=== PATIENT | female | born 1995 | race Caucasian/White ===

== ENCOUNTER 2023-04-29 11:11 | Outpatient (OUT) | payer BC, MEDICAID, SELFPAY ==
--- NOTE | 2023-04-29 11:16 | US_ITS ---
The [address] [address] Patient Name: BELLE BEAVERS MRN: [id number] date: 1995 Sex: F Assigned Patient Location: US Current Patient Location: US Accession/Order Number: [id number] Exam Date: 04/29/2023 11:15 Report Date: 04/29/2023 12:17 At the request of: FLOR COLLINS Procedure: US OB transvaginal EXAMINATION: US OB transvaginal HISTORY: MISSED MENSES COMPARISON: No relevant comparison available. FINDINGS: Perry intrauterine gestation Gestational sac: 4.92 cm, 10 weeks 4 days CRL: 4.09 cm, 9 weeks 0 days Yolk sac: 4.3 mm Heart rate: 153 bpm The cervix measures 5.1 cm in length. Tiny amount of fluid identified within the endocervical canal The uterus is normal, anteverted, anteflexed The right ovary is not visualized. The left ovary is normal Clinical age: 11 weeks 2 days Clinical YENI: 11/16/2023 Ultrasound age: 11 weeks 0 days Ultrasound YENI: 11/18/2023 US/US OB transvaginal IMPRESSION: Viable perry intrauterine gestation measuring 11 weeks 0 days Electronically authenticated by: JUDE SNELL Date: 04/29/2023 12:17
== END 2023-04-29 11:12 | disposition home or self-care (01) ==
LOC: US 11:12
PROVIDERS: PCP Obstetrics & Gynecology; Visit Provider Obstetrics & Gynecology
DX: Z34.91 Encounter for supervision of normal pregnancy, unspecified, first trimester (principal); Z3A.11 11 weeks gestation of pregnancy; N92.6 Irregular menstruation, unspecified
CPT/HCPCS: 76817

== ENCOUNTER 2023-05-04 14:24 | Outpatient (OUT) | payer BC, MEDICAID, SELFPAY ==
[2023-05-04 14:55] LABS: Estimated Average Glucose 91 mg/dL; Glycohemoglobin A1C 4.8 % (4.5-6.2)
[2023-05-04 16:07] LABS: Thyroid Stimulating Hormone 0.261 uIU/mL (0.358-3.740)
== END 2023-05-04 14:25 | disposition home or self-care (01) ==
LOC: LAB 14:26
PROVIDERS: Visit Provider Obstetrics & Gynecology
DX: N92.6 Irregular menstruation, unspecified (principal)
CPT/HCPCS: 36415; 83036; 84443

== ENCOUNTER 2023-06-15 12:40 | Outpatient (OUT) | payer BC, MEDICAID, SELFPAY ==
--- OUTSIDE RECORDS SUMMARY | 2023-06-15 12:47 | XMS_ITS | CCD ---
Author Name Unknown Address [address] [place] [address] Organization [facility] Care Team Providers Care Salesperson Books Name Role Phone NO, FAMILY PHYSICIAN Primary Care Physician Unav Hetal Beasley Rounding Physician Unavailable NO FAMILY, PHYSICIAN Primary Care Provider Unava ilELSY Garnett Emergency Provider [phone] NO FAMILY, PHYSICIAN Primary Care Provider Unava heladio Bowen ([facility])ELSY Attending Provider MinatareELSY Primary Care Provider [phone] ELSY Rome S Attending Provider ELSY Romefer S Referring Provider [phone] [place], ELSY Russonifer S Primary Care Provider Wild, ELSY Kamarafer S Attending Provider Wild, ELSY Russonifer S Referring Provider [phone] ELSY Daniels Emergency Provider Flor Giles DO Primary Care Provider Wild, ELSY Jacquelyn S Primary Care Provider [phone] Wild, ELSY Jacquelyn S Attending Provider [phone] West, Jacquelyn S Admitting Unavailable Wild, Jacquelyn S Attending Unavailable West, Jacquelyn S Primary Care Unavailable West, Jacquelyn S Referring Unavailable West, Jacquelyn S Attending Unavailable Wild, Jacquelyn S Primary Care Unavailable Wild, Jacquelyn S Admitting Unavailable Andrés ([facility])Rosa Attending Unavailjarvis Bowen ([facility])Rosa Admitting Unavailabl e NO FAMILY, PHYSICIAN Primary Care Unavailable Wild Jacquelyn Williams Primary Care Unavailable Luci Daniels Attending Unavailable Luci Daniels Admitting Unavailable FLOR GILES Attending Unavailable VAISHNAVI DURÁN Attending Unavailable ROSA BOWEN Primary Care Unavailable VAISHNAVI DURÁN Attending Unavailable VAISHNAVI DURÁN Referring Unavailable FLOR GILES Primary Care Unavailable VAISHNAVI DURÁN Referring Unavailable FLOR GILES Primary Care Unavailable Unavailable Unavailable Unavailable Allergies Allergy Classification Reported Allergen(s) Allergy Type Date of Onset Reaction(s) Facility (5 sources) ferrous sulfate; Translations: [FERROUS SULFATE] Drug Allergy 3 Unknown [facility] (5 sources) Sulfonamides (Antibiotic); Translations: [SULFA (SULFONAMIDE ANTIBIOTICS)] Propensity to adverse reactions 3 Unknown [facility] (1 source) Sulfonamides (Antibiotic) Drug allergy (disorder) 3 [facility] Repository Medications Current Medications Medication Drug Class(es) Dates Sig (Normalized) Sig (Original) [id number] 200 actuat albuterol 0.09 mg/actuat metered dose inhaler (3 sources) beta2-Adrenergic Agonist take 2 puff(s) by inhalation every four hours albuterol 90 mcg/actuation inhaler Inhale 2 puffs every 4 hours if needed. 0 Active cephalexin 500 mg oral capsule (2 sources) Cephalosporin Antibacterial Start: 03-27-2023 take 500 mg by mouth twice daily Cephalexin Active 500 MG PO Twice daily March 26, 2023 11:00pm magnesium oxide 400 mg oral tablet (4 sources) Start: 04-21-2023 End: 06-01-2024 take 1 tablet by mouth twice daily magnesium oxide (Mag-Ox) 400 mg (241.3 mg magnesium) tablet Indications: Long Q-T syndrome Take 1 tablet (400 mg) by mouth 2 times a day. 60 tablet 1 06/02/2023 06/01/2024 Active [place] (No Known Home Meds) (3 sources) Start: 03-15-2022 [place] (No Known Home Meds) Active March 15, 2022 12:00am vit37/iron/folic acid (PRENATA ORAL) (3 sources) vit37/iron/folic acid (PRENATA ORAL) Take by mouth. 0 Active Completed/Discontinued Medications Medication Drug Class(es) Dates Sig (Normalized) Sig (Original) cyclobenzaprine hydrochloride 5 mg oral tablet (8 sources) Muscle Relaxant Start: 11-01-2018 End: 03-15-2022 take 5 mg by mouth three times daily Cyclobenzaprine Discontinued 5 MG PO Three times daily 10 October 31, 2018 11:00pm March 15, 2022 1:57pm naproxen 500 mg oral tablet (8 sources) Nonsteroidal Anti-inflammatory Drug Start: 11-01-2018 End: 03-15-2022 take 1 tablet by mouth twice daily at mealtime Naproxen (Naprosyn) 500 mg tablet Discontinued 500 MG PO Twice daily October 31, 2018 11:00pm March 15, 2022 1:57pm administer with food or milk ondansetron 8 mg disintegrating oral tablet (3 sources) Serotonin-3 Receptor Antagonist Start: 03-15-2023 End: 06-02-2023 take 1 tablet by mouth every eight hours as needed ondansetron ODT (Zofran-ODT) 8 mg disintegrating tablet Take 1 tablet (8 mg) by mouth every 8 hours if needed for nausea. 0 03/15/2023 06/02/2023 Discontinued (Med List Cleanup) vit,gfay03-qqil-zbzxs (Prenatabs Rx) 29 mg iron- 1 mg tablet (3 sources) End: 06-02-2023 vit,evuv43-xpcc-quol c (Prenatabs Rx) 29 mg iron- 1 mg tablet 1 tablet once daily. 0 06/02/2023 Discontinued (Duplicate order) vit,leo y81-vtio-xngkx (Prenatabs Rx) 29 mg iron- 1 mg tablet 1 tablet once daily. 0 Active promethazine hydrochloride 25 mg rectal suppository (3 sources) Phenothiazine End: 06-02-2023 take 25 mg rectal route every six hours as needed promethazine (Phenergan) 25 mg suppository Insert 1 suppository (25 mg) into the rectum every 6 hours if needed. 0 06/02/2023 Discontinued (Therapy completed) Problems Problem Classification Problem Date Documented Date Episodic/Chronic Abdominal pain (2 sources) Unspecified abdominal pain; Translations: [Pelvic and perineal pain] Onset: 09-15-2022 Episodic Asthma (5 sources) Asthma; Translations: [Unspecified asthma, uncomplicated] Onset: 04-21-2023 04-21-2023 Chronic Cardiac and circulatory congenital anomalies (1 source) Persistent ostium secundum; Translations: [ASD (atrial septal defect), ostium secundum] Onset: 06-02-2023 06-02-2023 Chronic Conduction disorders (10 sources) Long QT syndrome; Translations: [Long QT syndrome] Onset: 04-21-2023 05-18-2023 Chronic Other aftercare (2 sources) Other correction (current) drug therapy; Translations: [Other termite control servicer (current) drug therapy] Onset: 06-02-2023 Episodic Other aftercare (2 sources) Treatment changed; Translations: [Other termite control servicer (current) drug therapy] Onset: 06-02-2023 06-02-2023 Episodic Other and delivery including normal (2 sources) Intrauterine ; Translations: [Encounter for supervision of normal , unspecified, unspecified trimester] 03-27-2023 Episodic Residual codes; unclassified (1 source) Uses contraception; Translations: [Other specified health status] 03-15-2022 Episodic Residual codes; unclassified (4 sources) Contraception ; Translations: [Other specified health status] 03-15-2022 Episodic Residual codes; unclassified (3 sources) Gestation period, 10 weeks; Translations: [10 weeks gestation of ] Onset: 04-21-2023 04-21-2023 Episodic Sprains and strains (7 sources) Low back strain; Translations: [Strain of muscle, fascia and tendon of lower back, initial encounter] 11-01-2018 Episodic Unclassified (1 source) Pain in right knee; Translations: [Pain in right knee] Onset: 02-01-2023 Urinary tract infections (2 sources) Acute cystitis; Translations: [Acute cystitis without hematuria] 03-27-2023 Episodic Results Test Name Value Interpretation Reference Range Facility TRANSTHORACIC ECHO (TTE) [facility] 05-18-2023 TRANSTHORACIC ECHO (TTE) [address], [address] [facility], [place] [address] TRANSTHORACIC ECHOCARDIOGRAM REPORT Patient Name: BELLE NAJERA Reading Physician: [id number] Makenna Jhaveri MD, [facility] Study Date: 05/18/2023 Ordering Provider: [id number] VAISHNAVI DURÁN MRN/PID: [id number] Fellow: Nurse: Date of /Age: 8 1995 / 28 years [employer] Consultant: Maya Moraes RDCS, RVT Gender: F Additional Staff: Height: 167.64 cm Admit Date: Weight: 81.65 kg Admission Status: BSA: 1.91 m2 Department Location: [facility] Blood Pressure: 128 /82 mmHg Study Type: TRANSTHORACIC ECHO (TTE) COMPLETE Diagnosis/ICD: Long QT syndrome-I45.81 Indication: Pt is 14 weeks , Former Smoker, Marijuana Use CPT Codes: Echo Complete w Full Doppler-[id number] Study Detail: The following Echo studies were performed: 2D, M-Mode, Doppler and color flow. PHYSICIAN INTERPRETATION: Left Ventricle: Left ventricular systolic function is normal, with an estimated ejection fraction of 60-65%. There are no regional wall motion abnormalities. The left ventricular cavity size is normal. Spectral Doppler shows a normal pattern of left ventricular diastolic filling. Left Atrium: The left atrium is normal in size. There is small atrial septal defect with dpyy-tm-pzksw shunt. Right Ventricle: The right ventricle is normal in size. There is normal right ventricular global systolic function. Right Atrium: The right atrium is normal in size. Aortic Valve: The aortic valve is trileaflet. There is no evidence of aortic valve regurgitation. The peak instantaneous gradient of the aortic valve is 6.0 mmHg. The mean gradient of the aortic valve is 3.0 mmHg. Mitral Valve: The mitral valve is normal in structure. There is mild mitral valve regurgitation. Tricuspid Valve: The tricuspid valve is structurally normal. There is trace tricuspid regurgitation. Pulmonic Valve: The pulmonic valve is structurally normal. There is no indication of pulmonic valve regurgitation. Pericardium: There is no pericardial effusion noted. Aorta: The aortic root is normal. Systemic Veins: The inferior vena cava appears to be of normal size. CONCLUSIONS: 1. Left ventricular systolic function is normal with a 60-65% estimated ejection fraction. 2. There is small atrial septal defect with dusc-yn-trzdd shunt. 3. Mild mitral valve regurgitation. QUANTITATIVE DATA SUMMARY: 2D MEASUREMENTS: Normal Ranges: Ao Root d: 3.10 cm (2.0-3.7cm) LAs: 2.70 cm (2.7-4.0cm) RVIDd: 2.70 cm (0.9-3.6cm) IVSd: 1.00 cm (0.6-1.1cm) LVPWd: 0.80 cm (0.6-1.1cm) LVIDd: 4.90 cm (3.9-5.9cm) LVIDs: 3.50 cm LV Mass Index: 80.0 g/m2 LV % FS 28.6 % LV SYSTOLIC FUNCTION BY 2D PLANIMETRY (MOD): Normal Ranges: EF-A4C View: 57.8 % (>=55%) LV DIASTOLIC FUNCTION: Normal Ranges: MV Peak E: 0.94 m/s (0.7-1.2 m/s) MV Peak A: 0.59 m/s (0.42-0.7 m/s) E/A Ratio: 1.58 (1.0-2.2) MV lateral e' 0.17 m/s MV medial e' 0.13 m/s E/e' Ratio: 5.40 (<8.0) MITRAL VALVE: Normal Ranges: MV Vmax: 0.90 m/s (<=1.3m/s) MV peak P.2 mmHg (<5mmHg) MV mean P.0 mmHg (<48mmHg) MITRAL INSUFFICIENCY: Normal Ranges: MR Vmax: 465.00 cm/s dP/dt: 1515 mmHg/s (>1200mmHg/sec) AORTIC VALVE: Normal Ranges: AoV Vmax: 1.22 m/s (<=1.7m/s) AoV Peak P.0 mmHg (<20mmHg) AoV Mean P.0 mmHg (1.7-11.5mmHg) LVOT Max Suleiman: 0.70 m/s (<=1.1m/s) AoV VTI: 24.60 cm (18-25cm) LVOT VTI: 14.10 cm LVOT Diameter: 2.30 cm (1.8-2.4cm) AoV Area, VTI: 2.38 cm2 (2.5-5.5cm2) AoV Area,Vmax: 2.38 cm2 (2.5-4.5cm2) AoV Dimensionless Index: 0.57 TRICUSPID VALVE/RVSP: Normal Ranges: Peak TR Velocity: 1.86 m/s RV Syst Pressure: 16.8 mmHg (< 30mmHg) PULMONIC VALVE: Normal Ranges: PV Max Suleiman: 0.7 m/s (0.6-0.9m/s) PV Max P.0 mmHg [id number] Makenna Jhaveri MD, FACC Electronically signed on 05/18/2023 at 1:24:06 PM Final Normal [facility] Heart TransthoracicOrdere d By: Makenna Jhaveri on 05-18-2023 Aortic Valve Area by Continuity of Peak Velocity 2.38 [facility] Work Phone: Aortic Valve Area by Continuity of VTI 2.38 [facility] Work Phone: AV mn grad 3.0 [facility] Work Phone: [phone] AV pk grad 6.0 [facility] Work Phone: [phone] AV pk suleiman 1.22 [facility] Work Phone: [phone] LV A4C EF 57.8 [facility] Work Phone: [phone] LVIDd 4.90 [facility] Work Phone: [phone] LVOT diam 2.30 [facility] Work Phone: [phone] MV avg E/e' ratio 5.40 [facility] Work Phone: [phone] MV E/A ratio 1.58 [facility] Work Phone: [phone] RVSP 16.8 [facility] Work Phone: [phone] [facility] Work Phone: [phone] [place] Heart Transthoracicon [address], [address] [facility], [place] [address] TRANSTHORACIC ECHOCARDIOGRAM REPORT Patient Name: BELLE NAJERA Reading Physician: [id number] Makenna Jhaveri MD, [facility] Study Date: 05/18/2023 Ordering Provider: [id number] VAISHNAVI DURÁN MRN/PID: [id number] Fellow: Nurse: Date of /Age: 8 1995 / years [employer] Consultant: Maya Moraes RDCS, RVT Gender: F Additional Staff: Height: 167.64 cm Admit Date: Weight: 81.65 kg Admission Status: BSA: 1.91 m2 Department Location: [facility] Blood Pressure: 128 /82 mmHg Study Type: TRANSTHORACIC ECHO (TTE) COMPLETE Diagnosis/ICD: Long QT syndrome-I45.81 Indication: Pt is 14 weeks , Former Smoker, Marijuana Use CPT Codes: Echo Complete w Full Doppler-[id number] Study Detail: The following Echo studies were performed: 2D, M-Mode, Doppler and color flow. PHYSICIAN INTERPRETATION: Left Ventricle: Left ventricular systolic function is normal, with an estimated ejection fraction of 60-65%. There are no regional wall motion abnormalities. The left ventricular cavity size is normal. Spectral Doppler shows a normal pattern of left ventricular diastolic filling. Left Atrium: The left atrium is normal in size. There is small atrial septal defect with fjel-td-lfdpr shunt. Right Ventricle: The right ventricle is normal in size. There is normal right ventricular global systolic function. Right Atrium: The right atrium is normal in size. Aortic Valve: The aortic valve is trileaflet. There is no evidence of aortic valve regurgitation. The peak instantaneous gradient of the aortic valve is 6.0 mmHg. The mean gradient of the aortic valve is 3.0 mmHg. Mitral Valve: The mitral valve is normal in structure. There is mild mitral valve regurgitation. Tricuspid Valve: The tricuspid valve is structurally normal. There is trace tricuspid regurgitation. Pulmonic Valve: The pulmonic valve is structurally normal. There is no indication of pulmonic valve regurgitation. Pericardium: There is no pericardial effusion noted. Aorta: The aortic root is normal. Systemic Veins: The inferior vena cava appears to be of normal size. CONCLUSIONS: 1. Left ventricular systolic function is normal with a 60-65% estimated ejection fraction. 2. There is small atrial septal defect with tcyh-lk-xgklh shunt. 3. Mild mitral valve regurgitation. QUANTITATIVE DATA SUMMARY: 2D MEASUREMENTS: Normal Ranges: Ao Root d: 3.10 cm (2.0-3.7cm) LAs: 2.70 cm (2.7-4.0cm) RVIDd: 2.70 cm (0.9-3.6cm) IVSd: 1.00 cm (0.6-1.1cm) LVPWd: 0.80 cm (0.6-1.1cm) LVIDd: 4.90 cm (3.9-5.9cm) LVIDs: 3.50 cm LV Mass Index: 80.0 g/m2 LV % FS 28.6 % LV SYSTOLIC FUNCTION BY 2D PLANIMETRY (MOD): Normal Ranges: EF-A4C View: 57.8 % (>=55%) LV DIASTOLIC FUNCTION: Normal Ranges: MV Peak E: 0.94 m/s (0.7-1.2 m/s) MV Peak A: 0.59 m/s (0.42-0.7 m/s) E/A Ratio: 1.58 (1.0-2.2) MV lateral e' 0.17 m/s MV medial e' 0.13 m/s E/e' Ratio: 5.40 (<8.0) MITRAL VALVE: Normal Ranges: MV Vmax: 0.90 m/s (<=1.3m/s) MV peak P.2 mmHg (<5mmHg) MV mean P.0 mmHg (<48mmHg) MITRAL INSUFFICIENCY: Normal Ranges: MR Vmax: 465.00 cm/s dP/dt: 1515 mmHg/s (>1200mmHg/sec) AORTIC VALVE: Normal Ranges: AoV Vmax: 1.22 m/s (<=1.7m/s) AoV Peak P.0 mmHg (<20mmHg) AoV Mean P.0 mmHg (1.7-11.5mmHg) LVOT Max Suleiman: 0.70 m/s (<=1.1m/s) AoV VTI: 24.60 cm (18-25cm) LVOT VTI: 14.10 cm LVOT Diameter: 2.30 cm (1.8-2.4cm) AoV Area, VTI: 2.38 cm2 (2.5-5.5cm2) AoV Area,Vmax: 2.38 cm2 (2.5-4.5cm2) AoV Dimensionless Index: 0.57 TRICUSPID VALVE/RVSP: Normal Ranges: Peak TR Velocity: 1.86 m/s RV Syst Pressure: 16.8 mmHg (< 30mmHg) PULMONIC VALVE: Normal Ranges: PV Max Suleiman: 0.7 m/s (0.6-0.9m/s) PV Max P.0 mmHg [id number] Makenna Jhaveri MD, [facility] Electronically signed on 05/18/2023 at 1:24:06 PM Final Makenna Hickey MD - 05/18/[address], [place] [address] TRANSTHORACIC ECHOCARDIOGRAM REPORT Patient Name: BELLE RIVEROONS Reading Physician: [id number] Makenna Jhaveri MD, [facility] Study Date: 05/18/2023 Ordering Provider: [id number] VAISHNAVI DURÁN MRN/PID: [id number] Fellow: Nurse: Date of /Age: 8 1995 / years [employer] Consultant: Maya Moraes RDCS, T Gender: F Additional Staff: Height: 167.64 cm Admit Date: Weight: 81.65 kg Admission Status: BSA: 1.91 m2 Department Location: [facility] Blood Pressure: 128 /82 mmHg Study Type: TRANSTHORACIC ECHO (TTE) COMPLETE Diagnosis/ICD: Long QT syndrome-I45.81 Indication: Pt is 14 weeks , Former Smoker, Marijuana Use CPT Codes: Echo Complete w Full Doppler-[id number] Study Detail: The following Echo studies were performed: 2D, M-Mode, Doppler and color flow. PHYSICIAN INTERPRETATION: Left Ventricle: Left ventricular systolic function is normal, with an estimated ejection fraction of 60-65%. There are no regional wall motion abnormalities. The left ventricular cavity size is normal. Spectral Doppler shows a normal pattern of left ventricular diastolic filling. Left Atrium: The left atrium is normal in size. There is small atrial septal defect with utko-sg-nhmqg shunt. Right Ventricle: The right ventricle is normal in size. There is normal right ventricular global systolic function. Right Atrium: The right atrium is normal in size. Aortic Valve: The aortic valve is trileaflet. There is no evidence of aortic valve regurgitation. The peak instantaneous gradient of the aortic valve is 6.0 mmHg. The mean gradient of the aortic valve is 3.0 mmHg. Mitral Valve: The mitral valve is normal in structure. There is mild mitral valve regurgitation. Tricuspid Valve: The tricuspid valve is structurally normal. There is trace tricuspid regurgitation. Pulmonic Valve: The pulmonic valve is structurally normal. There is no indication of pulmonic valve regurgitation. Pericardium: There is no pericardial effusion noted. Aorta: The aortic root is normal. Systemic Veins: The inferior vena cava appears to be of normal size. CONCLUSIONS: 1. Left ventricular systolic function is normal with a 60-65% estimated ejection fraction. 2. There is small atrial septal defect with hpxh-nl-puesv shunt. 3. Mild mitral valve regurgitation. QUANTITATIVE DATA SUMMARY: 2D MEASUREMENTS: Normal Ranges: Ao Root d: 3.10 cm (2.0-3.7cm) LAs: 2.70 cm (2.7-4.0cm) RVIDd: 2.70 cm (0.9-3.6cm) IVSd: 1.00 cm (0.6-1.1cm) LVPWd: 0.80 cm (0.6-1.1cm) LVIDd: 4.90 cm (3.9-5.9cm) LVIDs: 3.50 cm LV Mass Index: 80.0 g/m2 LV % FS 28.6 % LV SYSTOLIC FUNCTION BY 2D PLANIMETRY (MOD): Normal Ranges: EF-A4C View: 57.8 % (>=55%) LV DIASTOLIC FUNCTION: Normal Ranges: MV Peak E: 0.94 m/s (0.7-1.2 m/s) MV Peak A: 0.59 m/s (0.42-0.7 m/s) E/A Ratio: 1.58 (1.0-2.2) MV lateral e' 0.17 m/s MV medial e' 0.13 m/s E/e' Ratio: 5.40 (<8.0) MITRAL VALVE: Normal Ranges: MV Vmax: 0.90 m/s (<=1.3m/s) MV peak P.2 mmHg (<5mmHg) MV mean P.0 mmHg (<48mmHg) MITRAL INSUFFICIENCY: Normal Ranges: MR Vmax: 465.00 cm/s dP/dt: 1515 mmHg/s (>1200mmHg/sec) AORTIC VALVE: Normal Ranges: AoV Vmax: 1.22 m/s (<=1.7m/s) AoV Peak P.0 mmHg (<20mmHg) AoV Mean P.0 mmHg (1.7-11.5mmHg) LVOT Max Suleiman: 0.70 m/s (<=1.1m/s) AoV VTI: 24.60 cm (18-25cm) LVOT VTI: 14.10 cm LVOT Diameter: 2.30 cm (1.8-2.4cm) AoV Area, VTI: 2.38 cm2 (2.5-5.5cm2) AoV Area,Vmax: 2.38 cm2 (2.5-4.5cm2) AoV Dimensionless Index: 0.57 TRICUSPID VALVE/RVSP: Normal Ranges: Peak TR Velocity: 1.86 m/s RV Syst Pressure: 16.8 mmHg (< 30mmHg) PULMONIC VALVE: Normal Ranges: PV Max Suleiman: 0.7 m/s (0.6-0.9m/s) PV Max P.0 mmHg [id number] Makenna Jhaveri MD, [facility] Electronically signed on 05/18/2023 at 1:24:06 PM Final [facility] Work Phone: Automated erythrocytes count in urine sediment (number/area)Ordered By: Luci Daniels on 03-27-2023 RBC Auto (Urine sed) [#/Area] 1-2 [HPF] 0-4 [facility] Automated leukocytes count i n urine sediment (number/area)Ordered By: Luci Daniels on 03-27-2023 WBC Auto (Urine sed) [#/Area] 20-49 [HPF] 0-4 [facility] Bilirubin Test strip Ql (U)O rdered By: Luci Daniels on 03-27-2023 Bilirubin Ql (U) Negative Negative [facility] Color Auto (U)Ordered By: Tiffanie Saxenaepert on 03-27-2023 Color (U) Yellow Yellow [facility] Dipstick and Microscopicon 1 05-27-2022 Appearance (U) Cloudy Critically abnormal Clear [facility] Comment on above: Order Comment: Name Collection Type:: Clean-Voided Midstream Performed By: #### A DDONUAPLUS, CUU #### [facility] [address] [place] [address] [place] Bacteria,Urine 2+ High None Seen [facility] Comment on above: Order Comment: Name Collection Type:: Clean-Voided Midstream Performed By: #### A DDONUAPLUS, CUU #### [place] [address] [place] Bilirubin,Urine Negative Normal Negative [facility] Comment on above: Order Comment: Name Collection Type:: Clean-Voided Midstream Performed By: #### A DDONUAPLUS, CUU #### [place] [address] [place] Color (U) Yellow Normal Yellow [facility] Comment on above: Order Comment: Name Collection Type:: Clean-Voided Midstream Performed By: #### A DDONUAPLUS, CUU #### [facility] [address] [place] [address] [place] Glucose Ql (U) Normal Normal Normal [facility] Comment on above: Order Comment: Name Collection Type:: Clean-Voided Midstream Performed By: #### A DDONUAPLUS, CUU #### [facility] [address] [place] [address] [place] Hyaline Casts,Urine 0-8 Normal 0-8 [facility] Comment on above: Order Comment: Name Collection Type:: Clean-Voided Midstream Result Comment: PERF ORMED BY: [place] [address] PATHOLOGIST SHELL MACHINE OPERATOR ANGELIA NIETO M.D. Performed By: #### A DDONUAPLUS, CUU #### [facility] [address] [place] [address] [place] Ketones Ql (U) Negative Normal Negative [facility] Comment on above: Order Comment: Name Collection Type:: Clean-Voided Midstream Performed By: #### A DDONUAPLUS, CUU #### [address] Leukocyte esterase Test strip Ql (U) 2+ High Negative [facility] Comment on above: Order Comment: Name Collection Type:: Clean-Voided Midstream Performed By: #### A DDONUAPLUS, CUU #### [address] Nitrite,Urine Negative Normal Negative [facility] Comment on above: Order Comment: Name Collection Type:: Clean-Voided Midstream Performed By: #### A DDONUAPLUS, CUU #### [address] Occult Blood,Urine Negative Normal Negative [facility] Comment on above: Order Comment: Name Collection Type:: Clean-Voided Midstream Result Comment: PERF ORMED BY: [place] [address] PATHOLOGIST SHELL MACHINE OPERATOR ANGELIA NIETO M.D. Performed By: #### A DDONUAPLUS, CUU #### [address] pH (U) 7.0 [pH] Normal 5.0-9.0 [facility] Comment on above: Order Comment: Name Collection Type:: Clean-Voided Midstream Performed By: #### A DDONUAPLUS, CUU #### [address] Protein,Urine Negative Normal Negative [facility] Comment on above: Order Comment: Name Collection Type:: Clean-Voided Midstream Performed By: #### A DDONUAPLUS, CUU #### [address] RBC,Urine 1-2 Normal 0-4 [facility] Comment on above: Order Comment: Name Collection Type:: Clean-Voided Midstream Performed By: #### A DDONUAPLUS, CUU #### [facility] [address] [place] [address] Specificy Mcgregor,Urine 1.022 Normal 1.001-1.030 [facility] Comment on above: Order Comment: Name Collection Type:: Clean-Voided Midstream Performed By: #### A DDONUAPLUS, CUU #### [facility] [address] [place] [address] Squamous Epithelial Cell,Urine 5-9 High 0-2 [facility] Comment on above: Order Comment: Name Collection Type:: Clean-Voided Midstream Performed By: #### A DDONUAPLUS, CUU #### [address] Urobilinogen,Urine Normal Normal Normal [facility] Comment on above: Order Comment: Name Collection Type:: Clean-Voided Midstream Performed By: #### A DDONUAPLUS, CUU #### [address] WBC,Urine 20-49 High 0-4 [facility] Comment on above: Order Comment: Name Collection Type:: Clean-Voided Midstream Performed By: #### A DDONUAPLUS, CUU #### [address] HCG ( test) IA.rapi d Ql (U)Ordered By: Luci Daniels on 03-27-2023 HCG ( test) Ql (U) Positive [facility] HCG,Urineon 03-27-2023 Beta HCG ( test) Ql (U) Positive [facility] Comment on above: Result Comment: PERF ORMED BY: [place] [address] PATHOLOGIST SHELL MACHINE OPERATOR ANGELIA NIETO M.D. Performed By: #### U HCG #### [address] Ketones Auto test strip (U) [Mass/Vol]Ordered By: Luci Daniesl on 03-27-2023 Ketones (U) [Mass/Vol] Negative Negative [facility] - UrinalysisOrder ed By: Luci Daniels on 03-27-2023 Hyaline casts LM Ql (Urine sed) 0-8 [LPF] 0-8 [facility] Nitrite Test strip Ql (U)Ord ered By: Luci Daniels on 03-27-2023 Nitrite Ql (U) Negative Negative [facility] Protein Auto test strip (U) [Mass/Vol]Ordered By: Luci Daniels on 03-27-2023 Protein (U) [Mass/Vol] Negative [facility] Specific gravity Auto test s trip (U) [Rel density]Ordered By: Luci Daniels on 03-27-2023 Specific gravity (U) [Rel density] 1.022 1.001-1.030 [facility] Squamous epithelial cells de tection in urine sediment by light microscopyOrdered By: Luci Daniels on 03-27-2023 Epithelial cells.squamous LM Ql (Urine sed) 5-9 [HPF] 0-2 [facility] US OB transvaginalon 023 US OB transvaginal [facility] [address] Ultrasound Report Signed Patient: Belle Najera MR#: [id number] 73 : 1995 Acct:[id number] Age/Sex: 28 / F ADM Date: 03/27/23 Loc: ER Room: Type: [facility] ER Attending Dr: Ordering Provider: Luci Daniels APRN Date of Service: 03/27/23 US/US OB <= 14 weeks fetus: 6 weeks ; abdominal pain ([id number]) US/US OB transvaginal: abd. pain w/ Copies to: Luci Daniels APRN US OB <= 14 weeks fetus, US OB transvaginal 03/27/2023 11:08 AM SIGNS AND SYMPTOMS: 6 weeks ; abdominal pain COMPARISON: 09/15/2022 TECHNIQUE: Realtime Transvaginal and Transabdominal imaging was performed. Transvaginal imaging was utilized to better evaluate the ovaries and the endometrial stripe. Grayscale and color scale Doppler of the bilateral ovaries was performed to assess blood flow. FINDINGS: An early intrauterine is identified. The visualized yolk sac measures 0.27 cm. The visualized pole has an estimated gestational age of 6 weeks 1 day by crown-rump length which measures 3.67 mm . A heart rate is identified at 102. A subjective normal amount of amniotic fluid is present. The maurer of the gestational sac are slightly irregular/lobulated . This is of uncertain etiology. There is no evidence for placenta previa or subchorionic hemorrhage. There is a trace amount of free fluid in the cul-de-sac. There is a presumed corpus luteum cyst in the left ovary measuring 2.1 x 1.4 x 2.6 cm. The right ovary measures 2.1 x 1.0 x 1.8 cm. Left ovary measures 3.6 x 1.8 x 2.8 cm. US/US OB <= 14 weeks fetus IMPRESSION: Single live IUP with an estimated gestational age of 6w2d weeks/days (accession [id number]), 6w1d weeks/days (accession [id number]) with an estimated date of delivery of 11/18/2023 (accession [id number]), 11/19/2023 (accession [id number]) and normal heart rate. The maurer of the gestational sac are slightly irregular/lobulated . This is of uncertain etiology. There is a trace amount of free fluid in the cul-de-sac. Impression dictated by: Fuentes Tomlinson M.D.03/27/2023 11:45 AM Dictation Location: [place] [address] Tech: Radha Adarsh Transcribed By: EMEKA 03/27/23 1145 Dictated By: Fuentes Tomlinson II, MD 03/27/23 1141 Signed By: 03/27/23 1145 [facility] Urine Cultureon 03-27-2023 Bacteria identified Cx Nom (U) >100,000 colonies/ml mixed bacterial skin contaminants 2 Days PERFORMED BY: [place] [address] PATHOLOGIST SHELL MACHINE OPERATOR ANGELIA NIETO M.D. [facility] Comment on above: Performed By: #### A LILIBETH GAGNON #### [address] Urine bacteria detection by automated methodOrdered By: Luci Daniels on 03-27-2023 Bacteria Auto Ql (U) 2+ None Seen [facility] Urine clarity by refractomet ry automatedOrdered By: Luci Daniels on 03-27-2023 Clarity Refractometry automated (U) Cloudy Clear [facility] Urine culture routineOrdered By: Luci Daniels on 03-27-2023 Bacteria identified Cx Nom (U) 2 Days [facility] Urine glucose measurement by automated test strip (mass/volume)Ordered By: Luci Daniels on 03-27-2023 Glucose Auto test strip (U) [Mass/Vol] Normal mg/dL Normal [facility] Urine hemoglobin detection b y automated test stripOrdered By: Luci Daniels on 03-27-2023 Hemoglobin Auto test strip Ql (U) Negative Negative [facility] Urine leukocyte esterase det ection by automated test stripOrdered By: Luci Daniels on 03-27-2023 Leukocyte esterase Auto test strip Ql (U) 2+ Negative [facility] Urobilinogen Auto test strip (U) [Mass/Vol]Ordered By: Luci Daniels on 03-27-2023 Urobilinogen (U) [Mass/Vol] Normal mg/dL Normal [facility] pH Auto test strip (U)Ordere d By: Luci Daniels on 03-27-2023 pH (U) 7.0 [pH] 5.0-9.0 [facility] XR knee RT 4V*on 02-01-2023 XR knee RT 4V* [facility] Main [place] [address] [id number] XRay Report Signed Patient: Belle Najera MR#: [id number] 73 : 1995 Acct:[id number] Age/Sex: 28 / F ADM Date: 02/01/23 Loc: XD Room: Type: [facility] Attending Dr: Jacquelyn Rome APRN Copies to: Jacquelyn Rome APRN Ordering Provider: Jacquelyn Rome APRN Date of Service: 02/01/23 XR/XR knee RT 4V*: M25.561 RIGHT KNEE - 4 views COMPARISON: None CLINICAL DATA: Chronic right knee pain. No injury. AP, lateral and both oblique views were obtained. No fracture or dislocation is identified. There is no disproportionate joint space narrowing or hypertrophy. There is no sizable knee effusion or focal soft tissue swelling. XR/XR knee RT 4V* IMPRESSION: NO ACUTE BONY FINDINGS. Impression dictated by: Fartun Villa M.D.02/01/2023 4:33 PM Dictation Location: [facility] Transcribed By: [facility] 02/01/23 163 Dictated By: Fartun Villa MD 02/01/23 163 Signed By: 02/01/23 1633 Normal [facility] US transvaginalon 09-15-2022 US transvaginal [facility] [address] [place] [address] [place] [address] Ultrasound Report Signed Patient: Belle Najera MR#: [id number] 73 : 1995 Acct:[id number] Age/Sex: 27 / F ADM Date: 09/15/22 Loc: Room: Type: [facility] Attending Dr: Rosa Bowen ([facility]) ELSY Ordering Provider: Rosa Bowen APRN, WHCNP Date of Service: 09/15/22 US/US pelvic complete: R10.2 ([id number]) US/US transvaginal: R10.2 Copies to: Rosa Bowen APRN, WHCNP COMPLETE PELVIC ULTRASOUND (transabdominal and transvaginal) CLINICAL DATA: Pelvic pain on the left and irregular menses. COMPARISON: None Real-time ultrasound evaluation of the pelvis was performed utilizing both a transabdominal and transvaginal approach. TRANSABDOMINAL: The urinary bladder is empty and the uterus is anteverted. There are no obvious focal myometrial abnormalities or thickening of the endometrial lining. Both ovaries are identified. Cursory evaluation of the kidneys shows no hydronephrosis or perinephric fluid. TRANSVAGINAL: Transvaginal imaging was performed to better evaluate the uterus and adnexa. By this approach, estimated uterine size is approximately 8.7 x 3.2 x 3.9 cm. No focal myometrial abnormalities are identified. The endometrial lining is estimated at 2 mm. Both ovaries are again seen. The right ovary measures 2.0 x 0.9 x 1.6 cm. The left ovary measures 3.5 x 2.1 x 2.8 cm. It contains a cyst that measures 3.0 x 1.6 x 2.5 cm. There is documentation of bilateral duplex and color Doppler ovarian blood flow. No free fluid is seen. US/US pelvic complete IMPRESSION: 3 CM LEFT OVARIAN CYST. Impression dictated by: Fartun Villa M.D.09/15/2022 6:21 PM Dictation Location: [place] [address] Tech: Alexia Johnson Transcribed By: EMEKA 09/15/221820 Dictated By: Fartun Villa MD 09/15/221816 Signed By: 09/15/221820 [facility] Coding Summary.on 02-22-2019 Coding Summary. CODING DATE: 02/22/2019 [facility] STATUS: Home (Routine DC) PAYOR: Self Pay ADMIT DX: REASON FOR VISIT DX: Z01.419 Encounter for gynecological examination (general) (routine) without abnormal findings FINAL DX: PRINCIPAL: Z01.419 Encounter for gynecological examination (general) (routine) without abnormal findings SECONDARY: Z11.3 Encounter for screening for infections with a predominantly sexual mode of transmission Z11.51 Encounter for screening for human papillomavirus (HPV) PROCEDURES DOCTOR NAME DATE NOTE: The code number assigned matches the documented diagnosis and / or procedure in the patient's chart. However, the narrative phrase printed from the coding software may appear abbreviated, or result in slightly different terminology. Coded By: Cari Soliman Date Saved: 02/22/2019 05:33 pm [facility] Vital Signs Date Time Vital Sign Value Performing Clinician Facility 06-02-2023 09:39-0500 Body height 167.6 cm Vaishnavi Durán MD Work Phone: [facility] 06-02-2023 09:39-0500 Body mass index (BMI) [Ratio] 30.34 kg/m2 Vaishnavi Durán MD Work Phone: [facility] 06-02-2023 09:39-0500 Body weight 85.28 kg Vaishnavi Durán MD Work Phone: [facility] 06-02-2023 09:39-0500 Diastolic blood pressure 60 mm[Hg] Vaishnavi Durán MD Work Phone: [facility] 06-02-2023 09:39-0500 Heart rate 60 /min Vaishnavi Durán MD Work Phone: [facility] 06-02-2023 09:39-0500 Systolic blood pressure 100 mm[Hg] Vaishnavi Durán MD Work Phone: [facility] 05-18-2023 09:33-0500 Body height 167.[address] 05-18-2023 09:33-0500 Body mass index (BMI) [Ratio] 29.05 kg/m2 [address] 05-18-2023 09:33-0500 Body weight 81.[address] 05-18-2023 09:33-0500 Diastolic blood pressure 82 mm[Hg] [address] 05-18-2023 09:33-0500 Systolic blood pressure 128 mm[Hg] [address] 03-27-2023 08:51-0500 Body temperature 98.5 [degF] ELSY Rome Work Phone: [facility] 03-27-2023 08:51-0500 Diastolic blood pressure 69 mm[Hg] ELSY Rome Work Phone: [facility] 03-27-2023 08:51-0500 Heart rate 82 /min ELSY Rome Work Phone: [facility] 03-27-2023 08:51-0500 Respiratory rate 18 /min ELSY Rome Work Phone: [facility] 03-27-2023 08:51-0500 SaO2% (BldA) [Mass fraction] 100 % ELSY Rome Work Phone: [facility] 03-27-2023 08:51-0500 Systolic blood pressure 111 mm[Hg] ELSY Rome Work Phone: [facility] 03-27-2023 08:50-0500 Body height 171.45 cm ELSY Rome Work Phone: [facility] 03-27-2023 08:50-0500 Body weight 80 kg ELSY Rome Work Phone: [facility] 03-15-2022 14:55-0400 Body height 170.18 cm PHYSICIAN [facility] 03-15-2022 14:55-0400 Body temperature 98.6 [degF] PHYSICIAN [facility] 03-15-2022 14:55-0400 Body weight 72.95 kg PHYSICIAN [facility] 03-15-2022 14:55-0400 Diastolic blood pressure 77 mm[Hg] PHYSICIAN NO [facility] 03-15-2022 14:55-0400 Heart rate 80 /min PHYSICIAN [facility] 03-15-2022 14:55-0400 Respiratory rate 14 /min PHYSICIAN [facility] 03-15-2022 14:55-0400 SaO2% (BldA) [Mass fraction] 99 % PHYSICIAN [facility] 03-15-2022 14:55-0400 Systolic blood pressure 133 mm[Hg] PHYSICIAN [facility] 11-01-2018 23:15-0400 Body Temperature 97.5 [degF] [facility] 11-01-2018 23:15-0400 BP Diastolic 80 mm[Hg] [facility] 11-01-2018 23:15-0400 BP Systolic 123 mm[Hg] [facility] 11-01-2018 23:15-0400 Pulse (Heart Rate) 84 /min [facility] 11-01-2018 23:15-0400 Pulse Oximetry 96 % [facility] 11-01-2018 23:15-0400 Respiratory Rate 18 /min FAMILY [facility] Weight FAMILY [facility] NEGATED: Highlighted row BMI (Body Mass Index) [facility] NEGATED: Highlighted row Height [facility] Encounters Encounter Date Encounter Type Care Provider Facility Start: 06-02-2023 End: 06-02-2023 ambulatory FLOR GILES Not Available Start: 06-02-2023 End: 06-02-2023 ambulatory [facility] Ambulatory Start: 06-02-2023 End: 06-02-2023 Office outpatient visit 15 minutes Vaishnavi Durán MD Work Phone: [facility] Comment on above: Long Q-T syndrome; Medication course changed Start: 05-18-2023 End: 05-19-2023 ambulatory [facility] Start: 05-18-2023 End: 05-18-2023 Subsequent hospital visit by physician Stephanie Jean Echo/Vasc Room 2 [facility] Comment on above: Long Q-T syndrome Start: 04-29-2023 End: 04-29-2023 ambulatory FLOR GILES Not Available Start: 04-21-2023 End: 04-21-2023 ambulatory [facility] Ambulatory Start: 03-27-2023 End: 03-27-2023 Emergency department patient visit Jacquelyn Williams Rome Facility:[facility] Start: 03-27-2023 End: 03-27-2023 Emergency department patient visit ELSY Jacquelyn Wild Work Phone: [facility] Work Phone: Start: 03-15-2023 End: 03-15-2023 ambulatory Jacquelyn Rome Facility:[facility] Start: 03-15-2023 End: 03-15-2023 ambulatory ELSY Rome Work Phone: [facility] Work Phone: Start: 03-15-2023 End: 03-15-2023 Discharged Recurring ELSY Rome Work Phone: [facility] [place] Start: 03-15-2023 Registered Recurring INVESTIGATOR VICECatina Rome Work Phone: [facility] [place] Start: 02-01-2023 Registered Recurring INVESTIGATOR VICECatina Rome Work Phone: [facility] [place] Start: 02-01-2023 End: 02-01-2023 ambulatory Jacquelyn Rome Facility:[facility] Start: 02-01-2023 End: 02-01-2023 ambulatory ELSY Rome Work Phone: [facility] Work Phone: Start: 02-01-2023 End: 02-01-2023 Patient encounter procedure ELSY Rome Work Phone: [facility] [address] [place] Work Phone: Start: 09-15-2022 End: 09-15-2022 ambulatory Rosa Bowen ([facility]) Facility:[facility] Start: 09-15-2022 End: 09-15-2022 ambulatory PHYSICIAN NO [facility] Work Phone: Start: 09-15-2022 End: 09-15-2022 Patient encounter procedure PHYSICIAN NO [facility] [place] Work Phone: Start: 03-15-2022 End: 03-15-2022 Emergency department patient visit PHYSICIAN NO [facility] Start: 11-01-2018 End: 11-02-2018 Emergency department patient visit FAMILY [facility] Procedures Date Procedure Procedure Detail Performing Clinician Start: 06-02-2023 FOLLOW UP IN CARDIOLOGY VAISHNAVI DURÁN Start: 06-02-2023 ECG 12-LEAD VAISHNAVI SANCHEZ Start: 05-18-2023 TRANSTHORACIC ECHO ( TTE) COMPLETE VAISHNAVI DURÁN Start: 05-18-2023 Echo tthrc r-t 2d w/ wom-mode compl spec&colr d Vaishnavi Durán MD Work Phone: Start: 04-21-2023 ECG 12-LEAD VAISHNAVI VILLALTA LAURA Start: 03-27-2023 Urine culture INVESTIGATOR VICE Dana cooley [place] Work Phone: Start: 03-27-2023 Diagnostic ultrasoun d of gravid uterus INVESTIGATOR VICECatina Valladares [place] Work Phone: Start: 03-27-2023 Transvaginal obstetr ic ultrasonography ELSY Jacquelyn [place] Work Phone: Start: 02-01-2023 X-ray of right knee APR Catina Jacquelyn [place] Work Phone: Start: 09-15-2022 Pelvic echography PHYSI AYAD NO FAMILY Start: 09-15-2022 Transvaginal echography PHYSICIAN NO FAMILY Plan of Treatment Date Care Activity Detail Author Start: 2047 Zoster Vaccines (1 of 2) Zoste r Vaccines (1 of 2) [facility] Start: 08-08-2023 End: 08-08-2023 Patient encounter procedure 08/08/2023 10:15 AM EDT Office Visit [facility] [address] [facility] [address] [place] [address] Vaishnavi Durán MD [address] [facility] [address] [place] [address] [facility] Start: 06-02-2023 End: 06-02-2024 Basic metabolic 2000 panel - Serum or Plasma Basic Metabolic Panel Lab Routine Long Q-T syndrome Expected: 06/02/2023 (Approximate), Expires: 06/02/2024 [facility] Service Area Work Phone: Comment on above: Expected: 06/02/2023 (Approximate), Expires: 06/02/2024 Start: 06-02-2023 End: 06-02-2023 Patient encounter procedure 06/02/2023 9:30 AM EST Office Visit [facility] [address] [place] [address] Vaishnavi Durán MD [address] [facility] [address] [place] [address] [facility] Start: 03-27-2023 Bacteria identified in Urine by Culture [facility] Start: 03-12-2023 HPV Vaccines (3 - 3- dose series) HPV Vaccines (3 - 3-dose series) [facility] Start: 01-21-2023 Influenza vaccination Influenz a Vaccine (#1) [facility] Start: 03-28-2021 COVID-19 Vaccine (3 - Pfizer series) COVID-19 Vaccine (3 - Pfizer series) [facility] Start: 01-08-2020 DTaP/Tdap/Td Vaccine s (7 - Td or Tdap) DTaP/Tdap/Td Vaccines (7 - Td or Tdap) [facility] Start: 2018 Screening for malign ant neoplasm of cervix [facility] Start: 2015 Hepatitis C screening Hepatitis C Sc [facility] Start: 09-11-2002 Varicella vaccination Varicell a Vaccines (2 of 2 - 2-dose childhood series) [facility] Start: 1997 HIV screening HIV Screening [facility] Start: 1997 Lipid panel Lipid Panel [facility] Start: 1997 Yearly Adult Physical Yearly Adult P hysical [facility] Patient Education [facility] Patient referral [facility] Work Phone: Immunizations Immunization Date Immunization Notes Care Provider Fa cility 11-10-2022 Human Papillomavirus 9-valent vaccine [address] Work Phone: 11-10-2022 HPV, unspecified formulation [address] Work Phone: 09-07-2022 Human Papillomavirus 9-valent vaccine [address] Work Phone: 06-04-2011 influenza virus vacc ine, whole virus [address] Work Phone: 06-04-2011 influenza virus vacc ine, unspecified formulation [address] Work Phone: 01-07-2010 tetanus toxoid, redu yolanda diphtheria toxoid, and acellular pertussis vaccine, adsorbed [address] Work Phone: 08-14-2002 diphtheria, tetanus toxoids and acellular pertussis vaccine, unspecified formulation [address] Work Phone: 08-14-2002 measles, mumps and r ubella virus vaccine [address] Work Phone: 08-14-2002 poliovirus vaccine, inactivated [address] Work Phone: 04-30-1998 diphtheria, tetanus toxoids and acellular pertussis vaccine, unspecified formulation [address] Work Phone: 04-30-1998 haemophilus influenz ae type b vaccine, PRP-OMP conjugate [address] Work Phone: 04-30-1998 measles, mumps and r ubella virus vaccine [address] Work Phone: 04-30-1998 trivalent poliovirus vaccine, live, oral [address] Work Phone: 04-30-1998 varicella virus vaccine [address] Work Phone: 1995 diphtheria, tetanus toxoids and acellular pertussis vaccine, unspecified formulation [address] Work Phone: 1995 haemophilus influenz ae type b conjugate and Hepatitis B vaccine [address] Work Phone: 1995 diphtheria, tetanus toxoids and acellular pertussis vaccine, unspecified formulation [address] Work Phone: 1995 haemophilus influenz ae type b vaccine, HbOC conjugate [address] Work Phone: 1995 poliovirus vaccine, inactivated [address] Work Phone: 1995 diphtheria, tetanus toxoids and acellular pertussis vaccine, unspecified formulation [address] Work Phone: 1995 haemophilus influenz ae type b conjugate and Hepatitis B vaccine [address] Work Phone: 1995 poliovirus vaccine, inactivated [address] Work Phone: 1997 hepatitis B vaccine, pediatric or pediatric/adolescent dosage [address] Work Phone: Payers Date Payer Category Payer Medicaid [id number] 2023 Medicaid [id number] 2022 Self-pay 2021 Unknown [id number] 2021 Unknown TAMIA CANTRELL P [id number] 2021-Present [address] [place] [address] [id number] 1995 Unknown [id number] 1997 Unknown [id number] 1997 Unknown [id number] 1997 Unknown [id number] 1997 Unknown [id number] Private Health Insurance [id number] Unknown [id number] 31 Unknown [id number] 31 Unknown [id number] 31 Unknown [id number] 31 Social History Date Type Detail Facility Tobacco smoking stat [facility] Unknown if ever smoked [facility] Start: 1995 Sex Assigned At Female F [facility] Start: 03-15-2022 End: 03-27-2023 Tobacco smoking status NHIS Smoker (finding) [facility] Start: 04-21-2023 [facility] Work Phone: End: 02-20-2023 History of tobacco use Cigarette Smoker [facility] Work Phone: Start: 04-21-2023 End: 06-02-2023 Cigarettes smoked current (pack per day) - Reported 1 [facility] Work Phone: Start: 04-21-2023 Tobacco use and exposure Former smokeless tobacco user [facility] Work Phone: End: 02-20-2023 History of tobacco use User of smokeless tobacco [facility] Work Phone: Start: 04-21-2023 End: 06-02-2023 Alcohol intake Ex-drinker (finding) [facility] Work Phone: Start: 04-21-2023 End: 06-02-2023 Tobacco use panel [facility] Work Phone: Start: 04-21-2023 Tobacco Comment Vaping [facility] Work Phone: Start: 1995 Sex Assigned At Not on file [facility] Work Phone: Start: 05-08-2023 End: 06-02-2023 Exposure to SARS-CoV-2 (event) Not sure [facility] Goals Date Patient Goal Desired Activity /State History of Present illness Narrative 06-02-2023 Vaishnavi Durán MD - 06/02/2023 9:30 AM EST Note Date & Type Note Facility 06-02-2023 History of Present illness Narrative Patient was seen on 04/21/2023 and presents for follow-up after testing. Subjective : Patient presents for follow-up after echocardiogram. She stopped taking magnesium oxide, she thought the magnesium oxide was to help her with nausea, and as there was no improvement she stopped. She is also off Zofran. Her is proceeding well. Her blood pressure today is 100/60. She denies palpitations. History so Far : Belle Najera is a 28 y.o. 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 Nausea is a predominant symptom, occasional hollow feeling in chest, no palpitations lightheadedness presyncope or syncope. Most women on father side of the family have long QT. Medications were reviewed, on ondansetron 8 mg as needed, using infrequently, finding it difficult to keep the medication down because of nausea and vomiting. Occasionally lightheaded with sudden changes in posture. Her long QT was diagnosed apparently at or had a very young age, and she was following up with cardiology every 6 months. She used to wear an Apple Watch however her heart rate would sometimes go above 100 when she was not active. Sometimes when she was asleep her heart rate would be 30. Objective Wt Readings from Last 3 Encounters: 06/02/23 85.3 kg (188 lb) 05/18/23 81.6 kg (180 lb) 04/21/23 81.6 kg (180 lb) Visit Vitals BP 100/60 (BP Location: Left arm, Patient Position: Sitting) Pulse 60 Ht 1.676 m (5' 6 ) Wt 85.3 kg (188 lb) BMI 30.34 kg/m OB Status Smoking Status Former BSA 1.99 m Physical Exam: Awake alert oriented x 3, lungs are clear heart sounds are regular, no peripheral edema. She is in the second trimester of her . Meds: Current Outpatient Medications Medication Instructions albuterol 90 mcg/actuation inhaler 2 puffs, inhalation, Every 4 hours PRN vit37/iron/folic acid (PRENATA ORAL) oral Allergies Allergen Reactions Sulfa (Sulfonamide Antibiotics) Unknown Ferrous Sulfate Unknown ECHO 05/18/23 : CONCLUSIONS: 1. Left ventricular systolic function is normal with a 60-65% estimated ejection fraction. 2. There is small atrial septal defect with [id number] shunt. 3. Mild mitral valve regurgitation. QUANTITATIVE DATA SUMMARY: 2D MEASUREMENTS: Normal Ranges: Ao Root d: 3.10 cm (2.0-3.7cm) LAs: 2.70 cm (2.7-4.0cm) RVIDd: 2.70 cm (0.9-3.6cm) IVSd: 1.00 cm (0.6-1.1cm) LVPWd: 0.80 cm (0.6-1.1cm) LVIDd: 4.90 cm (3.9-5.9cm) LVIDs: 3.50 cm LV Mass Index: 80.0 g/m2 LV % FS 28.6 % LABS: No results found for: WBC , HGB , HCT , PLT , CHOL , TRIG , HDL , LDLDIRECT , ALT , AST , NA , K , CL , CREATININE , BUN , CO2 , TSH , PSA , INR , GLUF , HGBA1C , ALBUR Problem List: Patient Active Problem List Diagnosis Date Noted Medication course changed 06/02/2023 Long Q-T syndrome 04/21/2023 Asthma 04/21/2023 10 weeks gestation of 04/21/2023 Reviewed echo results with her. Told her that magnesium oxide is not for nausea, and she should take it if she is able to. I will see her back in 6 weeks At next visit we will do another EKG. Basic metabolic profile near future, aim to keep potassium greater than 4. Follow up : 6 weeks. Provider Attestation - Scribe documentation All medical record entries made by the Scribe were at my direction and personally dictated by me. I have reviewed the chart and agree that the record accurately reflects my personal performance of the history, physical exam, discussion and plan. Vaishnavi Durán MD documented in this encounter [facility] Work Phone: Instructions 06-02-2023 Patient Instructions Note Date & Type Note Facility 06-02-2023 Instructions Mounika Dean CMA - 06/02/2023 9:30 AM EST Please bring all medicines, vitamins, and herbal supplements with you when you come to the office. Prescriptions will not be filled unless you are compliant with your follow up appointments or have a follow up appointment scheduled as per instruction of your physician. Refills should be requested at the time of your visit. documented in this encounter [facility] Work Phone: Evaluation note Note Date & Type Note Facility Evaluation note No assessment information availa [facility] Work Phone: Evaluation note Note Date & Type Note Facility Evaluation note Diagnosis Long Q-T syndrome Long QT syndrome documented in this encounter [facility] Work Phone: Evaluation note Note Date & Type Note Facility Evaluation note Diagnosis Long Q-T syndrome Long QT syndrome Medication course changed documented in this encounter [facility] Work Phone: Hospital Discharge instructions Note Date & Type Note Facility Hospital Discharge instructions Additional Instructions 1. Push fluids today and tomorrow 2. No lifting, pushing or pulling today 3. Call OB office tomorrow to schedule follow up appointment [facility] Work Phone: Reason for referral (narrative) Consultation (Routine) - Authorized Note Date & Type Note Facility Reason for referral (narrati ve) Specialty Diagnoses / Procedures Referred By Ruslan kaye Referred To Contact Cardiology Diagnoses Long Q-T syndrome Procedures Follow Up In Cardiology Vaishnavi Durán MD [address] [address] Vaishnavi Durán MD 254 [facility] [address] [place] [address] Referral ID Status Reason Start Date Expiration Date V isits Requested Visits Authorized [id number] Authorized 06/02/2023 06/01/2024 1 1 [facility] Work Phone: Chief Complaint and Reason for Visit Encounter Admit Date Chief Complaint Reason for V isit Departed Emergency November 01, 2018 8:54pm Lower Back/Rt Leg Pain- NKI Chief Complaint lt arm pain,nki Chief Complaint pelvic pain Chief Complaint M25.561 R Knee Pain Chief Complaint M25.561 R Knee Pain abd pain 6 weeks iup Chief Complaint R Knee Pain abd pain 6 weeks iup Discharge Instructions Additional Discharge Instructions GENTLE STRETCHING WILL HELP PREVENT PAIN, DO NOT STAY IN ANY ONE POSITION TOO LONG APPLY ICE PACKS 20 MINUTES ON/20 MINUTES OFF SEVERAL TIMES A DAY NO HEAVY LIFTING Instruction/Education Provided Low Back Strain (ED) Summary Purpose Family History No Family History Records FoundNo Family History Records FoundNo Family History Records FoundNo Family History Records FoundNo Family History Records Found Advance Directives No Advanced Directives Records Found Advance Directive Response Recorded Date/ Time Advance Directives No November 01 9:31pm Advance Directive Response Recorded Date/ Time Advance Directives No November 01 8:31pm Assessments No Assessments Information AvailableNo Assessments Information Available Reason for Referral Specialty Diagnoses / Procedures Referred By Ruslan kaye Referred To Contact Cardiology Diagnoses Long Q-T syndrome Procedures Transthoracic Echo (TTE) Complete SD ECHO TRANSTHORC R-T 2D W/WO M-MODE REC F-UP/LMTD SD DOP ECHOCARD COLOR FLOW VELOCITY MAPPING SD DOP ECHOCARD PULSE WAVE W/SPECTRAL F-UP/LMTD STD Vaishnavi Durán MD [address] [facility] [address] [place] [address] Referral ID Status Reason Start Date Expiration Date Visits Requested Visits Authorized [id number] Authorized Perform Procedure 3 04/20/2024 1 1 Additional Source Comments INFORMATION SOURCE (unrecogn ized section and content) DATE CREATED AUTHOR 02/23/2019 Herrera Andrea [facility] DATE CREATED AUTHOR AUTHOR'S ORGANIZ ATION 05/26/2023 [facility] DATE CREATED AUTHOR AUTHOR'S ORGANIZ ATION 06/03/[address] [facility] EPIC DATE CREATED AUTHOR AUTHOR'S ORGANIZ ATION 06/05/2023 [facility] DATE CREATED AUTHOR AUTHOR'S ORGANIZ ATION 06/09/2023 [facility] Care Teams (unrecognized sec tion and content) Team Status: Inactive Member Role Status Dates PHYSICIAN NO FAMILY Primary Care Provider Active Abdi Arzola APRN Emergency Provider Active Team Status: Active Member Role Status Dates PHYSICIAN NO FAMILY Primary Care Provider Active Team Status: Inactive Member Role Status Dates PHYSICIAN NO FAMILY Primary Care Provider Active Rosa Bowen ([facility]) , INVESTIGATOR VICE Attending Provider Active Team Status: Active Member Role Status Dates Jacquelyn Rome APRN Primary Care Provider Active Team Status: Inactive Member Role Status Dates Jacquelyn Rome APRN Primary Care Provider, Attendin g Provider Active Team Status: Active Member Role Status Dates Jacquelyn Rome APRN Primary Care Prov ider, Attending Provider, Referring Provider Active Team Status: Inactive Member Role Status Dates Jacquelyn Rome APRN Primary Care Provider Active Luci Daniels APRN Emergency Provider 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 Start Date End Date Flor Giles DO [address] [facility] [address], [place] [id number] PCP - General Obstetrics and Gynecology 05/18/23 Team Status: Inactive Member Role Status Dates Jacquelyn Rome APRN Primary Care Prov ider, Attending Provider, Referring Provider 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 Start Date End Date Flor Giles DO [address] [facility] [address], [place] [address] PCP - General Obstetrics and Gynecology 05/18/23 Goals (unrecognized section and content) Goals may be documented in a n alternate sectionGoals may be documented in an alternate sectionGoals may be documented in an alternate sectionGoals may be documented in an alternate sectionGoals may be documented in an alternate section Reason for Visit (unrecogniz ed section and content) Specialty Diagnoses / Procedures Referred By Contac t Referred To Contact Cardiology Diagnoses Long Q-T syndrome Procedures Transthoracic Echo (TTE) Complete SD ECHO TRANSTHORC R-T 2D W/WO M-MODE REC F-UP/LMTD SD DOP ECHOCARD COLOR FLOW VELOCITY MAPPING SD DOP ECHOCARD PULSE WAVE W/SPECTRAL F-UP/LMTD STD Vaishnavi Durán MD [address] [place] [id number] Referral ID Status Reason Start Date Expiration Date Visits Requested Visits Authorized [id number] Authorized Perform Procedure 04/20/2024 1 1 Reason Comments Follow-up Echo results Specialty Diagnoses / Procedures Referred By Ruslan akye Referred To Contact Cardiology Diagnoses Long Q-T syndrome Procedures Follow Up In Cardiology Vaishnavi Durán MD [address] [place] [id number] Vaishnavi Durán MD [address] [place] [id number] Referral ID Status Reason Start Date Expiration Date V isits Requested Visits Authorized [id number] Authorized 04/21/2023 04/20/2024 1 1 FOR RECORDS PERTAINING TO PATIENTS WHO ARE OR HAVE BEEN ENROLLED IN A CHEMICAL DEPENDENCY/SUBSTANCEABUSE PROGRAM, SOME INFORMATION MAY BE OMITTED. This clinical summary was aggregated from multiple sources. Caution should be exercised in using it in the provision of clinical care. This summary normalizes information from multiple sources, and as a consequence, information in this document may materially change the coding, format and clinical context of patient data. In addition, data may be omitted in some cases. CLINICAL DECISIONS SHOULD BE BASED ON THE PRIMARY CLINICAL RECORDS. [employer] provides no warranty or guarantee of the accuracy or completeness of information in this document.
[2023-06-21 16:09] LABS: AFP Value 40.6 ng/mL (.); Gest. Age on Collection Date 17.9 weeks (.); Gestat. Age Based On Ultrasound (.); Insulin Dep Diabetes No (.); Maternal Age At EDD 26.8 yr (.); OSBR Risk 1 IN See interpretation. (.); Results Report (.)
== END 2023-06-15 12:41 | disposition home or self-care (01) ==
LOC: LAB 12:43
PROVIDERS: Visit Provider Obstetrics & Gynecology
DX: Z34.92 Encounter for supervision of normal pregnancy, unspecified, second trimester (principal)
CPT/HCPCS: 36415; 82105

== ENCOUNTER 2023-06-15 12:46 | Outpatient (OUT) | payer BC, MEDICAID, SELFPAY ==
--- OUTSIDE RECORDS SUMMARY | 2023-06-15 12:55 | XMS_ITS | CCD ---
Author Name Unknown Address [address] [place] [address] Organization [facility] Care Team Providers Care Take Out Waiter/Waitress Name Role Phone NO, FAMILY PHYSICIAN Primary Care Physician Unav Hetal Beasley Rounding Physician Unavailable NO FAMILY, PHYSICIAN Primary Care Provider Unava ilELSY Garnett Emergency Provider [phone] NO FAMILY, PHYSICIAN Primary Care Provider Unava heladio Bowen ([facility])ELSY Attending Provider [phone] WinfieldELSY Primary Care Provider ELSY Rome S Attending Provider [phone] ELSY Romefer S Referring Provider [phone] Winfield, ELSY Russonifer S Primary Care Provider Wild, ELSY Kamarafer S Attending Provider Wild, ELSY Russonifer S Referring Provider [phone] ELSY Daniels Emergency Provider Flor Giles DO Primary Care Provider Wild, ELSY Jacquelyn S Primary Care Provider [phone] Wild, ELSY Jacquelyn S Attending Provider [phone] West, Jacquelyn S Admitting Unavailable Wild, Jacquelyn S Attending Unavailable West, Jacquelyn S Primary Care Unavailable West, Jacquelyn S Referring Unavailable West, Jacquelyn S Attending Unavailable Wild, Jacquelyn S Primary Care Unavailable Wild, Jacquelyn S Admitting Unavailable Andrés ([facility])Rosa Attending Unavailjarvis Bowen ([facility])Rosa Admitting Unavailabl e NO FAMILY, PHYSICIAN [...] Translations: [FERROUS SULFATE] Drug Allergy 3 Unknown [facility] (5 sources) Sulfonamides (Antibiotic); Translations: [SULFA (SULFONAMIDE ANTIBIOTICS)] Propensity to adverse reactions 3 Unknown [facility] (1 source) Sulfonamides (Antibiotic) Drug allergy (disorder) 3 [facility] Repository Medications Current Medications Medication Drug Class(es) Dates Sig (Normalized) Sig (Original) [id number] 200 actuat albuterol 0.09 mg/actuat metered dose [...] day. 60 tablet 1 06/02/2023 06/01/2024 Active [facility] (No Known Home Meds) (3 sources) Start: 03-15-2022 [facility] (No Known Home Meds) Active March 15, [...] 0 03/15/2023 06/02/2023 Discontinued (Med List Cleanup) vit,qpkd62-mkbn-bblpg (Prenatabs Rx) 29 mg iron- 1 mg tablet (3 sources) End: 06-02-2023 vit,efls99-ggyq-pnfv c (Prenatabs Rx) 29 mg iron- 1 mg tablet 1 tablet once daily. 0 06/02/2023 Discontinued (Duplicate order) vit,leo a19-kpjd-aygza (Prenatabs Rx) 29 mg iron- 1 mg [...] 05-18-2023 Chronic Other aftercare (2 sources) Other chcf (current) drug therapy; Translations: [Other parts counterman (current) drug therapy] Onset: 06-02-2023 Episodic Other aftercare (2 sources) Treatment changed; Translations: [Other parts counterman (current) drug therapy] Onset: 06-02-2023 06-02-2023 Episodic [...] Interpretation Reference Range Facility TRANSTHORACIC ECHO (TTE) [facility] 05-18-2023 TRANSTHORACIC ECHO (TTE) [address], Suite [facility], [place] [address] TRANSTHORACIC ECHOCARDIOGRAM REPORT Patient Name: BELLE NAJERA Reading Physician: [id number] Makenna Jhaveri MD, [facility] Study Date: 05/18/2023 Ordering Provider: [id number] VAISHNAVI DURÁN MRN/PID: [id number] Fellow: Nurse: Date of /Age: 8 1995 / 28 years [employer] Other Ranks: Maya Moraes RDCS, RVT Gender: F Additional Staff: Height: 167.64 cm Admit Date: Weight: 81.65 kg Admission Status: BSA: 1.91 m2 Department Location: [facility] Blood Pressure: 128 /82 mmHg Study Type: TRANSTHORACIC ECHO (TTE) COMPLETE Diagnosis/ICD: Long QT syndrome-I45.81 Indication: Pt is 14 weeks , Former Smoker, Marijuana Use CPT Codes: Echo Complete w Full Doppler-89000 Study Detail: The following Echo studies were [...] There is small atrial septal defect with vkeu-cp-fjanv shunt. Right Ventricle: The right ventricle is [...] There is small atrial septal defect with lzyo-ca-ykeug shunt. 3. Mild mitral valve regurgitation. QUANTITATIVE [...] 0.7 m/s (0.6-0.9m/s) PV Max P.0 mmHg [id number] Makenna Jhaveri MD, FACC Electronically signed on 05/18/2023 at 1:24:06 PM Final Normal [facility] Heart TransthoracicOrdere d By: Makenna Jhaveri on 05-18-2023 Aortic Valve Area by Continuity of Peak Velocity 2.38 [facility] Work Phone: Aortic Valve Area by Continuity of VTI 2.38 [facility] Work Phone: AV mn grad 3.0 [facility] Work Phone: [phone] AV pk grad 6.0 [facility] Work Phone: [phone] AV pk suleiman 1.22 [facility] Work Phone: [phone] LV A4C EF 57.8 [facility] Work Phone: [phone] LVIDd 4.90 [facility] Work Phone: [phone] LVOT diam 2.30 [facility] Work Phone: [phone] MV avg E/e' ratio 5.40 [facility] Work Phone: [phone] MV E/A ratio 1.58 [facility] Work Phone: [phone] RVSP 16.8 [facility] Work Phone: [phone] [facility] Work Phone: [phone] [place] Heart Transthoracicon [address], [address] [facility], [place] [address] TRANSTHORACIC ECHOCARDIOGRAM REPORT Patient Name: BELLE NAJERA Reading Physician: [id number] Makenna Jhaveri MD, [facility] Study Date: 05/18/2023 Ordering Provider: [id number] VAISHNAVI DURÁN MRN/PID: [id number] Fellow: Nurse: Date of /Age: 8 1995 / years [employer] Member Other Ranks: Maya Moraes RDCS, RVT Gender: F Additional Staff: Height: 167.64 cm Admit Date: Weight: 81.65 kg Admission Status: BSA: 1.91 m2 Department Location: [facility] Blood Pressure: 128 /82 mmHg Study Type: TRANSTHORACIC ECHO (TTE) COMPLETE Diagnosis/ICD: Long QT syndrome-I45.81 Indication: Pt is 14 weeks , Former Smoker, Marijuana Use CPT Codes: Echo Complete w Full Doppler-35844 Study Detail: The following Echo studies were [...] There is small atrial septal defect with mjho-zy-luznz shunt. Right Ventricle: The right ventricle is [...] There is small atrial septal defect with hknr-bo-lljds shunt. 3. Mild mitral valve regurgitation. QUANTITATIVE [...] 0.7 m/s (0.6-0.9m/s) PV Max P.0 mmHg [id number] Makenna Jhaveri MD, [facility] Electronically signed on 05/18/2023 at 1:24:06 PM Final Makenna Hickey MD - 05/18/[address], [place] [address] TRANSTHORACIC ECHOCARDIOGRAM REPORT Patient Name: BELLE RIVEROONS Reading Physician: [id number] Makenna Jhaveri MD, [facility] Study Date: 05/18/2023 Ordering Provider: [id number] VAISHNAVI DURÁN MRN/PID: [id number] Fellow: Nurse: Date of /Age: 8 1995 / years [employer] Member Other Ranks: Maya Moraes RDCS, T Gender: F Additional Staff: Height: 167.64 cm Admit Date: Weight: 81.65 kg Admission Status: BSA: 1.91 m2 Department Location: [facility] Blood Pressure: 128 /82 mmHg Study Type: TRANSTHORACIC ECHO (TTE) COMPLETE Diagnosis/ICD: Long QT syndrome-I45.81 Indication: Pt is 14 weeks , Former Smoker, Marijuana Use CPT Codes: Echo Complete w Full Doppler-32825 Study Detail: The following Echo studies were [...] There is small atrial septal defect with dmyp-nh-quedx shunt. Right Ventricle: The right ventricle is [...] There is small atrial septal defect with nvpx-bb-qwclr shunt. 3. Mild mitral valve regurgitation. QUANTITATIVE [...] 0.7 m/s (0.6-0.9m/s) PV Max P.0 mmHg [id number] Makenna Jhaveri MD, [facility] Electronically signed on 05/18/2023 at 1:24:06 PM Final [facility] Work Phone: Automated erythrocytes count in urine sediment (number/area)Ordered By: Luci Daniels on 03-27-2023 RBC Auto (Urine sed) [#/Area] 1-2 [HPF] 0-4 [facility] Automated leukocytes count i n urine sediment (number/area)Ordered By: Luci Daniels on 03-27-2023 WBC Auto (Urine sed) [#/Area] 20-49 [HPF] 0-4 [facility] Bilirubin Test strip Ql (U)O rdered By: Luci Daniels on 03-27-2023 Bilirubin Ql (U) Negative Negative [facility] Color Auto (U)Ordered By: Tiffanie Saxenaepert on 03-27-2023 Color (U) Yellow Yellow [facility] Dipstick and Microscopicon 1 05-27-2022 Appearance (U) Cloudy Critically abnormal Clear [facility] Comment on above: Order Comment: Name Collection Type:: Clean-Voided Midstream Performed By: #### A DDONUAPLUS, CUU #### [facility] [address] [place] [address] [place] Bacteria,Urine 2+ High None Seen [facility] Comment on above: Order Comment: Name Collection Type:: Clean-Voided Midstream Performed By: #### A DDONUAPLUS, CUU #### [place] [address] [place] Bilirubin,Urine Negative Normal Negative [facility] Comment on above: Order Comment: Name Collection Type:: Clean-Voided Midstream Performed By: #### A DDONUAPLUS, CUU #### [place] [address] [place] Color (U) Yellow Normal Yellow [facility] Comment on above: Order Comment: Name Collection Type:: Clean-Voided Midstream Performed By: #### A DDONUAPLUS, CUU #### [facility] [address] [place] [address] [place] Glucose Ql (U) Normal Normal Normal [facility] Comment on above: Order Comment: Name Collection Type:: Clean-Voided Midstream Performed By: #### A DDONUAPLUS, CUU #### [facility] [address] [place] [address] [place] Hyaline Casts,Urine 0-8 Normal 0-8 [facility] Comment on above: Order Comment: Name Collection Type:: Clean-Voided Midstream Result Comment: PERF ORMED BY: [place] [address] PATHOLOGIST FLIGHT DYNAMICIST ANGELIA NIETO M.D. Performed By: #### A DDONUAPLUS, CUU #### [facility] [address] [place] [address] [place] Ketones Ql (U) Negative Normal Negative [facility] Comment on above: Order Comment: Name Collection Type:: Clean-Voided Midstream Performed By: #### A DDONUAPLUS, CUU #### [address] Leukocyte esterase Test strip Ql (U) 2+ High Negative [facility] Comment on above: Order Comment: Name Collection Type:: Clean-Voided Midstream Performed By: #### A DDONUAPLUS, CUU #### [address] Nitrite,Urine Negative Normal Negative [facility] Comment on above: Order Comment: Name Collection Type:: Clean-Voided Midstream Performed By: #### A DDONUAPLUS, CUU #### [address] Occult Blood,Urine Negative Normal Negative [facility] Comment on above: Order Comment: Name Collection Type:: Clean-Voided Midstream Result Comment: PERF ORMED BY: [place] [address] PATHOLOGIST FLIGHT DYNAMICIST ANGELIA NIETO M.D. Performed By: #### A DDONUAPLUS, CUU #### [address] pH (U) 7.0 [pH] Normal 5.0-9.0 [facility] Comment on above: Order Comment: Name Collection Type:: Clean-Voided Midstream Performed By: #### A DDONUAPLUS, CUU #### [address] Protein,Urine Negative Normal Negative [facility] Comment on above: Order Comment: Name Collection Type:: Clean-Voided Midstream Performed By: #### A DDONUAPLUS, CUU #### [address] RBC,Urine 1-2 Normal 0-4 [facility] Comment on above: Order Comment: Name Collection Type:: Clean-Voided Midstream Performed By: #### A DDONUAPLUS, CUU #### [facility] [address] [place] [address] Specificy Steens,Urine 1.022 Normal 1.001-1.030 [facility] Comment on above: Order Comment: Name Collection Type:: Clean-Voided Midstream Performed By: #### A DDONUAPLUS, CUU #### [facility] [address] [place] [address] Squamous Epithelial Cell,Urine 5-9 High 0-2 [facility] Comment on above: Order Comment: Name Collection Type:: Clean-Voided Midstream Performed By: #### A DDONUAPLUS, CUU #### [address] Urobilinogen,Urine Normal Normal Normal [facility] Comment on above: Order Comment: Name Collection Type:: Clean-Voided Midstream Performed By: #### A DDONUAPLUS, CUU #### [address] WBC,Urine 20-49 High 0-4 [facility] Comment on above: Order Comment: Name Collection Type:: Clean-Voided Midstream Performed By: #### A DDONUAPLUS, CUU #### [address] HCG ( test) IA.rapi d Ql (U)Ordered By: Luci Daniels on 03-27-2023 HCG ( test) Ql (U) Positive [facility] HCG,Urineon 03-27-2023 Beta HCG ( test) Ql (U) Positive [facility] Comment on above: Result Comment: PERF ORMED BY: [place] [address] PATHOLOGIST FLIGHT DYNAMICIST AGNELIA NIETO M.D. Performed By: #### U HCG #### [address] Ketones Auto test strip (U) [Mass/Vol]Ordered By: Luci Daniels on 03-27-2023 Ketones (U) [Mass/Vol] Negative Negative [facility] Laboratory - UrinalysisOrder ed By: Luci Daniels on 03-27-2023 Hyaline casts LM Ql (Urine sed) 0-8 [LPF] 0-8 [facility] Nitrite Test strip Ql (U)Ord ered By: Luci Daniels on 03-27-2023 Nitrite Ql (U) Negative Negative [facility] Protein Auto test strip (U) [Mass/Vol]Ordered By: Luci Daniels on 03-27-2023 Protein (U) [Mass/Vol] Negative Negative [facility] Specific gravity Auto test s trip (U) [Rel density]Ordered By: Luci Daniels on 03-27-2023 Specific gravity (U) [Rel density] 1.022 1.001-1.030 [facility] Squamous epithelial cells de tection in urine sediment by light microscopyOrdered By: Luci Daniels on 03-27-2023 Epithelial cells.squamous LM Ql (Urine sed) 5-9 [HPF] 0-2 [facility] US OB transvaginalon 023 US OB transvaginal [facility] [place] [address] Ultrasound Report Signed Patient: Belle Najera MR#: [id number] 71 : 1995 Acct:[id number] Age/Sex: 28 / F ADM Date: 03/27/23 Loc: ER Room: Type: [facility] ER Attending Dr: Ordering Provider: Luci Daniels APRN Date of Service: 03/27/23 US/US OB <= 14 weeks fetus: 6 weeks ; abdominal pain ([id number]) US/US OB transvaginal: abd. pain w/ Copies [...] estimated gestational age of 6w2d weeks/days (accession [id number]), 6w1d weeks/days (accession [id number]) with an estimated date of delivery of 11/18/2023 (accession [id number]), 11/19/2023 (accession [id number]) and normal heart rate. The maurer of the gestational sac are slightly irregular/lobulated . This is of uncertain etiology. There is a trace amount of free fluid in the cul-de-sac. Impression dictated by: Fuentes Tomlinson M.D.03/27/2023 11:45 AM Dictation Location: [place] [address] Tech: Radha Adarsh Transcribed By: EMEKA 03/27/23 1145 Dictated By: Fuentes Tomlinson II, MD 03/27/23 1141 Signed By: 03/27/23 1145 [facility] Urine Cultureon 03-27-2023 Bacteria identified Cx Nom (U) >100,000 colonies/ml mixed bacterial skin contaminants 2 Days PERFORMED BY: [place] [address] PATHOLOGIST FLIGHT DYNAMICIST ANGELIA NIETO M.D. [facility] Comment on above: Performed By: #### A LILIBETH GAGNON #### [address] Urine bacteria detection by automated methodOrdered By: Luci Daniels on 03-27-2023 Bacteria Auto Ql (U) 2+ None Seen [facility] Urine clarity by refractomet ry automatedOrdered By: Luci Daniels on 03-27-2023 Clarity Refractometry automated (U) Cloudy Clear [facility] Urine culture routineOrdered By: Luci Daniels on 03-27-2023 Bacteria identified Cx Nom (U) 2 Days [facility] Urine glucose measurement by automated test strip (mass/volume)Ordered By: Luci Daniels on 03-27-2023 Glucose Auto test strip (U) [Mass/Vol] Normal mg/dL Normal [facility] Urine hemoglobin detection b y automated test stripOrdered By: Luci Daniels on 03-27-2023 Hemoglobin Auto test strip Ql (U) Negative Negative [facility] Urine leukocyte esterase det ection by automated test stripOrdered By: Luci Daniels on 03-27-2023 Leukocyte esterase Auto test strip Ql (U) 2+ Negative [facility] Urobilinogen Auto test strip (U) [Mass/Vol]Ordered By: Luci Daniels on 03-27-2023 Urobilinogen (U) [Mass/Vol] Normal mg/dL Normal [facility] pH Auto test strip (U)Ordere d By: Luci Daniels on 03-27-2023 pH (U) 7.0 [pH] 5.0-9.0 [facility] XR knee RT 4V*on 02-01-2023 XR knee RT 4V* [facility] [address] [place] [address] [place] [id number] XRay Report Signed Patient: Belle Najera MR#: [id number] 73 : 1995 Acct:[id number] Age/Sex: 28 / F ADM Date: 02/01/23 Loc: XD Room: Type: [facility] Attending Dr: Jacquelyn Rome APRN Copies [...] Fartun Villa M.D.02/01/2023 4:33 PM Dictation Location: [facility] Transcribed By: [facility] 02/01/23 163 Dictated By: Fartun Villa MD 02/01/23 163 Signed By: 02/01/23 1633 Normal [facility] US transvaginalon 09-15-2022 US transvaginal [facility] [address] [place] [address] [place] [address] Ultrasound Report Signed Patient: Belle Najera MR#: [id number] 73 : 1995 Acct:[id number] Age/Sex: 27 / F ADM Date: 09/15/22 Loc: Room: Type: [facility] Attending Dr: Rosa Bowen ([facility]) ELSY Ordering Provider: Rosa Bowen APRN, WHCNP Date of Service: 09/15/22 US/US pelvic complete: R10.2 ([id number]) US/US transvaginal: R10.2 Copies to: Rosa Bowen [...] Fartun Villa M.D.09/15/2022 6:21 PM Dictation Location: [place] [address] Tech: Alexia Johnson Transcribed By: EMEKA 09/15/221820 Dictated By: Fartun Villa MD 09/15/221816 Signed By: 09/15/221820 [facility] Coding Summary.on 02-22-2019 Coding Summary. CODING DATE: 02/22/2019 [facility] STATUS: Home (Routine DC) PAYOR: Self Pay [...] Cari Soliman Date Saved: 02/22/2019 05:33 pm [facility] Vital Signs Date Time Vital Sign Value Performing Clinician Facility 06-02-2023 09:39-0500 Body height 167.6 cm Vaishnavi Durán MD Work Phone: [facility] 06-02-2023 09:39-0500 Body mass index (BMI) [Ratio] 30.34 kg/m2 Vaishnavi Durán MD Work Phone: [facility] 06-02-2023 09:39-0500 Body weight 85.28 kg Vaishnavi Durán MD Work Phone: [facility] 06-02-2023 09:39-0500 Diastolic blood pressure 60 mm[Hg] Vaishnavi Durán MD Work Phone: [facility] 06-02-2023 09:39-0500 Heart rate 60 /min Vaishnavi Durán MD Work Phone: [facility] 06-02-2023 09:39-0500 Systolic blood pressure 100 mm[Hg] Vaishnavi Durán MD Work Phone: [facility] 05-18-2023 09:33-0500 Body height 167.[address] 05-18-2023 09:33-0500 Body mass index (BMI) [Ratio] 29.05 kg/m2 [address] 05-18-2023 09:33-0500 Body weight 81.[address] 05-18-2023 09:33-0500 Diastolic blood pressure 82 mm[Hg] [address] 05-18-2023 09:33-0500 Systolic blood pressure 128 mm[Hg] [address] 03-27-2023 08:51-0500 Body temperature 98.5 [degF] ELSY Rome Work Phone: [facility] 03-27-2023 08:51-0500 Diastolic blood pressure 69 mm[Hg] ELSY Rome Work Phone: [facility] 03-27-2023 08:51-0500 Heart rate 82 /min ELSY Rome Work Phone: [facility] 03-27-2023 08:51-0500 Respiratory rate 18 /min ELSY Rome Work Phone: [facility] 03-27-2023 08:51-0500 SaO2% (BldA) [Mass fraction] 100 % ELSY Rome Work Phone: [facility] 03-27-2023 08:51-0500 Systolic blood pressure 111 mm[Hg] ELSY Rome Work Phone: [facility] 03-27-2023 08:50-0500 Body height 171.45 cm ELSY Rome Work Phone: [facility] 03-27-2023 08:50-0500 Body weight 80 kg ELSY Rome Work Phone: [facility] 03-15-2022 14:55-0400 Body height 170.18 cm PHYSICIAN [facility] 03-15-2022 14:55-0400 Body temperature 98.6 [degF] PHYSICIAN [facility] 03-15-2022 14:55-0400 Body weight 72.95 kg PHYSICIAN [facility] 03-15-2022 14:55-0400 Diastolic blood pressure 77 mm[Hg] PHYSICIAN NO [facility] 03-15-2022 14:55-0400 Heart rate 80 /min PHYSICIAN [facility] 03-15-2022 14:55-0400 Respiratory rate 14 /min PHYSICIAN [facility] 03-15-2022 14:55-0400 SaO2% (BldA) [Mass fraction] 99 % PHYSICIAN [facility] 03-15-2022 14:55-0400 Systolic blood pressure 133 mm[Hg] PHYSICIAN [facility] 11-01-2018 23:15-0400 Body Temperature 97.5 [degF] [facility] 11-01-2018 23:15-0400 BP Diastolic 80 mm[Hg] [facility] 11-01-2018 23:15-0400 BP Systolic 123 mm[Hg] [facility] 11-01-2018 23:15-0400 Pulse (Heart Rate) 84 /min [facility] 11-01-2018 23:15-0400 Pulse Oximetry 96 % [facility] 11-01-2018 23:15-0400 Respiratory Rate 18 /min [facility] Weight FAMILY [facility] NEGATED: Highlighted row BMI (Body Mass Index) [facility] NEGATED: Highlighted row Height [facility] Encounters Encounter Date Encounter Type Care Provider Facility Start: 06-02-2023 End: 06-02-2023 ambulatory FLOR GILES Not Available Start: 06-02-2023 End: 06-02-2023 ambulatory [facility] Start: 06-02-2023 End: 06-02-2023 Office outpatient visit 15 minutes Vaishnavi Durán MD Work Phone: [facility] Comment on above: Long Q-T syndrome; Medication course changed Start: 05-18-2023 End: 05-19-2023 ambulatory [facility] Start: 05-18-2023 End: 05-18-2023 Subsequent hospital visit by physician Stephanie Jean Echo/Vasc Room 2 [facility] Comment on above: Long Q-T syndrome Start: 04-29-2023 End: 04-29-2023 ambulatory FLOR GILES Not Available Start: 04-21-2023 End: 04-21-2023 ambulatory [facility] Start: 03-27-2023 End: 03-27-2023 Emergency department patient visit Jacquelyn Williams Rome Facility:[facility] Start: 03-27-2023 End: 03-27-2023 Emergency department patient visit ELSY Jacquelyn Wild Work Phone: [facility] Work Phone: Start: 03-15-2023 End: 03-15-2023 ambulatory Jacquelyn Rome Facility:[facility] Start: 03-15-2023 End: 03-15-2023 ambulatory ELSY Rome Work Phone: [facility] Work Phone: Start: 03-15-2023 End: 03-15-2023 Discharged Recurring ELSY Rome Work Phone: [facility]-Physical Therapy [place] Start: 03-15-2023 Registered Recurring SPECIAL NEEDS TEACHERCatina Rome Work Phone: [facility] [place] Start: 02-01-2023 Registered Recurring SPECIAL NEEDS TEACHERCatina Rome Work Phone: [facility]Physical [facility] [place] Start: 02-01-2023 End: 02-01-2023 ambulatory Jacquelyn Rome Facility:[facility] Start: 02-01-2023 End: 02-01-2023 ambulatory ELSY Rome Work Phone: [facility] Work Phone: Start: 02-01-2023 End: 02-01-2023 Patient encounter procedure ELSY Rome Work Phone: [facility]XRay [place] Work Phone: Start: 09-15-2022 End: 09-15-2022 ambulatory Rosa Bowen ([facility]) Facility:[facility] Start: 09-15-2022 End: 09-15-2022 ambulatory PHYSICIAN NO [facility] Work Phone: Start: 09-15-2022 End: 09-15-2022 Patient encounter procedure PHYSICIAN NO [facility]-Ultrasound [place] Work Phone: Start: 03-15-2022 End: 03-15-2022 Emergency department patient visit PHYSICIAN NO [facility]-Emergency Room Start: 11-01-2018 End: 11-02-2018 Emergency department patient visit [facility] Procedures Date Procedure Procedure Detail Performing Clinician Start: 06-02-2023 FOLLOW UP IN CARDIOLOGY VAISHNAVI DURÁN Start: 06-02-2023 ECG 12-LEAD VAISHNAVI SANCHEZ Start: 05-18-2023 TRANSTHORACIC ECHO ( TTE) COMPLETE VAISHNAVI DURÁN Start: 05-18-2023 Echo tthrc r-t 2d w/ wom-mode compl spec&colr d Vaishnavi Durán MD Work Phone: Start: 04-21-2023 ECG 12-LEAD VAISHNAVI VILLALTA LAURA Start: 03-27-2023 Urine culture SPECIAL NEEDS TEACHER Dana cooley [place] Work Phone: Start: 03-27-2023 Diagnostic ultrasoun d of gravid uterus SPECIAL NEEDS TEACHERCatina Valladares [place] Work Phone: Start: 03-27-2023 Transvaginal obstetr ic ultrasonography ELSY Jacquelyn [place] Work Phone: Start: 02-01-2023 X-ray of right knee APR Catina Jacquelyn [place] Work Phone: Start: 09-15-2022 Pelvic echography PHYSI AYAD NO FAMILY Start: 09-15-2022 Transvaginal echography PHYSICIAN NO FAMILY Plan of Treatment Date Care Activity Detail Author Start: 2047 Zoster Vaccines (1 of 2) Zoste r Vaccines (1 of 2) [facility] Start: 08-08-2023 End: 08-08-2023 Patient encounter procedure 08/08/2023 10:15 AM EDT Office Visit [facility] [address] [facility] [address] [place] [address] Vaishnavi Durán MD 254 [facility] [address] [place] [address] [facility] Start: 06-02-2023 End: 06-02-2024 Basic metabolic 2000 panel - Serum or Plasma Basic Metabolic Panel Lab Routine Long Q-T syndrome Expected: 06/02/2023 (Approximate), Expires: 06/02/2024 [facility] Service Area Work Phone: Comment on above: Expected: 06/02/2023 (Approximate), Expires: 06/02/2024 Start: 06-02-2023 End: 06-02-2023 Patient encounter procedure 06/02/2023 9:30 AM EST Office Visit [facility] [address] [place] [address] Vaishnavi Durán MD [address] [facility] [address] [place] [address] [facility] Start: 03-27-2023 Bacteria identified in Urine by Culture [facility] Start: 03-12-2023 HPV Vaccines (3 - 3- dose series) HPV Vaccines (3 - 3-dose series) [facility] Start: 01-21-2023 Influenza vaccination Influenz a Vaccine (#1) [facility] Start: 03-28-2021 COVID-19 Vaccine (3 - Pfizer series) COVID-19 Vaccine (3 - Pfizer series) [facility] Start: 01-08-2020 DTaP/Tdap/Td Vaccine s (7 - Td or Tdap) DTaP/Tdap/Td Vaccines (7 - Td or Tdap) [facility] Start: 2018 Screening for malign ant neoplasm of cervix [facility] Start: 2015 Hepatitis C screening Hepatitis C Sc [facility] Start: 09-11-2002 Varicella vaccination Varicell a Vaccines (2 of 2 - 2-dose childhood series) [facility] Start: 1997 HIV screening HIV Screening [facility] Start: 1997 Lipid panel Lipid Panel [facility] Start: 1997 Yearly Adult Physical Yearly Adult P hysical [facility] Patient Education [facility] Patient referral [facility] Work Phone: Immunizations Immunization Date Immunization Notes Care Provider Fa cility 11-10-2022 Human Papillomavirus 9-valent vaccine [address] Work Phone: 11-10-2022 HPV, unspecified formulation [address] Work Phone: 09-07-2022 Human Papillomavirus 9-valent vaccine [address] Work Phone: 06-04-2011 influenza virus vacc ine, whole virus [address] Work Phone: 06-04-2011 influenza virus vacc ine, unspecified formulation [address] Work Phone: 01-07-2010 tetanus toxoid, redu yolanda diphtheria toxoid, and acellular pertussis vaccine, adsorbed [address] Work Phone: 08-14-2002 diphtheria, tetanus toxoids and acellular pertussis vaccine, unspecified formulation [address] Work Phone: 08-14-2002 measles, mumps and r ubella virus vaccine [address] Work Phone: 08-14-2002 poliovirus vaccine, inactivated [address] Work Phone: 04-30-1998 diphtheria, tetanus toxoids and acellular pertussis vaccine, unspecified formulation [address] Work Phone: 04-30-1998 haemophilus influenz ae type b vaccine, PRP-OMP conjugate [address] Work Phone: 04-30-1998 measles, mumps and r ubella virus vaccine [address] Work Phone: 04-30-1998 trivalent poliovirus vaccine, live, oral [address] Work Phone: 04-30-1998 varicella virus vaccine [address] Work Phone: 1997 diphtheria, tetanus toxoids and acellular pertussis vaccine, unspecified formulation [address] Work Phone: 1997 haemophilus influenz ae type b conjugate and Hepatitis B vaccine [address] Work Phone: 1997 diphtheria, tetanus toxoids and acellular pertussis vaccine, unspecified formulation [address] Work Phone: 1997 haemophilus influenz ae type b vaccine, HbOC conjugate [address] Work Phone: 1997 poliovirus vaccine, inactivated [address] Work Phone: 1997 diphtheria, tetanus toxoids and acellular pertussis vaccine, unspecified formulation [address] Work Phone: 1997 haemophilus influenz ae type b conjugate and Hepatitis B vaccine [address] Work Phone: 1997 poliovirus vaccine, inactivated [address] Work Phone: 1997 hepatitis B vaccine, pediatric or pediatric/adolescent dosage [address] Work Phone: Payers Date Payer Category Payer Medicaid [id number] 2023 Medicaid [id number] 2022 Self-pay 2021 Unknown [id number] 2021 Unknown TAMIA CANTRELL P [id number] 2021-Present [address] [place] [address] [id number] 1997 Unknown [id number] 1997 Unknown [id number] 1997 Unknown [id number] 1997 Unknown [id number] 1997 Unknown [id number] 246 Private Health Insurance [id number] Unknown [id number] 31 Unknown [id number] 31 Unknown [id number] 31 Unknown [id number] 31 Social History Date Type Detail Facility Tobacco smoking stat [facility] Unknown if ever smoked [facility] Start: 1995 Sex Assigned At Female F [facility] Start: 03-15-2022 End: 03-27-2023 Tobacco smoking status NHIS Smoker (finding) [facility] Start: 04-[facility]23 [facility] Work Phone: End: 02-20-2023 History of tobacco use Cigarette Smoker [facility] Work Phone: Start: 04-21-2023 End: 06-02-2023 Cigarettes smoked current (pack per day) - Reported 1 [facility] Work Phone: Start: 04-21-2023 Tobacco use and exposure Former smokeless tobacco user [facility] Work Phone: End: 02-20-2023 History of tobacco use User of smokeless tobacco [facility] Work Phone: Start: 04-21-2023 End: 06-02-2023 Alcohol intake Ex-drinker (finding) [facility] Work Phone: Start: 04-21-2023 End: 06-02-2023 Tobacco use panel [facility] Work Phone: Start: 04-21-2023 Tobacco Comment Vaping [facility] Work Phone: Start: 1995 Sex Assigned At Not on file U [facility] Work Phone: Start: 05-08-2023 End: 06-02-2023 Exposure to SARS-CoV-2 (event) Not sure [facility] Goals Date Patient Goal Desired Activity [...] There is small atrial septal defect with [id number] shunt. 3. Mild mitral valve regurgitation. QUANTITATIVE [...] Vaishnavi Durán MD documented in this encounter [facility] Work Phone: Instructions 06-02-2023 Patient Instructions [...] of your visit. documented in this encounter [facility] Work Phone: Evaluation note Note Date & Type Note Facility Evaluation note No assessment information availa [facility] Work Phone: Evaluation note Note Date & Type Note Facility Evaluation note Diagnosis Long Q-T syndrome Long QT syndrome documented in this encounter [facility] Work Phone: Evaluation note Note Date & Type Note Facility Evaluation note Diagnosis Long Q-T syndrome Long QT syndrome Medication course changed documented in this encounter [facility] Work Phone: Hospital Discharge instructions Note Date & Type Note Facility Hospital Discharge instructions Additional Instructions 1. Push fluids today and tomorrow 2. No lifting, pushing or pulling today 3. Call OB office tomorrow to schedule follow up appointment [facility] Work Phone: Reason for referral (narrative) Consultation (Routine) - Authorized Note Date & Type Note Facility Reason for referral (narrati ve) Specialty Diagnoses / Procedures Referred By Ruslan kaye Referred To Contact Cardiology Diagnoses Long Q-T syndrome Procedures Follow Up In Cardiology Vaishnavi Durán MD [address] [address] Vaishnavi Durán MD 254 [facility] [address] [place] [address] Referral ID Status Reason Start Date Expiration Date V isits Requested Visits Authorized [id number] Authorized 06/02/2023 06/01/2024 1 1 [facility] Work Phone: Chief Complaint and Reason [...] Q-T syndrome Procedures Transthoracic Echo (TTE) Complete NH ECHO TRANSTHORC R-T 2D W/WO M-MODE REC F-UP/LMTD NH DOP ECHOCARD COLOR FLOW VELOCITY MAPPING NH DOP ECHOCARD PULSE WAVE W/SPECTRAL F-UP/LMTD STD Vaishnavi Durán MD 254 [facility] [address] [place] [address] Referral ID Status Reason Start Date Expiration Date Visits Requested Visits Authorized [id number] Authorized Perform Procedure 3 04/20/2024 1 1 Additional Source Comments INFORMATION SOURCE (unrecogn ized section and content) DATE CREATED AUTHOR 02/23/2019 Herrera Andrea [facility] DATE CREATED AUTHOR AUTHOR'S ORGANIZ ATION 05/26/2023 [facility] DATE CREATED AUTHOR AUTHOR'S ORGANIZ ATION 06/03/2023 [facility] EPIC DATE CREATED AUTHOR AUTHOR'S ORGANIZ ATION 06/05/2023 [facility] DATE CREATED AUTHOR AUTHOR'S ORGANIZ ATION 06/09/2023 [facility] Care Teams (unrecognized sec tion and content) Team Status: Inactive Member Role Status Dates PHYSICIAN NO FAMILY Primary Care Provider Active Abdi Arzola APRN Emergency Provider Active Team Status: Active Member Role Status Dates PHYSICIAN NO FAMILY Primary Care Provider Active Team Status: Inactive Member Role Status Dates PHYSICIAN NO FAMILY Primary Care Provider Active Rosa Bowen ([facility]) , SPECIAL NEEDS TEACHER Attending Provider Active Team Status: Active Member [...] Active Luci Daniels APRN Emergency Provider Active Take Out Waiter/Waitress Relationship Specialty Start Date End Date Flor Giles DO [address] [facility] [address], [place] [address] PCP - General Obstetrics and Gynecology 05/18/23 Team Status: Inactive Member Role Status Dates Jacquelyn Rome APRN Primary Care Prov ider, Attending Provider, Referring Provider Active Take Out Waiter/Waitress Relationship Specialty Start Date End Date Flor Giles DO [address] [facility] [address], [place] [address] PCP - General Obstetrics and Gynecology 05/18/23 [...] Q-T syndrome Procedures Transthoracic Echo (TTE) Complete NH ECHO TRANSTHORC R-T 2D W/WO M-MODE REC F-UP/LMTD NH DOP ECHOCARD COLOR FLOW VELOCITY MAPPING NH DOP ECHOCARD PULSE WAVE W/SPECTRAL F-UP/LMTD STD Vaishnavi Durán MD [address] [place] [address] Referral ID Status Reason Start Date Expiration Date Visits Requested Visits Authorized [id number] Authorized Perform Procedure 04/20/2024 1 1 Reason Comments Follow-up Echo results Specialty Diagnoses / Procedures Referred By Ruslan kaye Referred To Contact Cardiology Diagnoses Long Q-T syndrome Procedures Follow Up In Cardiology Vaishnavi Durán MD [address] [place] [address] Vaishnavi Durán MD [address] [place] [address] Referral ID Status Reason Start Date Expiration Date V isits Requested Visits Authorized [id number] Authorized 04/21/2023 04/20/2024 1 1 FOR RECORDS [...] BE BASED ON THE PRIMARY CLINICAL RECORDS. [employer] provides no warranty or guarantee of the accuracy or completeness of information in this document.
[2023-06-15 14:02] LABS: Anion Gap 8.7; BUN Creatinine Ratio 10.5; Calcium 8.2 mg/dL (8.5-10.1); Carbon Dioxide 27.2 mmol/L (21.0-32.0); Chloride 99 mmol/L (98-107); Estimated GFR (African America >60 (>=60); Estimated GFR (Non-African Ame >60 (>=60); Glucose 68 mg/dL (74-106); Potassium 3.9 mmol/L (3.5-5.1); Sodium 131 mmol/L (136-145)
== END 2023-06-15 12:47 | disposition home or self-care (01) ==
LOC: LAB 12:47
DX: Z34.93 Encounter for supervision of normal pregnancy, unspecified, third trimester (principal); I45.81 Long QT syndrome
CPT/HCPCS: 36415; 80048; 82105

== ENCOUNTER 2023-06-29 12:51 | Outpatient (OUT) | payer BC, MEDICAID, SELFPAY ==
--- NOTE | 2023-06-29 12:54 | US_ITS ---
[address] [address] Patient Name: BELLE BEAVERS MRN: [id number] date: 1995 Sex: F Assigned Patient Location: [facility] Current Patient Location: [facility] Accession/Order Number: [id number] Exam Date: 06/29/2023 12:55 Report Date: 06/29/2023 14:15 At the request of: FLOR COLLINS Procedure: US OB cervical length EXAMINATION: US OB anatomy, US OB cervical length HISTORY: ANATOMY COMPARISON: No relevant comparison available. TECHNIQUE: Transabdominal sonographic examination was performed for obstetrical and evaluation. FINDINGS: Number: 1 Heart Rate: 139.0 bpm H.B. /min Amniotic Fluid Volume: Subjectively normal position: Breech presentation, longitudinal lie Placental Location: ANTERIOR, grade 0. Placental edge is 3.1 cm from the internal os Cervix Length: 3.7 cm , fluid in the endocervical canal which is dilated up to 3.2 mm Normal anatomy: Lateral ventricles, cerebellum, posterior fossa, nose, lips, orbits, four-chamber heart, RVOT, LVOT, diaphragm, stomach, kidneys, abdominal cord insertion, bladder, umbilical arteries, three-vessel cord, spine, extremities BIOMETRY: BPD: 4.4 cm 19 weeks 1 days , 22% HC: 16.3 cm 19 weeks 0 days, 11% AC: 15.1 cm 20 weeks 2 days, 61% FL: 3.4 cm 20 weeks 4 days , 69% EFW:343.0 grams; 12 ounces, 70% FL/AC: 22.4 FL/BPD: 77.7 HC/AC: 1.1 GESTATIONAL AGE: Age by EDC: 19 weeks 6 days Age by current US: 19 weeks 5 days YENI by current US: 11/18/2023 YENI by EDC: 11/17/2023 US/US OB cervical length IMPRESSION: 3.2 mm fluid dilatation of the endocervical canal, the cervix measures 3.7 cm in length Low lying placenta, the placental edge is 3.1 cm from the internal os Otherwise normal anatomy scan *Reference: [employer] Practice Guideline for the performance of Obstetric Ultrasound Examinations, February 20, 2007. Electronically authenticated by: JUDE SNELL Date: 06/29/2023 14:15
--- NOTE | 2023-06-29 12:54 | US_ITS ---
[address] [address] Patient Name: BELLE BEAVERS MRN: [id number] date: 1995 Sex: F Assigned Patient Location: [facility] Current Patient Location: [facility] Accession/Order Number: [id number] Exam Date: 06/29/2023 12:55 Report Date: 06/29/2023 14:15 At the request of: FLOR COLLINS Procedure: US OB anatomy EXAMINATION: US OB anatomy, US OB cervical length HISTORY: ANATOMY COMPARISON: No relevant comparison available. TECHNIQUE: Transabdominal sonographic examination was performed for obstetrical and evaluation. FINDINGS: Number: 1 Heart Rate: 139.0 bpm H.B. /min Amniotic Fluid Volume: Subjectively normal position: Breech presentation, longitudinal lie Placental Location: ANTERIOR, grade 0. Placental edge is 3.1 cm from the internal os Cervix Length: 3.7 cm , fluid in the endocervical canal which is dilated up to 3.2 mm Normal anatomy: Lateral ventricles, cerebellum, posterior fossa, nose, lips, orbits, four-chamber heart, RVOT, LVOT, diaphragm, stomach, kidneys, abdominal cord insertion, bladder, umbilical arteries, three-vessel cord, spine, extremities BIOMETRY: BPD: 4.4 cm 19 weeks 1 days , 22% HC: 16.3 cm 19 weeks 0 days, 11% AC: 15.1 cm 20 weeks 2 days, 61% FL: 3.4 cm 20 weeks 4 days , 69% EFW:343.0 grams; 12 ounces, 70% FL/AC: 22.4 FL/BPD: 77.7 HC/AC: 1.1 GESTATIONAL AGE: Age by EDC: 19 weeks 6 days Age by current US: 19 weeks 5 days YENI by current US: 11/18/2023 YENI by EDC: 11/17/2023 US/US OB anatomy IMPRESSION: 3.2 mm fluid dilatation of the endocervical canal, the cervix measures 3.7 cm in length Low lying placenta, the placental edge is 3.1 cm from the internal os Otherwise normal anatomy scan *Reference: [employer] Practice Guideline for the performance of Obstetric Ultrasound Examinations, February 20, 2007. Electronically authenticated by: JUDE SNELL Date: 06/29/2023 14:15
--- OUTSIDE RECORDS SUMMARY | 2023-06-29 12:58 | XMS_ITS | CCD ---
Author Name Unknown Address [address] [place] [address] Organization [facility] Care Team Providers Care Web Content Specialist Name Role Phone NO, FAMILY PHYSICIAN Primary Care Physician Unav Hetal Beasley Physician Unavailable NO FAMILY, PHYSICIAN Primary Care Provider Unava ilELSY Garnett Emergency Provider [phone] NO FAMILY, PHYSICIAN Primary Care Provider Unava ilneto Bowen ([facility]), ELSY Parekh Attending Provider [place], ELSY Kamarafer S Primary Care Provider [place], ELSY Jacquelyn S Attending Provider [phone] [place], RN PATIENT CARE Jacquelyn S Referring Provider [place], RN PATIENT CARE Jacquelyn S Primary Care Provider [phone] [place], ELSY Jacquelyn S Attending Provider [phone] [place], RN PATIENT CARE Jacquelyn S Referring Provider ELSY Daniels Emergency Provider Flor Giles DO Primary Care Provider [place], ELSY Jacquelyn S Primary Care Provider [phone] [place], RN PATIENT CARE Jacquelyn S Attending Provider [phone] [place], Jacquelyn S Admitting Unavailable [place], Jacquelyn S Attending Unavailable West, Jacquelyn S Primary Care Unavailable [place], Jacquelyn S Referring Unavailable West, Jacquelyn S Attending Unavailable West, Jacquelyn S Primary Care Unavailable Wild, Jacquelyn S Admitting Unavailable Andrés ([facility])Rosa Attending Unavailabl e Andrés ([facility])Rosa Admitting Unavailabl e NO FAMILY, PHYSICIAN Primary Care Unavailable WildJacquelyn Primary Care Unavailable Luci Daniels Attending Unavailable [...] Translations: [FERROUS SULFATE] Drug Allergy 3 Unknown [facility] (5 sources) Sulfonamides (Antibiotic); Translations: [SULFA (SULFONAMIDE ANTIBIOTICS)] Propensity to adverse reactions 3 Unknown [facility] (1 source) Sulfonamides (Antibiotic) Drug allergy (disorder) 3 [facility] Repository Medications Current Medications Medication Drug Class(es) Dates Sig (Normalized) Sig (Original) [id number] 200 actuat albuterol 0.09 mg/actuat metered dose [...] day. 60 tablet 1 06/02/2023 06/01/2024 Active [place] (No Known Home Meds) (3 sources) Start: 03-15-2022 [place] (No Known Home Meds) Active March 15, [...] 0 03/15/2023 06/02/2023 Discontinued (Med List Cleanup) vit,jmec43-fktj-vqiuh ([facility] Rx) 29 mg iron- 1 mg tablet (3 sources) End: 06-02-2023 vit,cebz82-czbo-lvsi c ([facility] Rx) 29 mg iron- 1 mg tablet 1 tablet once daily. 0 06/02/2023 Discontinued (Duplicate order) vit,leo a04-wjqh-enhma ([facility] Rx) 29 mg iron- 1 mg [...] 05-18-2023 Chronic Other aftercare (2 sources) Other custodial (current) drug therapy; Translations: [Other terminal operations manager (current) drug therapy] Onset: 06-02-2023 Episodic Other aftercare (2 sources) Treatment changed; Translations: [Other terminal operations manager (current) drug therapy] Onset: 06-02-2023 06-02-2023 Episodic [...] Interpretation Reference Range Facility [facility] TRANSTHORACIC ECHO (TTE) COMPLETE [address], Suite [facility], [place] [address] TRANSTHORACIC ECHOCARDIOGRAM REPORT Patient Name: BELLE NAJERA Reading Physician: [id number] Makenna Jhaveri MD, [facility] Study Date: 05/18/2023 Ordering Provider: [id number] VAISHNAVI DURÁN MRN/PID: [id number] Fellow: Nurse: Date of /Age: 8 1995 / 28 years [employer] Worker: Maya Moraes RDCS, RVT Gender: F Additional Staff: Height: 167.64 cm Admit Date: Weight: 81.65 kg Admission Status: BSA: 1.91 m2 Department Location: [facility] Blood Pressure: 128 /82 mmHg Study Type: TRANSTHORACIC ECHO (TTE) COMPLETE Diagnosis/ICD: Long QT syndrome-I45.81 Indication: Pt is 14 weeks , Former Smoker, Marijuana Use CPT Codes: Echo Complete w Full Doppler-24634 Study Detail: The following Echo studies were [...] There is small atrial septal defect with emdy-yo-mwqug shunt. Right Ventricle: The right ventricle is [...] There is small atrial septal defect with qvff-ss-qlivq shunt. 3. Mild mitral valve regurgitation. QUANTITATIVE [...] 0.7 m/s (0.6-0.9m/s) PV Max P.0 mmHg [id number] Makenna Jhaveri MD, FACC Electronically signed on 05/18/2023 at 1:24:06 PM Final Normal [facility] Heart TransthoracicOrdere d By: Makenna Jhaveri on 05-18-2023 Aortic Valve Area by Continuity of Peak Velocity 2.38 [facility] Work Phone: Aortic Valve Area by Continuity of VTI 2.38 [facility] Work Phone: [phone] AV mn grad 3.0 [facility] Work Phone: [phone] AV pk grad 6.0 [facility] Work Phone: [phone] AV pk suleiman 1.22 [facility] Work Phone: [phone] LV A4C EF 57.8 [facility] Work Phone: [phone] LVIDd 4.90 [facility] Work Phone: [phone] LVOT diam 2.30 [facility] Work Phone: [phone] MV avg E/e' ratio 5.40 [facility] Work Phone: [phone] MV E/A ratio 1.58 [facility] Work Phone: [phone] RVSP 16.8 [facility] Work Phone: [phone] [facility] Work Phone: [phone] Heart Transthoracicon [address], [address], [place] [address] TRANSTHORACIC ECHOCARDIOGRAM REPORT Patient Name: BELLE Gallego Physician: [id number] Makenna Jhaveri MD, [facility] Study Date: 05/18/2023 Ordering Provider: [id number] VAISHNAVI DURÁN MRN/PID: [id number] Fellow: Nurse: Date of /Age: 8 1995 / 28 years [employer] Worker: Maya Moraes RDCS, RVT Gender: F Additional Staff: Height: 167.64 cm Admit Date: Weight: 81.65 kg Admission Status: BSA: 1.91 m2 Department Location: [facility] Blood Pressure: 128 /82 mmHg Study Type: TRANSTHORACIC ECHO (TTE) COMPLETE Diagnosis/ICD: Long QT syndrome-I45.81 Indication: Pt is 14 weeks , Former Smoker, Marijuana Use CPT Codes: Echo Complete w Full Doppler-65242 Study Detail: The following Echo studies were [...] There is small atrial septal defect with bkma-yx-mnxgc shunt. Right Ventricle: The right ventricle is [...] There is small atrial septal defect with jgdk-ud-euvzc shunt. 3. Mild mitral valve regurgitation. QUANTITATIVE [...] 0.7 m/s (0.6-0.9m/s) PV Max P.0 mmHg [id number] Makenna Jhaveri MD, [facility] Electronically signed on 05/18/2023 at 1:24:06 PM Final Makenna Hickey MD - 05/18/[address], [address], [place] [address] TRANSTHORACIC ECHOCARDIOGRAM REPORT Patient Name: BELLE NAJERA Reading Physician: [id number] Makenna Jhaveri MD, [facility] Study Date: 05/18/2023 Ordering Provider: [id number] VAISHNAVI DURÁN MRN/PID: [id number] Fellow: Nurse: Date of /Age: 8 1995 / years [employer] Worker: Maya Moraes RDCS, RVT Gender: F Additional Staff: Height: 167.64 cm Admit Date: Weight: 81.65 kg Admission Status: BSA: 1.91 m2 Department Location: [facility] Blood Pressure: 128 /82 mmHg Study Type: TRANSTHORACIC ECHO (TTE) COMPLETE Diagnosis/ICD: Long QT syndrome-I45.81 Indication: Pt is 14 weeks , Former Smoker, Marijuana Use CPT Codes: Echo Complete w Full Doppler-97417 Study Detail: The following Echo studies were [...] There is small atrial septal defect with qyog-pu-dyeja shunt. Right Ventricle: The right ventricle is [...] There is small atrial septal defect with roeq-ge-ghags shunt. 3. Mild mitral valve regurgitation. QUANTITATIVE [...] 0.7 m/s (0.6-0.9m/s) PV Max P.0 mmHg [id number] Makenna Jhaveri MD, [facility] Electronically signed on 05/18/2023 at 1:24:06 PM Final [facility] Work Phone: Automated erythrocytes count in urine sediment (number/area)Ordered By: Luci Daniels on 03-27-2023 RBC Auto (Urine sed) [#/Area] 1-2 [HPF] 0-4 [facility] Automated leukocytes count i n urine sediment (number/area)Ordered By: Luci Daniels on 03-27-2023 WBC Auto (Urine sed) [#/Area] 20-49 [HPF] 0-4 [facility] Bilirubin Test strip Ql (U)O rdered By: Luci Daniels on 03-27-2023 Bilirubin Ql (U) Negative Negative [facility] Color Auto (U)Ordered By: Tiffanie Daniels on 03-27-2023 Color (U) Yellow Yellow [facility] Dipstick and Microscopicon 1 05-27-2022 Appearance (U) Cloudy Critically abnormal Clear [facility] Comment on above: Order Comment: Name Collection Type:: Clean-Voided Midstream Performed By: #### A DDONUAPLUS, CUU #### [facility] [address] [place] [address] [place] Bacteria,Urine 2+ High None Seen [facility] Comment on above: Order Comment: Name Collection Type:: Clean-Voided Midstream Performed By: #### A DDONUAPLUS, CUU #### [facility] [address] [place] [address] [place] Bilirubin,Urine Negative Normal Negative [facility] Comment on above: Order Comment: Name Collection Type:: Clean-Voided Midstream Performed By: #### A DDONUAPLUS, CUU #### [facility] [address] [place] [address] [place] Color (U) Yellow Normal Yellow [facility] Comment on above: Order Comment: Name Collection Type:: Clean-Voided Midstream Performed By: #### A DDONUAPLUS, CUU #### [facility] [address] [place] [address] [place] Glucose Ql (U) Normal Normal Normal [facility] Comment on above: Order Comment: Name Collection Type:: Clean-Voided Midstream Performed By: #### A DDONUAPLUS, CUU #### [facility] [address] [place] [address] [place] Hyaline Casts,Urine 0-8 Normal 0-8 [facility] Comment on above: Order Comment: Name Collection Type:: Clean-Voided Midstream Result Comment: PERF ORMED BY: [place] [address] PATHOLOGIST BULK LOADER ANGELIA NIETO M.D. Performed By: #### A DDONUAPLUS, CUU #### [facility] [address] [place] [address] [place] Ketones Ql (U) Negative Normal Negative [facility] Comment on above: Order Comment: Name Collection Type:: Clean-Voided Midstream Performed By: #### A DDONUAPLUS, CUU #### [address] Leukocyte esterase Test strip Ql (U) 2+ High Negative [facility] Comment on above: Order Comment: Name Collection Type:: Clean-Voided Midstream Performed By: #### A DDONUAPLUS, CUU #### [address] Nitrite,Urine Negative Normal Negative [facility] Comment on above: Order Comment: Name Collection Type:: Clean-Voided Midstream Performed By: #### A DDONUAPLUS, CUU #### [address] Occult Blood,Urine Negative Normal Negative [facility] Comment on above: Order Comment: Name Collection Type:: Clean-Voided Midstream Result Comment: PERF ORMED BY: [place] [address] PATHOLOGIST BULK LOADER ANGELIA NIETO M.D. Performed By: #### A DDONUAPLUS, CUU #### [address] pH (U) 7.0 [pH] Normal 5.0-9.0 [facility] Comment on above: Order Comment: Name Collection Type:: Clean-Voided Midstream Performed By: #### A DDONUAPLUS, CUU #### [address] Protein,Urine Negative Normal Negative [facility] Comment on above: Order Comment: Name Collection Type:: Clean-Voided Midstream Performed By: #### A DDONUAPLUS, CUU #### [address] RBC,Urine 1-2 Normal 0-4 [facility] Comment on above: Order Comment: Name Collection Type:: Clean-Voided Midstream Performed By: #### A DDONUAPLUS, CUU #### [address] Specificy [place],Urine 1.022 Normal 1.001-1.030 [facility] Comment on above: Order Comment: Name Collection Type:: Clean-Voided Midstream Performed By: #### A DDONUAPLUS, CUU #### [facility] [address] Squamous Epithelial Cell,Urine 5-9 High 0-2 [facility] Comment on above: Order Comment: Name Collection Type:: Clean-Voided Midstream Performed By: #### A DDONUAPLUS, CUU #### [facility] [address] [place] [address] Urobilinogen,Urine Normal Normal Normal [facility] Comment on above: Order Comment: Name Collection Type:: Clean-Voided Midstream Performed By: #### A DDONUAPLUS, CUU #### [facility] [address] [place] [address] WBC,Urine 20-49 High 0-4 [facility] Comment on above: Order Comment: Name Collection Type:: Clean-Voided Midstream Performed By: #### A DDONUAPLUS, CUU #### [facility] [address] [place] [address] HCG ( test) IAsantosh d Ql (U)Ordered By: Luci Daniels on 03-27-2023 HCG ( test) Ql (U) Positive [facility] HCG,Urineon 03-27-2023 Beta HCG ( test) Ql (U) Positive [facility] Comment on above: Result Comment: PERF ORMED BY: [place] [address] PATHOLOGIST BULK LOADER ANGELIA NIETO M.D. Performed By: #### U HCG #### [facility] [address] [place] [address] Ketones Auto test strip (U) [Mass/Vol]Ordered By: Luci Daniels on 03-27-2023 Ketones (U) [Mass/Vol] Negative Negative [facility] - UrinalysisOrder ed By: Luci Daniels on 03-27-2023 Hyaline casts LM Ql (Urine sed) 0-8 [LPF] 0-8 [facility] Nitrite Test strip Ql (U)Ord ered By: Luci Daniels on 03-27-2023 Nitrite Ql (U) Negative Negative [facility] Protein Auto test strip (U) [Mass/Vol]Ordered By: Luci Daniels on 03-27-2023 Protein (U) [Mass/Vol] Negative Negative [facility] Specific gravity Auto test s trip (U) [Rel density]Ordered By: Luci Daniels on 03-27-2023 Specific gravity (U) [Rel density] 1.022 1.001-1.030 [facility] Squamous epithelial cells de tection in urine sediment by light microscopyOrdered By: Luci Daniels on 03-27-2023 Epithelial cells.squamous LM Ql (Urine sed) 5-9 [HPF] 0-2 [facility] US OB transvaginalon 023 US OB transvaginal [facility] [place] [address] Ultrasound Report Signed Patient: Belle Najera MR#: [id number] 71 : 1995 Acct:[id number] Age/Sex: 28 / F ADM Date: 03/27/23 Loc: ER Room: Type: [facility] ER Attending Dr: Ordering Provider: Luci Daniels APRN Date of Service: 03/27/23 US/US OB <= 14 weeks fetus: 6 weeks ; abdominal pain ([id number]) US/US OB transvaginal: abd. pain w/ Copies [...] estimated gestational age of 6w2d weeks/days (accession [id number]), 6w1d weeks/days (accession [id number]) with an estimated date of delivery of 11/18/2023 (accession [id number]), 11/19/2023 (accession [id number]) and normal heart rate. The maurer of the gestational sac are slightly irregular/lobulated . This is of uncertain etiology. There is a trace amount of free fluid in the cul-de-sac. Impression dictated by: Fuentes Tomlinson M.D.03/27/2023 11:45 AM Dictation Location: [place] [address] Tech: Radha Altamirano Transcribed By: EMEKA 03/27/23 1145 Dictated By: Fuentes Tomlinson II, MD 03/27/23 1141 Signed By: 03/27/23 1145 [facility] Urine Cultureon 03-27-2023 Bacteria identified Cx Nom (U) >100,000 colonies/ml mixed bacterial skin contaminants 2 Days PERFORMED BY: [facility] [address] [place] [address] PATHOLOGIST BULK LOADER ANGELIA NIETO M.D. [facility] Comment on above: Performed By: #### A DDONUAKEV, CUU #### [facility] [address] Urine bacteria detection by automated methodOrdered By: Luci Daniels on 03-27-2023 Bacteria Auto Ql (U) 2+ None Seen [facility] Urine clarity by refractomet ry automatedOrdered By: Luci Daniels on 03-27-2023 Clarity Refractometry automated (U) Cloudy Clear [facility] Urine culture routineOrdered By: Luci Daniels on 03-27-2023 Bacteria identified Cx Nom (U) 2 Days [facility] Urine glucose measurement by automated test strip (mass/volume)Ordered By: Luci Daniels on 03-27-2023 Glucose Auto test strip (U) [Mass/Vol] Normal mg/dL Normal [facility] Urine hemoglobin detection b y automated test stripOrdered By: Luci Daniels on 03-27-2023 Hemoglobin Auto test strip Ql (U) Negative Negative [facility] Urine leukocyte esterase det ection by automated test stripOrdered By: Luci Daniels on 03-27-2023 Leukocyte esterase Auto test strip Ql (U) 2+ Negative [facility] Urobilinogen Auto test strip (U) [Mass/Vol]Ordered By: Luci Daniels on 03-27-2023 Urobilinogen (U) [Mass/Vol] Normal mg/dL Normal [facility] pH Auto test strip (U)Ordere d By: Luci Daniels on 03-27-2023 pH (U) 7.0 [pH] 5.0-9.0 [facility] XR knee RT 4V*on 02-01-2023 XR knee RT 4V* [facility] [place] [address] XRay Report Signed Patient: Belle Najera MR#: [id number] [birth year] : 1995 Acct:[id number] Age/Sex: 28 / F ADM Date: 02/01/23 Loc: XD Room: Type: [facility] Attending Dr: Jacquelyn Rome APRN Copies to: [...] Fartun Villa M.D.02/01/2023 4:33 PM Dictation Location: [place] [address] Transcribed By: [facility] 02/01/23 1633 Dictated By: Fartun Villa MD 02/01/23 1632 Signed By: 02/01/23 1633 Normal [facility] US transvaginalon 09-15-2022 US transvaginal [facility] [place] [address] [place] [address] Ultrasound Report Signed Patient: Belle Najera MR#: [id number] [birth year] : 1995 Acct:[id number] Age/Sex: 27 / F ADM Date: 09/15/22 Loc: Room: Type: [facility] Attending Dr: Rosa Bowen ([facility]) ELSY Ordering Provider: Rosa Bowen APRN, WHCNP Date of Service: 09/15/22 US/US pelvic complete: R10.2 ([id number]) US/US transvaginal: R10.2 Copies to: Rosa Bowen [...] Fartun Villa M.D.09/15/2022 6:21 PM Dictation Location: [place] [address] Tech: Alexia Johnson Transcribed By: EMEKA 09/15/221820 Dictated By: Fartun Villa MD 09/15/221816 Signed By: 09/15/221820 [facility] Coding Summary.on 02-22-2019 Coding Summary. CODING DATE: 02/22/2019 [facility] STATUS: Home (Routine DC) PAYOR: Self Pay [...] Cari Soliman Date Saved: 02/22/2019 05:33 pm [facility] Vital Signs Date Time Vital Sign Value Performing Clinician Facility 06-02-2023 09:39-0500 Body height 167.6 cm Vaishnavi Durán MD Work Phone: [facility] 06-02-2023 09:39-0500 Body mass index (BMI) [Ratio] 30.34 kg/m2 Vaishnavi Durán MD Work Phone: [facility] 06-02-2023 09:39-0500 Body weight 85.28 kg Vaishnavi Durán MD Work Phone: [facility] 06-02-2023 09:39-0500 Diastolic blood pressure 60 mm[Hg] Vaishnavi Durán MD Work Phone: [facility] 06-02-2023 09:39-0500 Heart rate 60 /min Vaishnavi Durán MD Work Phone: [facility] 06-02-2023 09:39-0500 Systolic blood pressure 100 mm[Hg] Vaishnavi Durán MD Work Phone: [facility] 05-18-2023 09:33-0500 Body height 167.[address] 05-18-2023 09:33-0500 Body mass index (BMI) [Ratio] 29.05 kg/m2 [address] 05-18-2023 09:33-0500 Body weight 81.[address] 05-18-2023 09:33-0500 Diastolic blood pressure 82 mm[Hg] [address] 05-18-2023 09:33-0500 Systolic blood pressure 128 mm[Hg] [address] 03-27-2023 08:51-0500 Body temperature 98.5 [degF] ELSY Rome Work Phone: [facility] 03-27-2023 08:51-0500 Diastolic blood pressure 69 mm[Hg] ELSY Rome Work Phone: [facility] 03-27-2023 08:51-0500 Heart rate 82 /min ELSY Rome Work Phone: [facility] 03-27-2023 08:51-0500 Respiratory rate 18 /min ELSY Rome Work Phone: [facility] 03-27-2023 08:51-0500 SaO2% (BldA) [Mass fraction] 100 % ELSY Rome Work Phone: [phone] [place] [address] 03-27-2023 08:51-0500 Systolic blood pressure 111 mm[Hg] ELSY Rome Work Phone: [facility] 03-27-2023 08:50-0500 Body height 171.45 cm ELSY Rome Work Phone: [facility] 03-27-2023 08:50-0500 Body weight 80 kg ELSY Rome Work Phone: [facility] 03-15-2022 14:55-0400 Body height 170.18 cm PHYSICIAN [facility] 03-15-2022 14:55-0400 Body temperature 98.6 [degF] PHYSICIAN [facility] 03-15-2022 14:55-0400 Body weight 72.95 kg PHYSICIAN [facility] 03-15-2022 14:55-0400 Diastolic blood pressure 77 mm[Hg] PHYSICIAN NO [facility] 03-15-2022 14:55-0400 Heart rate 80 /min PHYSICIAN [facility] 03-15-2022 14:55-0400 Respiratory rate 14 /min PHYSICIAN [facility] 03-15-2022 14:55-0400 SaO2% (BldA) [Mass fraction] 99 % PHYSICIAN [facility] 03-15-2022 14:55-0400 Systolic blood pressure 133 mm[Hg] PHYSICIAN [facility] 11-01-2018 23:15-0400 Body Temperature 97.5 [degF] [facility] 11-01-2018 23:15-0400 BP Diastolic 80 mm[Hg] [facility] 11-01-2018 23:15-0400 BP Systolic 123 mm[Hg] [facility] 11-01-2018 23:15-0400 Pulse (Heart Rate) 84 /min [facility] 11-01-2018 23:15-0400 Pulse Oximetry 96 % [facility] 11-01-2018 23:15-0400 Respiratory Rate 18 /min [facility] Weight [facility] NEGATED: Highlighted row BMI (Body Mass Index) [facility] NEGATED: Highlighted row Height [facility] Encounters Encounter Date Encounter Type Care Provider Facility Start: 06-02-2023 End: 06-02-2023 ambulatory FLOR LEHMANO Not Available Start: 06-02-2023 End: 06-02-[address] [facility] Ambulatory Start: 06-02-2023 End: 06-02-2023 Office outpatient visit 15 minutes Vaishnavi Durán MD Work Phone: [facility] Comment on above: Long Q-T syndrome; Medication course changed Start: 05-18-2023 End: 05-19-2023 ambulatory [facility] Start: 05-18-2023 End: 05-18-2023 Subsequent hospital visit by physician Stephanie Jean Echo/Vas Room 2 [facility] Comment on above: Long Q-T syndrome Start: 04-29-2023 End: 04-29-2023 ambulatory FLOR DENNIS Not Available Start: 04-21-2023 End: 04-21-[address] [facility] Start: 03-27-2023 End: 03-27-2023 Emergency department patient visit Jacquelyn Kramer Wild Facility:[facility] Start: 03-27-2023 End: 03-27-2023 Emergency department patient visit ELSY Rome Work Phone: [facility]-Emergency Room Work Phone: Start: 03-15-2023 End: 03-15-2023 ambulatory Jacquelyn Rome Facility:[facility] Start: 03-15-2023 End: 03-15-2023 ambulatory ELSY Rome Work Phone: [facility] Work Phone: Start: 03-15-2023 End: 03-15-2023 Discharged Recurring ELSY Rome Work Phone: [facility]-Physical Therapy [place] Start: 03-15-2023 Registered Recurring RN PATIENT CARECatina Rome Work Phone: [facility] [place] Start: 02-01-2023 Registered Recurring RN PATIENT CARECatina Rome Work Phone: [facility] [place] Start: 02-01-2023 End: 02-01-2023 ambulatory Jacquelyn Rome Facility:[facility] Start: 02-01-2023 End: 02-01-2023 ambulatory ELSY Rome Work Phone: [facility] Work Phone: Start: 02-01-2023 End: 02-01-2023 Patient encounter procedure ELSY Rome Work Phone: [facility]-XRay [place] Work Phone: Start: 09-15-2022 End: 09-15-2022 ambulatory Rosa Bowen ([facility]) Facility:[facility] Start: 09-15-2022 End: 09-15-2022 ambulatory PHYSICIAN NO [facility] Work Phone: Start: 09-15-2022 End: 09-15-2022 Patient encounter procedure PHYSICIAN NO [facility]-Ultrasound [place] Work Phone: Start: 03-15-2022 End: 03-15-2022 Emergency department patient visit PHYSICIAN NO [facility]-Emergency Room Start: 11-01-2018 End: 11-02-2018 Emergency department patient visit [facility] Procedures Date Procedure Procedure Detail Performing Clinician Start: 06-02-2023 FOLLOW UP IN CARDIOLOGY VAISHNAVI DURÁN Start: 06-02-2023 ECG 12-LEAD VAISHNAVI AMBAR SANCHEZ Start: 05-18-2023 TRANSTHORACIC ECHO ( TTE) COMPLETE VAISHNAVIZach DURÁN Start: 05-18-2023 Echo tthrc r-t 2d w/ wom-mode compl spec&colr d Vaishnavi Durán MD Work Phone: Start: 04-21-2023 ECG 12-LEAD VAISHNAVI AMBAR SANCHEZ Start: 03-27-2023 Urine culture RN PATIENT CARE Dana suzettesurinder [place] Work Phone: Start: 03-27-2023 Diagnostic ultrasoun d of gravid uterus RN PATIENT CARE Jacquelyn [place] Work Phone: Start: 03-27-2023 Transvaginal obstetr ic ultrasonography RN PATIENT CARE Jacquelyn [place] Work Phone: Start: 02-01-2023 X-ray of right knee APR Catina Jacquelyn [place] Work Phone: Start: 09-15-2022 Pelvic echography PHYSI AYAD NO FAMILY Start: 09-15-2022 Transvaginal echography PHYSICIAN NO FAMILY Plan of Treatment Date Care Activity Detail Author Start: 2047 Zoster Vaccines (1 of 2) Zoste r Vaccines (1 of 2) [facility] Start: 08-08-2023 End: 08-08-2023 Patient encounter procedure 08/08/2023 10:15 AM EDT Office Visit [facility] [address] [facility] [address] [place] [address] Vaishnavi Durán MD [address] [place] [address] [address] [place] [address] [facility] Start: 06-02-2023 End: 06-02-2024 Basic metabolic 2000 panel - Serum or Plasma Basic Metabolic Panel Lab Routine Long Q-T syndrome Expected: 06/02/2023 (Approximate), Expires: 06/02/2024 [facility] Service Area Work Phone: Comment on above: Expected: 06/02/2023 (Approximate), Expires: 06/02/2024 Start: 06-02-2023 End: 06-02-2023 Patient encounter procedure 06/02/2023 9:30 AM EST Office Visit [facility] [address] [place] [address] Vaishnavi Durán MD [address] [facility] [address] [place] [address] [facility] Start: 03-27-2023 Bacteria identified in Urine by Culture [facility] Start: 03-12-2023 HPV Vaccines (3 - 3- dose series) HPV Vaccines (3 - 3-dose series) [facility] Start: 01-21-2023 Influenza vaccination Influenz a Vaccine (#1) [facility] Start: 03-28-2021 COVID-19 Vaccine (3 - Pfizer series) COVID-19 Vaccine (3 - Pfizer series) [facility] Start: 01-08-2020 DTaP/Tdap/Td Vaccine s (7 - Td or Tdap) DTaP/Tdap/Td Vaccines (7 - Td or Tdap) [facility] Start: 2018 Screening for malign ant neoplasm of cervix [facility] Start: 2015 Hepatitis C screening Hepatitis C [facility] Start: 09-11-2002 Varicella vaccination Varicell a Vaccines (2 of 2 - 2-dose childhood series) [facility] Start: 1997 HIV screening HIV Screening [facility] Start: 1997 Lipid panel Lipid Panel [facility] Start: 1997 Yearly Adult Physical Yearly Adult P hysical [facility] Patient Education [facility] Patient referral [facility] Work Phone: Immunizations Immunization Date Immunization Notes Care Provider Fa cility 11-10-2022 Human Papillomavirus 9-valent vaccine [address] Work Phone: 11-10-2022 HPV, unspecified formulation [address] Work Phone: 09-07-2022 Human Papillomavirus 9-valent vaccine [address] Work Phone: 06-04-2011 influenza virus vacc ine, whole virus [address] Work Phone: 06-04-2011 influenza virus vacc ine, unspecified formulation [address] Work Phone: 01-07-2010 tetanus toxoid, redu yolanda diphtheria toxoid, and acellular pertussis vaccine, adsorbed [address] Work Phone: 08-14-2002 diphtheria, tetanus toxoids and acellular pertussis vaccine, unspecified formulation [address] Work Phone: 08-14-2002 measles, mumps and r ubella virus vaccine [address] Work Phone: 08-14-2002 poliovirus vaccine, inactivated [address] Work Phone: 04-30-1998 diphtheria, tetanus toxoids and acellular pertussis vaccine, unspecified formulation [address] Work Phone: 04-30-1998 haemophilus influenz ae type b vaccine, PRP-OMP conjugate [address] Work Phone: 04-30-1998 measles, mumps and r ubella virus vaccine [address] Work Phone: 04-30-1998 trivalent poliovirus vaccine, live, oral [address] Work Phone: 04-30-1998 varicella virus vaccine [address] Work Phone: 1997 diphtheria, tetanus toxoids and acellular pertussis vaccine, unspecified formulation [address] Work Phone: 1997 haemophilus influenz ae type b conjugate and Hepatitis B vaccine [address] Work Phone: 1997 diphtheria, tetanus toxoids and acellular pertussis vaccine, unspecified formulation [address] Work Phone: 1997 haemophilus influenz ae type b vaccine, HbOC conjugate [address] Work Phone: 1997 poliovirus vaccine, inactivated [address] Work Phone: 1997 diphtheria, tetanus toxoids and acellular pertussis vaccine, unspecified formulation [address] Work Phone: 1997 haemophilus influenz ae type b conjugate and Hepatitis B vaccine [address] Work Phone: 1997 poliovirus vaccine, inactivated [address] Work Phone: 1997 hepatitis B vaccine, pediatric or pediatric/adolescent dosage [address] Work Phone: Payers Date Payer Category Payer Medicaid [id number] 2023 Medicaid [id number] 2022 Self-pay 2021 Unknown [id number] 2021 Unknown TAMIA CANTRELL P [id number] 2021-Present [address] [place] [address] [id number] 1997 Unknown [id number] 1997 Unknown [id number] 1997 Unknown [id number] 1997 Unknown [id number] 244 1997 Unknown [id number] Private Health Insurance [id number] Unknown [id number] 31 Unknown [id number] 31 Unknown [id number] 31 Unknown [id number] 31 Social History Date Type Detail Facility Tobacco smoking stat [facility] Unknown if ever smoked [facility] Start: 1995 Sex Assigned At Female [facility] Start: 03-15-2022 End: 03-27-2023 Tobacco smoking status NHIS Smoker (finding) [facility] Start: 04-21-2023 [facility] Work Phone: End: 02-20-2023 History of tobacco use Cigarette Smoker [facility] Work Phone: Start: 04-21-2023 End: 06-02-2023 Cigarettes smoked current (pack per day) - Reported 1 [facility] Work Phone: Start: 04-21-2023 Tobacco use and exposure Former smokeless tobacco user [facility] Work Phone: End: 02-20-2023 History of tobacco use User of smokeless tobacco [facility] Work Phone: Start: 04-21-2023 End: 06-02-2023 Alcohol intake Ex-drinker (finding) [facility] Work Phone: Start: 04-21-2023 End: 06-02-2023 Tobacco use panel [facility] Work Phone: Start: 04-21-2023 Tobacco Comment [facility] Work Phone: Start: 1997 Sex Assigned At Not on file [facility] Work Phone: Start: 05-08-2023 End: 06-02-2023 Exposure to SARS-CoV-2 (event) Not sure [facility] Goals Date Patient Goal Desired Activity /State [...] There is small atrial septal defect with dois-gs-bgryn shunt. 3. Mild mitral valve regurgitation. QUANTITATIVE [...] Vaishnavi Durán MD documented in this encounter [facility] Work Phone: Instructions 06-02-2023 Patient Instructions Note [...] of your visit. documented in this encounter [facility] Work Phone: Evaluation note Note Date & Type Note Facility Evaluation note No assessment information availa ble [facility] Work Phone: Evaluation note Note Date & Type Note Facility Evaluation note Diagnosis Long Q-T syndrome Long QT syndrome documented in this encounter [facility] Work Phone: Evaluation note Note Date & Type Note Facility Evaluation note Diagnosis Long Q-T syndrome Long QT syndrome Medication course changed documented in this encounter [facility] Work Phone: Hospital Discharge instructions Note Date & Type Note Facility Hospital Discharge instructions Additional Instructions 1. Push fluids today and tomorrow 2. No lifting, pushing or pulling today 3. Call OB office tomorrow to schedule follow up appointment [facility] Work Phone: Reason for referral (narrative) Consultation (Routine) - Authorized Note Date & Type Note Facility Reason for referral (narrati ve) Specialty Diagnoses / Procedures Referred By Ruslan kaye Referred To Contact Cardiology Diagnoses Long Q-T syndrome Procedures Follow Up In Cardiology Vaishnavi Durán MD [address] [facility] [address] [place] [address] Vaishnavi Durán MD [address] [facility] [address] [place] [address] Referral ID Status Reason Start Date Expiration Date V isits Requested Visits Authorized [id number] Authorized 06/02/2023 06/01/2024 1 1 [facility] Work Phone: Chief Complaint and Reason for [...] Q-T syndrome Procedures Transthoracic Echo (TTE) Complete MA ECHO TRANSTHORC R-T 2D W/WO M-MODE REC F-UP/LMTD MA DOP ECHOCARD COLOR FLOW VELOCITY MAPPING MA DOP ECHOCARD PULSE WAVE W/SPECTRAL F-UP/LMTD STD Vaishnavi Durán MD [address] [facility] [address] [place] [address] Referral ID Status Reason Start Date Expiration Date Visits Requested Visits Authorized [id number] Authorized Perform Procedure 3 04/20/2024 1 1 Additional Source Comments INFORMATION SOURCE (unrecogn ized section and content) DATE CREATED AUTHOR 02/23/2019 Javier Mendez [facility] DATE CREATED AUTHOR AUTHOR'S ORGANIZ ATION 05/26/2023 [facility] DATE CREATED AUTHOR AUTHOR'S ORGANIZ ATION 06/03/2023 [facility] EPIC DATE CREATED AUTHOR AUTHOR'S ORGANIZ ATION 06/05/2023 [facility] DATE CREATED AUTHOR AUTHOR'S ORGANIZ ATION 06/09/2023 [facility] Care Teams (unrecognized sec tion and content) Team Status: Inactive Member Role Status Dates PHYSICIAN NO FAMILY Primary Care Provider Active Abdi Arzola APRN Emergency Provider Active Team Status: Active Member Role Status Dates PHYSICIAN NO FAMILY Primary Care Provider Active Team Status: Inactive Member Role Status Dates PHYSICIAN NO FAMILY Primary Care Provider Active Rosa Bowen ([facility]) , RN PATIENT CARE Attending Provider Active Team Status: Active Member Role Status Dates Jacquelyn Rome APRN Primary Care Provider Active Team Status: Inactive Member Role Status Dates Jacquelyn Rome APRN Primary Care Provider, Attendin g Provider Active Team Status: Active Member Role Status Dates Jacquelyn Rome APRN Primary Care Prov ider, Attending Provider, Referring Provider Active Team Status: Inactive Member Role Status Dates Jacquelyn Rome RN PATIENT CARE Primary Care Provider Active Luci Daniels APRN Emergency Provider Active Web Content Specialist Relationship Specialty Start Date End Date Flor Giles DO [address] [facility] [address] [place] [address] PCP - General Obstetrics and Gynecology 05/18/23 Team Status: Inactive Member Role Status Dates Jacquelyn Rome APRN Primary Care Prov ider, Attending Provider, Referring Provider Active Web Content Specialist Relationship Specialty Start Date End Date Flor Giles DO [address] [facility] [address], [place] [address] PCP - General Obstetrics and Gynecology 05/18/23 [...] Q-T syndrome Procedures Transthoracic Echo (TTE) Complete MA ECHO TRANSTHORC R-T 2D W/WO M-MODE REC F-UP/LMTD MA DOP ECHOCARD COLOR FLOW VELOCITY MAPPING MA DOP ECHOCARD PULSE WAVE W/SPECTRAL F-UP/LMTD STD Vaishnavi Durán MD [address] [address] Referral ID Status Reason Start Date Expiration Date Visits Requested Visits Authorized [id number] Authorized Perform Procedure 04/20/2024 1 1 Reason Comments Follow-up Echo results Specialty Diagnoses / Procedures Referred By Ruslan t Referred To Contact Cardiology Diagnoses Long Q-T syndrome Procedures Follow Up In Cardiology Vaishnavi Durán MD [address] [address] Vaishnavi Durán MD [address] [facility] [address] [place] [address] Referral ID Status Reason Start Date Expiration Date V isits Requested Visits Authorized [id number] Authorized 04/21/2023 04/20/2024 1 1 FOR RECORDS [...] BE BASED ON THE PRIMARY CLINICAL RECORDS. [email or web address] provides no warranty or guarantee of the accuracy or completeness of information in this document.
== END 2023-06-29 12:52 | disposition home or self-care (01) ==
LOC: NOMS 12:52
PROVIDERS: Visit Provider Obstetrics & Gynecology
DX: Z36.89 Encounter for other specified antenatal screening (principal); Z3A.19 19 weeks gestation of pregnancy; O44.42 Low lying placenta NOS or without hemorrhage, second trimester
CPT/HCPCS: 76805; 76817

== ENCOUNTER 2023-08-14 07:46 | Emergency (ER) | payer BC, MEDICAID, SELFPAY ==
[2023-08-14] VITALS (21 sets, daily range): BP systolic 100–129; BP diastolic 57–83; PULSE 55–108; RESP 13–26; TEMP 36.9; O2SAT 96–100; BMI 30.1
--- OUTSIDE RECORDS SUMMARY | 2023-08-14 08:02 | XMS_ITS | CCD ---
Author Organization [facility] Care Team Providers Care Radar Air Traffic Controller Name Role Phone NO, FAMILY PHYSICIAN Primary Care Physician Unav Hetal Beasley Rounding Physician Unavailable NO FAMILY, PHYSICIAN Primary Care Provider Unava ilELSY [place]ett Emergency Provider [phone] NO FAMILY, PHYSICIAN Primary Care Provider Unava ilable Andrés ([facility]), ELSY Parekh Attending Provider [place], ELSY Valladares S Primary Care Provider [phone] [place], ELSY Valladares S Attending Provider [phone] [place], ELSY Jacquelyn S Referring Provider [phone] [place], GEOSPATIAL DEVELOPER Jacquelyn S Primary Care Provider [place], ELSY Russonifer S Attending Provider [place], GEOSPATIAL DEVELOPER Jacquelyn S Referring Provider [phone] ELSY Daniels Emergency Provider Flor Giles DO Primary Care Provider [place], ELSY Valladares S Primary Care Provider [place], GEOSPATIAL DEVELOPER Jacquelyn S Attending Provider [phone] VAISHNAVI DURÁN Referring Unavailable FLOR GILES Primary Care Unavailable FLOR GILES Attending Unavailable DASHA PETERS Attending Unavailable NO FAMILY, PHYSICIAN Primary Care Unavailable Andrés ([facility])Rosa Admitting Unavailabl e Andrés ([facility])Rosa Attending Unavailabl e Jacquelyn Rome S Attending Unavailable Wild, Jacquelyn S Referring Unavailable [place], Jacquelyn S Admitting Unavailable Rafaela Romenifer S Primary Care Unavailable Luci Daniels Admitting Unavailable Luci Daniels Attending Unavailable [place], Jacquelyn S Primary Care Unavailable [place], Jacquelyn S Admitting Unavailable [place], Jacquelyn S Primary Care Unavailable [place], Jacquelyn S Attending Unavailable Unavailable Primary Care Provider UnavailVAISHNAVI Duarte Attending Unavailable ANDRÉSROSA Primary Care Unavailable VAISHNAVI DURÁN Attending Unavailable VAISHNAVI DURÁN Referring Unavailable FLOR GILES Primary Care Unavailable VAISHANVI DURÁN Attending Unavailable VAISHNAVI DURÁN Referring Unavailable FLOR GILES Primary Care Unavailable Unavailable Unavailable Unavailable Allergies Allergy Classification Reported Allergen(s) Allergy Type Date of Onset Reaction(s) Facility (7 sources) ferrous sulfate; Translations: [FERROUS SULFATE] Drug Allergy 3 Unknown [facility] (7 sources) Sulfonamides (Antibiotic); Translations: [SULFA (SULFONAMIDE ANTIBIOTICS)] Propensity to adverse reactions 3 Unknown [facility] (1 source) Sulfacetamide Drug Allergy 3 [facility] (1 source) Sulfonamides (Antibiotic) Drug allergy (disorder) 3 [facility] Medications Current Medications Medication Drug Class(es) Dates Sig (Normalized) Sig (Original) [id number] 200 actuat albuterol 0.09 mg/actuat metered dose inhaler (5 sources) beta2-Adrenergic Agonist take 2 puff(s) by inhalation every four hours albuterol 90 mcg/actuation inhaler Inhale 2 puffs every 4 hours if needed. 0 Active take 2 puff(s) by in halation every four hours for wheezing albuterol HFA 90 mcg/act inhaler Inhale 2 puffs every 4 (four) hours if needed for wheezing 0 Active alpha-tocopherol acetate 30 unt / ascorbic acid 100 mg / beta carotene 1000 unt / calcium carbonate 200 mg / calcium pantothenate 7 mg / cholecalciferol 400 unt / docusate sodium 25 mg / ferrous fumarate 29 mg / folic acid 1 mg / niacinamide 15 mg / pyridoxine hydrochloride 20 mg / riboflavin 3 mg / thiamine 3 mg / vitamin b12 0.012 mg / zinc oxide 20 mg oral tablet (1 source) Vitamin B12, Vitamin D, Vitamin C Vit-DSS-Fe Fum-FA ( 19) tablet Take by mouth 0 Active cephalexin 500 mg oral capsule (2 sources) Cephalosporin Antibacterial Start: 03-27-20 take 500 mg by mouth twice daily Cephalexin Active 500 MG PO Twice daily March 26, 2023 11:00pm magnesium oxide 400 mg oral tablet (6 sources) Start: 04-21-20 End: 06-01-19 take 1 tablet by mouth twice daily magnesium oxide (Mag-Ox) 400 mg (241.3 mg magnesium) tablet Indications: Long Q-T syndrome Take 1 tablet (400 mg) by mouth 2 times a day. 60 tablet 1 06/02/2023 06/01/2024 Active [place] (No Known Home Meds) (3 sources) Start: 03-15-20 [place] (No Known Home Meds) Active March 15, 2022 12:00am ondansetron 8 mg oral tablet (6 sources) Serotonin-3 Receptor Antagonist Start: 07-15-19 take 1 tablet by mouth every eight hours as needed ondansetron (Zofran) 8 mg tablet Take 1 tablet (8 mg) by mouth every 8 hours if needed for nausea. 0 07/15/2023 Active Start: 06-02-2023 End: 07-02-2023 take 1 tablet by mouth every eight hours for nausea ondansetron (Zofran) 8 MG tablet Indications: Nausea and vomiting in Take 1 tablet (8 mg) by mouth every 8 (eight) hours if needed for nausea 90 tablet 1 06/02/2023 07/02/2023 Active Start: 03-15-2023 End: 06-02-2023 take 1 tablet by mouth every eight hours as needed ondansetron ODT (Zofran-ODT) 8 mg disintegrating tablet Take 1 tablet (8 mg) by mouth every 8 hours if needed for nausea. 0 03/15/2023 06/02/2023 Discontinued (Med List Cleanup) Jsfpbf-JaVpd-Ldjb-FA-DHA w/o A (PRENATE DHA PO) (1 source) Gcenfs-QhUhg-Kqc h-FA-DHA w/o A (PRENATE DHA PO) Take by mouth 0 Active vit37/iron/folic acid (PRENATA ORAL) (4 sources) vit37/i michelet/folic acid (PRENATA ORAL) Take by mouth. 0 Active sertraline 50 mg oral tablet (1 source) Serotonin Reuptake Inhibitor Star t: 05-23 End: 05-23 take 1 tablet by mouth in the morning sertraline (Zoloft) 50 MG tablet Indications: Anxiety with depression Take 1 tablet (50 mg) by mouth in the morning. 30 tablet 11 06/02/2023 06/01/2024 Active Completed/Discontinued Medications Medication Drug Class(es) Dates [...] 2022 1:57pm administer with food or milk vit,grqk58-fdxd-ljnyp (Prenatabs Rx) 29 mg iron- 1 mg tablet (3 sources) End: 06-02-2023 vit,kbfo34-meov-wqvt c (Prenatabs Rx) 29 mg iron- 1 mg tablet 1 tablet once daily. 0 06/02/2023 Discontinued (Duplicate order) vit,leo l89-imyt-nlugj (Prenatabs Rx) 29 mg iron- 1 mg tablet 1 tablet once daily. 0 Active promethazine hydrochloride 25 mg rectal suppository (4 sources) Phenothiazine End: 06-29-2023 take 25 mg rectal route every six hours as needed for nausea and vomiting promethazine (Phenergan) 25 MG suppository Insert 25 mg into the rectum every 6 (six) hours if needed for nausea or vomiting 0 06/29/2023 Discontinued (Other) Problems Active Problems Problem Classification Problem Date Documented Date Episodic/Chronic Asthma (6 sources) Asthma; Translations: [Unspecified asthma, uncomplicated] Onset: 04-21-2023 3 Chronic Cardiac and circulatory congenital anomalies (2 sources) Persistent ostium secundum; Translations: [ASD (atrial septal defect), ostium secundum] Onset: 06-02-2023 06-02-2023 Chronic Conduction disorders (12 sources) Long QT syndrome; Translations: [Long QT syndrome] Onset: 04-21-2023 05-18-2023 Chronic Other aftercare (3 sources) Treatment changed; Translations: [Other longterm (current) drug therapy] Onset: 06-02-2023 06-02-2023 Episodic Other aftercare (2 sources) 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; Translations: [Other longterm (current) drug therapy] Onset: 06-02-2023 Episodic Other and delivery including normal (4 sources) Intrauterine ; Translations: [Encounter for supervision of normal , unspecified, unspecified trimester] Onset: 06-23-2023 03-27-2023 Episodic Other screening for suspected conditions (not mental disorders or infectious disease) (1 source) Patient encounter status; Translations: [Encounter for screening for diabetes mellitus] 06-29-2023 Episodic Residual codes; unclassified (1 source) Uses contraception; Translations: [Other specified health status] 03-15-2022 Episodic Residual codes; unclassified (4 sources) Contraception ; Translations: [Other specified health status] 03-15-2022 Episodic Residual codes; unclassified (3 sources) Gestation period, 25 weeks; Translations: [25 weeks gestation of ] Onset: 08-08-2023 08-08-2023 Episodic Residual codes; unclassified (1 source) 25 weeks gestation of ; Translations: [25 weeks gestation of ] Onset: 08-08-2023 Episodic Sprains and strains (7 sources) Low back strain; Translations: [Strain of muscle, fascia and tendon of lower back, initial encounter] 11-01-2018 Episodic Unclassified (1 source) Pain in right knee; Translations: [Pain in right knee] Onset: 03-15-2023 Urinary tract infections (2 sources) Acute cystitis; Translations: [Acute cystitis without hematuria] 03-27-2023 Episodic Past or Other Problems Problem Classification Problem Date Documented Da te Episodic/Chronic Abdominal pain (2 sources) Unspecified abdominal pain; Translations: [Pelvic and perineal pain] Onset: 09-15-2022 Episodic Residual codes; unclassified (4 sources) Gestation period, 10 weeks; Translations: [10 weeks gestation of ] Onset: 04-21-2023 04-21-2023 Episodic Results Test Name Value Interpretation Reference Range Facility ECG 12 [place] 08-08-2023 Normal sinus rhythm with sinus arrhythmia, QTc 419 ms, no significant change compared to previous EKG from March 2023. [facility] Work Phone: Urinalysis macro (dipstick) panel (U)on 06-29-2023 Bilirubin, UA Negative Negative - 4(70) +++ mg/dL [facility] Blood, UA Negative Negative - 50 Zach/mcL [facility] Clarity, UA Clear [facility] Color, UA Yellow [facility] Glucose, UA Negative Negative - 1999(110) ++++ mg/dL [facility] Interpretation and review of laboratory results Normal [facility] Ketones, UA Negative Negative - 160(16) ++++ mg/dL [facility] Leukocytes, UA Negative Negative - 500+++ Joni/mcL [facility] Nitrite, UA Negative Negative - Positive [facility] pH, UA 5.5 5 - 9 [facility] Protein, UA Negative Negative - 1999(20) ++++ mg/dL [facility] Spec Grav, UA 1.015 1 - 1.03 [facility] Urobilinogen, UA 1.0 0.2 - 12 mg/dL Counts include 234 beds at the [facility] TRANSTHORACIC ECHO (TTE) COM PLETEon 05-18-2023 TRANSTHORACIC ECHO (TTE) COMPLETE [address], [address] [address] TRANSTHORACIC ECHOCARDIOGRAM REPORT Patient Name: BELLE Gallego Physician: [id number] Makenna Jhaveri MD, [facility] Study Date: 05/18/2023 Ordering Provider: [id number] VAISHNAVI DURÁN MRN/PID: [id number] Fellow: Nurse: Date of /Age: 8 1995 / years Inclinometer Tester: Maya Moraes RDCS, RVT Gender: F Additional Staff: Height: 167.64 cm Admit Date: Weight: 81.65 kg Admission Status: BSA: 1.91 m2 Department Location: [facility] Blood Pressure: 128 /82 mmHg Study Type: TRANSTHORACIC ECHO (TTE) COMPLETE Diagnosis/ICD: Long QT syndrome-I45.81 Indication: Pt is 14 weeks , Former Smoker, Marijuana Use CPT Codes: Echo Complete w Full Doppler-54080 Study Detail: The following Echo studies were [...] There is small atrial septal defect with zsgr-ge-qutah shunt. Right Ventricle: The right ventricle is [...] There is small atrial septal defect with noiq-qi-cstot shunt. 3. Mild mitral valve regurgitation. QUANTITATIVE [...] 0.7 m/s (0.6-0.9m/s) PV Max P.0 mmHg [id number] Makenna Jhaveri MD, FACC Electronically signed on 05/18/2023 at 1:24:06 PM Final Normal [facility] Heart TransthoracicOrdere d By: Makenna Jhaveri on 05-18-2023 Aortic Valve Area by Continuity of Peak Velocity 2.38 [facility] Work Phone: Aortic Valve Area by Continuity of VTI 2.38 [facility] Work Phone: [phone] AV mn grad 3.0 [facility] Work Phone: [phone] AV pk grad 6.0 [facility] Work Phone: [phone] AV pk suleiman 1.22 [facility] Work Phone: [phone] LV A4C EF 57.8 [facility] Work Phone: [phone] LVIDd 4.90 [facility] Work Phone: [phone] LVOT diam 2.30 [facility] Work Phone: [phone] MV avg E/e' ratio 5.40 [facility] Work Phone: [phone] MV E/A ratio 1.58 [facility] Work Phone: [phone] RVSP 16.8 [facility] Work Phone: [facility] Work Phone: Heart Transthoracicon [address], [address] [place] [address] TRANSTHORACIC ECHOCARDIOGRAM REPORT Patient Name: BELLE Gallego Physician: [id number] Makenna Jhaveri MD, FAC Study Date: 05/18/2023 Ordering Provider: [id number] VAISHNAVI DURÁN MRN/PID: [id number] Fellow: Nurse: Date of /Age: 8 1995 / 28 years Inclinometer Tester: Maya Moraes RDCS, RVT Gender: F Additional Staff: Height: 167.64 cm Admit Date: Weight: 81.65 kg Admission Status: BSA: 1.91 m2 Department Location: [facility] Blood Pressure: 128 /82 mmHg Study Type: TRANSTHORACIC ECHO (TTE) COMPLETE Diagnosis/ICD: Long QT syndrome-I45.81 Indication: Pt is 14 weeks , Former Smoker, Marijuana Use CPT Codes: Echo Complete w Full Doppler-44988 Study Detail: The following Echo studies were [...] There is small atrial septal defect with ywoy-bo-ncoct shunt. Right Ventricle: The right ventricle is [...] There is small atrial septal defect with losf-kg-dxwlu shunt. 3. Mild mitral valve regurgitation. QUANTITATIVE [...] 0.7 m/s (0.6-0.9m/s) PV Max P.0 mmHg [id number] Makenna Jhaveri MD, FACC Electronically signed on 05/18/2023 at 1:24:06 PM Final Makenna Hickey MD - 05/18/2023 [facility] [address], [address], [place] [address] TRANSTHORACIC ECHOCARDIOGRAM REPORT Patient Name: BELLE NAJERA Reading Physician: [id number] Makenna Jhaveri MD, [facility] Study Date: 05/18/2023 Ordering Provider: [id number] VAISHNAVI DURÁN MRN/PID: [id number] Fellow: Nurse: Date of /Age: 8 1995 / years Inclinometer Tester: Maya Moraes RD, T Gender: F Additional Staff: Height: 167.64 cm Admit Date: Weight: 81.65 kg Admission Status: BSA: 1.91 m2 Department Location: [facility] Blood Pressure: 128 /82 mmHg Study Type: TRANSTHORACIC ECHO (TTE) COMPLETE Diagnosis/ICD: Long QT syndrome-I45.81 Indication: Pt is 14 weeks , Former Smoker, Marijuana Use CPT Codes: Echo Complete w Full Doppler-67371 Study Detail: The following Echo studies were [...] There is small atrial septal defect with yngq-fq-fwnbq shunt. Right Ventricle: The right ventricle is [...] There is small atrial septal defect with ptwz-tj-ojqcf shunt. 3. Mild mitral valve regurgitation. QUANTITATIVE [...] 0.7 m/s (0.6-0.9m/s) PV Max P.0 mmHg [id number] Makenna Jhaveri MD, [facility] Electronically signed on 05/18/2023 at 1:24:06 PM Final [facility] Work Phone: Automated erythrocytes count in urine sediment (number/area)Ordered By: Luci Daniels on 03-27-2023 RBC Auto (Urine sed) [#/Area] 1-2 [HPF] 0-4 [facility] Automated leukocytes count i n urine sediment (number/area)Ordered By: Luci Daniels on 03-27-2023 WBC Auto (Urine sed) [#/Area] 20-49 [HPF] 0-4 [facility] Bilirubin Test strip Ql (U)O rdered By: Luci Daniels on 03-27-2023 Bilirubin Ql (U) Negative Negative [facility] Color Auto (U)Ordered By: Tiffanie Daniels on 03-27-2023 Color (U) Yellow Yellow [facility] Dipstick and Microscopicon 1 05-27-2022 Appearance (U) Cloudy Critically abnormal Clear [facility] Comment on above: Order Comment: Name Collection Type:: Clean-Voided Midstream Performed By: #### A DDONUAKEV, CUU #### [facility] [address] [place] [address] Bacteria,Urine 2+ High None Seen [facility] Comment on above: Order Comment: Name Collection Type:: Clean-Voided Midstream Performed By: #### A DDONUAPLUS, CUU #### [place] [address] [place] Bilirubin,Urine Negative Normal Negative [facility] Comment on above: Order Comment: Name Collection Type:: Clean-Voided Midstream Performed By: #### A DDONUAPLUS, CUU #### [address] Color (U) Yellow Normal Yellow [facility] Comment on above: Order Comment: Name Collection Type:: Clean-Voided Midstream Performed By: #### A DDONUAPLUS, CUU #### [address] Glucose Ql (U) Normal Normal Normal [facility] Comment on above: Order Comment: Name Collection Type:: Clean-Voided Midstream Performed By: #### A DDONUAPLUS, CUU #### [address] Hyaline Casts,Urine 0-8 Normal 0-8 [facility] Comment on above: Order Comment: Name Collection Type:: Clean-Voided Midstream Result Comment: PERF ORMED BY: [place] [address] PATHOLOGIST GIFT MANAGER ANGELIA NIETO M.D. Performed By: #### A DDONUAPLUS, CUU #### [address] Ketones Ql (U) Negative Normal Negative [facility] Comment on above: Order Comment: Name Collection Type:: Clean-Voided Midstream Performed By: #### A DDONUAPLUS, CUU #### [address] Leukocyte esterase Test strip Ql (U) 2+ High Negative [facility] Comment on above: Order Comment: Name Collection Type:: Clean-Voided Midstream Performed By: #### A DDONUAPLUS, CUU #### [address] Nitrite,Urine Negative Normal Negative [facility] Comment on above: Order Comment: Name Collection Type:: Clean-Voided Midstream Performed By: #### A DDONUAPLUS, CUU #### [address] Occult Blood,Urine Negative Normal Negative [facility] Comment on above: Order Comment: Name Collection Type:: Clean-Voided Midstream Result Comment: PERF ORMED BY: [place] [address] PATHOLOGIST GIFT MANAGER ANGELIA NIETO M.D. Performed By: #### A DDONUAPLUS, CUU #### [address] pH (U) 7.0 [pH] Normal 5.0-9.0 [facility] Comment on above: Order Comment: Name Collection Type:: Clean-Voided Midstream Performed By: #### A DDONUAPLUS, CUU #### [place] [address] [place] Protein,Urine Negative Normal Negative [facility] Comment on above: Order Comment: Name Collection Type:: Clean-Voided Midstream Performed By: #### A DDONUAPLUS, CUU #### [address] RBC,Urine 1-2 Normal 0-4 [facility] Comment on above: Order Comment: Name Collection Type:: Clean-Voided Midstream Performed By: #### A DDONUAPLUS, CUU #### [place] [address] [place] Specificy [place],Urine 1.022 Normal 1.001-1.030 [facility] Comment on above: Order Comment: Name Collection Type:: Clean-Voided Midstream Performed By: #### A DDONUAPLUS, CUU #### [place] [address] [place] Squamous Epithelial Cell,Urine 5-9 High 0-2 [facility] Comment on above: Order Comment: Name Collection Type:: Clean-Voided Midstream Performed By: #### A DDONUAPLUS, CUU #### [facility] [address] [place] [address] Urobilinogen,Urine Normal Normal Normal [facility] Comment on above: Order Comment: Name Collection Type:: Clean-Voided Midstream Performed By: #### A DDONUAPLUS, CUU #### [facility] [address] [place] [address] WBC,Urine 20-49 High 0-4 [facility] Comment on above: Order Comment: Name Collection Type:: Clean-Voided Midstream Performed By: #### A DDONUAPLUS, CUU #### [address] HCG ( test) IA.rapi d Ql (U)Ordered By: Luci Daniels on 03-27-2023 HCG ( test) Ql (U) Positive [facility] HCG,Urineon 03-27-2023 Beta HCG ( test) Ql (U) Positive High [facility] Comment on above: Result Comment: PERF ORMED BY: [place] [address] PATHOLOGIST GIFT MANAGER ANGELIA NIETO M.D. Performed By: #### U HCG #### [address] Ketones Auto test strip (U) [Mass/Vol]Ordered By: Luci Daniels on 03-27-2023 Ketones (U) [Mass/Vol] Negative Negative [facility] - UrinalysisOrder ed By: Luci Daniels on 03-27-2023 Hyaline casts LM Ql (Urine sed) 0-8 [LPF] 0-8 [facility] Nitrite Test strip Ql (U)Ord ered By: Luci Daniels on 03-27-2023 Nitrite Ql (U) Negative Negative [facility] Protein Auto test strip (U) [Mass/Vol]Ordered By: Luci Daniels on 03-27-2023 Protein (U) [Mass/Vol] Negative Negative [facility] Specific gravity Auto test s trip (U) [Rel density]Ordered By: Luci Daniels on 03-27-2023 Specific gravity (U) [Rel density] 1.022 1.001-1.030 [facility] Squamous epithelial cells de tection in urine sediment by light microscopyOrdered By: Luci Daniels on 03-27-2023 Epithelial cells.squamous LM Ql (Urine sed) 5-9 [HPF] 0-2 [facility] US OB transvaginalon 023 US OB transvaginal [facility] [place] [address] Ultrasound Report Signed Patient: Belle Najera MR#: [id number] 73 : 1995 Acct:[id number] Age/Sex: 28 / F ADM Date: 03/27/23 Loc: ER Room: Type: [facility] ER Attending Dr: Ordering Provider: Luci Daniels APRN Date of Service: 03/27/23 US/US OB <= 14 weeks fetus: 6 weeks ; abdominal pain ([id number]) US/US OB transvaginal: abd. pain w/ Copies [...] estimated gestational age of 6w2d weeks/days (accession [id number]), 6w1d weeks/days (accession [id number]) with an estimated date of delivery of 11/18/2023 (accession [id number]), 11/19/2023 (accession [id number]) and normal heart rate. The maurer of the gestational sac are slightly irregular/lobulated . This is of uncertain etiology. There is a trace amount of free fluid in the cul-de-sac. Impression dictated by: Fuentes Tomlinson M.D.03/27/2023 11:45 AM Dictation [facility]: Radha Adarsh Transcribed By: EMEKA 03/27/23 1145 Dictated By: Fuentes Tomlinson II, MD 03/27/23 1141 Signed By: 03/27/23 1145 [facility] Urine Cultureon 03-27-2023 Bacteria identified Cx Nom (U) >100,000 colonies/ml mixed bacterial skin contaminants 2 Days PERFORMED BY: [place] [address] PATHOLOGIST GIFT MANAGER ANGELIA NIETO M.D. [facility] Comment on above: Performed By: #### A LILIBETH GAGNON #### [address] Urine bacteria detection by automated methodOrdered By: Luci Daniels on 03-27-2023 Bacteria Auto Ql (U) 2+ None Seen [facility] Urine clarity by refractomet ry automatedOrdered By: Luci Daniels on 03-27-2023 Clarity Refractometry automated (U) Cloudy Clear [facility] Urine culture routineOrdered By: Luci Daniels on 03-27-2023 Bacteria identified Cx Nom (U) 2 Days [facility] Urine glucose measurement by automated test strip (mass/volume)Ordered By: Luci Daniels on 03-27-2023 Glucose Auto test strip (U) [Mass/Vol] Normal mg/dL Normal [facility] Urine hemoglobin detection b y automated test stripOrdered By: Luci Daniels on 03-27-2023 Hemoglobin Auto test strip Ql (U) Negative Negative [facility] Urine leukocyte esterase det ection by automated test stripOrdered By: Luci Daniels on 03-27-2023 Leukocyte esterase Auto test strip Ql (U) 2+ Negative [facility] Urobilinogen Auto test strip (U) [Mass/Vol]Ordered By: Luci Daniels on 03-27-2023 Urobilinogen (U) [Mass/Vol] Normal mg/dL Normal [facility] pH Auto test strip (U)Ordere d By: Luci Daniels on 03-27-2023 pH (U) 7.0 [pH] 5.0-9.0 [facility] XR knee RT 4V*on 02-01-2023 XR knee RT 4V* [facility] [place] [address] XRay Report Signed Patient: Belle Najera MR#: [id number] 73 : 1995 Acct:[id number] Age/Sex: 28 / F ADM Date: 02/01/23 Loc: XD Room: Type: [facility] Attending Dr: Jacquelyn Rome APRN Copies [...] Fartun Villa M.D.02/01/2023 4:33 PM Dictation Location: [place] [address] Transcribed By: EMEKA 02/01/23 163 Dictated By: Fartun Villa MD 02/01/23 1632 Signed By: 02/01/23 1633 Normal [facility] US transvaginalon 09-15-2022 US transvaginal [facility] Main [place] [address] [place] [address] Ultrasound Report Signed Patient: Belle Najera MR#: [id number] 71 : 1995 Acct:[id number] Age/Sex: 27 / F ADM Date: 09/15/22 Loc: Room: Type: [facility] Attending Dr: Rosa Bowen ([facility]) ELSY Ordering Provider: Rosa Bowen APRN, WHCNP Date of Service: 09/15/22 US/US pelvic complete: R10.2 ([id number]) US/US transvaginal: R10.2 Copies to: Rosa Bowen [...] Fartun Villa M.D.09/15/2022 6:21 PM Dictation Location: [place] [address] Tech: Alexia Johnson Transcribed By: EMEKA 09/15/221820 Dictated By: Fartun Villa MD 09/15/221816 Signed By: 09/15/221820 [facility] Coding Summary.on 02-22-2019 Coding Summary. CODING DATE: 02/22/2019 FINAL [facility] STATUS: Home (Routine DC) PAYOR: Self Pay [...] Cari Soliman Date Saved: 02/22/2019 05:33 pm [facility] Vital Signs Date Time Vital Sign Value Performing Clinician Facility 08-08-2023 11:08-0400 Diastolic blood pressure 54 mm[Hg] Vaishnavi Durán MD Work Phone: [facility] 08-08-2023 11:08-0400 Heart rate 80 /min Vaishnavi Durán MD Work Phone: [facility] 08-08-2023 11:08-0400 Systolic blood pressure 98 mm[Hg] Vaishnavi Durán MD Work Phone: [facility] 08-08-2023 10:13040 Body height 170.2 cm Vaishnavi Durán MD Work Phone: [facility] 08-08-2023 10:130400 Body mass index (BMI) [Ratio] 30.92 kg/m2 Vaishnavi Durán MD Work Phone: [facility] 08-08-2023 10:13-0400 Body weight 89.54 kg Vaishnavi Durán MD Work Phone: [facility] 06-29-2023 14:16-0500 Body weight 86.82 kg Dasha GA Work Phone: [facility] 06-29-2023 14:16-0500 Diastolic blood pressure 70 mm[Hg] Dasha GA Work Phone: [facility] 06-29-2023 14:16-0500 Systolic blood pressure 118 mm[Hg] Dasha GA Work Phone: [facility] 06-02-2023 09:39-0500 Body height 167.6 cm Vaishnavi Durán MD Work Phone: [facility] 06-02-2023 09:39-0500 Body mass index (BMI) [Ratio] 30.34 kg/m2 Vaishnavi Durán MD Work Phone: [facility] 06-02-2023 09:39-0500 Body weight 85.28 kg Vaishnavi Durán MD Work Phone: [facility] 06-02-2023 09:39-0500 Diastolic blood pressure 60 mm[Hg] Vaishnavi Durán MD Work Phone: [facility] 06-02-2023 09:39-0500 Heart rate 60 /min Vaishnavi Durán MD Work Phone: [facility] 06-02-2023 09:39-0500 Systolic blood pressure 100 mm[Hg] Vaishnavi Durán MD Work Phone: [facility] 05-18-2023 09:33-0500 Body height 167.[address] 05-18-2023 09:33-0500 Body mass index (BMI) [Ratio] 29.05 kg/m2 [address] 05-18-2023 09:33-0500 Body weight 81.[address] 05-18-2023 09:33-0500 Diastolic blood pressure 82 mm[Hg] [address] 05-18-2023 09:33-0500 Systolic blood pressure 128 mm[Hg] [address] 03-27-2023 08:51-0500 Body temperature 98.5 [degF] ELSY Jacquelyn Rome Work Phone: [facility] 03-27-2023 08:51-0500 Diastolic blood pressure 69 mm[Hg] ELSY Valladares Wild Work Phone: [facility] 03-27-2023 08:51-0500 Heart rate 82 /min GEOSPATIAL DEVELOPER Jacquelyn West Work Phone: [phone] [place] [address] 03-27-2023 08:51-0500 Respiratory rate 18 /min GEOSPATIAL DEVELOPER Jacquelyn West Work Phone: [facility] 03-27-2023 08:51-0500 SaO2% (BldA) [Mass fraction] 100 % GEOSPATIAL DEVELOPER Jacquelyn Rome Work Phone: [facility] 03-27-2023 08:51-0500 Systolic blood pressure 111 mm[Hg] ELSY Jacquelyn Rome Work Phone: [facility] 03-27-2023 08:50-0500 Body height 171.45 cm ELSY Jacquelyn Rome Work Phone: [facility] 03-27-2023 08:50-0500 Body weight 80 kg ELSY Valladares Wild Work Phone: [facility] 03-15-2022 14:55-0400 Body height 170.18 cm PHYSICIAN NO [facility] 03-15-2022 14:55-0400 Body temperature 98.6 [degF] PHYSICIAN NO [facility] 03-15-2022 14:55-0400 Body weight 72.95 kg PHYSICIAN NO [facility] 03-15-2022 14:55-0400 Diastolic blood pressure 77 mm[Hg] PHYSICIAN NO [facility] 03-15-2022 14:55-0400 Heart rate 80 /min PHYSICIAN [facility] 03-15-2022 14:55-0400 Respiratory rate 14 /min PHYSICIAN [facility] 03-15-2022 14:55-0400 SaO2% (BldA) [Mass fraction] 99 % PHYSICIAN [facility] 03-15-2022 14:55-0400 Systolic blood pressure 133 mm[Hg] PHYSICIAN [facility] 11-01-2018 23:15-0400 Body Temperature 97.5 [degF] [facility] 11-01-2018 23:15-0400 BP Diastolic 80 mm[Hg] [facility] 11-01-2018 23:15-0400 BP Systolic 123 mm[Hg] [facility] 11-01-2018 23:15-0400 Pulse (Heart Rate) 84 /min [facility] 11-01-2018 23:15-0400 Pulse Oximetry 96 % [facility] 11-01-2018 23:15-0400 Respiratory Rate 18 /min [facility] Weight [facility] NEGATED: Highlighted row BMI (Body Mass Index) [facility] NEGATED: Highlighted row Height [facility] Encounters Encounter Date Encounter Type Care Provider Facility Start: 08-08-2023 End: 08-08-2023 ambulatory [facility] Ambulatory Start: 08-08-2023 End: 08-08-2023 Office outpatient visit 15 minutes Vaishnavi Durán MD Work Phone: [facility] Comment on above: 25 weeks gestation o f (Primary Dx); Long Q-T syndrome Start: 06-29-2023 End: 06-29-2023 ambulatory DASHA PETERS Not Available Start: 06-29-2023 End: 06-29-2023 flow sheet Dasha GA Work Phone: [facility] Comment on above: Second trimester pre gnancy; Diabetes mellitus screening Start: 06-02-2023 End: 06-02-2023 ambulatory FLOR LOZANOZIO Not Available Start: 06-02-2023 End: 06-02-2023 ambulatory [facility] Ambulatory Start: 06-02-2023 End: 06-02-2023 Office outpatient visit 15 minutes Vaishnavi Durán MD Work Phone: [facility] Comment on above: Long Q-T syndrome; Medication course changed Start: 05-18-2023 End: 05-19-2023 ambulatory [facility] Start: 05-18-2023 End: 05-18-2023 Subsequent hospital visit by physician Stephanie Jean Echo/Vasc Room [facility] Comment on above: Long Q-T syndrome Start: 04-29-2023 End: 04-29-2023 ambulatory FLOR LEHMANO Not Available Start: 04-21-2023 End: 04-21-2023 ambulatory [facility] Ambulatory Start: 03-27-2023 End: 03-27-2023 Emergency department patient visit Luci Daniels Facility:[facility] Start: 03-27-2023 End: 03-27-2023 Emergency department patient visit ELSY Rome Work Phone: [facility] Work Phone: Start: 03-15-2023 End: 03-15-2023 ambulatory Jacquelyn Rome Facility:[facility] Start: 03-15-2023 End: 03-15-2023 ambulatory ELSY Rome Work Phone: [facility] Work Phone: Start: 03-15-2023 End: 03-15-2023 Discharged Recurring ELSY Valladares [place] Work Phone: [facility] [place] Start: 03-15-2023 Registered Recurring GEOSPATIAL DEVELOPERCatina Rome Work Phone: [facility] [place] Start: 02-01-2023 Registered Recurring GEOSPATIAL DEVELOPERCatina cooley [place] Work Phone: [facility] [place] Start: 02-01-2023 End: 02-01-2023 ambulatory Jacquelyn Rome Facility:[facility] Start: 02-01-2023 End: 02-01-2023 ambulatory ELSY Kramer [place] Work Phone: [facility] Work Phone: Start: 02-01-2023 End: 02-01-2023 Patient encounter procedure ELSY Rome Work Phone: [facility] [place] Work Phone: Start: 09-15-2022 End: 09-15-2022 ambulatory PHYSICIAN NO FAMILY Facility:[facility] Start: 09-15-2022 End: 09-15-2022 ambulatory PHYSICIAN NO [facility] Work Phone: Start: 09-15-2022 End: 09-15-2022 Patient encounter procedure PHYSICIAN NO [facility] [place] Work Phone: Start: 03-15-2022 End: 03-15-2022 Emergency department patient visit PHYSICIAN NO [facility] Start: 11-01-2018 End: 11-02-2018 Emergency department patient visit FAMILY [facility] Procedures Date Procedure Procedure Detail Performing Clinician Start: 08-08-2023 ECG 12-LEAD VAISHNAVI SANCHEZ Start: 08-08-2023 FOLLOW UP IN CARDIOLOGY VAISHNAVI DURÁN Start: 08-08-2023 Ecg routine ecg w/le ast 12 lds w/i&r Vaishnavi Durán MD Work Phone: Start: 06-29-2023 Urnls dip stick/tabl et rgnt non-auto w/o micrscp Dasha Shawn PA Work Phone: Start: 06-02-2023 FOLLOW UP IN CARDIOLOGY VAISHNAVI DURÁN Start: 06-02-2023 ECG 12-LEAD VAISHNAVI SANCHEZ Start: 05-18-2023 TRANSTHORACIC ECHO ( TTE) COMPLETE VAISHNAVI DURÁN Start: 05-18-2023 Echo tthrc r-t 2d w/ wom-mode compl spec&colr d Vaishnavi Durán MD Work Phone: Start: 04-21-2023 ECG 12-LEAD VAISHNAVI SANCHEZ Start: 03-27-2023 Urine culture GEOSPATIAL DEVELOPER Dana suzettesurinder [place] Work Phone: Start: 03-27-2023 Diagnostic ultrasoun d of gravid uterus ELSY Jacquelyn [place] Work Phone: Start: 03-27-2023 Transvaginal obstetr ic ultrasonography ELSY Jacquelyn [place] Work Phone: Start: 02-01-2023 X-ray of right knee APR Catina Jacquelyn [place] Work Phone: Start: 09-15-2022 Pelvic echography PHYSI AYAD NO FAMILY Start: 09-15-2022 Transvaginal echography PHYSICIAN NO FAMILY Plan of Treatment Date Care Activity Detail Author Start: 2047 Zoster Vaccines (1 of 2) Zoste r Vaccines (1 of 2) [facility] Start: 11-14-2023 End: 11-14-2023 Patient encounter procedure 11/14/2023 10:00 AM EDT Office Visit [address] [place] [address] Vaishnavi Durán MD [address] [facility] [place] [address] [place] [address] [facility] Start: 08-08-2023 End: 08-08-2023 Patient encounter procedure 08/08/2023 10:15 AM EDT Office Visit [address] [place] [phone] Vaishnavi Durán MD [address] [facility] [place] [address] [place] [address] [facility] Start: 07-26-2023 End: 07-26-2023 Patient encounter procedure 07/26/2023 2:10 PM EST Routine [facility] [address] [place] [id number] Flor Giles DO [address] [place] [address] [facility] Start: 06-29-2023 End: 06-29-2024 CBC panel - Blood by Automated count CBC Lab Routine Diabetes mellitus screening Expected: 06/29/2023 (Approximate), Expires: 06/29/2024 [facility] Work Phone: Comment on above: Expected: 06/29/2023 (Approximate), Expires: 06/29/2024 Start: 06-29-2023 End: 06-29-2024 Measurement of glucose 1 hour after glucose challenge for glucose tolerance test Glucose tolerance, 1 hour Lab Routine Diabetes mellitus screening Expected: 06/29/2023 (Approximate), Expires: 06/29/2024 [facility] Comment on above: Expected: 06/29/2023 (Approximate), Expires: 06/29/2024 Start: 06-02-2023 End: 06-02-2024 Basic metabolic 2000 panel - Serum or Plasma Basic Metabolic Panel Lab Routine Long Q-T syndrome Expected: 06/02/2023 (Approximate), Expires: 06/02/2024 [facility] Service Area Work Phone: Comment on above: Expected: 06/02/2023 (Approximate), Expires: 06/02/2024 Start: 06-02-2023 End: 06-02-2023 Patient encounter procedure 06/02/2023 9:30 AM EST Office Visit [facility] [address] [facility] [address] [place] [phone] Vaishnavi Durán MD [address] [facility] [place] [address] [place] [address] [facility] Start: 03-27-2023 Bacteria identified in Urine by Culture [facility] Start: 03-12-2023 HPV Vaccines (3 - 3- dose series) HPV Vaccines (3 - 3-dose series) [facility] Start: 01-21-2023 COVID-19 Vaccine (2022- season) COVID-19 Vaccine (2022- season) [facility] Start: 01-21-2023 Influenza vaccination Influenz a Vaccine (#1) [facility] Start: 03-28-2021 COVID-19 Vaccine (3 - Pfizer series) COVID-19 Vaccine (3 - Pfizer series) [facility] Start: 01-08-2020 DTaP/Tdap/Td Vaccine s (7 - Td or Tdap) DTaP/Tdap/Td Vaccines (7 - Td or Tdap) [facility] Start: 2018 Screening for malign ant neoplasm of cervix [facility] Start: 2015 Hepatitis C screening Hepatitis C Sc [facility] Start: 09-11-2002 Varicella vaccination Varicell a Vaccines (2 of 2 - 2-dose childhood series) [facility] Start: 1997 HIV screening HIV Screening [facility] Start: 1997 Lipid panel Lipid Panel [facility] Start: 1997 Yearly Adult Physical Yearly Adult P hysical [facility] Patient Education [facility] Patient referral [facility] Work Phone: Immunizations Immunization Date Immunization Notes Care Provider Fa cility 11-10-2022 Human Papillomavirus 9-valent vaccine [address] Work Phone: 11-10-2022 HPV, unspecified formulation [address] Work Phone: 09-07-2022 Human Papillomavirus 9-valent vaccine [address] Work Phone: 06-04-2011 influenza virus vacc ine, whole virus [address] Work Phone: 06-04-2011 influenza virus vacc ine, unspecified formulation [address] Work Phone: 01-07-2010 tetanus toxoid, redu yolanda diphtheria toxoid, and acellular pertussis vaccine, adsorbed [address] Work Phone: 08-14-2002 diphtheria, tetanus toxoids and acellular pertussis vaccine, unspecified formulation [address] Work Phone: 08-14-2002 measles, mumps and r ubella virus vaccine [address] Work Phone: 08-14-2002 poliovirus vaccine, inactivated [address] Work Phone: 04-30-1998 diphtheria, tetanus toxoids and acellular pertussis vaccine, unspecified formulation [address] Work Phone: 04-30-1998 haemophilus influenz ae type b vaccine, PRP-OMP conjugate [address] Work Phone: 04-30-1998 measles, mumps and r ubella virus vaccine [address] Work Phone: 04-30-1998 trivalent poliovirus vaccine, live, oral [address] Work Phone: 04-30-1998 varicella virus vaccine [address] Work Phone: 1997 diphtheria, tetanus toxoids and acellular pertussis vaccine, unspecified formulation [address] Work Phone: 1997 haemophilus influenz ae type b conjugate and Hepatitis B vaccine [address] Work Phone: 1997 diphtheria, tetanus toxoids and acellular pertussis vaccine, unspecified formulation [address] Work Phone: 1997 haemophilus influenz ae type b vaccine, HbOC conjugate [address] Work Phone: 1997 poliovirus vaccine, inactivated [address] Work Phone: 1997 diphtheria, tetanus toxoids and acellular pertussis vaccine, unspecified formulation [address] Work Phone: 1997 haemophilus influenz ae type b conjugate and Hepatitis B vaccine [address] Work Phone: 1997 poliovirus vaccine, inactivated [address] Work Phone: 1997 hepatitis B vaccine, pediatric or pediatric/adolescent dosage [address] Work Phone: Payers Date Payer Category Payer Medicaid [id number] 2023 Medicaid [id number] 2022 Self-pay 2021 Unknown [id number] 2021 Unknown [id number] 1997 Unknown [id number] 2.16.84 [id number] 1997 Unknown [id number] 2.16.84 [id number] 1997 Unknown [id number] 2.16.84 [id number] 1997 Unknown [id number] [id number] 1997 Unknown [id number] 2.16.8 [id number] 1997 Unknown [id number] 2.16.8 [id number] 1997 Unknown [id number] 2.16.8 [id number] Private Health Insurance [id number] Unknown [id number] 2.16.8 [id number] Unknown [id number] 2.16.8 [id number] Unknown [id number] 2.16.8 [id number] Unknown [id number] 2.16.8 [id number] Social History Date Type Detail Facility Tobacco smoking stat [facility] Unknown if ever smoked [facility] Start: 1997 Sex Assigned At Female F [facility] Start: 03-15-2022 End: 03-27-2023 Tobacco smoking status NHIS Smoker (finding) [facility] Start: 04-21-2023 [facility] Work Phone: End: 02-20-2023 History of tobacco use Cigarette Smoker [facility] Work Phone: Start: 04-21-2023 End: 06-02-2023 Cigarettes smoked current (pack per day) - Reported 1 [facility] Work Phone: Start: 04-21-2023 Tobacco use and exposure Former smokeless tobacco user [facility] Work Phone: End: 02-20-2023 History of tobacco use User of smokeless tobacco [facility] Work Phone: Start: 04-21-2023 End: 08-08-2023 Alcohol intake Ex-drinker (finding) [facility] Work Phone: Start: 04-21-2023 End: 06-02-2023 Tobacco use panel [facility] Work Phone: Start: 04-21-2023 Tobacco Comment Vaping [facility] Work Phone: Start: 1997 Sex Assigned At Not on file [facility] Work Phone: Start: 05-08-2023 End: 08-08-2023 Exposure to SARS-CoV-2 (event) Not sure [facility] Tobacco smoking stat us NHIS Tobacco smoking consumption unknown [facility] Start: 02-24-2023 [facility] Goals Date Patient Goal Desired Activity /State Clinical Notes 06-02-2023 to 08-08-2023 Vaisnhavi Durán MD - 08/08/2023 10:15 AM EDTPatient InstructionsHARMEET Pierre - 06/29/2023 2:00 PM Rosa Durán MD - 06/02/2023 9:30 AM ESTPatient Instructions Note Date & Type Note Facility 08-08-2023 History of Present illness Narrative Patient with tendency for prolonged QT, intractable nausea and vomiting, currently 25 weeks , presents for follow-up Subjective : Continues to have occasional dizzy spells with changes in posture. No presyncope or syncope, but does get lightheaded frequently Occasional palpitations Trying to stay well-hydrated, she says she consumes a total of 216 ounce bottles of water daily. EKG was reviewed. Last week she reports seeing spots while she was standing up. Unable to do a tilt table test because of status History so Far : Preserved LV systolic function, structurally normal heart Currently 25 weeks of gestational age Tendency for QT prolongation. No malignant dysrhythmias. Multiple symptoms of nausea lightheadedness, overall stable Objective Failed to redirect to the Timeline version of the [employer] SmartLink. Wt Readings from Last 3 Encounters: 08/08/23 89.5 kg (197 lb 6.4 oz) 06/02/23 85.3 kg (188 lb) 05/18/23 81.6 kg (180 lb) Visit Vitals BP 98/54 (BP Location: Right arm, Patient Position: Standing) Pulse 80 Ht 1.702 m (5' 7 ) Wt 89.5 kg (197 lb 6.4 oz) BMI 30.92 kg/m OB Status Smoking Status Former BSA 2.06 m Physical Exam: GENERAL APPEARANCE: in no acute distress. CHEST: Symmetric and non-tender. INTEGUMENT: Skin warm and dry HEENT: No gross abnormalities identified.No pallor or scleral icterus. NECK: Supple, no JVD, no bruit. NEURO/PSHCY: Alert and oriented x3; appropriate behavior and responses and responses LUNGS: Clear to auscultation bilaterally; normal respiratory effort. HEART: Rate and rhythm regular with no evident murmur; no gallop appreciated. EXTREMITIES: Warm There is no edema noted. Meds: Current Outpatient Medications Medication Instructions albuterol 90 mcg/actuation inhaler 2 puffs, inhalation, Every 4 hours PRN magnesium oxide (MAG-OX) 400 mg, oral, 2 times daily ondansetron (ZOFRAN) 8 mg, oral, Every 8 hours PRN vit37/iron/folic acid (PRENATA ORAL) oral Allergies Allergen Reactions Sulfa (Sulfonamide Antibiotics) Unknown Ferrous Sulfate Unknown LABS: May 2023-sodium 131 potassium 3.9 glucose 68 creatinine 0.57 GFR greater than 60. Patient Active Problem List Diagnosis Date Noted 25 weeks gestation of 08/08/2023 Medication course changed 06/02/2023 ASD (atrial septal defect), ostium secundum 06/02/2023 Long Q-T syndrome 04/21/2023 Asthma 04/21/2023 10 weeks gestation of 04/21/2023 EKG was reviewed, QTc remained stable Assessment: 1. 25 weeks gestation of 2. Long Q-T syndrome Follow Up In Cardiology ECG 12 Lead Follow Up In Cardiology I suggested that she add some salt and maybe [place] juice to the water that she drinks. The only thing we can do for arterial hypotension is give her salt supplementation. Orthostatics will be checked Follow up : 3 months Provider Attestation - Scribe documentation All medical record entries made by the Scribe were at my direction and personally dictated by me. I have reviewed the chart and agree that the record accurately reflects my personal performance of the history, physical exam, discussion and plan. documented in this encounter [facility] Work Phone: 08-08-2023 Instructions Hetal Jacobo LPN - 08/08/2023 10:15 AM EDT Please bring all medicines, vitamins, and herbal supplements with you when you come to the office. Prescriptions will not be filled unless you are compliant with your follow up appointments or have a follow up appointment scheduled as per instruction of your physician. Refills should be requested at the time of your visit. EKG done in office today documented in this encounter [facility] Work Phone: 06-29-2023 History of Present illness Narrative Reason for Appointment: Patient ID: Belle Najera is a 28 y.o. female who presents for Routine Visit Patient presents today for Return OB appointment. Patient presents today for a routine obstetrics appointment. Patient is currently 19w6d with a Estimated Date of Delivery: 11/17/23. Current Medications: has a current medication list which includes the following prescription(s): magnesium oxide, albuterol hfa, ondansetron, ondansetron, [id number]-dha w/o a, 19, and sertraline. Medical History: Active Ambulatory Problems Diagnosis Date Noted Second trimester 06/23/2023 Resolved Ambulatory Problems Diagnosis Date Noted No Resolved Ambulatory Problems Past Medical History: Diagnosis Date Knee problem Family History Problem Relation Name Age of Onset Diabetes Mother Liver cancer Mother No Known Problems Father No Known Problems Sister No Known Problems Brother Social History Tobacco Use Smoking status: Not on file Smokeless tobacco: Not on file Substance Use Topics Alcohol use: Not on file Drug use: Not on file Past Surgical History: Procedure Laterality Date OTHER SURGICAL HISTORY Needs surgery -planned ; Disease: deformed of knee caps Allergies Allergen Reactions Sulfa Antibiotics Other Reaction(s): Unknown Other Reaction(s): Unknown Reaction Ferrous Sulfate Unknown Other Reaction(s): Unknown Review of Systems: Review of Systems Constitutional: Negative. HENT: Negative. Eyes: Negative. Respiratory: Negative. Cardiovascular: Negative. Gastrointestinal: Negative. Genitourinary: Negative. Musculoskeletal: Negative. Skin: Negative. Neurological: Negative. All other systems reviewed and are negative. Hematological: Negative. Endocrine: Negative. Allergic/Immunologic: Negative. Objective Physical Exam Constitutional: Appearance: Normal appearance. She is normal weight. HENT: Head: Normocephalic. Cardiovascular: Rate and Rhythm: Normal rate. Pulses: Normal pulses. Pulmonary: Effort: Pulmonary effort is normal. Breath sounds: Normal breath sounds. Abdominal: Palpations: Abdomen is soft. Musculoskeletal: General: Normal range of motion. Neurological: General: No focal deficit present. Mental Status: She is alert and oriented to person, place, and time. Psychiatric: Mood and Affect: Mood normal. Behavior: Behavior normal. Thought Content: Thought content normal. Judgment: Judgment normal. Vitals and nursing note reviewed. Vitals: There is no height or weight on file to calculate BMI. BP: 118/70 Patient's last menstrual period was 02/10/2023. Assessment/Plan Encounter Diagnoses Name Primary? Second trimester Diabetes mellitus screening Anatomy scan perfomed today in office Patient presents today for a routine obstetrics appointment. Patient is currently 19w6d . Patient states she is doing well but has complaints of being tired due to current . Patient has verbalizes frequent movement. labor precautions was discussed/given and patient was instructed to perform kick counts three times a day. Follow Up: Patient is to return to office in 2 week for routine OB appointment. Documented by HARMEET Pierre on behalf of: HARMEET Pierre documented in this encounter [facility] 06-02-2023 History of Present illness Narrative Patient [...] There is small atrial septal defect with [id number] shunt. 3. Mild mitral valve regurgitation. QUANTITATIVE [...] Vaishnavi Durán MD documented in this encounter [facility] Work Phone: 06-02-2023 Instructions Mounika Dean CMA - 06/02/2023 [...] of your visit. documented in this encounter [facility] Work Phone: Evaluation note No assessment inform ation available [facility] Work Phone: Evaluation note Diagnosis Long Q-T syndrome Long QT syndrome documented in this encounter [facility] Work Phone: Evaluation note* Diagnosis Long Q-T syndrome Long QT syndrome Medication course changed documented in this encounter [facility] Work Phone: Evaluation note* Diagnosis Second trimester state, incidental Diabetes mellitus screening Screening for diabetes mellitus documented in this encounter [facility] Diagnosis 25 weeks gestation of - Primary Long Q-T syndrome Long QT syndrome documented in this encounter [facility] Work Phone: Hospital Discharge instructions Additional Instructions 1. Push fluids today and tomorrow 2. No lifting, pushing or pulling today 3. Call [facility] tomorrow [facility] Reason for referral (narrative)* Consultation (Routine) - Authorized Specialty Diagnoses / Procedures Referred By Ruslan kaye Referred To Contact Cardiology Diagnoses Long Q-T syndrome Procedures Follow Up In Cardiology Vaishnavi Durán MD [address] [facility] [address] [place] [address] Vaishnavi Durán MD [address] [facility] [address] [place] [address] Referral ID Status Reason Start Date Expiration Date V isits Requested Visits Authorized [id number] Authorized 06/02/2023 06/01/2024 1 1 [facility] Work Phone: Reason for referral (narrative)* Consultation (Routine) - Authorized Specialty Diagnoses / Procedures Referred By Ruslan kaye Referred To Contact Cardiology Diagnoses Long Q-T syndrome Procedures Follow Up In Cardiology Vaishnavi Durán MD [address] [facility] [address] [place] [address] Vaishnavi Durán MD [address] [facility] [address] [place] [address] Referral ID Status Reason Start Date Expiration Date V isits Requested Visits Authorized [id number] Authorized 08/08/2023 08/07/2024 1 1 * Cardiovascular (Routine) - Authorized Specialty Diagnoses / Procedures Referred By Ruslan kaye Referred To Contact Diagnoses Long Q-T syndrome Procedures ECG 12 Lead Vaishnavi Durán MD [address] [facility] [place] [address] [place] [address] Referral ID Status Reason Start Date Expiration Date V isits Requested Visits Authorized [id number] Authorized 08/08/2023 08/07/2024 1 1 [facility] Work Phone: Chief Complaint and Reason [...] W/SPECTRAL F-UP/LMTD STD Vaishnavi Durán MD [address] [facility] [place] [address] [place] [address] Referral ID Status Reason Start Date Expiration Date Visits Requested Visits Authorized [id number] Authorized Perform Procedure 3 04/20/2024 1 1 Additional Source Comments INFORMATION SOURCE (unrecogn ized section and content) DATE CREATED AUTHOR 02/23/2019 Javier Mendez [facility] DATE CREATED AUTHOR AUTHOR'S ORGANIZ ATION 06/09/2023 [facility] DATE CREATED AUTHOR AUTHOR'S ORGANIZ ATION 06/30/2023 [facility] DATE CREATED AUTHOR AUTHOR'S ORGANIZ ATION 07/01/2023 [facility] DATE CREATED AUTHOR AUTHOR'S ORGANIZ ATION 08/08/2023 [facility] Residence Manager Teams (unrecognized sec tion and content) Team Status: Inactive Member Role Status Dates PHYSICIAN NO FAMILY Primary Care Provider Active Abdi Arzola APRN Emergency Provider Active Team Status: Active Member Role Status Dates PHYSICIAN NO FAMILY Primary Care Provider Active Team Status: Inactive Member Role Status Dates PHYSICIAN NO FAMILY Primary Care Provider Active Rosa Bowen ([facility]) , GEOSPATIAL DEVELOPER Attending Provider Active Team Status: Active Member Role Status Dates Jacquelyn Rome GEOSPATIAL DEVELOPER Primary Care Provider Active Team Status: Inactive Member Role Status Dates Jacquelyn Rome APRN Primary Care Provider, Attendin g Provider Active Team Status: Active Member Role Status Dates Jacquelyn Rome APRN Primary Care Prov ider, Attending Provider, Referring Provider Active Team Status: Inactive Member Role Status Dates Jacquelyn Rome GEOSPATIAL DEVELOPER Primary Care Provider Active Luci Daniels APRN Emergency Provider 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 Relationship Specialty Start Date End Date Flor Giles DO [address] [facility] [address], [place] [address] PCP - General Obstetrics and Gynecology 05/18/23 Team Status: Inactive Member Role Status Dates Jacquelyn Rome APRN Primary Care Prov ider, Attending Provider, Referring Provider 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 Relationship Specialty Start Date End Date Flor Giles DO [address] [facility] [address], [place] [address] PCP - General Obstetrics and Gynecology 05/18/23 [employer] Relationship Specialty Start Date End Date Tisha Florcarmel Parsons [address] [facility] [address] [address], [place] [address] PCP - General Obstetrics and Gynecology 05/18/23 Goals (unrecognized section and content) Goals may be documented in a n alternate sectionGoals may be documented in an alternate sectionGoals may be documented in an alternate sectionGoals may be documented in an alternate sectionGoals may be documented in an alternate section Reason for Visit (unrecogniz ed section and content) Reason Comments Follow-up 6w with ekg Specialty Diagnoses / Procedures Referred By Ruslan kaye Referred To Contact Cardiology Diagnoses Long Q-T syndrome Procedures Follow Up In Cardiology Vaishnavi Durán MD [address] [facility] [address] [place] [address] Vaishnavi Durán MD [address] [facility] [address] [place] [address] Referral ID Status Reason Start Date Expiration Date V isits Requested Visits Authorized [id number] Authorized 06/02/2023 06/01/2024 1 1 Specialty Diagnoses / Procedures Referred By Ruslan kaye Referred To Contact Cardiology Diagnoses Long Q-T syndrome Procedures Transthoracic Echo (TTE) Complete NH ECHO TRANSTHORC R-T 2D W/WO M-MODE REC F-UP/LMTD NH DOP ECHOCARD COLOR FLOW VELOCITY MAPPING NH DOP ECHOCARD PULSE WAVE W/SPECTRAL F-UP/LMTD STD Vaishnavi Durán MD [address] [facility] [address] [place] [address] Referral ID Status Reason Start Date Expiration Date Visits Requested Visits Authorized [id number] Authorized Perform Procedure 04/20/2024 1 1 Reason Comments Follow-up Echo results Referral ID Status Reason Start Date Expiration Date V isits Requested Visits Authorized [id number] Authorized 04/21/2023 04/20/2024 1 1 Reason Comments Routine Visit FOR RECORDS PERTAINING TO PATIENTS WHO ARE [...] BE BASED ON THE PRIMARY CLINICAL RECORDS. [facility]. provides no warranty or guarantee of the accuracy or completeness of information in this document.
--- NOTE | 2023-08-14 08:04 | ECG_ITS ---
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
--- NOTE | 2023-08-14 08:11 | XR_ITS ---
The [address] [address] Patient Name: BELLE BEAVERS MRN: [id number] date: 1995 Sex: F Assigned Patient Location: ER Current Patient Location: ER Accession/Order Number: [id number] Exam Date: 08/14/2023 08:23 Report Date: 08/14/2023 09:11 At the request of: WILBER JACK Procedure: XR chest 1V EXAM: XR chest 1V HISTORY: chest pain pt is COMPARISON: None. FINDINGS: A frontal view of the chest demonstrates clear lungs. There is slight elevation the right hemidiaphragm. The heart size is within normal limits. There are no pleural effusions. No acute bony abnormality is identified in the chest. XR/XR chest 1V IMPRESSION: No radiographic evidence of acute cardiopulmonary disease. Electronically authenticated by: PAIGE HERNANDEZ Date: 08/14/2023 09:11
[2023-08-14] MEDS: FAMOTIDINE/PF 20 MG/2 ML VIAL IV (08:16)
[2023-08-14] MEDS: ONDANSETRON PF 4 MG/2 ML VIAL IV (08:16)
[2023-08-14] MEDS: 0.9 % SODIUM CHLORIDE 1,000 ML 1000 ML IV (08:16)
[2023-08-14 08:19] LABS: Basophils Percent Auto 0.4 % (0.2-2.0); Eosinophils Percent Auto 0.3 % (0.9-7.0); Hematocrit 37.9 % (36.0-48.0); Hemoglobin 12.7 g/dL (12.0-16.0); Immature Granulocytes Abs Auto 0.03 10^3/uL (0.00-0.03); Immature Granulocytes Pct Auto 0.3 % (0.0-0.5); Lymphocytes Absolute Auto 1.1 10^3/uL (1.2-3.8); Lymphocytes Percent Auto 9.8 % (20.5-60.0); Mean Corpuscular HGB Conc 33.5 g/dL (29.9-35.2); Mean Corpuscular Volume 89.6 fL (81.0-99.0); Mean Platelet Volume 10.4 fL (9.5-13.5); Monocytes Absolute Auto 0.3 10^3/uL (0.3-0.8); Monocytes Percent Auto 3.1 % (1.7-12.0); Neutrophils Absolute Auto 9.4 10^3/uL (1.4-6.5); Neutrophils Percent Auto 86.1 % (43.0-75.0); Platelet Count 234 10^3/uL (150-450); Red Blood Count 4.23 10^6/uL (4.20-5.40); Red Cell Distribution Width 12.4 % (11.0-15.0); White Blood Count 10.9 10^3/uL (4.0-11.0)
--- NOTE | 2023-08-14 08:23 | ED_ITS ---
HPI - Nausea/Vomiting/Diarrhea General Chief complaint: Chest Pain Stated complaint: chest pains and 26 weeks Time Seen by Provider: 08/14/23 08:03 Source: patient Mode of arrival: walk-in Limitations: no limitations History of Present Illness HPI Narrative: The patient is 26 weeks presenting to the ER with nausea and vomiting that started this a.m. at 2 AM. The patient denies having any symptoms yesterday, no abdominal pain the pain in her chest started after multiple episodes of nausea and vomiting and she is actively vomiting at the moment. None of the vomitus was bloody. The patient have no fever no chills no coughing no other complaints. Related Data Previous Rx's ?Medication ?Instructions ?Recorded diphenhydramine HCl 25 mg capsule 25 mg PO Q8H PRN nausea and 08/14/23 (Benadryl) vomiting #10 caps Allergies Allergy/AdvReac Type Severity Reaction Status Date / Time Sulfa (Sulfonamide Allergy Intermediate Verified 08/14/23 07:56 Antibiotics) Review of Systems ROS Status of ROS 10 or more systems reviewed and unremark able except as noted in history and below Exam Narrative Exam Narrative: Nurses notes and vital signs reviewed and patient is not hypoxic. General: Well-appearing and in no apparent distress. Skin: Warm, dry, no pallor noted. No rash. Head: Normocephalic, atraumatic. Neck: Supple, non-tender. Eye: Pupils are equal, round and EOMI. No scleral icterus. Ears, Nose, Mouth, and Throat: TM are clear, no nasal mucosal hypertrophy. Oral mucosa is moist, no posterior oropharynx erythema, uvula is mid-line Cardiovascular: Regular Rate and Rhythm without murmur, gallop or rub. Respiratory: No accessory muscle use or respiratory distress. Lungs are clear to auscultation, no wheezing, rales or rhonchi Chest Wall: no tenderness Back: No midline thoracic or lumbar vertebral tenderness. No CVA tenderness Musculoskeletal: normal ROM, no calf or popliteal tenderness, no lower extremity edema/swelling GI: Abdomen is soft, non-distended. Normal bowel sounds. No masses appreciated. No tenderness to palpation. No rebound, guarding, or rigidity noted. Neurological: A&O x4. No cranial nerve dysfunction observed. No truncal ataxia. Moves all extremities. Sensation intact. Psychiatric: Cooperative and interactive. Normal mood and affect. Constitutional Vital Signs, click to edit/add: Last Vital Signs Temp 98.5 F 08/14/23 07:51 Pulse 60 08/14/23 09:50 Resp 14 08/14/23 08:30 BP 127/68 08/14/23 09:45 Pulse Ox 100 08/14/23 09:50 O2 Del Method Room Air 08/14/23 07:51 Course Vital Signs Vital signs: Vital Signs Temperature 98.5 F 08/14/23 07:51 Pulse Rate 78 08/14/23 07:51 Respiratory Rate 18 08/14/23 07:51 Blood Pressure 126/78 08/14/23 07:51 Pulse Oximetry 100 08/14/23 07:51 Oxygen Delivery Method Room Air 08/14/23 07:51 Temperature 98.5 F 08/14/23 07:51 Pulse Rate 60 08/14/23 09:50 Respiratory Rate 14 08/14/23 08:30 Blood Pressure 127/68 08/14/23 09:45 Pulse Oximetry 100 08/14/23 09:50 Oxygen Delivery Method Room Air 08/14/23 07:51 MDM - Nausea/Vomiting/Diarrhea MDM Narrative Medical decision making narrative: The patient EKG showing sinus rhythm with a heart rate of [address] elevation or depression. Patient pain is mostly secondary to the nausea and vomiting The patient CBC and chemistry showed no acute significant pathology Chest x-ray showed no acute pathology Patient chest pain was induced by throwing up. The patient CBC chemistry showed no acute significant pathology as well as a urine analysis The patient was discharged with Benadryl as an adult for her nausea and vomiting She was feeling much better after initial treatment she was instructed about having small portions of p.o. intake on multiple times during the day to hydrate well. The patient is to follow up with primary care physician in next 2-3 days or to return to the emergency department should any of the signs or symptoms worsen or new symptoms develop. The patient agrees with the following Diagnosis and Treatment plan and the patient will be discharged home. Lab Data Labs: Lab Results 08/14/23 08/14/23 Range/Units 08:10 09:20 WBC 10.9 (4.0-11.0) 10^3/uL RBC 4.23 (4.20-5.40) 10^6/uL Hgb 12.7 (12.0-16.0) g/dL Hct 37.9 (36.0-48.0) % MCV 89.6 (81.0-99.0) fL MCH 30.0 (26.7-34.0) pg MCHC 33.5 (29.9-35.2) g/dL RDW 12.4 (11.0-15.0) % Plt Count 234 (150-450) 10^3/uL MPV 10.4 (9.5-13.5) fL Neut % (Auto) 86.1 H (43.0-75.0) % Lymph % (Auto) 9.8 L (20.5-60.0) % Steele % (Auto) 3.1 (1.7-12.0) % Eos % (Auto) 0.3 L (0.9-7.0) % Baso % (Auto) 0.4 (0.2-2.0) % Neut # (Auto) 9.4 H (1.4-6.5) 10^3/uL Lymph # (Auto) 1.1 L (1.2-3.8) 10^3/uL Steele # (Auto) 0.3 (0.3-0.8) 10^3/uL Eos # (Auto) 0.0 (0.0-0.7) 10^3/uL Baso # (Auto) 0.0 (0.0-0.1) 10^3/uL Abs Immat Gran (auto) 0.03 (0.00-0.03) 10^3/uL Imm/Tot Granulo (auto) 0.3 (0.0-0.5) % Sodium 139 (136-145) mmol/L Potassium 3.7 (3.5-5.1) mmol/L Chloride 103 (98-107) mmol/L Carbon Dioxide 23.6 (21.0-32.0) mmol/L Anion Gap 16.1 BUN 8.0 (7.0-18.0) mg/dL Creatinine 0.68 (0.55-1.02) mg/dL Est GFR ( Amer) >60 (>=60) Est GFR (Non-Af Amer) >60 (>=60) BUN/Creatinine Ratio 11.8 Glucose 108 H (74-106) mg/dL Calcium 8.6 (8.5-10.1) mg/dL Magnesium 1.8 (1.8-2.4) mg/dL Total Bilirubin 0.2 (0.2-1.0) mg/dL AST 13 L (15-37) U/L ALT 16 (14-59) U/L Alkaline Phosphatase 85 (46-116) U/L Troponin I High Sens <4.0 L (4.0-51.3) pg/mL Total Protein 6.8 (6.4-8.2) g/dL Albumin 2.7 L (3.4-5.0) g/dL Globulin 4.1 g/dL Albumin/Globulin Ratio 0.7 Urine Color Lt. yellow (YELLOW) Urine Clarity Sl cloudy (CLEAR) Urine pH 8.0 (5.0-9.0) Ur Specific [place] 1.020 (1.005-1.025) Urine Protein Negative (NEG/TRACE) mg/dL Urine Glucose (UA) 100 A (NEGATIVE) mg/dL Urine Ketones Negative (NEGATIVE) mg/dL Urine Occult Blood Negative (NEGATIVE) Urine Nitrite Negative (NEGATIVE) Urine Bilirubin Negative (NEGATIVE) Urine Urobilinogen 0.2 (0.2-1.0) EU/dL Ur Leukocyte Esterase Trace A (NEGATIVE) Urine RBC None seen (0-2) #/HPF Urine WBC 2-5 A (NONE SEEN) #/HPF Ur Squamous Epith Cells Few A (NONE/RARE) #/LPF Urine Crystals None seen (None Seen) #/HPF Amorphous Sediment Moderate Urine Bacteria Small A (NONE SEEN) #/HPF Urine Casts None seen (NONE SEEN) #/LPF Urine Mucus None seen (NONE SEEN) Ur Culture Indicated? Yes Discharge Plan Discharge Stand Alone Forms: Portal Instructions Chief Complaint: Chest Pain Clinical Impression: Nausea and vomiting during Patient Disposition: Home, Self-Care Time of Disposition Decision: 10:06 Condition: Good Prescriptions / Home Meds: New diphenhydramine HCl [Benadryl] 25 mg capsule 25 mg PO Q8H PRN (Reason: nausea and vomiting) Qty: 10 0RF Print Language: Hebrew Instructions: Nausea and Vomiting in (ED) Referrals: Physician,Non-Staff, MD [Primary Care Provider] - 1 week
[2023-08-14 08:31] LABS: Magnesium 1.8 mg/dL (1.8-2.4)
[2023-08-14 08:40] LABS: Alanine Aminotransferase 16 U/L (14-59); Albumin Globulin Ratio 0.7; Albumin Level 2.7 g/dL (3.4-5.0); Alkaline Phosphatase 85 U/L (46-116); Anion Gap 16.1; Aspartate Amino Transferase 13 U/L (15-37); BUN Creatinine Ratio 11.8; Bilirubin Total 0.2 mg/dL (0.2-1.0); Calcium 8.6 mg/dL (8.5-10.1); Carbon Dioxide 23.6 mmol/L (21.0-32.0); Chloride 103 mmol/L (98-107); Estimated GFR (African America >60 (>=60); Estimated GFR (Non-African Ame >60 (>=60); Globulin 4.1 g/dL; Glucose 108 mg/dL (74-106); Potassium 3.7 mmol/L (3.5-5.1); Sodium 139 mmol/L (136-145); Total Protein 6.8 g/dL (6.4-8.2); Troponin I High Sensitivity <4.0 pg/mL (4.0-51.3)
[2023-08-14] MEDS: DIPHENHYDRAMINE HCL 50 MG/ML (1ML) VIAL 25 MG IV (09:04)
[2023-08-14 09:46] LABS: Bilirubin Urine NEGATIVE (NEGATIVE); Blood Urine NEGATIVE (NEGATIVE); Clarity Urine SL CLOUDY (CLEAR); Color Urine LT. YELLOW (YELLOW); Glucose Urine UA 100 mg/dL (NEGATIVE); Ketones Urine NEGATIVE (NEGATIVE); Leukocyte Esterase Urine TRACE (NEGATIVE); Nitrite Urine NEGATIVE (NEGATIVE); Protein Urine NEGATIVE (NEG/TRACE); Urobilinogen Urine 0.2 EU/dL (0.2-1.0)
[2023-08-14 09:49] LABS: Urine Microscopic Indicated YES
[2023-08-14 10:05] LABS: Amorphous Sediment Urine MODERATE; Bacteria Urine SMALL #/HPF (NONE SEEN); Cast Seen? NONE SEEN #/LPF (NONE SEEN); Crystals Seen? None Seen #/HPF (None Seen); Mucus Urine NONE SEEN (NONE SEEN); RBC Urine NONE SEEN #/HPF (0-2); Squamous Epithelial Cell Urine FEW #/LPF (NONE/RARE); Urine Culture Indicated YES
== END 2023-08-14 10:10 | disposition home or self-care (01) ==
PROVIDERS: Emergency Provider Emergency Medicine
DX: O26.892 Other specified pregnancy related conditions, second trimester (principal); R11.2 Nausea with vomiting, unspecified; Z3A.26 26 weeks gestation of pregnancy
CPT/HCPCS: 36415; 71045; 80053; 81001; 83735; 84484; 85025; 87086; 93005; 96374; 96375; 99285

== ENCOUNTER 2023-08-20 07:10 | Outpatient (OUT) | payer BC, MEDICAID, SELFPAY ==
--- OUTSIDE RECORDS SUMMARY | 2023-08-20 07:13 | XMS_ITS | CCD ---
Author Organization [facility] Care Team Providers Care Lockstitch Sleeve Setter Name Role Phone NO, FAMILY PHYSICIAN Primary Care Physician Unav Hetal Beasley Rounding Physician Unavailable NO FAMILY, PHYSICIAN Primary Care Provider Unava ilELSY Garnett Emergency Provider [phone] NO FAMILY, PHYSICIAN Primary Care Provider Unava ilable Andrés ([facility]), ELSY Parekh Attending Provider [phone] [place], ELSY Valladares S Primary Care Provider [place], ELSY Valladares S Attending Provider [phone] West, ELSY Jacquelyn S Referring Provider [phone] West, SPANISH LECTURER Jacquelyn S Primary Care Provider [place], ELSY Russonifer S Attending Provider [place], SPANISH LECTURER Jacquelyn S Referring Provider [phone] ELSY Daniels Emergency Provider Flor Giles DO Primary Care Provider [place], ELSY Valladares S Primary Care Provider [place], SPANISH LECTURER Jacquelyn S Attending Provider [phone] VAISHNAVI DURÁN Referring Unavailable FLOR GILES Primary Care Unavailable FLOR GILES Attending Unavailable DASHA PETERS Attending Unavailable NO FAMILY, PHYSICIAN Primary Care Unavailable Andrés ([facility])Rosa Admitting Unavailabl e Andrés ([facility])Rosa Attending Unavailabl e Jacquelyn Rome S Attending [...] FLOR GILES Primary Care Unavailable VAISHNAVI DURÁN Attending Unavailable VAISHNAVI DURÁN Referring Unavailable FLOR GILES Primary Care Unavailable Unavailable Unavailable Unavailable Allergies Allergy Classification Reported Allergen(s) Allergy Type Date of Onset Reaction(s) Facility (7 sources) ferrous sulfate; Translations: [FERROUS SULFATE] Drug Allergy 3 Unknown [facility] (7 sources) Sulfonamides (Antibiotic); Translations: [SULFA (SULFONAMIDE ANTIBIOTICS)] Propensity to adverse reactions 3 Unknown [facility] (1 source) Sulfacetamide Drug Allergy 3 [facility] (1 source) Sulfonamides (Antibiotic) Drug allergy (disorder) 3 [facility] Medications Current Medications Medication Drug Class(es) Dates Sig (Normalized) Sig (Original) [id number] 200 actuat albuterol 0.09 mg/actuat metered dose [...] day. 60 tablet 1 06/02/2023 06/01/2024 Active [place] (No Known Home Meds) (3 sources) Start: 03-15-20 [place] (No Known Home Meds) Active March 15, [...] 0 03/15/2023 06/02/2023 Discontinued (Med List Cleanup) Lmhkfw-FwFmn-Yrvr-FA-DHA w/o A (PRENATE DHA PO) (1 source) Zuyywg-JcRse-Lof h-FA-DHA w/o A (PRENATE DHA PO) Take [...] 2022 1:57pm administer with food or milk vit,qmdc76-ihjd-kvtlb (Prenatabs Rx) 29 mg iron- 1 mg tablet (3 sources) End: 06-02-2023 vit,sltx14-jtrz-edtm c (Prenatabs Rx) 29 mg iron- 1 mg tablet 1 tablet once daily. 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 [facility] Work Phone: Urinalysis macro (dipstick) panel (U)on 06-29-2023 Bilirubin, UA Negative Negative - 4(70) +++ mg/dL [facility] Blood, UA Negative Negative - 50 Zach/mcL [facility] Clarity, UA Clear [facility] Color, UA Yellow [facility] Glucose, UA Negative Negative - 1999(110) ++++ mg/dL [facility] Interpretation and review of laboratory results Normal [facility] Ketones, UA Negative Negative - 160(16) ++++ mg/dL [facility] Leukocytes, UA Negative Negative - 500+++ Joni/mcL [facility] Nitrite, UA Negative Negative - Positive [facility] pH, UA 5.5 5 - 9 [facility] Protein, UA Negative Negative - 1999(20) ++++ mg/dL [facility] Spec Grav, UA 1.015 1 - 1.03 [facility] Urobilinogen, UA 1.0 0.2 - 12 mg/dL [facility] TRANSTHORACIC ECHO (TTE) COM PLETEon 05-18-2023 TRANSTHORACIC ECHO (TTE) COMPLETE [address], [address] [address] TRANSTHORACIC ECHOCARDIOGRAM REPORT Patient Name: BELLE Gallego Physician: [id number] Makenna Jhaveri MD, [facility] Study Date: 05/18/2023 Ordering Provider: [id number] VAISHNAVI DURÁN MRN/PID: [id number] Fellow: Nurse: Date of /Age: 8 1995 / years Film Processing Supervisor: Maya Moraes RDCS, RVT Gender: F Additional Staff: Height: 167.64 cm Admit Date: Weight: 81.65 kg Admission Status: BSA: 1.91 m2 Department Location: [facility] Blood Pressure: 128 /82 mmHg Study Type: TRANSTHORACIC ECHO (TTE) COMPLETE Diagnosis/ICD: Long QT syndrome-I45.81 Indication: Pt is 14 weeks , Former Smoker, Marijuana Use CPT Codes: Echo Complete w Full Doppler-45544 Study Detail: The following Echo studies were [...] There is small atrial septal defect with uzdf-pg-idgyt shunt. Right Ventricle: The right ventricle is [...] There is small atrial septal defect with cadx-mz-etkyu shunt. 3. Mild mitral valve regurgitation. QUANTITATIVE [...] 0.7 m/s (0.6-0.9m/s) PV Max P.0 mmHg [id number] Makenna Jhaveri MD, FACC Electronically signed on 05/18/2023 at 1:24:06 PM Final Normal [facility] Heart TransthoracicOrdere d By: Makenna Jhaveri on 05-18-2023 Aortic Valve Area by Continuity of Peak Velocity 2.38 [facility] Work Phone: Aortic Valve Area by Continuity of VTI 2.38 [facility] Work Phone: [phone] AV mn grad 3.0 [facility] Work Phone: [phone] AV pk grad 6.0 [facility] Work Phone: [phone] AV pk suleiman 1.22 [facility] Work Phone: [phone] LV A4C EF 57.8 [facility] Work Phone: [phone] LVIDd 4.90 [facility] Work Phone: [phone] LVOT diam 2.30 [facility] Work Phone: [phone] MV avg E/e' ratio 5.40 [facility] Work Phone: [phone] MV E/A ratio 1.58 [facility] Work Phone: [phone] RVSP 16.8 [facility] Work Phone: [facility] Work Phone: Heart Transthoracicon [address], [address] [place] [address] TRANSTHORACIC ECHOCARDIOGRAM REPORT Patient Name: BELLE Gallego Physician: [id number] Makenna Jhaveri MD, FAC Study Date: 05/18/2023 Ordering Provider: [id number] VAISHNAVI DURÁN MRN/PID: [id number] Fellow: Nurse: Date of /Age: 8 1995 / 28 years Film Processing Supervisor: Maya Moraes RDCS, RVT Gender: F Additional Staff: Height: 167.64 cm Admit Date: Weight: 81.65 kg Admission Status: BSA: 1.91 m2 Department Location: [facility] Blood Pressure: 128 /82 mmHg Study Type: TRANSTHORACIC ECHO (TTE) COMPLETE Diagnosis/ICD: Long QT syndrome-I45.81 Indication: Pt is 14 weeks , Former Smoker, Marijuana Use CPT Codes: Echo Complete w Full Doppler-29360 Study Detail: The following Echo studies were [...] There is small atrial septal defect with lsaz-de-morwo shunt. Right Ventricle: The right ventricle is [...] There is small atrial septal defect with exqv-mw-vpcrs shunt. 3. Mild mitral valve regurgitation. QUANTITATIVE [...] 0.7 m/s (0.6-0.9m/s) PV Max P.0 mmHg [id number] Makenna Jhaveri MD, FACC Electronically signed on 05/18/2023 at 1:24:06 PM Final Makenna Hickey MD - 05/18/2023 [facility] [address] [facility], [address], [place] [address] TRANSTHORACIC ECHOCARDIOGRAM REPORT Patient Name: BELLE NAJERA Reading Physician: [id number] Makenna Jhaveri MD, [facility] Study Date: 05/18/2023 Ordering Provider: [id number] VAISHNAVI DURÁN MRN/PID: [id number] Fellow: Nurse: Date of /Age: 8 1995 / years Film Processing Supervisor: Maya Moraes RD, T Gender: F Additional Staff: Height: 167.64 cm Admit Date: Weight: 81.65 kg Admission Status: BSA: 1.91 m2 Department Location: [facility] Blood Pressure: 128 /82 mmHg Study Type: TRANSTHORACIC ECHO (TTE) COMPLETE Diagnosis/ICD: Long QT syndrome-I45.81 Indication: Pt is 14 weeks , Former Smoker, Marijuana Use CPT Codes: Echo Complete w Full Doppler-23630 Study Detail: The following Echo studies were [...] There is small atrial septal defect with fiql-pl-swoho shunt. Right Ventricle: The right ventricle is [...] There is small atrial septal defect with gqht-pj-nifxm shunt. 3. Mild mitral valve regurgitation. QUANTITATIVE [...] 0.7 m/s (0.6-0.9m/s) PV Max P.0 mmHg [id number] Makenna Jhaveri MD, [facility] Electronically signed on 05/18/2023 at 1:24:06 PM Final [facility] Work Phone: Automated erythrocytes count in urine sediment (number/area)Ordered By: Luci Daniels on 03-27-2023 RBC Auto (Urine sed) [#/Area] 1-2 [HPF] 0-4 [facility] Automated leukocytes count i n urine sediment (number/area)Ordered By: Luci Daniels on 03-27-2023 WBC Auto (Urine sed) [#/Area] 20-49 [HPF] 0-4 [facility] Bilirubin Test strip Ql (U)O rdered By: Luci Daniels on 03-27-2023 Bilirubin Ql (U) Negative Negative [facility] Color Auto (U)Ordered By: Tiffanie Daniels on 03-27-2023 Color (U) Yellow Yellow [facility] Dipstick and Microscopicon 1 05-27-2022 Appearance (U) Cloudy Critically abnormal Clear [facility] Comment on above: Order Comment: Name Collection Type:: Clean-Voided Midstream Performed By: #### A DDONUAKEV, CUU #### [facility] [address] [place] [address] Bacteria,Urine 2+ High None Seen [facility] Comment on above: Order Comment: Name Collection Type:: Clean-Voided Midstream Performed By: #### A DDONUAPLUS, CUU #### [place] [address] [place] Bilirubin,Urine Negative Normal Negative [facility] Comment on above: Order Comment: Name Collection Type:: Clean-Voided Midstream Performed By: #### A DDONUAPLUS, CUU #### [address] Color (U) Yellow Normal Yellow [facility] Comment on above: Order Comment: Name Collection Type:: Clean-Voided Midstream Performed By: #### A DDONUAPLUS, CUU #### [address] Glucose Ql (U) Normal Normal Normal [facility] Comment on above: Order Comment: Name Collection Type:: Clean-Voided Midstream Performed By: #### A DDONUAPLUS, CUU #### [address] Hyaline Casts,Urine 0-8 Normal 0-8 [facility] Comment on above: Order Comment: Name Collection Type:: Clean-Voided Midstream Result Comment: PERF ORMED BY: [place] [address] PATHOLOGIST PLATE SENSITIZER ANGELIA NIETO M.D. Performed By: #### A DDONUAPLUS, CUU #### [address] Ketones Ql (U) Negative Normal Negative [facility] Comment on above: Order Comment: Name Collection Type:: Clean-Voided Midstream Performed By: #### A DDONUAPLUS, CUU #### [address] Leukocyte esterase Test strip Ql (U) 2+ High Negative [facility] Comment on above: Order Comment: Name Collection Type:: Clean-Voided Midstream Performed By: #### A DDONUAPLUS, CUU #### [address] Nitrite,Urine Negative Normal Negative [facility] Comment on above: Order Comment: Name Collection Type:: Clean-Voided Midstream Performed By: #### A DDONUAPLUS, CUU #### [address] Occult Blood,Urine Negative Normal Negative [facility] Comment on above: Order Comment: Name Collection Type:: Clean-Voided Midstream Result Comment: PERF ORMED BY: [place] [address] PATHOLOGIST PLATE SENSITIZER ANGELIA NIETO M.D. Performed By: #### A DDONUAPLUS, CUU #### [address] pH (U) 7.0 [pH] Normal 5.0-9.0 [facility] Comment on above: Order Comment: Name Collection Type:: Clean-Voided Midstream Performed By: #### A DDONUAPLUS, CUU #### [place] [address] [place] Protein,Urine Negative Normal Negative [facility] Comment on above: Order Comment: Name Collection Type:: Clean-Voided Midstream Performed By: #### A DDONUAPLUS, CUU #### [address] RBC,Urine 1-2 Normal 0-4 [facility] Comment on above: Order Comment: Name Collection Type:: Clean-Voided Midstream Performed By: #### A DDONUAPLUS, CUU #### [place] [address] [place] Specificy [place],Urine 1.022 Normal 1.001-1.030 [facility] Comment on above: Order Comment: Name Collection Type:: Clean-Voided Midstream Performed By: #### A DDONUAPLUS, CUU #### [place] [address] [place] Squamous Epithelial Cell,Urine 5-9 High 0-2 [facility] Comment on above: Order Comment: Name Collection Type:: Clean-Voided Midstream Performed By: #### A DDONUAPLUS, CUU #### [facility] [address] [place] [address] Urobilinogen,Urine Normal Normal Normal [facility] Comment on above: Order Comment: Name Collection Type:: Clean-Voided Midstream Performed By: #### A DDONUAPLUS, CUU #### [facility] [address] [place] [address] WBC,Urine 20-49 High 0-4 [facility] Comment on above: Order Comment: Name Collection Type:: Clean-Voided Midstream Performed By: #### A DDONUAPLUS, CUU #### [address] HCG ( test) IA.rapi d Ql (U)Ordered By: Luci Daniels on 03-27-2023 HCG ( test) Ql (U) Positive [facility] HCG,Urineon 03-27-2023 Beta HCG ( test) Ql (U) Positive High [facility] Comment on above: Result Comment: PERF ORMED BY: [place] [address] PATHOLOGIST PLATE SENSITIZER ANGELIA NIETO M.D. Performed By: #### U HCG #### [address] Ketones Auto test strip (U) [Mass/Vol]Ordered By: Luci Daniels on 03-27-2023 Ketones (U) [Mass/Vol] Negative Negative [facility] - UrinalysisOrder ed By: Luci aDniels on 03-27-2023 Hyaline casts LM Ql (Urine sed) 0-8 [LPF] 0-8 [facility] Nitrite Test strip Ql (U)Ord ered By: Luci Daniels on 03-27-2023 Nitrite Ql (U) Negative Negative [facility] Protein Auto test strip (U) [Mass/Vol]Ordered By: Luci Daniels on 03-27-2023 Protein (U) [Mass/Vol] Negative Negative [facility] Specific gravity Auto test s trip (U) [Rel density]Ordered By: Luci Daniels on 03-27-2023 Specific gravity (U) [Rel density] 1.022 1.001-1.030 [facility] Squamous epithelial cells de tection in urine sediment by light microscopyOrdered By: Luci Daniels on 03-27-2023 Epithelial cells.squamous LM Ql (Urine sed) 5-9 [HPF] 0-2 [facility] US OB transvaginalon 023 US OB transvaginal [facility] [place] [address] Ultrasound Report Signed Patient: Belle Najera MR#: [id number] 73 : 1995 Acct:[id number] Age/Sex: 28 / F ADM Date: 03/27/23 Loc: ER Room: Type: [facility] ER Attending Dr: Ordering Provider: Luci Daniels APRN Date of Service: 03/27/23 US/US OB <= 14 weeks fetus: 6 weeks ; abdominal pain ([id number]) US/US OB transvaginal: abd. pain w/ Copies [...] estimated gestational age of 6w2d weeks/days (accession [id number]), 6w1d weeks/days (accession [id number]) with an estimated date of delivery of 11/18/2023 (accession [id number]), 11/19/2023 (accession [id number]) and normal heart rate. The maurer of the gestational sac are slightly irregular/lobulated . This is of uncertain etiology. There is a trace amount of free fluid in the cul-de-sac. Impression dictated by: Fuentes Tomlinson M.D.03/27/2023 11:45 AM Dictation Location[facility] Tech: Radha Adarsh Transcribed By: EMEKA 03/27/23 1145 Dictated By: Fuentes Tomlinson II, MD 03/27/23 1141 Signed By: 03/27/23 1145 [facility] Urine Cultureon 03-27-2023 Bacteria identified Cx Nom (U) >100,000 colonies/ml mixed bacterial skin contaminants 2 Days PERFORMED BY: [place] [address] PATHOLOGIST PLATE SENSITIZER ANGELIA NIETO M.D. [facility] Comment on above: Performed By: #### A LILIBETH GAGNON #### [address] Urine bacteria detection by automated methodOrdered By: Luci Daniels on 03-27-2023 Bacteria Auto Ql (U) 2+ None Seen [facility] Urine clarity by refractomet ry automatedOrdered By: Luci Daniels on 03-27-2023 Clarity Refractometry automated (U) Cloudy Clear [facility] Urine culture routineOrdered By: Luci Daniels on 03-27-2023 Bacteria identified Cx Nom (U) 2 Days [facility] Urine glucose measurement by automated test strip (mass/volume)Ordered By: Luci Daniels on 03-27-2023 Glucose Auto test strip (U) [Mass/Vol] Normal mg/dL Normal [facility] Urine hemoglobin detection b y automated test stripOrdered By: Luci Daniels on 03-27-2023 Hemoglobin Auto test strip Ql (U) Negative Negative [facility] Urine leukocyte esterase det ection by automated test stripOrdered By: Luci Daniels on 03-27-2023 Leukocyte esterase Auto test strip Ql (U) 2+ Negative [facility] Urobilinogen Auto test strip (U) [Mass/Vol]Ordered By: Luci Daniels on 03-27-2023 Urobilinogen (U) [Mass/Vol] Normal mg/dL Normal [facility] pH Auto test strip (U)Ordere d By: Luci Daniels on 03-27-2023 pH (U) 7.0 [pH] 5.0-9.0 [facility] XR knee RT 4V*on 02-01-2023 XR knee RT 4V* [facility] [place] [address] XRay Report Signed Patient: Belle Najera MR#: [id number] 73 : 1995 Acct:[id number] Age/Sex: 28 / F ADM Date: 02/01/23 Loc: XD Room: Type: [facility] Attending Dr: Jacquelyn Rome APRN [...] Fartun Villa M.D.02/01/2023 4:33 PM Dictation Location: [place] [address] Transcribed By: EMEKA 02/01/23 163 Dictated By: Fartun Villa MD 02/01/23 1632 Signed By: 02/01/23 1633 Normal [facility] US transvaginalon 09-15-2022 US transvaginal [facility] [place] [address] [place] [address] Ultrasound Report Signed Patient: Belle Najera MR#: [id number] [birth year] : 1995 Acct:[id number] Age/Sex: 27 / F ADM Date: 09/15/22 Loc: Room: Type: [facility] Attending Dr: Rosa Bowen ([facility]) ELSY Ordering Provider: Rosa Bowen APRN, WHCNP Date of Service: 09/15/22 US/US pelvic complete: R10.2 ([id number]) US/US transvaginal: R10.2 Copies to: Rosa Bowen [...] Fartun Villa M.D.09/15/2022 6:21 PM Dictation Location: [place] [address] Tech: Alexia Johnson Transcribed By: EMEKA 09/15/221820 Dictated By: Fartun Villa MD 09/15/221816 Signed By: 09/15/221820 [facility] Coding Summary.on 02-22-2019 Coding Summary. CODING DATE: 02/22/2019 FINAL [facility] STATUS: Home (Routine DC) PAYOR: Self Pay [...] Cari Soliman Date Saved: 02/22/2019 05:33 pm [facility] Vital Signs Date Time Vital Sign Value Performing Clinician Facility 08-08-2023 11:08-0400 Diastolic blood pressure 54 mm[Hg] Vaishnavi Durán MD Work Phone: [facility] 08-08-2023 11:08-0400 Heart rate 80 /min Vaishnavi Durán MD Work Phone: [facility] 08-08-2023 11:08-0400 Systolic blood pressure 98 mm[Hg] Vaishnavi Durán MD Work Phone: [facility] 08-08-2023 10:13040 Body height 170.2 cm Vaishnavi Durán MD Work Phone: [facility] 08-08-2023 10:130400 Body mass index (BMI) [Ratio] 30.92 kg/m2 Vaishnavi Durán MD Work Phone: [facility] 08-08-2023 10:13-0400 Body weight 89.54 kg Vaishnavi Durán MD Work Phone: [facility] 06-29-2023 14:16-0500 Body weight 86.82 kg Dasha GA Work Phone: [facility] 06-29-2023 14:16-0500 Diastolic blood pressure 70 mm[Hg] Dasha GA Work Phone: [facility] 06-29-2023 14:16-0500 Systolic blood pressure 118 mm[Hg] Dasha GA Work Phone: [facility] 06-02-2023 09:39-0500 Body height 167.6 cm Vaishnavi Durán MD Work Phone: [facility] 06-02-2023 09:39-0500 Body mass index (BMI) [Ratio] 30.34 kg/m2 Vaishnavi Durán MD Work Phone: [facility] 06-02-2023 09:39-0500 Body weight 85.28 kg Vaishnavi Durán MD Work Phone: [facility] 06-02-2023 09:39-0500 Diastolic blood pressure 60 mm[Hg] Vaishnavi Durán MD Work Phone: [facility] 06-02-2023 09:39-0500 Heart rate 60 /min Vaishnavi Durán MD Work Phone: [facility] 06-02-2023 09:39-0500 Systolic blood pressure 100 mm[Hg] Vaishnavi Durán MD Work Phone: [facility] 05-18-2023 09:33-0500 Body height 167.[address] 05-18-2023 09:33-0500 Body mass index (BMI) [Ratio] 29.05 kg/m2 [address] 05-18-2023 09:33-0500 Body weight 81.[address] 05-18-2023 09:33-0500 Diastolic blood pressure 82 mm[Hg] [address] 05-18-2023 09:33-0500 Systolic blood pressure 128 mm[Hg] [address] 03-27-2023 08:51-0500 Body temperature 98.5 [degF] ELSY Jacquelyn Rome Work Phone: [facility] 03-27-2023 08:51-0500 Diastolic blood pressure 69 mm[Hg] ELSY Valladares Wild Work Phone: [facility] 03-27-2023 08:51-0500 Heart rate 82 /min SPANISH LECTURER Jacquelyn West Work Phone: [phone] [place] [address] 03-27-2023 08:51-0500 Respiratory rate 18 /min SPANISH LECTURER Jacquelyn West Work Phone: [facility] 03-27-2023 08:51-0500 SaO2% (BldA) [Mass fraction] 100 % SPANISH LECTURER Jacquelyn Rome Work Phone: [facility] 03-27-2023 08:51-0500 Systolic blood pressure 111 mm[Hg] ELSY Jacquelyn Rome Work Phone: [facility] 03-27-2023 08:50-0500 Body height 171.45 cm ELSY Jacquelyn Rome Work Phone: [facility] 03-27-2023 08:50-0500 Body weight 80 kg ELSY Valladares Wild Work Phone: [facility] 03-15-2022 14:55-0400 Body height 170.18 cm PHYSICIAN NO [facility] 03-15-2022 14:55-0400 Body temperature 98.6 [degF] PHYSICIAN NO [facility] 03-15-2022 14:55-0400 Body weight 72.95 kg PHYSICIAN NO [facility] 03-15-2022 14:55-0400 Diastolic blood pressure 77 mm[Hg] PHYSICIAN NO [facility] 03-15-2022 14:55-0400 Heart rate 80 /min PHYSICIAN [facility] 03-15-2022 14:55-0400 Respiratory rate 14 /min PHYSICIAN [facility] 03-15-2022 14:55-0400 SaO2% (BldA) [Mass fraction] 99 % PHYSICIAN [facility] 03-15-2022 14:55-0400 Systolic blood pressure 133 mm[Hg] PHYSICIAN [facility] 11-01-2018 23:15-0400 Body Temperature 97.5 [degF] [facility] 11-01-2018 23:15-0400 BP Diastolic 80 mm[Hg] [facility] 11-01-2018 23:15-0400 BP Systolic 123 mm[Hg] [facility] 11-01-2018 23:15-0400 Pulse (Heart Rate) 84 /min [facility] 11-01-2018 23:15-0400 Pulse Oximetry 96 % [facility] 11-01-2018 23:15-0400 Respiratory Rate 18 /min [facility] Weight [facility] NEGATED: Highlighted row BMI (Body Mass Index) [facility] NEGATED: Highlighted row Height [facility] Encounters Encounter Date Encounter Type Care Provider Facility Start: 08-08-2023 End: 08-08-2023 ambulatory [facility] Ambulatory Start: 08-08-2023 End: 08-08-2023 Office outpatient visit 15 minutes Vaishnavi Durán MD Work Phone: [facility] Comment on above: 25 weeks gestation o f (Primary Dx); Long Q-T syndrome Start: 06-29-2023 End: 06-29-2023 ambulatory DASHA PETERS Not Available Start: 06-29-2023 End: 06-29-2023 flow sheet Dasha GA Work Phone: [facility] Comment on above: Second trimester pre gnancy; Diabetes mellitus screening Start: 06-02-2023 End: 06-02-2023 ambulatory FLOR LOZANOZIO Not Available Start: 06-02-2023 End: 06-02-2023 ambulatory [facility] Ambulatory Start: 06-02-2023 End: 06-02-2023 Office outpatient visit 15 minutes Vaishnavi Durán MD Work Phone: [facility] Comment on above: Long Q-T syndrome; Medication course changed Start: 05-18-2023 End: 05-19-2023 ambulatory [facility] Start: 05-18-2023 End: 05-18-2023 Subsequent hospital visit by physician Stephanie Jean Echo/Vasc Room [address] [facility] Comment on above: Long Q-T syndrome Start: 04-29-2023 End: 04-29-2023 ambulatory FLOR LEHMANO Not Available Start: 04-21-2023 End: 04-21-2023 ambulatory [facility] Ambulatory Start: 03-27-2023 End: 03-27-2023 Emergency department patient visit Luci Daniels Facility:[facility] Start: 03-27-2023 End: 03-27-2023 Emergency department patient visit ELSY Rome Work Phone: [facility]-Emergency Room Work Phone: Start: 03-15-2023 End: 03-15-2023 ambulatory Jacquelyn Rome Facility:[facility] Start: 03-15-2023 End: 03-15-2023 ambulatory ELSY Rome Work Phone: [facility] Work Phone: Start: 03-15-2023 End: 03-15-2023 Discharged Recurring ELSY Valladares Wales Work Phone: [facility]-Physical Therapy [place] Start: 03-15-2023 Registered Recurring SPANISH LECTURERCatina Rome Work Phone: [facility] [place] Start: 02-01-2023 Registered Recurring SPANISH LECTURERCatina cooley Wales Work Phone: [facility]-Physical Therapy [place] Start: 02-01-2023 End: 02-01-2023 ambulatory Jacquelyn Rome Facility:[facility] Start: 02-01-2023 End: 02-01-2023 ambulatory ELSY Kramer Wales Work Phone: [facility] Work Phone: Start: 02-01-2023 End: 02-01-2023 Patient encounter procedure ELSY Rome Work Phone: [facility]XRay [place] Work Phone: Start: 09-15-2022 End: 09-15-2022 ambulatory PHYSICIAN NO FAMILY Facility:[facility] Start: 09-15-2022 End: 09-15-2022 ambulatory PHYSICIAN NO [facility] Work Phone: Start: 09-15-2022 End: 09-15-2022 Patient encounter procedure PHYSICIAN NO [facility]Ul[facility]ound [place] Work Phone: Start: 03-15-2022 End: 03-15-2022 Emergency department patient visit PHYSICIAN NO [facility]-Emergency Room Start: 11-01-2018 End: 11-02-2018 Emergency department patient visit FAMILY [facility] Procedures Date Procedure Procedure Detail Performing [...] 12-LEAD VAISHNAVI SANCHEZ Start: 03-27-2023 Urine culture SPANISH LECTURER Dana suzettesurinder Wales Work Phone: Start: 03-27-2023 Diagnostic ultrasoun d of gravid uterus ELSY Jacquelyn Wales Work Phone: Start: 03-27-2023 Transvaginal obstetr ic ultrasonography ELSY Jacquelyn Wales Work Phone: Start: 02-01-2023 X-ray of right knee APR Catina Jacquelyn Wales Work Phone: Start: 09-15-2022 Pelvic echography PHYSI AYAD NO FAMILY Start: 09-15-2022 Transvaginal echography PHYSICIAN NO FAMILY Plan of Treatment Date Care Activity Detail Author Start: 2047 Zoster Vaccines (1 of 2) Zoste r Vaccines (1 of 2) [facility] Start: 11-14-2023 End: 11-14-2023 Patient encounter procedure 11/14/2023 10:00 AM EDT Office Visit [address] [place] [address] Vaishnavi Durán MD [address] [facility] [address] [place] [address] [facility] Start: 08-08-2023 End: 08-08-2023 Patient encounter procedure 08/08/2023 10:15 AM EDT Office Visit [address] [place] [phone] Vaishnavi Durán MD [address] [facility] [address] [place] [address] [facility] Start: 07-26-2023 End: 07-26-2023 Patient encounter procedure 07/26/2023 2:10 PM EST Routine [facility] [address] [place] [place] [id number] Flor Giles DO [address] [place] [address] [facility] Start: 06-29-2023 End: 06-29-2024 CBC panel - Blood by Automated count CBC Lab Routine Diabetes mellitus screening Expected: 06/29/2023 (Approximate), Expires: 06/29/2024 [facility] Work Phone: Comment on above: Expected: 06/29/2023 (Approximate), Expires: 06/29/2024 Start: 06-29-2023 End: 06-29-2024 Measurement of glucose 1 hour after glucose challenge for glucose tolerance test Glucose tolerance, 1 hour Lab Routine Diabetes mellitus screening Expected: 06/29/2023 (Approximate), Expires: 06/29/2024 [facility] Healthcare Comment on above: Expected: 06/29/2023 (Approximate), Expires: 06/29/2024 Start: 06-02-2023 End: 06-02-2024 Basic metabolic 2000 panel - Serum or Plasma Basic Metabolic Panel Lab Routine Long Q-T syndrome Expected: 06/02/2023 (Approximate), Expires: 06/02/2024 [facility] Service Area Work Phone: Comment on above: Expected: 06/02/2023 (Approximate), Expires: 06/02/2024 Start: 06-02-2023 End: 06-02-2023 Patient encounter procedure 06/02/2023 9:30 AM EST Office Visit [facility] [address] [facility] [address] [place] [phone] Vaishnavi Durán MD [address] [facility] [address] [place] [address] [facility] Start: 03-27-2023 Bacteria identified in Urine by Culture [facility] Start: 03-12-2023 HPV Vaccines (3 - 3- dose series) HPV Vaccines (3 - 3-dose series) [facility] Start: 01-21-2023 COVID-19 Vaccine (2022- season) COVID-19 Vaccine (2022- season) [facility] Start: 01-21-2023 Influenza vaccination Influenz a Vaccine (#1) [facility] Start: 03-28-2021 COVID-19 Vaccine (3 - Pfizer series) COVID-19 Vaccine (3 - Pfizer series) [facility] Start: 01-08-2020 DTaP/Tdap/Td Vaccine s (7 - Td or Tdap) DTaP/Tdap/Td Vaccines (7 - Td or Tdap) [facility] Start: 2018 Screening for malign ant neoplasm of cervix [facility] Start: 2015 Hepatitis C screening Hepatitis C Sc [facility] Start: 09-11-2002 Varicella vaccination Varicell a Vaccines (2 of 2 - 2-dose childhood series) [facility] Start: 1997 HIV screening HIV Screening [facility] Start: 1997 Lipid panel Lipid Panel [facility] Start: 1997 Yearly Adult Physical Yearly Adult P hysical [facility] Patient Education [facility] Patient referral [facility] Work Phone: Immunizations Immunization Date Immunization Notes Care Provider Fa cility 11-10-2022 Human Papillomavirus 9-valent vaccine [address] Work Phone: 11-10-2022 HPV, unspecified formulation [address] Work Phone: 09-07-2022 Human Papillomavirus 9-valent vaccine [address] Work Phone: 06-04-2011 influenza virus vacc ine, whole virus [address] Work Phone: 06-04-2011 influenza virus vacc ine, unspecified formulation [address] Work Phone: 01-07-2010 tetanus toxoid, redu yolanda diphtheria toxoid, and acellular pertussis vaccine, adsorbed [address] Work Phone: 08-14-2002 diphtheria, tetanus toxoids and acellular pertussis vaccine, unspecified formulation [address] Work Phone: 08-14-2002 measles, mumps and r ubella virus vaccine [address] Work Phone: 08-14-2002 poliovirus vaccine, inactivated [address] Work Phone: 04-30-1998 diphtheria, tetanus toxoids and acellular pertussis vaccine, unspecified formulation [address] Work Phone: 04-30-1998 haemophilus influenz ae type b vaccine, PRP-OMP conjugate [address] Work Phone: 04-30-1998 measles, mumps and r ubella virus vaccine [address] Work Phone: 04-30-1998 trivalent poliovirus vaccine, live, oral [address] Work Phone: 04-30-1998 varicella virus vaccine [address] Work Phone: 1997 diphtheria, tetanus toxoids and acellular pertussis vaccine, unspecified formulation [address] Work Phone: 1997 haemophilus influenz ae type b conjugate and Hepatitis B vaccine [address] Work Phone: 1997 diphtheria, tetanus toxoids and acellular pertussis vaccine, unspecified formulation [address] Work Phone: 1997 haemophilus influenz ae type b vaccine, HbOC conjugate [address] Work Phone: 1997 poliovirus vaccine, inactivated [address] Work Phone: 1997 diphtheria, tetanus toxoids and acellular pertussis vaccine, unspecified formulation [address] Work Phone: 1997 haemophilus influenz ae type b conjugate and Hepatitis B vaccine [address] Work Phone: 1997 poliovirus vaccine, inactivated [address] Work Phone: 1997 hepatitis B vaccine, pediatric or pediatric/adolescent dosage [address] Work Phone: Payers Date Payer Category Payer Medicaid [id number] 2023 Medicaid [id number] 2022 Self-pay 2021 Unknown [id number] 2021 Unknown [id number] 1997 Unknown [id number] 2.16.84 [id number] 1997 Unknown [id number] 2.16.84 [id number] 1997 Unknown [id number] 2.16.84 [id number] 1997 Unknown [id number] [id number] .[id number] 1997 Unknown [id number] 2.16.8 [id number] 1997 Unknown [id number] 2.16.8 [id number] 1997 Unknown [id number] 2.16.8 [id number] Private Health Insurance [id number] Unknown [id number] 2.16.8 [id number] Unknown [id number] 2.16.8 [id number] Unknown [id number] 2.16.8 [id number] Unknown [id number] 2.16.8 [id number] Social History Date Type Detail Facility Tobacco smoking stat [facility] Unknown if ever smoked [facility] Start: 1995 Sex Assigned At Female F [facility] Start: 03-15-2022 End: 03-27-2023 Tobacco smoking status NHIS Smoker (finding) [facility] Start: 04-21-2023 [facility] Work Phone: End: 02-20-2023 History of tobacco use Cigarette Smoker [facility] Work Phone: Start: 04-21-2023 End: 06-02-2023 Cigarettes smoked current (pack per day) - Reported 1 [facility] Work Phone: Start: 04-21-2023 Tobacco use and exposure Former smokeless tobacco user [facility] Work Phone: End: 02-20-2023 History of tobacco use User of smokeless tobacco [facility] Work Phone: Start: 04-21-2023 End: 08-08-2023 Alcohol intake Ex-drinker (finding) [facility] Work Phone: Start: 04-21-2023 End: 06-02-2023 Tobacco use panel [facility] Work Phone: Start: 04-21-2023 Tobacco Comment Vaping [facility] Work Phone: Start: 1995 Sex Assigned At Not on file [facility] Work Phone: Start: 05-08-2023 End: 08-08-2023 Exposure to SARS-CoV-2 (event) Not sure [facility] Tobacco smoking stat us NHIS Tobacco smoking consumption unknown [facility] Start: 02-24-2023 [facility] Go[facility] Date Patient Goal Desired Activity /State Clinical Notes 06-02-2023 to 08-08-2023 Vaishnavi Durán MD - 08/08/2023 10:15 AM EDTPatient [...] redirect to the Timeline version of the MedWhat SmartLink. Wt Readings from Last 3 Encounters: [...] that she add some salt and maybe ute juice to the water that she drinks. [...] discussion and plan. documented in this encounter [facility] Work Phone: 08-08-2023 Instructions Hetal Jacobo [...] in office today documented in this encounter [facility] Work Phone: 06-29-2023 History of Present [...] prescription(s): magnesium oxide, albuterol hfa, ondansetron, ondansetron, grhmna-zrmen-fofr-fa-dha w/o a, 19, and sertraline. Medical History: [...] of: HARMEET Pierre documented in this encounter [facility] 06-02-2023 History of Present illness Narrative Patient [...] There is small atrial septal defect with ffda-li-szrmu shunt. 3. Mild mitral valve regurgitation. QUANTITATIVE [...] Vaishnavi Durán MD documented in this encounter [facility] Work Phone: 06-02-2023 Instructions Mounika Dean [...] of your visit. documented in this encounter [facility] Work Phone: Evaluation note No assessment inform ation available [facility] Work Phone: Evaluation note Diagnosis Long Q-T syndrome Long QT syndrome documented in this encounter [facility] Work Phone: Evaluation note* Diagnosis Long Q-T syndrome Long QT syndrome Medication course changed documented in this encounter [facility] Work Phone: Evaluation note* Diagnosis Second trimester state, incidental Diabetes mellitus screening Screening for diabetes mellitus documented in this encounter [facility] Diagnosis 25 weeks gestation of - Primary Long Q-T syndrome Long QT syndrome documented in this encounter [facility] Work Phone: Hospital Discharge instructions Additional Instructions 1. Push fluids today and tomorrow 2. No lifting, pushing or pulling today 3. Call OB office tomorrow [facility] Work [facility]: Reason for referral (narrative)* Consultation (Routine) - Authorized Specialty Diagnoses / Procedures Referred By Ruslan kaye Referred To Contact Cardiology Diagnoses Long Q-T syndrome Procedures Follow Up In Cardiology Vaishnavi Durán MD [address] [facility] [address] [place] [address] Vaishnavi Durán MD [address] [facility] [address] [place] [address] Referral ID Status Reason Start Date Expiration Date V isits Requested Visits Authorized [id number] Authorized 06/02/2023 06/01/2024 1 1 [facility] Work Phone: Reason for referral (narrative)* Consultation (Routine) - Authorized Specialty Diagnoses / Procedures Referred By Ruslan kaye Referred To Contact Cardiology Diagnoses Long Q-T syndrome Procedures Follow Up In Cardiology Vaishnavi Durán MD [address] [facility] [address] [place] [address] Vaishnavi Durán MD [address] [facility] [address] [place] [address] Referral ID Status Reason Start Date Expiration Date V isits Requested Visits Authorized [id number] Authorized 08/08/2023 08/07/2024 1 1 * Cardiovascular (Routine) - Authorized Specialty Diagnoses / Procedures Referred By Ruslan kaye Referred To Contact Diagnoses Long Q-T syndrome Procedures ECG 12 Lead Vaishnavi Durán MD [address] [facility] [place] [address] [place] [address] Referral ID Status Reason Start Date Expiration Date V isits Requested Visits Authorized [id number] Authorized 08/08/2023 08/07/2024 1 1 [facility] Work Phone: Chief Complaint and Reason [...] Q-T syndrome Procedures Transthoracic Echo (TTE) Complete NM ECHO TRANSTHORC R-T 2D W/WO M-MODE REC F-UP/LMTD NM DOP ECHOCARD COLOR FLOW VELOCITY MAPPING NM DOP ECHOCARD PULSE WAVE W/SPECTRAL F-UP/LMTD STD Vaishnavi Durán MD [address] [facility] [address] [place] [address] Referral ID Status Reason Start Date Expiration Date Visits Requested Visits Authorized [id number] Authorized Perform Procedure 3 04/20/2024 1 1 Additional Source Comments INFORMATION SOURCE (unrecogn ized section and content) DATE CREATED AUTHOR 02/23/2019 Javier Mendez [facility] DATE CREATED AUTHOR AUTHOR'S ORGANIZ ATION 06/09/2023 [facility] DATE CREATED AUTHOR AUTHOR'S ORGANIZ ATION 06/30/2023 [facility] DATE CREATED AUTHOR AUTHOR'S ORGANIZ ATION 07/01/2023 [facility] DATE CREATED AUTHOR AUTHOR'S ORGANIZ ATION 08/08/2023 [facility] [employer] Teams (unrecognized sec tion and content) Team Status: Inactive Member Role Status Dates PHYSICIAN NO FAMILY Primary Care Provider Active Abdi Arzola APRN Emergency Provider Active Team Status: Active Member Role Status Dates PHYSICIAN NO FAMILY Primary Care Provider Active Team Status: Inactive Member Role Status Dates PHYSICIAN NO FAMILY Primary Care Provider Active Rosa Bowen ([facility]) , SPANISH LECTURER Attending Provider Active Team Status: Active Member Role Status Dates Jacquelyn Rome SPANISH LECTURER Primary Care Provider Active Team Status: Inactive Member Role Status Dates Jacquelyn Rome APRN Primary Care Provider, Attendin g Provider Active Team Status: Active Member Role Status Dates Jacquelyn Rome APRN Primary Care Prov ider, Attending Provider, Referring Provider Active Team Status: Inactive Member Role Status Dates Jacquelyn Rome SPANISH LECTURER Primary Care Provider Active Luci Daniels APRN Emergency Provider Active Lockstitch Sleeve Setter Relationship Specialty Start Date End Date Flor Giles DO [address] [facility] [address], [place] [address] PCP - General Obstetrics and Gynecology 05/18/23 Team Status: Inactive Member Role Status Dates Jacquelyn Rome APRN Primary Care Prov ider, Attending Provider, Referring Provider Active Lockstitch Sleeve Setter Relationship Specialty Start Date End Date Flor Giles DO [address] [facility] [address], [place] [address] PCP - General Obstetrics and Gynecology 05/18/23 Lockstitch Sleeve Setter Relationship Specialty Start Date End Date Tisha Florcarmel Parsons [address] [facility] [address], [place] [address] PCP - General Obstetrics and Gynecology 05/18/23 [...] Up In Cardiology Vaishnavi Durán MD [address] [facility] [address] [place] [address] Viashnavi Durán MD [address] [facility] [address] [place] [address] Referral ID Status Reason Start Date Expiration Date V isits Requested Visits Authorized [id number] Authorized 06/02/2023 06/01/2024 1 1 Specialty Diagnoses / Procedures Referred By Ruslan kaye Referred To Contact Cardiology Diagnoses Long Q-T syndrome Procedures Transthoracic Echo (TTE) Complete NM ECHO TRANSTHORC R-T 2D W/WO M-MODE REC F-UP/LMTD NM DOP ECHOCARD COLOR FLOW VELOCITY MAPPING NM DOP ECHOCARD PULSE WAVE W/SPECTRAL F-UP/LMTD STD Vaishnavi Durán MD [address] [facility] [address] [place] [address] Referral ID Status Reason Start Date Expiration Date Visits Requested Visits Authorized [id number] Authorized Perform Procedure 04/20/2024 1 1 Reason Comments Follow-up Echo results Referral ID Status Reason Start Date Expiration Date V isits Requested Visits Authorized [id number] Authorized 04/21/2023 04/20/2024 1 1 Reason Comments [...] BE BASED ON THE PRIMARY CLINICAL RECORDS. [facility] [email or web address] [facility]. provides no warranty or guarantee of the accuracy or completeness of information in this document.
[2023-08-20 08:42] LABS: Basophils Percent Auto 0.4 % (0.2-2.0); Eosinophils Absolute Auto 0.1 10^3/uL (0.0-0.7); Eosinophils Percent Auto 0.6 % (0.9-7.0); Hemoglobin 11.1 g/dL (12.0-16.0); Immature Granulocytes Abs Auto 0.03 10^3/uL (0.00-0.03); Immature Granulocytes Pct Auto 0.4 % (0.0-0.5); Lymphocytes Absolute Auto 0.8 10^3/uL (1.2-3.8); Lymphocytes Percent Auto 8.9 % (20.5-60.0); Mean Corpuscular HGB Conc 32.6 g/dL (29.9-35.2); Mean Corpuscular Hemoglobin 29.7 pg (26.7-34.0); Mean Corpuscular Volume 90.9 fL (81.0-99.0); Mean Platelet Volume 10.4 fL (9.5-13.5); Monocytes Absolute Auto 0.3 10^3/uL (0.3-0.8); Monocytes Percent Auto 3.7 % (1.7-12.0); Neutrophils Absolute Auto 7.3 10^3/uL (1.4-6.5); Platelet Count 246 10^3/uL (150-450); Red Blood Count 3.74 10^6/uL (4.20-5.40); Red Cell Distribution Width 12.6 % (11.0-15.0); White Blood Count 8.4 10^3/uL (4.0-11.0)
[2023-08-20 08:52] LABS: Glucose 1 Hour 120 mg/dL (<130)
== END 2023-08-20 07:11 | disposition home or self-care (01) ==
PROVIDERS: Visit Provider Physician Assistant
DX: Z13.1 Encounter for screening for diabetes mellitus (principal)
CPT/HCPCS: 36415; 82950; 85025

== ENCOUNTER 2023-09-21 11:22 | Outpatient (OUT) | payer BC, MEDICAID, SELFPAY ==
--- NOTE | 2023-09-21 11:24 | US_ITS ---
[address] [address] Patient Name: BELLE BEAVERS MRN: [id number] date: 1995 Sex: F Assigned Patient Location: [facility] Current Patient Location: [facility] Accession/Order Number: [id number] Exam Date: 09/21/2023 11:25 Report Date: 09/21/2023 11:58 At the request of: FLOR COLLINS Procedure: US OB growth EXAMINATION: US OB growth HISTORY: LGA COMPARISON: 06/29/2023 FINDINGS: Heart Rate: 159.0 bpm Amniotic Fluid Volume: 12.0 cm Number: 1.0 Position: Cephalic presentation, longitudinal lie Maximum Vertical Pocket: 3.2 cm cm 4.1 cm cm 1.2 cm cm 3.5 cm cm BIOMETRY: BPD: 8.2 cm cm; 32 weeks 6 days; 72% HC: 29.5 cmcm; 32 weeks 4 days , 30% AC: 26.6 cm cm; 30 weeks 5 days, 18% FL: 6.3 cm cm; 32 weeks 3 days; 53.6 % % EFW: 1806.3 grams, 4 lbs. 0 oz., 32% FL/AC: 23.5 FL/BPD: 76.7 HC/AC: 1.1 GESTATIONAL AGE: Age by EDC: 31 weeks 6 days YENI by EDC: 11/17/2023 Age by US: 32 weeks 1 day YENI by US: 11/15/2023 US/US OB growth IMPRESSION: Normal interval growth Electronically authenticated by: JUDE SNELL Date: 09/21/2023 11:58
--- OUTSIDE RECORDS SUMMARY | 2023-09-21 11:43 | XMS_ITS | CCD ---
Author Organization [facility] Care Team Providers Care Patient Care Technician Name Role Phone NO, FAMILY PHYSICIAN Primary Care Physician Unav Hetal Beasley Rounding Physician Unavailable NO FAMILY, PHYSICIAN Primary Care Provider Unava ilELSY Garnett Emergency Provider [phone] NO FAMILY, PHYSICIAN Primary Care Provider Unava ilable Andrés ([facility]), ELSY Parekh Attending Provider [place], ELSY Valladares S Primary Care Provider [place], LESY Valladares S Attending Provider [phone] [place], ELSY Jacquelyn S Referring Provider [phone] [place], ELSY Jacquelyn S Primary Care Provider [phone] [place], ELSY Kamarafer S Attending Provider [place], ADVANCED NURSING PROFESSOR Jacquelyn S Referring Provider ELSY Daniels Emergency Provider Flor Giles DO Primary Care Provider [place], ELSY Kamarafer S Primary Care Provider [place], ELSY Jacquelyn S Attending Provider [phone] VAISHNAVI DURÁN Referring Unavailable FLOR GILES Primary Care Unavailable NO FAMILY, PHYSICIAN Primary Care Unavailable Andrés ([facility])Rosa Admitting Unavailabl e Rice ([facility]), Rosa Parekh Attending Unavailabl e Wild, Jacquelyn S Attending Unavailable West, Jacquelyn S Referring Unavailable West, Jacquelyn S Admitting Unavailable [place], Jacquelyn S Primary Care Unavailable Luci Daniels Admitting Unavailable Luci Daniels Attending Unavailable [place], Jacquelyn S Primary Care Unavailable West, Jacquelyn S Admitting Unavailable West, Jacquelyn S Primary Care Unavailable West, Jacquelyn S Attending Unavailable Unavailable Primary Care Provider UnavailVAISHNAVI Duarte Attending Unavailable ROSA BOWEN Primary Care Unavailable VAISHNAVI DURÁN Attending Unavailable VAISHNAVI DURÁN Referring Unavailable FLOR GILES Primary Care Unavailable VAISHNAVI DURÁN Attending Unavailable VAISHNAVI DURÁN Referring Unavailable FLOR GILES Primary Care Unavailable FLOR GILES Attending Unavailable DASHA PETERS Attending Unavailable DENNIS, FLOR Attending Unavailable DASHA PETERS Attending Unavailable FLOR GILES Attending Unavailable Unavailable Unavailable Unavailable Allergies Allergy Classification Reported Allergen(s) Allergy Type Date of Onset Reaction(s) Facility (7 sources) ferrous sulfate; Translations: [FERROUS SULFATE] Drug Allergy 3 Unknown [facility] (7 sources) Sulfonamides (Antibiotic); Translations: [SULFA (SULFONAMIDE ANTIBIOTICS)] Propensity to adverse reactions 3 Unknown [facility] (1 source) Sulfacetamide Drug Allergy 3 [facility] Repository (1 source) Sulfonamides (Antibiotic) Drug allergy (disorder) [address] [place] [address] Repository Medications Current Medications Medication Drug Class(es) Dates Sig (Normalized) Sig (Original) [id number] 200 actuat albuterol 0.09 mg/actuat metered dose [...] day. 60 tablet 1 06/02/2023 06/01/2024 Active [place] (No Known Home Meds) (3 sources) Start: 03-15-20 [place] (No Known Home Meds) Active March 15, [...] 0 03/15/2023 06/02/2023 Discontinued (Med List Cleanup) Mpkwgr-DuWuk-Nknr-FA-DHA w/o A (PRENATE DHA PO) (1 source) Psxpow-TbOid-Uhy h-FA-DHA w/o A (PRENATE DHA PO) Take [...] by mouth in the morning. 30 tablet 06/02/2023 06/01/2024 Active Completed/Discontinued Medications Medication Drug [...] 2022 1:57pm administer with food or milk vit,aqcv51-wvbu-rrqnt (Prenatabs Rx) 29 mg iron- 1 mg tablet (3 sources) End: 06-02-2023 vit,pfyj32-eolg-vass c (Prenatabs Rx) 29 mg iron- 1 mg tablet 1 tablet once daily. 0 06/02/2023 Discontinued (Duplicate order) vit,leo i70-qyka-klvec (Prenatabs Rx) 29 mg iron- 1 mg [...] 04-21-2023 Chronic Cardiac and circulatory congenital anomalies (2 sources) Persistent ostium secundum; Translations: [ASD (atrial septal defect), ostium secundum] Onset: 06-02-2023 06-02-2023 Chronic Conduction disorders (12 sources) Long QT syndrome; Translations: [Long QT syndrome] Onset: 04-21-2023 05-18-2023 Chronic Other aftercare (3 sources) Treatment changed; Translations: [Other intermodal customer service (current) drug therapy] Onset: 06-02-2023 06-02-2023 Episodic Other aftercare (2 sources) Other mcfp (current) drug therapy; Translations: [Other mcfp (current) drug therapy] Onset: 06-02-2023 Episodic Other [...] compared to previous EKG from March 2023. [facility] Work Phone: Urinalysis macro (dipstick) panel (U)on 06-29-2023 Bilirubin, UA Negative Negative - 4(70) +++ mg/dL [facility] Blood, UA Negative Negative - 50 Zach/mcL [facility] Clarity, UA Clear [facility] Color, UA Yellow [facility] Glucose, UA Negative Negative - 1999(110) ++++ mg/dL [facility] Interpretation and review of laboratory results Normal [facility] Ketones, UA Negative Negative - 160(16) ++++ mg/dL [facility] Leukocytes, UA Negative Negative - 500+++ Joni/mcL [facility] Nitrite, UA Negative Negative - Positive [facility] pH, UA 5.5 5 - 9 [facility] Protein, UA Negative Negative - 2000(20) ++++ mg/dL [facility] Spec Grav, UA 1.015 1 - 1.03 [facility] Urobilinogen, UA 1.0 0.2 - 12 mg/dL [facility] TRANSTHORACIC ECHO (TTE) COM PLETEon 05-18-2023 TRANSTHORACIC ECHO (TTE) COMPLETE [address], [address], [place] [address] TRANSTHORACIC ECHOCARDIOGRAM REPORT Patient Name: BELLE Gallego Physician: [id number] Makenna Jhaveri MD, [facility] Study Date: 05/18/2023 Ordering Provider: [id number] VAISHNAVI DURÁN MRN/PID: [id number] Fellow: Nurse: Date of /Age: 8 1995 / 28 years [employer]: Maya Moraes RDCS, RVT Gender: F Additional Staff: Height: 167.64 cm Admit Date: Weight: 81.65 kg Admission Status: BSA: 1.91 m2 Department Location: [facility] Blood Pressure: 128 /82 mmHg Study Type: TRANSTHORACIC ECHO (TTE) COMPLETE Diagnosis/ICD: Long QT syndrome-I45.81 Indication: Pt is 14 weeks , Former Smoker, Marijuana Use CPT Codes: Echo Complete w Full Doppler-61735 Study Detail: The following Echo studies were [...] There is small atrial septal defect with alev-hn-hnjhd shunt. Right Ventricle: The right ventricle is [...] There is small atrial septal defect with pcow-py-pkvjc shunt. 3. Mild mitral valve regurgitation. QUANTITATIVE [...] 0.7 m/s (0.6-0.9m/s) PV Max P.0 mmHg [id number] Makenna Jhaveri MD, [facility] Electronically signed on 05/18/2023 at 1:24:06 PM Final [facility] TransthoracicOrdere d By: Makenna Jhaveri on 05-18-2023 Aortic Valve Area by Continuity of Peak Velocity 2.38 [facility] Work Phone: Aortic Valve Area by Continuity of VTI 2.38 [facility] Work Phone: [phone] AV mn grad 3.0 [facility] Work Phone: [phone] AV pk grad 6.0 [facility] Work Phone: [phone] AV pk suleiman 1.22 [facility] Work Phone: [phone] LV A4C EF 57.8 [facility] Work Phone: [phone] LVIDd 4.90 [facility] Work Phone: [phone] LVOT diam 2.30 [facility] Work Phone: [phone] MV avg E/e' ratio 5.40 [facility] Work Phone: [phone] MV E/A ratio 1.58 [facility] Work Phone: [phone] RVSP 16.8 [facility] Work Phone: [facility] Work Phone: Heart Transthoracicon [address], [address] [place] [address] TRANSTHORACIC ECHOCARDIOGRAM REPORT Patient Name: BELLE NAJERA Lashonda Physician: [id number] Makenna Jhaveri MD, [facility] Study Date: 05/18/2023 Ordering Provider: [id number] VAISHNAVI DURÁN MRN/PID: [id number] Fellow: Nurse: Date of /Age: 8 1995 / years [employer]: Maya Moraes RDCS, RVT Gender: F Additional Staff: Height: 167.64 cm Admit Date: Weight: 81.65 kg Admission Status: BSA: 1.91 m2 Department Location: [facility] Blood Pressure: 128 /82 mmHg Study Type: TRANSTHORACIC ECHO (TTE) COMPLETE Diagnosis/ICD: Long QT syndrome-I45.81 Indication: Pt is 14 weeks , Former Smoker, Marijuana Use CPT Codes: Echo Complete w Full Doppler-[id number] Study Detail: The following Echo studies were [...] There is small atrial septal defect with kiuy-rw-szcwr shunt. Right Ventricle: The right ventricle is [...] There is small atrial septal defect with jonh-tj-okszk shunt. 3. Mild mitral valve regurgitation. QUANTITATIVE [...] 0.7 m/s (0.6-0.9m/s) PV Max P.0 mmHg [id number] Makenna Jhaveri MD, [facility] Electronically signed on 05/18/2023 at 1:24:06 PM Final Makenna Hickey MD - 05/18/2023 [facility] [address], [address], [place] [address] TRANSTHORACIC ECHOCARDIOGRAM REPORT Patient Name: BELLE NAJERA Reading Physician: [id number] Makenna Jhaveri MD, [facility] Study Date: 05/18/2023 Ordering Provider: [id number] VAISHNAVI DURÁN MRN/PID: [id number] Fellow: Nurse: Date of /Age: 8 1995 / years [employer]: Maya Moraes RDCS, T Gender: F Additional Staff: Height: 167.64 cm Admit Date: Weight: 81.65 kg Admission Status: BSA: 1.91 m2 Department Location: [facility] Blood Pressure: 128 /82 mmHg Study Type: TRANSTHORACIC ECHO (TTE) COMPLETE Diagnosis/ICD: Long QT syndrome-I45.81 Indication: Pt is 14 weeks , Former Smoker, Marijuana Use CPT Codes: Echo Complete w Full Doppler-14831 Study Detail: The following Echo studies were [...] There is small atrial septal defect with zbuw-wv-zgslm shunt. Right Ventricle: The right ventricle is [...] There is small atrial septal defect with lrjv-ee-bledp shunt. 3. Mild mitral valve regurgitation. QUANTITATIVE [...] 0.7 m/s (0.6-0.9m/s) PV Max P.0 mmHg [id number] Makenna Jhaveri MD, [facility] Electronically signed on 05/18/2023 at 1:24:06 PM Final [facility] Work Phone: Automated erythrocytes count in urine sediment (number/area)Ordered By: Luci Daniels on 03-27-2023 RBC Auto (Urine sed) [#/Area] 1-2 [HPF] 0-4 [facility] Automated leukocytes count i n urine sediment (number/area)Ordered By: Luci Daniels on 03-27-2023 WBC Auto (Urine sed) [#/Area] 20-49 [HPF] 0-4 [facility] Bilirubin Test strip Ql (U)O rdered By: Luci Daniels on 03-27-2023 Bilirubin Ql (U) Negative Negative [facility] Color Auto (U)Ordered By: Tiffanie Daniels on 03-27-2023 Color (U) Yellow Yellow [facility] Dipstick and Microscopicon 1 05-27-2022 Appearance (U) Cloudy Critically abnormal Clear [facility] Comment on above: Order Comment: Name Collection Type:: Clean-Voided Midstream Performed By: #### A LILIBETH GAGNON #### [address] Bacteria,Urine 2+ High None Seen [facility] Comment on above: Order Comment: Name Collection Type:: Clean-Voided Midstream Performed By: #### A DDONUAPLUS, CUU #### [facility] [address] [place] [address] [place] Bilirubin,Urine Negative Normal Negative [facility] Comment on above: Order Comment: Name Collection Type:: Clean-Voided Midstream Performed By: #### A DDONUAPLUS, CUU #### [place] [address] [place] Color (U) Yellow Normal Yellow [facility] Comment on above: Order Comment: Name Collection Type:: Clean-Voided Midstream Performed By: #### A DDONUAPLUS, CUU #### [place] [address] [place] Glucose Ql (U) Normal Normal Normal [facility] Comment on above: Order Comment: Name Collection Type:: Clean-Voided Midstream Performed By: #### A DDONUAPLUS, CUU #### [place] [address] [place] Hyaline Casts,Urine 0-8 Normal 0-8 [facility] Comment on above: Order Comment: Name Collection Type:: Clean-Voided Midstream Result Comment: PERF ORMED BY: [place] [address] PATHOLOGIST PHYSICAL MEDICINE TEACHER ANGELIA NIETO M.D. Performed By: #### A DDONUAPLUS, CUU #### [facility] [address] [place] [address] [place] Ketones Ql (U) Negative Normal Negative [facility] Comment on above: Order Comment: Name Collection Type:: Clean-Voided Midstream Performed By: #### A DDONUAPLUS, CUU #### [facility] [address] [place] [address] [place] Leukocyte esterase Test strip Ql (U) 2+ High Negative [facility] Comment on above: Order Comment: Name Collection Type:: Clean-Voided Midstream Performed By: #### A DDONUAPLUS, CUU #### [facility] [address] [place] [address] [place] Nitrite,Urine Negative Normal Negative [facility] Comment on above: Order Comment: Name Collection Type:: Clean-Voided Midstream Performed By: #### A DDONUAPLUS, CUU #### [place] [address] [place] Occult Blood,Urine Negative Normal Negative [facility] Comment on above: Order Comment: Name Collection Type:: Clean-Voided Midstream Result Comment: PERF ORMED BY: [place] [address] PATHOLOGIST PHYSICAL MEDICINE TEACHER ANGELIA NIETO M.D. Performed By: #### A DDONUAPLUS, CUU #### [place] [address] [place] pH (U) 7.0 [pH] Normal 5.0-9.0 [facility] Comment on above: Order Comment: Name Collection Type:: Clean-Voided Midstream Performed By: #### A DDONUAPLUS, CUU #### [place] [address] [place] Protein,Urine Negative Normal Negative [facility] Comment on above: Order Comment: Name Collection Type:: Clean-Voided Midstream Performed By: #### A DDONUAPLUS, CUU #### [place] [address] [place] RBC,Urine 1-2 Normal 0-4 [facility] Comment on above: Order Comment: Name Collection Type:: Clean-Voided Midstream Performed By: #### A DDONUAPLUS, CUU #### [place] [address] [place] Specific[place],Urine 1.022 Normal 1.001-1.030 [facility] Comment on above: Order Comment: Name Collection Type:: Clean-Voided Midstream Performed By: #### A DDONUAPLUS, CUU #### [place] [address] [place] Squamous Epithelial Cell,Urine 5-9 High 0-2 [facility] Comment on above: Order Comment: Name Collection Type:: Clean-Voided Midstream Performed By: #### A DDONUAPLUS, CUU #### [facility] [address] [place] [address] Urobilinogen,Urine Normal Normal Normal [facility] Comment on above: Order Comment: Name Collection Type:: Clean-Voided Midstream Performed By: #### A DDONUAPLUS, CUU #### [address] WBC,Urine 20-49 High 0-4 [facility] Comment on above: Order Comment: Name Collection Type:: Clean-Voided Midstream Performed By: #### A DDONUAPLUS, CUU #### [address] HCG ( test) [place].rapi d Ql (U)Ordered By: Luci Daniels on 03-27-2023 HCG ( test) Ql (U) Positive [facility] HCG,Urineon 03-27-2023 Beta HCG ( test) Ql (U) Positive High [facility] Comment on above: Result Comment: PERF ORMED BY: [place] [address] PATHOLOGIST PHYSICAL MEDICINE TEACHER ANGELIA NIETO M.D. Performed By: #### U HCG #### [facility] [address] [place] [address] Ketones Auto test strip (U) [Mass/Vol]Ordered By: Luci Daniels on 03-27-2023 Ketones (U) [Mass/Vol] Negative Negative [facility] - UrinalysisOrder ed By: Luci Daniels on 03-27-2023 Hyaline casts LM Ql (Urine sed) 0-8 [LPF] 0-8 [facility] Nitrite Test strip Ql (U)Ord ered By: Luci Daniels on 03-27-2023 Nitrite Ql (U) Negative Negative [facility] Protein Auto test strip (U) [Mass/Vol]Ordered By: Luci Daniels on 03-27-2023 Protein (U) [Mass/Vol] Negative Negative [facility] Specific gravity Auto test s trip (U) [Rel density]Ordered By: Luci Daniels on 03-27-2023 Specific gravity (U) [Rel density] 1.022 1.001-1.030 [facility] Squamous epithelial cells de tection in urine sediment by light microscopyOrdered By: Luci Daniels on 03-27-2023 Epithelial cells.squamous LM Ql (Urine sed) 5-9 [HPF] 0-2 [facility] US OB transvaginalon 023 US OB transvaginal [facility] [place] [address] [place] [address] Ultrasound Report Signed Patient: Belle Najera MR#: [id number] 71 : 1995 Acct:[id number] Age/Sex: 28 / F ADM Date: 03/27/23 Loc: ER Room: Type: [facility] ER Attending Dr: Ordering Provider: Luci Daniels APRN Date of Service: 03/27/23 US/US OB <= 14 weeks fetus: 6 weeks ; abdominal pain ([id number]) US/US OB transvaginal: abd. pain w/ Copies [...] estimated gestational age of 6w2d weeks/days (accession [id number]), 6w1d weeks/days (accession [id number]) with an estimated date of delivery of 11/18/2023 (accession [id number]), 11/19/2023 (accession [id number]) and normal heart rate. The maurer of the gestational sac are slightly irregular/lobulated . This is of uncertain etiology. There is a trace amount of free fluid in the cul-de-sac. Impression dictated by: Fuentes Tomlinson M.D.03/27/2023 11:45 AM Dictation Location: [place] [address] Tech: Radha Altamirano Transcribed By: EMEKA 03/27/23 1145 Dictated By: Fuentes Tomlinson II, MD 03/27/23 1141 Signed By: 03/27/23 1145 [facility] Urine Cultureon 03-27-2023 Bacteria identified Cx Nom (U) >100,000 colonies/ml mixed bacterial skin contaminants 2 Days PERFORMED BY: [place] [address] PATHOLOGIST PHYSICAL MEDICINE TEACHER ANGELIA NIETO M.D. [facility] Comment on above: Performed By: #### A DDONUAKEV, CUU #### [address] Urine bacteria detection by automated methodOrdered By: Luci Daniels on 03-27-2023 Bacteria Auto Ql (U) 2+ None Seen [facility] Urine clarity by refractomet ry automatedOrdered By: Luci Daniels on 03-27-2023 Clarity Refractometry automated (U) Cloudy Clear [facility] Urine culture routineOrdered By: Luci Daniels on 03-27-2023 Bacteria identified Cx Nom (U) 2 Days [facility] Urine glucose measurement by automated test strip (mass/volume)Ordered By: Luci Daniels on 03-27-2023 Glucose Auto test strip (U) [Mass/Vol] Normal mg/dL Normal [facility] Urine hemoglobin detection b y automated test stripOrdered By: Luci Daniels on 03-27-2023 Hemoglobin Auto test strip Ql (U) Negative Negative [facility] Urine leukocyte esterase det ection by automated test stripOrdered By: Luci Daniels on 03-27-2023 Leukocyte esterase Auto test strip Ql (U) 2+ Negative [facility] Urobilinogen Auto test strip (U) [Mass/Vol]Ordered By: Luic Daniels on 03-27-2023 Urobilinogen (U) [Mass/Vol] Normal mg/dL Normal [facility] pH Auto test strip (U)Ordere d By: Luci Daniels on 03-27-2023 pH (U) 7.0 [pH] 5.0-9.0 [facility] XR knee RT 4V*on 02-01-2023 XR knee RT 4V* [facility] [place] [address] XRay Report Signed Patient: Belle Najera MR#: [id number] [birth year] : 1995 Acct:[id number] Age/Sex: 28 / F ADM Date: 02/01/23 Loc: XD Room: Type: [facility] Attending Dr: Jacquelyn Rome APRN Copies to: [...] Fartun Villa M.D.02/01/2023 4:33 PM Dictation Location: [place] [address] Transcribed By: EMEKA 02/01/23 163 Dictated By: Fartun Villa MD 02/01/23 163 Signed By: 02/01/23 1633 Normal [facility] US transvaginalon 09-15-2022 US transvaginal [facility] [place] [address] [place] [address] Ultrasound Report Signed Patient: Belle Najera MR#: [id number] 71 : 1995 Acct:[id number] Age/Sex: 27 / F ADM Date: 09/15/22 Loc: Room: Type: [facility] Attending Dr: Rosa Bowen ([facility]) ELSY Ordering Provider: Rosa Bowen APRN, WHCNP Date of Service: 09/15/22 US/US pelvic complete: R10.2 ([id number]) US/US transvaginal: R10.2 Copies to: Rosa Bowen [...] Fartun Villa M.D.09/15/2022 6:21 PM Dictation Location: [place] [address] Tech: Alexia Johnson Transcribed By: EMEKA 09/15/221820 Dictated By: Fartun Villa MD 09/15/221816 Signed By: 09/15/221820 [facility] Coding Summary.on 02-22-2019 Coding Summary. CODING DATE: 02/22/2019 FINAL [facility] STATUS: Home (Routine DC) PAYOR: Self Pay [...] Cari Soliman Date Saved: 02/22/2019 05:33 pm [facility] Vital Signs Date Time Vital Sign Value Performing Clinician Facility 08-08-2023 11:08-0400 Diastolic blood pressure 54 mm[Hg] Vaishnavi Durán MD Work Phone: [facility] 08-08-2023 11:08-0400 Heart rate 80 /min Vaishnavi Durán MD Work Phone: [facility] 08-08-2023 11:08-0400 Systolic blood pressure 98 mm[Hg] Vaishnavi Durán MD Work Phone: [facility] 08-08-2023 10:130400 Body height 170.2 cm Vaishnavi Durán MD Work Phone: [facility] 08-08-2023 10:13-0400 Body mass index (BMI) [Ratio] 30.92 kg/m2 Vaishnavi Durán MD Work Phone: [facility] 08-08-2023 10:13-0400 Body weight 89.54 kg Vaishnavi Durán MD Work Phone: [facility] 06-29-2023 14:16-0500 Body weight 86.82 kg Dasha GA Work Phone: [facility] 06-29-2023 14:16-0500 Diastolic blood pressure 70 mm[Hg] Dasha Peters PA Work Phone: [facility] 06-29-2023 14:16-0500 Systolic blood pressure 118 mm[Hg] Dasha Peters PA Work Phone: [facility] 06-02-2023 09:39-0500 Body height 167.6 cm Vaishnavi Durán MD Work Phone: [facility] 06-02-2023 09:39-0500 Body mass index (BMI) [Ratio] 30.34 kg/m2 Vaishnavi Durán MD Work Phone: [facility] 06-02-2023 09:39-0500 Body weight 85.28 kg Vaishnavi Durán MD Work Phone: [facility] 06-02-2023 09:39-0500 Diastolic blood pressure 60 mm[Hg] Vaishnavi Durán MD Work Phone: [facility] 06-02-2023 09:39-0500 Heart rate 60 /min Vaishnavi Durán MD Work Phone: [facility] 06-02-2023 09:39-0500 Systolic blood pressure 100 mm[Hg] Vaishnavi Durán MD Work Phone: [facility] 05-18-2023 09:33-0500 Body height 167.[address] 05-18-2023 09:33-0500 Body mass index (BMI) [Ratio] 29.05 kg/m2 [address] 05-18-2023 09:33-0500 Body weight 81.[address] 05-18-2023 09:33-0500 Diastolic blood pressure 82 mm[Hg] [address] 05-18-2023 09:33-0500 Systolic blood pressure 128 mm[Hg] [address] 03-27-2023 08:51-0500 Body temperature 98.5 [degF] ELSY Valladares Wild Work Phone: [facility] 03-27-2023 08:51-0500 Diastolic blood pressure 69 mm[Hg] ELSY Valladares Wild Work Phone: [phone] [place] [address] 03-27-2023 08:51-0500 Heart rate 82 /min ADVANCED NURSING PROFESSORCatina Valladares Wild Work Phone: [phone] [place] [address] 03-27-2023 08:51-0500 Respiratory rate 18 /min ELSY Valladares Wlid Work Phone: [facility] 03-27-2023 08:51-0500 SaO2% (BldA) [Mass fraction] 100 % ADVANCED NURSING PROFESSOR Jacquelyn Wild Work Phone: [facility] 03-27-2023 08:51-0500 Systolic blood pressure 111 mm[Hg] ELSY Kamarasagar Rome Work Phone: [facility] 03-27-2023 08:50-0500 Body height 171.45 cm ELSY Rome Work Phone: [facility] 03-27-2023 08:50-0500 Body weight 80 kg ELSY Valladares Wild Work Phone: [facility] 03-15-2022 14:55-0400 Body height 170.18 cm PHYSICIAN NO [facility] 03-15-2022 14:55-0400 Body temperature 98.6 [degF] PHYSICIAN NO [facility] 03-15-2022 14:55-0400 Body weight 72.95 kg PHYSICIAN NO [facility] 03-15-2022 14:55-0400 Diastolic blood pressure 77 mm[Hg] [facility]IC[facility] 03-15-2022 14:55-0400 Heart rate 80 /min PHYSICIAN [facility] 03-15-2022 14:55-0400 Respiratory rate 14 /min PHYSICIAN [facility] 03-15-2022 14:55-0400 SaO2% (BldA) [Mass fraction] 99 % PHYSICIAN [facility] 03-15-2022 14:55-0400 Systolic blood pressure 133 mm[Hg] PHYSICIAN [facility] 11-01-2018 23:15-0400 Body Temperature 97.5 [degF] [facility] 11-01-2018 23:15-0400 BP Diastolic 80 mm[Hg] [facility] 11-01-2018 23:15-0400 BP Systolic 123 mm[Hg] [facility] 11-01-2018 23:15-0400 Pulse (Heart Rate) 84 /min [facility] 11-01-2018 23:15-0400 Pulse Oximetry 96 % [facility] 11-01-2018 23:15-0400 Respiratory Rate 18 /min [facility] Weight [facility] NEGATED: Highlighted row BMI (Body Mass Index) [facility] NEGATED: Highlighted row Height [facility] Encounters Encounter Date Encounter Type Care Provider Facility Start: 09-06-2023 End: 09-06-2023 ambulatory FLOR GILES Not Available Start: 08-23-2023 End: 08-23-2023 ambulatory DASHA PETERS Not Available Start: 08-08-2023 End: 08-08-2023 ambulatory [facility] Ambulatory Start: 08-08-2023 End: 08-08-2023 Office outpatient visit 15 minutes Vaishnavi Durán MD Work Phone: [facility] Comment on above: 25 weeks gestation o f (Primary Dx); Long Q-T syndrome Start: 07-26-2023 End: 07-26-2023 ambulatory FLOR DENNIS Not Available Start: 06-29-2023 End: 06-29-2023 ambulatory DASHA PETERS Not Available Start: 06-29-2023 End: 06-29-2023 flow sheet Dasha Peters PA Work Phone: [facility] Comment on above: Second trimester pre gnancy; Diabetes mellitus screening Start: 06-02-2023 End: 06-02-2023 ambulatory FLOR DENNIS Not Available Start: 06-02-2023 End: 06-02-2023 ambulatory [facility]ulatory Start: 06-02-2023 End: 06-02-2023 Office outpatient visit 15 minutes Vaishnavi Durán MD Work Phone: [facility] Comment on above: Long Q-T syndrome; Medication course changed Start: 05-18-2023 End: 05-19-2023 ambulatory [facility] Start: 05-18-2023 End: 05-18-2023 Subsequent hospital visit by physician Stephanie Jean Echo/Vasc Room 2 [facility] Comment on above: Long Q-T syndrome Start: 04-29-2023 End: 04-29-2023 ambulatory FLOR DENNIS Not Available Start: 04-21-2023 End: 04-21-2023 ambulatory [facility] Ambulatory Start: 03-27-2023 End: 03-27-2023 Emergency department patient visit Luci Daniels Facility:[facility] Start: 03-27-2023 End: 03-27-2023 Emergency department patient visit ELSY Rome Work Phone: [facility] Work Phone: Start: 03-15-2023 End: 03-15-2023 ambulatory Jacquelyn Rome Facility:[facility] Start: 03-15-2023 End: 03-15-2023 ambulatory ELSY Rome Work Phone: [facility] Work Phone: Start: 03-15-2023 End: 03-15-2023 Discharged Recurring ELSY Rome Work Phone: [facility] [place] Start: 03-15-2023 Registered Recurring ELSY Rome Work Phone: [facility] [place] Start: 02-01-2023 Registered Recurring ELSY Rome Work Phone: [facility] [place] Start: 02-01-2023 End: 02-01-2023 ambulatory Jacquelyn Rome Facility:[facility] Start: 02-01-2023 End: 02-01-2023 ambulatory ELSY Rome Work Phone: [facility] Work Phone: Start: 02-01-2023 End: 02-01-2023 Patient encounter procedure ELSY Rome Work Phone: [facility] [place] Work Phone: Start: 09-15-2022 End: 09-15-2022 ambulatory PHYSICIAN NO [facility] Facility:[facility] Start: 09-15-2022 End: 09-15-2022 ambulatory PHYSICIAN NO [facility] Work Phone: Start: 09-15-2022 End: 09-15-2022 Patient encounter procedure PHYSICIAN NO [facility] [place] Work Phone: Start: 03-15-2022 End: 03-15-2022 Emergency department patient visit PHYSICIAN NO [facility]-Emergency Room Start: 11-01-2018 End: 11-02-2018 Emergency department patient visit FAMILY [facility] Procedures Date Procedure Procedure Detail Performing Clinician Start: 08-08-2023 ECG 12-LEAD VAISHNAVI VILLALTA LAURA Start: 08-08-2023 FOLLOW UP IN CARDIOLOGY VAISHNAVI DURÁN Start: 08-08-2023 Ecg routine ecg w/le ast 12 lds w/i&r Vaishnavi Durán MD Work Phone: Start: 06-29-2023 Urnls dip stick/tabl et rgnt non-auto w/o micrscp Dasha GA Work Phone: Start: 06-02-2023 FOLLOW UP IN CARDIOLOGY VAISHNAVI DURÁN Start: 06-02-2023 ECG 12-LEAD VAISHNAVI SANCHEZ Start: 05-18-2023 TRANSTHORACIC ECHO ( TTE) COMPLETE VAISHNAVI VILLALTAAN Start: 05-18-2023 Echo tthrc r-t 2d w/ wom-mode compl spec&colr d Vaishnavi Durán MD Work Phone: Start: 04-21-2023 ECG 12-LEAD VAISHNAVIJASMIN SANCHEZ Start: 03-27-2023 Urine culture [facility] PROF[facility] Work Phone: Start: 03-27-2023 Diagnostic ultrasoun d of gravid uterus [facility] PROFESS[facility]ina [facility] Work Phone: Start: 03-27-2023 Transvaginal obstetr ic ultrasonography [facility]Y [facility] Work Phone: Start: 02-01-2023 X-ray of right knee APR [facility] Work Phone: Start: 09-15-2022 Pelvic echography PHYSI AYAD NO FAMILY Start: 09-15-2022 Transvaginal echography PHYSICIAN NO FAMILY Plan of Treatment Date Care Activity Detail Author Start: 2047 Zoster Vaccines (1 of 2) Zoste r Vaccines (1 of 2) [facility] Start: 11-14-2023 End: 11-14-2023 Patient encounter procedure 11/14/2023 10:00 AM EDT Office Visit [facility] [address] [facility] [address] [place] [address] Vaishnavi Durán MD [address] [place] [address] [address] [place] [address] [facility] Start: 08-08-2023 End: 08-08-2023 Patient encounter procedure 08/08/2023 10:15 AM EDT Office Visit [facility] [address] [facility] [address] [place] [id number] Vaishnavi Durán MD [address] [place] [address] [facility] Start: 07-26-2023 End: 07-26-2023 Patient encounter procedure 07/26/2023 2:10 PM EST Routine [facility] [address] [place] [address] Flor Giles DO [address] [place], [place] [id number] [facility] Start: 06-29-2023 End: 06-29-2024 CBC panel - Blood by Automated count CBC Lab Routine Diabetes mellitus screening Expected: 06/29/2023 (Approximate), Expires: 06/29/2024 [facility] Work Phone: Comment on above: Expected: 06/29/2023 (Approximate), Expires: 06/29/2024 Start: 06-29-2023 End: 06-29-2024 Measurement of glucose 1 hour after glucose challenge for glucose tolerance test Glucose tolerance, 1 hour Lab Routine Diabetes mellitus screening Expected: 06/29/2023 (Approximate), Expires: 06/29/2024 [facility] Comment on above: Expected: 06/29/2023 (Approximate), Expires: 06/29/2024 Start: 06-02-2023 End: 06-02-2024 Basic metabolic 2000 panel - Serum or Plasma Basic Metabolic Panel Lab Routine Long Q-T syndrome Expected: 06/02/2023 (Approximate), Expires: 06/02/2024 [facility] Service Area Work Phone: Comment on above: Expected: 06/02/2023 (Approximate), Expires: 06/02/2024 Start: 06-02-2023 End: 06-02-2023 Patient encounter procedure 06/02/2023 9:30 AM EST Office Visit [facility] [address] [place] [address] Vaishnavi Durán MD [address] [facility] [address] [place], [place] [id number] [facility] Start: 03-27-2023 Bacteria identified in Urine by Culture [facility] Start: 03-12-2023 HPV Vaccines (3 - 3- dose series) HPV Vaccines (3 - 3-dose series) [facility] Start: 01-21-2023 COVID-19 Vaccine ( season) COVID-19 Vaccine ( season) [facility] Start: 01-21-2023 Influenza vaccination Influenz a Vaccine (#1) [facility] Start: 03-28-2021 COVID-19 Vaccine (3 - Pfizer series) COVID-19 Vaccine (3 - Pfizer series) [facility] Start: 01-08-2020 DTaP/Tdap/Td Vaccine s (7 - Td or Tdap) DTaP/Tdap/Td Vaccines (7 - Td or Tdap) [facility] Start: 2018 Screening for malign ant neoplasm of cervix [facility] Start: 2015 Hepatitis C screening Hepatitis C [facility] Start: 09-11-2002 Varicella vaccination Varicell a Vaccines (2 of 2 - 2-dose childhood series) [facility] Start: 1997 HIV screening HIV Screening [facility] Start: 1997 Lipid panel Lipid Panel [facility] Start: 1997 Yearly Adult Physical Yearly Adult P hysical [facility] Patient Education [facility] Patient referral [facility] Work Phone: Immunizations Immunization Date Immunization Notes Care Provider Fa cility 11-10-2022 Human Papillomavirus 9-valent vaccine Stephanie 2 [facility] Work Phone: 11-10-2022 HPV, unspecified formulation [address] Work Phone: 09-07-2022 Human Papillomavirus 9-valent vaccine [address] Work Phone: 06-04-2011 influenza virus vacc ine, whole virus [address] Work Phone: 06-04-2011 influenza virus vacc ine, unspecified formulation [address] Work Phone: 01-07-2010 tetanus toxoid, redu yolanda diphtheria toxoid, and acellular pertussis vaccine, adsorbed [address] Work Phone: 08-14-2002 diphtheria, tetanus toxoids and acellular pertussis vaccine, unspecified formulation [address] Work Phone: 08-14-2002 measles, mumps and r ubella virus vaccine [address] Work Phone: 08-14-2002 poliovirus vaccine, inactivated [address] Work Phone: 04-30-1998 diphtheria, tetanus toxoids and acellular pertussis vaccine, unspecified formulation [address] Work Phone: 04-30-1998 haemophilus influenz ae type b vaccine, PRP-OMP conjugate [address] Work Phone: 04-30-1998 measles, mumps and r ubella virus vaccine [address] Work Phone: 04-30-1998 trivalent poliovirus vaccine, live, oral [address] Work Phone: 04-30-1998 varicella virus vaccine [address] Work Phone: 1997 diphtheria, tetanus toxoids and acellular pertussis vaccine, unspecified formulation [address] Work Phone: 1997 haemophilus influenz ae type b conjugate and Hepatitis B vaccine [address] Work Phone: 1997 diphtheria, tetanus toxoids and acellular pertussis vaccine, unspecified formulation [address] Work Phone: 1997 haemophilus influenz ae type b vaccine, HbOC conjugate [address] Work Phone: 1997 poliovirus vaccine, inactivated [address] Work Phone: 1997 diphtheria, tetanus toxoids and acellular pertussis vaccine, unspecified formulation [address] Work Phone: 1997 haemophilus influenz ae type b conjugate and Hepatitis B vaccine [address] Work Phone: 1997 poliovirus vaccine, inactivated [address] Work Phone: 1997 hepatitis B vaccine, pediatric or pediatric/adolescent dosage [address] Work Phone: Payers Date Payer Category Payer Medicaid [id number] 2023 Medicaid [id number] 2022 Self-pay 2021 Unknown [id number] 2021 Unknown [id number] 1997 Unknown [id number] 2.16.84 [id number] 1997 Unknown [id number] 2.16.8 [id number] 1997 Unknown [id number] 2.16.8 [id number] 1997 Unknown [id number] 2.16.8 [id number] 1997 Unknown [id number] 2.16.84 [id number] 1997 Unknown [id number] 2.16.84 [id number] 1997 Unknown [id number] 2.16.84 [id number] 1997 Unknown [id number] 2.16.84 [id number] 1997 Unknown [id number] 2.16.84 [id number] 1997 Unknown [id number] 2.16.840 .[id number] Private Health Insurance [id number] Unknown [id number] 2.16.8 [id number] Unknown [id number] 2.16.8 [id number] Unknown [id number] 2.16.8 [id number] Unknown [id number] 2.16.8 [id number] Social History Date Type Detail Facility Tobacco smoking stat [facility] Unknown if ever smoked [facility] Start: 1995 Sex Assigned At Female [facility] Start: 03-15-2022 End: 03-27-2023 Tobacco smoking status NHIS Smoker (finding) [facility] Start: 04-21-2023 Tobacco smoking stat us SDIS Ex-smoker [facility] Work Phone: End: 02-20-2023 History of tobacco use Cigarette Smoker [facility] Work Phone: Start: 04-21-2023 End: 06-02-2023 Cigarettes smoked current (pack per day) - Reported 1 [facility] Work Phone: Start: 04-21-2023 Tobacco use and exposure Former smokeless tobacco user [facility] Work Phone: End: 02-20-2023 History of tobacco use User of smokeless tobacco [facility] Work Phone: Start: 04-21-2023 End: 08-08-2023 Alcohol intake Ex-drinker (finding) [facility] Work Phone: Start: 04-21-2023 End: 06-02-2023 Tobacco use panel [facility] Work Phone: Start: 04-21-2023 Tobacco Comment Vaping [facility] Work Phone: Start: 1995 Sex Assigned At Not on file U [facility] Work Phone: Start: 05-08-2023 End: 08-08-2023 Exposure to SARS-CoV-2 (event) Not sure [facility] Tobacco smoking stat us NHIS Tobacco [...] redirect to the Timeline version of the [employer] SmartLink. Wt Readings from Last 3 Encounters: [...] that she add some salt and maybe [place] juice to the water that she drinks. [...] discussion and plan. documented in this encounter [facility] Work Phone: 08-08-2023 Instructions Hetal Jacobo [...] in office today documented in this encounter [facility] Work Phone: 06-29-2023 History of Present [...] prescription(s): magnesium oxide, albuterol hfa, ondansetron, ondansetron, gazczb-mpdxt-svmz-fa-dha w/o a, 19, and sertraline. Medical History: [...] of: HARMEET Pierre documented in this encounter [facility] 06-02-2023 History of Present illness Narrative [...] There is small atrial septal defect with oufc-ps-ydtpu shunt. 3. Mild mitral valve regurgitation. QUANTITATIVE [...] Vaishnavi Durán MD documented in this encounter [facility] Work Phone: 06-02-2023 Instructions Mounika Dean [...] of your visit. documented in this encounter [facility] Work Phone: Evaluation note No assessment inform ation available [facility] Work Phone: Evaluation note Diagnosis Long Q-T syndrome Long QT syndrome documented in this encounter [facility] Work Phone: Evaluation note* Diagnosis Long Q-T syndrome Long QT syndrome Medication course changed documented in this encounter [facility] Work Phone: Evaluation note* Diagnosis Second trimester state, incidental Diabetes mellitus screening Screening for diabetes mellitus documented in this encounter [facility] HealthcareEvaluation note* Diagnosis 25 weeks gestation of - Primary Long Q-T syndrome Long QT syndrome documented in this encounter [facility] Work Phone: Hospital Discharge instructions Additional Instructions 1. Push fluids today and tomorrow 2. No lifting, pushing or pulling today 3. [facility] tomorrow [facility] Work [facility]: Reason for referral (narrative)* Consultation (Routine) - Authorized Specialty Diagnoses / Procedures Referred By Contjv t Referred To Contact Cardiology Diagnoses Long Q-T syndrome Procedures Follow Up In Cardiology Vaishnavi Durán MD [address] [facility] [address] [place] [address] Vaishnavi Durán MD [address] [facility] [address] [place] [address] Referral ID Status Reason Start Date Expiration Date V isits Requested Visits Authorized [id number] Authorized 06/02/2023 06/01/2024 1 1 [facility] Work Phone: Reason for referral (narrative)* Consultation (Routine) - Authorized Specialty Diagnoses / Procedures Referred By Contac t Referred To Contact Cardiology Diagnoses Long Q-T syndrome Procedures Follow Up In Cardiology Vaishnavi Durán MD [address] [facility] [address] [place] [address] Vaishnavi Durán MD [address] [facility] [address] [place] [address] Referral ID Status Reason Start Date Expiration Date V isits Requested Visits Authorized [id number] Authorized 08/08/2023 08/07/2024 1 1 * Cardiovascular (Routine) - Authorized Specialty Diagnoses / Procedures Referred By Contac t Referred To Contact Diagnoses Long Q-T syndrome Procedures ECG 12 Lead Vaishnavi Durán MD [address] [facility] [address] [place] [address] Referral ID Status Reason Start Date Expiration Date V isits Requested Visits Authorized [id number] Authorized 08/08/2023 08/07/2024 1 1 [facility] Work Phone: Chief Complaint and Reason [...] Referral Specialty Diagnoses / Procedures Referred By Contac t Referred To Contact Cardiology Diagnoses Long Q-T syndrome Procedures Transthoracic Echo (TTE) Complete SC ECHO TRANSTHORC R-T 2D W/WO M-MODE REC F-UP/LMTD SC DOP ECHOCARD COLOR FLOW VELOCITY MAPPING SC DOP ECHOCARD PULSE WAVE W/SPECTRAL F-UP/LMTD STD Vaishnavi Durán MD [address] [place] [address] [address] [place] [address] Referral ID Status Reason Start Date Expiration Date Visits Requested Visits Authorized [id number] Authorized Perform Procedure 3 04/20/2024 1 1 Additional Source Comments INFORMATION SOURCE (unrecogn ized section and content) DATE CREATED AUTHOR 02/23/2019 [facility] DATE CREATED AUTHOR AUTHOR'S ORGANIZ ATION 06/09/2023 [facility] DATE CREATED AUTHOR AUTHOR'S ORGANIZ ATION 07/01/2023 [facility] DATE CREATED AUTHOR AUTHOR'S ORGANIZ ATION 08/08/2023 [facility] DATE CREATED AUTHOR AUTHOR'S ORGANIZ ATION 09/07/2023 [facility] dical Specialists EPIC Care Teams (unrecognized sec tion and content) Team Status: Inactive Member Role Status Dates PHYSICIAN NO FAMILY Primary Care Provider Active Abdi Arzola APRN Emergency Provider Active Team Status: Active Member Role Status Dates PHYSICIAN NO FAMILY Primary Care Provider Active Team Status: Inactive Member Role Status Dates PHYSICIAN NO FAMILY Primary Care Provider Active [facility] Attending Provider Active Team Status: Active Member Role Status Dates Jacquelyn Rome APRN Primary Care Provider Active Team Status: Inactive Member Role Status Dates Jacquelyn Rome APRN Primary Care Provider, Attendin g Provider Active Team Status: Active Member Role Status Dates Jacquelyn Rome APRN Primary Care Prov ider, Attending Provider, Referring Provider Active Team Status: Inactive Member Role Status Dates Jacquelyn Rome , ELSY Primary Care Provider Active Luci Daniels APRN Emergency Provider Active Patient Care Technician Relationship Specialty Start Date End Date Flor Giles DO [address] [facility] Physicians [facility] [address], [place] [address] PCP - General Obstetrics and Gynecology 05/18/23 Team Status: Inactive Member Role Status Dates Jacquelyn Rome , ELSY Primary Care Prov ider, Attending Provider, Referring Provider Active Patient Care Technician Relationship Specialty Start Date End Date Flor Giles DO [address] [facility] [address], [place] [address] PCP - General Obstetrics and Gynecology 05/18/23 Patient Care Technician Relationship Specialty Start Date End Date Flor Giles DO [address] [facility] Physicians [facility] [address], [place] [address] PCP - General Obstetrics and Gynecology 05/18/23 [...] ekg Specialty Diagnoses / Procedures Referred By Contac t Referred To Contact Cardiology Diagnoses Long Q-T syndrome Procedures Follow Up In Cardiology Vaishnavi Durán MD [address] [facility] [address] [place] [address] Vaishnavi Durán MD [address] [facility] [address] [place] [address] Referral ID Status Reason Start Date Expiration Date V isits Requested Visits Authorized [id number] Authorized 06/02/2023 06/01/2024 1 1 Specialty Diagnoses / Procedures Referred By Contac t Referred To Contact Cardiology Diagnoses Long Q-T syndrome Procedures Transthoracic Echo (TTE) Complete SC ECHO TRANSTHORC R-T 2D W/WO M-MODE REC F-UP/LMTD SC DOP ECHOCARD COLOR FLOW VELOCITY MAPPING SC DOP ECHOCARD PULSE WAVE W/SPECTRAL F-UP/LMTD STD Vaishnavi Durán MD [address] [facility] [address] [place] [address] Referral ID Status Reason Start Date Expiration Date Visits Requested Visits Authorized [id number] Authorized Perform Procedure 3 04/20/2024 1 1 Reason Comments Follow-up Echo results Referral ID Status Reason Start Date Expiration Date V isits Requested Visits Authorized [id number] Authorized 04/21/2023 04/20/2024 1 1 Reason Comments [...] BE BASED ON THE PRIMARY CLINICAL RECORDS. [employer] provides no warranty or guarantee of the accuracy or completeness of information in this document.
== END 2023-09-21 11:23 | disposition home or self-care (01) ==
LOC: NOMS 11:22
PROVIDERS: Visit Provider Obstetrics & Gynecology
DX: O36.63X0 Maternal care for excessive fetal growth, third trimester, not applicable or unspecified (principal); Z3A.32 32 weeks gestation of pregnancy
CPT/HCPCS: 76816

== ENCOUNTER 2023-10-18 21:14 | Outpatient (REF) | payer BC, MEDICAID, SELFPAY ==
--- OUTSIDE RECORDS SUMMARY | 2023-10-18 21:23 | XMS_ITS | CCD ---
Author Organization [facility] Care Team Providers Care In School Suspension Aide Name Role Phone NO, FAMILY PHYSICIAN Primary Care Physician Unav Hetal Beasley Rounding Physician Unavailable NO FAMILY, PHYSICIAN Primary Care Provider Unava ilELSY Garnett Emergency Provider [phone] NO FAMILY, PHYSICIAN Primary Care Provider Unava ilneto Bowen ([facility]), ELSY Parekh Attending Provider [place], ELSY Kramer Primary Care Provider [place], ELSY Valladares S Attending Provider [place], ELSY Kamarafer S Referring Provider [phone] [place], ELSY Kamarafer S Primary Care Provider [place], ELSY Kamarafer S Attending Provider [place], ELSY Russonifer S Referring Provider [phone] ELSY Daniels Emergency Provider Flor Giles DO Primary Care Provider [place], ELSY Valladares S Primary Care Provider [place], ELSY Kamarafer S Attending Provider [phone] VAISHNAVI DURÁN Referring Unavailable FLOR GILES Primary Care Unavailable NO FAMILY, PHYSICIAN Primary Care Unavailable Andrés ([facility])Rosa Admitting Unavailabl e Andrés ([facility]), Rosa Parekh Attending Unavailabl e Jacquelyn Rome Attending Unavailable Wild Jacquelyn S Referring Unavailable WestAnhJacquelyn S Admitting Unavailable Jacquelyn Rome S Primary Care Unavailable Luci Daniels Admitting Unavailable Luci Daniels Attending Unavailable Wild, Jacquelyn S Primary Care Unavailable West, Jacquelyn S Admitting Unavailable Wild, Jacquelyn S Primary Care Unavailable West, Jacquelyn S Attending Unavailable Unavailable Primary Care Provider UnavailVAISHNAVI Duarte Attending Unavailable ROSA BOWEN Primary Care Unavailable VAISHNAVI DURÁN Attending Unavailable VAISHNAVI DURÁN Referring Unavailable FLOR GILES Primary Care Unavailable VAISHNAVI DURÁN Attending Unavailable VAISHNAVI DURÁN Referring Unavailable FLOR GILES Primary Care Unavailable DENNIS, FLOR Attending Unavailable DASHA PETERS Attending Unavailable DENNIS, FLOR Attending Unavailable LORRAINEDASHA YATES Attending Unavailable DENNIS, FLOR Attending Unavailable DENNIS, FLOR Attending Unavailable LORRAINE, DASHA Attending Unavailable Unavailable Unavailable Unavailable Allergies Allergy Classification Reported Allergen(s) Allergy Type Date of Onset Reaction(s) Facility (7 sources) ferrous sulfate; Translations: [FERROUS SULFATE] Drug Allergy 3 Unknown [facility] (7 sources) Sulfonamides (Antibiotic); Translations: [SULFA (SULFONAMIDE ANTIBIOTICS)] Propensity to adverse reactions 3 Unknown [facility] (1 source) Sulfacetamide Drug Allergy 3 [facility] (1 source) Sulfonamides (Antibiotic) Drug allergy (disorder) 3 [facility] Medications Current Medications Medication Drug Class(es) Dates Sig (Normalized) Sig (Original) [id number] 200 actuat albuterol 0.09 mg/actuat metered dose [...] day. 60 tablet 1 06/02/2023 06/01/2024 Active [place] (No Known Home Meds) (3 sources) Start: 03-15-20 [place] (No Known Home Meds) Active March 15, [...] 0 03/15/2023 06/02/2023 Discontinued (Med List Cleanup) Dyhkzp-WjLhu-Ykey-FA-DHA w/o A (PRENATE DHA PO) (1 source) Wdpbpi-JeSzo-Pih h-FA-DHA w/o A (PRENATE DHA PO) Take [...] 2022 1:57pm administer with food or milk vit,mwyy54-hsdm-bgqjs (Prenatabs Rx) 29 mg iron- 1 mg tablet (3 sources) End: 06-02-2023 vit,zwvc92-xzmb-zmkb c (Prenatabs Rx) 29 mg iron- 1 mg tablet 1 tablet once daily. 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 [facility] Work Phone: Urinalysis macro (dipstick) panel (U)on 06-29-2023 Bilirubin, UA Negative Negative - 4(70) +++ mg/dL [facility] Blood, UA Negative Negative - 50 Zach/mcL [facility] Clarity, UA Clear [facility] Color, UA Yellow [facility] Glucose, UA Negative Negative - 1999(110) ++++ mg/dL [facility] Interpretation and review of laboratory results Normal [facility] Ketones, UA Negative Negative - 160(16) ++++ mg/dL [facility] Leukocytes, UA Negative Negative - 500+++ Joni/mcL [facility] Nitrite, UA Negative Negative - Positive [facility] pH, UA 5.5 5 - 9 [facility] Protein, UA Negative Negative - 2000(20) ++++ mg/dL [facility] Spec Grav, UA 1.015 1 - 1.03 [facility] Urobilinogen, UA 1.0 0.2 - 12 mg/dL [facility] hospital TRANSTHORACIC ECHO (TTE) COM PLETEon 05-18-2023 TRANSTHORACIC ECHO (TTE) COMPLETE [address], [address], [place] [address] TRANSTHORACIC ECHOCARDIOGRAM REPORT Patient Name: BELLE NAJERA Lashonda Physician: [id number] Makenna Jhaveri MD, [facility] Study Date: 05/18/2023 Ordering Provider: [id number] VAISHNAVI DURÁN MRN/PID: [id number] Fellow: Nurse: Date of /Age: 8 1995 / 28 years Legal Consultant: Maya Moraes RDCS, RVT Gender: F Additional Staff: Height: 167.64 cm Admit Date: Weight: 81.65 kg Admission Status: BSA: 1.91 m2 Department Location: [facility] Blood Pressure: 128 /82 mmHg Study Type: TRANSTHORACIC ECHO (TTE) COMPLETE Diagnosis/ICD: Long QT syndrome-I45.81 Indication: Pt is 14 weeks , Former Smoker, Marijuana Use CPT Codes: Echo Complete w Full Doppler-69170 Study Detail: The following Echo studies were [...] There is small atrial septal defect with fcev-ki-xcylk shunt. Right Ventricle: The right ventricle is [...] There is small atrial septal defect with qtvk-fg-ilcwh shunt. 3. Mild mitral valve regurgitation. QUANTITATIVE [...] 0.7 m/s (0.6-0.9m/s) PV Max P.0 mmHg [id number] Makenna Jhaveri MD, [facility] Electronically signed on 05/18/2023 at 1:24:06 PM Final Normal [facility] US Heart TransthoracicOrdere d By: Makenna Jhaveri on 05-18-2023 Aortic Valve Area by Continuity of Peak Velocity 2.38 [facility] Work Phone: [phone] Aortic Valve Area by Continuity of VTI 2.38 [facility] Work Phone: [phone] AV mn grad 3.0 [facility] Work Phone: [phone] AV pk grad 6.0 [facility] Work Phone: [phone] AV pk suleiman 1.22 [facility] Work Phone: [phone] LV A4C EF 57.8 [facility] Work Phone: [phone] LVIDd 4.90 [facility] Work Phone: [phone] LVOT diam 2.30 [facility] Work Phone: [phone] MV avg E/e' ratio 5.40 [facility] Work Phone: [phone] MV E/A ratio 1.58 [facility] Work Phone: [phone] RVSP 16.8 [facility] Work Phone: [phone] [facility] Work Phone: [phone], Suite [facility], [place] [address] TRANSTHORACIC ECHOCARDIOGRAM REPORT Patient Name: BELLE RIVEROMARISSA Gallego Physician: [id number] Makenna Jhaveri MD, FAC Study Date: 05/18/2023 Ordering Provider: [id number] VAISHNAVI DURÁN MRN/PID: [id number] Fellow: Nurse: Date of /Age: 8 1995 / years Legal Consultant: Maya Moraes RDCS, RVT Gender: F Additional Staff: Height: 167.64 cm Admit Date: Weight: 81.65 kg Admission Status: BSA: 1.91 m2 Department Location: [facility] Blood Pressure: 128 /82 mmHg Study Type: TRANSTHORACIC ECHO (TTE) COMPLETE Diagnosis/ICD: Long QT syndrome-I45.81 Indication: Pt is 14 weeks , Former Smoker, Marijuana Use CPT Codes: Echo Complete w Full Doppler-44227 Study Detail: The following Echo studies were [...] There is small atrial septal defect with kfli-hp-iyqyx shunt. Right Ventricle: The right ventricle is [...] There is small atrial septal defect with ziwh-ez-xaitz shunt. 3. Mild mitral valve regurgitation. QUANTITATIVE [...] 0.7 m/s (0.6-0.9m/s) PV Max P.0 mmHg [id number] Makenna Jhaveri MD, [facility] Electronically signed on 05/18/2023 at 1:24:06 PM Final Makenna Hickey MD - 05/18/2023 [facility] [address] [facility], [address], [place] [address] TRANSTHORACIC ECHOCARDIOGRAM REPORT Patient Name: BELLE NAJERA Reading Physician: [id number] Makenna Jhaveri MD, [facility] Study Date: 05/18/2023 Ordering Provider: [id number] VAISHNAVI DURÁN MRN/PID: [id number] Fellow: Nurse: Date of /Age: 8 1995 / years Legal Consultant: Maya Moraes RDCS, RVT Gender: F Additional Staff: Height: 167.64 cm Admit Date: Weight: 81.65 kg Admission Status: BSA: 1.91 m2 Department Location: [facility] Blood Pressure: 128 /82 mmHg Study Type: TRANSTHORACIC ECHO (TTE) COMPLETE Diagnosis/ICD: Long QT syndrome-I45.81 Indication: Pt is 14 weeks , Former Smoker, Marijuana Use CPT Codes: Echo Complete w Full Doppler-48741 Study Detail: The following Echo studies were [...] There is small atrial septal defect with xfbu-bx-bhxzu shunt. Right Ventricle: The right ventricle is [...] There is small atrial septal defect with yzuj-py-zsdpa shunt. 3. Mild mitral valve regurgitation. QUANTITATIVE [...] 0.7 m/s (0.6-0.9m/s) PV Max P.0 mmHg [id number] Makenna Jhaveri MD, [facility] Electronically signed on 05/18/2023 at 1:24:06 PM Final [facility] Work Phone: Automated erythrocytes count in urine sediment (number/area)Ordered By: Luci Daniels on 03-27-2023 RBC Auto (Urine sed) [#/Area] 1-2 [HPF] 0-4 [facility] Automated leukocytes count i n urine sediment (number/area)Ordered By: Luci Daniels on 03-27-2023 WBC Auto (Urine sed) [#/Area] 20-49 [HPF] 0-4 [facility] Bilirubin Test strip Ql (U)O rdered By: Luci Daniels on 03-27-2023 Bilirubin Ql (U) Negative Negative [facility] Color Auto (U)Ordered By: Tiffanie Daniels on 03-27-2023 Color (U) Yellow Yellow [facility] Dipstick and Microscopicon 1 05-27-2022 Appearance (U) Cloudy Critically abnormal Clear [facility] Comment on above: Order Comment: Name Collection Type:: Clean-Voided Midstream Performed By: #### A LILIBETH GAGNON #### [facility] [address] [place] [address] [place] Bacteria,Urine 2+ High None Seen [facility] Comment on above: Order Comment: Name Collection Type:: Clean-Voided Midstream Performed By: #### A DDONUAPLUS, CUU #### [facility] [address] [place] [address] [place] Bilirubin,Urine Negative Normal Negative [facility] Comment on above: Order Comment: Name Collection Type:: Clean-Voided Midstream Performed By: #### A DDONUAPLUS, CUU #### [place] [address] [place] Color (U) Yellow Normal Yellow [facility] Comment on above: Order Comment: Name Collection Type:: Clean-Voided Midstream Performed By: #### A DDONUAPLUS, CUU #### [facility] [address] [place] [address] [place] Glucose Ql (U) Normal Normal Normal [facility] Comment on above: Order Comment: Name Collection Type:: Clean-Voided Midstream Performed By: #### A DDONUAPLUS, CUU #### [place] [address] [place] Hyaline Casts,Urine 0-8 Normal 0-8 [facility] Comment on above: Order Comment: Name Collection Type:: Clean-Voided Midstream Result Comment: PERF ORMED BY: [place] [address] PATHOLOGIST WATCH GUARD GATE ANGELIA NIETO M.D. Performed By: #### A DDONUAPLUS, CUU #### [facility] [address] [place] [address] [place] Ketones Ql (U) Negative Normal Negative [facility] Comment on above: Order Comment: Name Collection Type:: Clean-Voided Midstream Performed By: #### A DDONUAPLUS, CUU #### [facility] [address] [place] [address] [place] Leukocyte esterase Test strip Ql (U) 2+ High Negative [facility] Comment on above: Order Comment: Name Collection Type:: Clean-Voided Midstream Performed By: #### A DDONUAPLUS, CUU #### [place] [address] [place] Nitrite,Urine Negative Normal Negative [facility] Comment on above: Order Comment: Name Collection Type:: Clean-Voided Midstream Performed By: #### A DDONUAPLUS, CUU #### [address] Occult Blood,Urine Negative Normal Negative [facility] Comment on above: Order Comment: Name Collection Type:: Clean-Voided Midstream Result Comment: PERF ORMED BY: [place] [address] PATHOLOGIST WATCH GUARD GATE ANGELIA NIETO M.D. Performed By: #### A DDONUAPLUS, CUU #### [address] pH (U) 7.0 [pH] Normal 5.0-9.0 [facility] Comment on above: Order Comment: Name Collection Type:: Clean-Voided Midstream Performed By: #### A DDONUAPLUS, CUU #### [place] [address] [place] Protein,Urine Negative Normal Negative [facility] Comment on above: Order Comment: Name Collection Type:: Clean-Voided Midstream Performed By: #### A DDONUAPLUS, CUU #### [address] RBC,Urine 1-2 Normal 0-4 [facility] Comment on above: Order Comment: Name Collection Type:: Clean-Voided Midstream Performed By: #### A DDONUAPLUS, CUU #### [place] [address] [place] Specificy [place],Urine 1.022 Normal 1.001-1.030 [facility] Comment on above: Order Comment: Name Collection Type:: Clean-Voided Midstream Performed By: #### A DDONUAPLUS, CUU #### [address] [place] [address] [place] Squamous Epithelial Cell,Urine 5-9 High 0-2 [facility] Comment on above: Order Comment: Name Collection Type:: Clean-Voided Midstream Performed By: #### A DDONUAPLUS, CUU #### [facility] [address] [place] [address] Urobilinogen,Urine Normal Normal Normal [facility] Comment on above: Order Comment: Name Collection Type:: Clean-Voided Midstream Performed By: #### A DDONUAPLUS, CUU #### [facility] [address] [place] [address] WBC,Urine 20-49 High 0-4 [facility] Comment on above: Order Comment: Name Collection Type:: Clean-Voided Midstream Performed By: #### A DDONUAPLUS, CUU #### [facility] [address] [place] [address] HCG ( test) IA.rapi d Ql (U)Ordered By: Luci Daniels on 03-27-2023 HCG ( test) Ql (U) Positive [facility] HCG,Urineon 03-27-2023 Beta HCG ( test) Ql (U) Positive [facility] Comment on above: Result Comment: PERF ORMED BY: [place] [address] PATHOLOGIST WATCH GUARD GATE ANGELIA NIETO M.D. Performed By: #### U HCG #### [facility] [address] [place] [address] Ketones Auto test strip (U) [Mass/Vol]Ordered By: Luci Daniels on 03-27-2023 Ketones (U) [Mass/Vol] Negative Negative [facility] - UrinalysisOrder ed By: Luci Daniels on 03-27-2023 Hyaline casts LM Ql (Urine sed) 0-8 [LPF] 0-8 [facility] Nitrite Test strip Ql (U)Ord ered By: Luci Daniels on 03-27-2023 Nitrite Ql (U) Negative Negative [facility] Protein Auto test strip (U) [Mass/Vol]Ordered By: Luci Daniels on 03-27-2023 Protein (U) [Mass/Vol] Negative Negative [facility] Specific gravity Auto test s trip (U) [Rel density]Ordered By: Luci Daniels on 03-27-2023 Specific gravity (U) [Rel density] 1.022 1.001-1.030 [facility] Squamous epithelial cells de tection in urine sediment by light microscopyOrdered By: Luci Daniels on 03-27-2023 Epithelial cells.squamous LM Ql (Urine sed) 5-9 [HPF] 0-2 [facility] US OB transvaginalon 023 US OB transvaginal [facility] [place] [address] Ultrasound Report Signed Patient: Belle Najera MR#: [id number] 71 : 1995 Acct:[id number] Age/Sex: 28 / F ADM Date: 03/27/23 Loc: ER Room: Type: [facility] ER Attending Dr: Ordering Provider: Luci Daniels APRN Date of Service: 03/27/23 US/US OB <= 14 weeks fetus: 6 weeks ; abdominal pain ([id number]) US/US OB transvaginal: abd. pain w/ Copies [...] estimated gestational age of 6w2d weeks/days (accession [id number]), 6w1d weeks/days (accession [id number]) with an estimated date of delivery of 11/18/2023 (accession [id number]), 11/19/2023 (accession [id number]) and normal heart rate. The maurer of the gestational sac are slightly irregular/lobulated . This is of uncertain etiology. There is a trace amount of free fluid in the cul-de-sac. Impression dictated by: Fuentes Tomlinson M.D.03/27/2023 11:45 AM Dictation Location: [place] [address] Tech: Radha Vermarommel Transcribed By: EMEKA 03/27/23 1145 Dictated By: Fuentes Tomlinson II, MD 03/27/23 1141 Signed By: 03/27/23 1145 [facility] Urine Cultureon 03-27-2023 Bacteria identified Cx Nom (U) >100,000 colonies/ml mixed bacterial skin contaminants 2 Days PERFORMED BY: [place] [address] PATHOLOGIST WATCH GUARD GATE ANGELIA NIETO M.D. [facility] Comment on above: Performed By: #### A DDONUAKEV, ELLEU #### [address] Urine bacteria detection by automated methodOrdered By: Luci Daniels on 03-27-2023 Bacteria Auto Ql (U) 2+ None Seen [facility] Urine clarity by refractomet ry automatedOrdered By: Luci Daniels on 03-27-2023 Clarity Refractometry automated (U) Cloudy Clear [facility] Urine culture routineOrdered By: Luci Daniels on 03-27-2023 Bacteria identified Cx Nom (U) 2 Days [facility] Urine glucose measurement by automated test strip (mass/volume)Ordered By: Luci Daniels on 03-27-2023 Glucose Auto test strip (U) [Mass/Vol] Normal mg/dL Normal [facility] Urine hemoglobin detection b y automated test stripOrdered By: Luci Daniels on 03-27-2023 Hemoglobin Auto test strip Ql (U) Negative Negative [facility] Urine leukocyte esterase det ection by automated test stripOrdered By: Luci Daniels on 03-27-2023 Leukocyte esterase Auto test strip Ql (U) 2+ Negative [facility] Urobilinogen Auto test strip (U) [Mass/Vol]Ordered By: Luci Daniels on 03-27-2023 Urobilinogen (U) [Mass/Vol] Normal mg/dL Normal [facility] pH Auto test strip (U)Ordere d By: Luci Daniels on 03-27-2023 pH (U) 7.0 [pH] 5.0-9.0 [facility] XR knee RT 4V*on 02-01-2023 XR knee RT 4V* [facility] [place] [address] XRay Report Signed Patient: Belle Najera MR#: [id number] [birth year] : 1995 Acct:[id number] Age/Sex: 28 / F ADM Date: 02/01/23 Loc: XD Room: Type: [facility] Attending Dr: Jacquelyn Rome APRN Copies [...] Fartun Villa M.D.02/01/2023 4:33 PM Dictation Location: [place] [address] Transcribed By: [facility] 02/01/231632 Dictated By: Fartun Villa MD 02/01/231631 Signed By: 02/01/23 1633 Normal [facility] US transvaginalon 09-15-2022 US transvaginal [facility] [place] [address] Ultrasound Report Signed Patient: Belle Najera MR#: [id number] 71 : 1995 Acct:[id number] Age/Sex: 27 / F ADM Date: 09/15/22 Loc: Room: Type: [facility] Attending Dr: Rosa Bowen ([facility]) ELSY Ordering Provider: Rosa Bowen APRN, WHCNP Date of Service: 09/15/22 US/US pelvic complete: R10.2 ([id number]) US/US transvaginal: R10.2 Copies to: Rosa Bowen [...] Fartun Villa M.D.09/15/2022 6:21 PM Dictation Location: [place] [address] Tech: Alexia Johnson Transcribed By: EMEKA 09/15/221820 Dictated By: Fartun Villa MD 09/15/221816 Signed By: 09/15/221820 [facility] Coding Summary.on 02-22-2019 Coding Summary. CODING DATE: 02/22/2019 FINAL [facility] STATUS: Home (Routine DC) PAYOR: Self [...] Cari Soliman Date Saved: 02/22/2019 05:33 pm [facility] Vital Signs Date Time Vital Sign Value Performing Clinician Facility 08-08-2023 11:08-0400 Diastolic blood pressure 54 mm[Hg] Vaishnavi Durán MD Work Phone: [facility] 08-08-2023 11:08-0400 Heart rate 80 /min Vaishnavi Durán MD Work Phone: [facility] 08-08-2023 11:08-0400 Systolic blood pressure 98 mm[Hg] Vaishnavi Durán MD Work Phone: [facility] 08-08-2023 10:13-0400 Body height 170.2 cm Vaishnavi Durán MD Work Phone: [facility] 08-08-2023 10:13-0400 Body mass index (BMI) [Ratio] 30.92 kg/m2 Vaishnavi Durán MD Work Phone: [facility] 08-08-2023 10:13-0400 Body weight 89.54 kg Vaishnavi Durán MD Work Phone: [facility] 06-29-2023 14:16-0500 Body weight 86.82 kg Dasha GA Work Phone: [facility] 06-29-2023 14:16-0500 Diastolic blood pressure 70 mm[Hg] Dasha Peters PA Work Phone: [facility] 06-29-2023 14:16-0500 Systolic blood pressure 118 mm[Hg] Dasha GA Work Phone: [facility] 06-02-2023 09:39-0500 Body height 167.6 cm Vaishnavi Durán MD Work Phone: [facility] 06-02-2023 09:39-0500 Body mass index (BMI) [Ratio] 30.34 kg/m2 Vaishnavi Durán MD Work Phone: [facility] 06-02-2023 09:39-0500 Body weight 85.28 kg Vaishnavi Durán MD Work Phone: [facility] 06-02-2023 09:39-0500 Diastolic blood pressure 60 mm[Hg] Vaishnavi Durán MD Work Phone: [facility] 06-02-2023 09:39-0500 Heart rate 60 /min Vaishnavi Durán MD Work Phone: [facility] 06-02-2023 09:39-0500 Systolic blood pressure 100 mm[Hg] Vaishnavi Durán MD Work Phone: [facility] 05-18-2023 09:33-0500 Body height 167.[address] 05-18-2023 09:33-0500 Body mass index (BMI) [Ratio] 29.05 kg/m2 [address] 05-18-2023 09:33-0500 Body weight 81.65 kg Stephanie 2 [facility] 05-18-2023 09:33-0500 Diastolic blood pressure 82 mm[Hg] Birney 2 [facility] 05-18-2023 09:33-0500 Systolic blood pressure 128 mm[Hg] Birney 2 [facility] 03-27-2023 08:51-0500 Body temperature 98.5 [degF] ELSY Rome Work Phone: [phone] [place] [address] 03-27-2023 08:51-0500 Diastolic blood pressure 69 mm[Hg] ELSY Rome Work Phone: [phone] [place] [address] 03-27-2023 08:51-0500 Heart rate 82 /min ELSY Rome Work Phone: [phone] [place] [address] 03-27-2023 08:51-0500 Respiratory rate 18 /min ELSY Rome Work Phone: [facility] 03-27-2023 08:51-0500 SaO2% (BldA) [Mass fraction] 100 % UTILITY LOCATE TECHNICIANCatina Rome Work Phone: [facility] 03-27-2023 08:51-0500 Systolic blood pressure 111 mm[Hg] ELSY Rome Work Phone: [facility] 03-27-2023 08:50-0500 Body height 171.45 cm ELSY Rome Work Phone: [facility] 03-27-2023 08:50-0500 Body weight 80 kg ELSY Rome Work Phone: [facility] 03-15-2022 14:55-0400 Body height 170.18 cm PHYSICIAN NO [facility] 03-15-2022 14:55-0400 Body temperature 98.6 [degF] PHYSICIAN NO [facility] 03-15-2022 14:55-0400 Body weight 72.95 kg PHYSICIAN NO [facility] 03-15-2022 14:55-0400 Diastolic blood pressure 77 mm[Hg] PHYSICIAN NO [facility] 03-15-2022 14:55-0400 Heart rate 80 /min PHYSICIAN [facility] 03-15-2022 14:55-0400 Respiratory rate 14 /min PHYSICIAN NO [facility] 03-15-2022 14:55-0400 SaO2% (BldA) [Mass fraction] 99 % PHYSICIAN NO [facility] 03-15-2022 14:55-0400 Systolic blood pressure 133 mm[Hg] PHYSICIAN [facility] 11-01-2018 23:15-0400 Body Temperature 97.5 [degF] [facility] 11-01-2018 23:15-0400 BP Diastolic 80 mm[Hg] [facility] 11-01-2018 23:15-0400 BP Systolic 123 mm[Hg] [facility] 11-01-2018 23:15-0400 Pulse (Heart Rate) 84 /min [facility] 11-01-2018 23:15-0400 Pulse Oximetry 96 % [facility] 11-01-2018 23:15-0400 Respiratory Rate 18 /min [facility] Weight [facility] NEGATED: Highlighted row BMI (Body Mass Index) [facility] NEGATED: Highlighted row Height [facility] Encounters Encounter Date Encounter Type Care Provider Facility Start: 10-04-2023 End: 10-04-2023 ambulatory DASHA PETERS Not Available Start: 09-20-2023 End: 09-20-2023 ambulatory FLOR DENNIS Not Available Start: 09-06-2023 End: 09-06-2023 ambulatory FOLR DENNIS Not Available Start: 08-23-2023 End: 08-23-2023 ambulatory DASHA LORRAINE Not Available Start: 08-08-2023 End: 08-08-2023 ambulatory [facility] Start: 08-08-2023 End: 08-08-2023 Office outpatient visit 15 minutes Vaishnavi Durán MD Work Phone: [facility] Comment on above: 25 weeks gestation o f (Primary Dx); Long Q-T syndrome Start: 07-26-2023 End: 07-26-2023 ambulatory FLOR DENNIS Not Available Start: 06-29-2023 End: 06-29-2023 ambulatory DASHA LORRAINE Not Available Start: 06-29-2023 End: 06-29-2023 flow sheet Dasha GA Work Phone: [facility] Comment on above: Second trimester pre gnancy; Diabetes mellitus screening Start: 06-02-2023 End: 06-02-2023 ambulatory FLOR DENNIS Not Available Start: 06-02-2023 End: 06-02-2023 ambulatory [facility] Start: 06-02-2023 End: 06-02-2023 Office outpatient visit 15 minutes Vaishnavi Durán MD Work Phone: [facility] Comment on above: Long Q-T syndrome; Medication course changed Start: 05-18-2023 End: 05-19-2023 ambulatory [facility] Start: 05-18-2023 End: 05-18-2023 Subsequent hospital visit by physician Stephanie Jean Echo/Vasc Room 2 [facility] Comment on above: Long Q-T syndrome Start: 04-29-2023 End: 04-29-2023 ambulatory FLOR DENNIS Not Available Start: 04-21-2023 End: 04-21-2023 ambulatory [facility] Start: 03-27-2023 End: 03-27-2023 Emergency department patient visit Luci Daniels Facility:[facility] Start: 03-27-2023 End: 03-27-2023 Emergency department patient visit ELSY Rome Work Phone: [facility] Work Phone: Start: 03-15-2023 End: 03-15-2023 ambulatory Jacquelyn Rome Facility:[facility] Start: 03-15-2023 End: 03-15-2023 ambulatory ELSY Rome Work Phone: [facility] Work Phone: Start: 03-15-2023 End: 03-15-2023 Discharged Recurring ELSY Rome Work Phone: [facility] [place] Start: 03-15-2023 Registered Recurring UTILITY LOCATE TECHNICIANCatina Rome Work Phone: [facility] [place] Start: 02-01-2023 Registered Recurring UTILITY LOCATE TECHNICIANCatina Rome Work Phone: [facility] [place] Start: 02-01-2023 End: 02-01-2023 ambulatory Jacquelyn Rome Facility:[facility] Start: 02-01-2023 End: 02-01-2023 ambulatory ELSY Rome Work Phone: [facility] Work Phone: Start: 02-01-2023 End: 02-01-2023 Patient encounter procedure ELSY Rome Work Phone: [facility] [place] Work Phone: Start: 09-15-2022 End: 09-15-2022 ambulatory PHYSICIAN NO FAMILY Facility:[facility] Start: 09-15-2022 End: 09-15-2022 ambulatory PHYSICIAN NO FAMILY [facility] Work Phone: Start: 09-15-2022 End: 09-15-2022 Patient encounter procedure PHYSICIAN NO FAMILY [facility] [place] Work Phone: Start: 03-15-2022 End: 03-15-2022 Emergency department patient visit PHYSICIAN NO FAMILY [facility] Start: 11-01-2018 End: 11-02-2018 Emergency department patient visit FAMILY [facility] Procedures Date Procedure Procedure Detail Performing [...] 12-LEAD VAISHNAVI SANCHEZ Start: 03-27-2023 Urine culture UTILITY LOCATE TECHNICIANCatina cooley [place] Work Phone: Start: 03-27-2023 Diagnostic ultrasoun d of gravid uterus ELSY Valladares [place] Work Phone: Start: 03-27-2023 Transvaginal obstetr ic ultrasonography ELSY Valladares [place] Work Phone: Start: 02-01-2023 X-ray of right knee APR Catina Valladares [place] Work Phone: Start: 09-15-2022 Pelvic echography PHYSI AYAD NO FAMILY Start: 09-15-2022 Transvaginal echography PHYSICIAN NO FAMILY Plan of Treatment Date Care Activity Detail Author Start: 2047 Zoster Vaccines (1 of 2) Zoste r Vaccines (1 of 2) [facility] Start: 11-14-2023 End: 11-14-2023 Patient encounter procedure 11/14/2023 10:00 AM EDT [facility] [place] [address] Vaishnavi Durán MD [address] [facility] [address] [place] [address] [facility] Start: 08-08-2023 End: 08-08-2023 Patient encounter procedure 08/08/2023 10:15 AM EDT Office Visit [facility] [address] [place] [id number] Vaishnavi Durán MD [address] [facility] [address] [place] [address] [facility] Start: 07-26-2023 End: 07-26-2023 Patient encounter procedure 07/26/2023 2:10 PM EST Routine [facility] [address] [place] [id number] Flor Giles, [address] [place] [address] [facility] Start: 06-29-2023 End: 06-29-2024 CBC panel - Blood by Automated count CBC Lab Routine Diabetes mellitus screening Expected: 06/29/2023 (Approximate), Expires: 06/29/2024 [facility] Work Phone: Comment on above: Expected: 06/29/2023 (Approximate), Expires: 06/29/2024 Start: 06-29-2023 End: 06-29-2024 Measurement of glucose 1 hour after glucose challenge for glucose tolerance test Glucose tolerance, 1 hour Lab Routine Diabetes mellitus screening Expected: 06/29/2023 (Approximate), Expires: 06/29/2024 [facility] Comment on above: Expected: 06/29/2023 (Approximate), Expires: 06/29/2024 Start: 06-02-2023 End: 06-02-2024 Basic metabolic 2000 panel - Serum or Plasma Basic Metabolic Panel Lab Routine Long Q-T syndrome Expected: 06/02/2023 (Approximate), Expires: 06/02/2024 [facility] Work Phone: Comment on above: Expected: 06/02/2023 (Approximate), Expires: 06/02/2024 Start: 06-02-2023 End: 06-02-2023 Patient encounter procedure 06/02/2023 9:30 AM EST Office Visit [facility] [address] [facility] [address] [place] [address] Vaishnavi Durán MD [address] [facility] [address] [place], [place] [address] [facility] Start: 03-27-2023 Bacteria identified in Urine by Culture [facility] Start: 03-12-2023 HPV Vaccines (3 - 3- dose series) HPV Vaccines (3 - 3-dose series) [facility] Start: 01-21-2023 COVID-19 Vaccine (3 - 2022-24 season) COVID-19 Vaccine (3 - 2022-24 season) [facility] Start: 01-21-2023 Influenza vaccination Influenz a Vaccine (#1) [facility] Start: 03-28-2021 COVID-19 Vaccine (3 - Pfizer series) COVID-19 Vaccine (3 - Pfizer series) [facility] Start: 01-08-2020 DTaP/Tdap/Td Vaccine s (7 - Td or Tdap) DTaP/Tdap/Td Vaccines (7 - Td or Tdap) [facility] Start: 2018 Screening for malign ant neoplasm of cervix [facility] Start: 2015 Hepatitis C screening Hepatitis C Sc reening [facility] Start: 09-11-2002 Varicella vaccination Varicell a Vaccines (2 of 2 - 2-dose childhood series) [facility] Start: 1997 HIV screening HIV Screening [facility] Start: 1997 Lipid panel Lipid Panel [facility] Start: 1997 Yearly Adult Physical Yearly Adult P hysical [facility] Patient Education [facility] Patient referral [facility] Work Phone: Immunizations Immunization Date Immunization Notes Care Provider Fa mike 11-10-2022 Human Papillomavirus 9-valent vaccine [address] Work Phone: 11-10-2022 HPV, unspecified formulation [address] Work Phone: 09-07-2022 Human Papillomavirus 9-valent vaccine [address] Work Phone: 06-04-2011 influenza virus vacc ine, whole virus [address] Work Phone: 06-04-2011 influenza virus vacc ine, unspecified formulation [address] Work Phone: 01-07-2010 tetanus toxoid, redu yolanda diphtheria toxoid, and acellular pertussis vaccine, adsorbed [address] Work Phone: 08-14-2002 diphtheria, tetanus toxoids and acellular pertussis vaccine, unspecified formulation [address] Work Phone: 08-14-2002 measles, mumps and r ubella virus vaccine [address] Work Phone: 08-14-2002 poliovirus vaccine, inactivated [address] Work Phone: 04-30-1998 diphtheria, tetanus toxoids and acellular pertussis vaccine, unspecified formulation [address] Work Phone: 04-30-1998 haemophilus influenz ae type b vaccine, PRP-OMP conjugate [address] Work Phone: 04-30-1998 measles, mumps and r ubella virus vaccine [address] Work Phone: 04-30-1998 trivalent poliovirus vaccine, live, oral [address] Work Phone: 04-30-1998 varicella virus vaccine [address] Work Phone: 1997 diphtheria, tetanus toxoids and acellular pertussis vaccine, unspecified formulation [address] Work Phone: 1997 haemophilus influenz ae type b conjugate and Hepatitis B vaccine [address] Work Phone: 1997 diphtheria, tetanus toxoids and acellular pertussis vaccine, unspecified formulation [address] Work Phone: 1997 haemophilus influenz ae type b vaccine, HbOC conjugate [address] Work Phone: 1997 poliovirus vaccine, inactivated [address] Work Phone: 1997 diphtheria, tetanus toxoids and acellular pertussis vaccine, unspecified formulation [address] Work Phone: 1997 haemophilus influenz ae type b conjugate and Hepatitis B vaccine [address] Work Phone: 1997 poliovirus vaccine, inactivated [address] Work Phone: 1997 hepatitis B vaccine, pediatric or pediatric/adolescent dosage [address] Work Phone: Payers Date Payer Category Payer Medicaid [id number] 2023 Medicaid [id number] 2022 Self-pay 2021 Unknown [id number] 2021 Unknown [id number] 1997 Unknown [id number] 2.16.84 [id number] 1997 Unknown [id number] 2.16.8 [id number] 1997 Unknown [id number] .16.8 [id number] 1997 Unknown [id number] .16.8 [id number] 1997 Unknown [id number] 2.16.84 0.1.816433.3.579.2.9 1997 Unknown [id number] 2.16.84 0.1.781908.3.579.2.9 1997 Unknown [id number] 2.16.84 0.1.300888.3.579.2.9 1997 Unknown [id number] 2.16.84 0.1.334943.3.579.2.9 1997 Unknown [id number] 2.16.84 0.1.078258.3.579.2.9 1997 Unknown [id number] 2.16.84 0.1.147736.3.579.2.9 1997 Unknown [id number] 2.16.84 0.1.886960.3.579.2.9 1997 Unknown [id number] 2.16.840 .[id number] Private Health Insurance [id number] Unknown [id number] .16.8 [id number] Unknown [id number] .16.8 [id number] Unknown [id number] .16. [id number] Unknown [id number] .16. [id number] Social History Date Type Detail Facility Tobacco smoking stat us AKIS Unknown if ever smoked [facility] Start: 1995 Sex Assigned At Female F [facility] Start: 03-15-2022 End: 03-27-2023 Tobacco smoking status NHIS Smoker (finding) [facility] Start: 04-21-2023 Tobacco smoking stat us NHIS Ex-smoker [facility] Work Phone: End: 02-20-2023 History of tobacco use Cigarette Smoker [facility] Work Phone: Start: 04-21-2023 End: 06-02-2023 Cigarettes smoked current (pack per day) - Reported 1 [facility] Work Phone: Start: 04-21-2023 Tobacco use and exposure Former smokeless tobacco user [facility] Work Phone: End: 02-20-2023 History of tobacco use User of smokeless tobacco [facility] Work Phone: Start: 04-21-2023 End: 08-08-2023 Alcohol intake Ex-drinker (finding) [facility] Work Phone: Start: 04-21-2023 End: 06-02-2023 Tobacco use panel [facility] Work Phone: Start: 04-21-2023 Tobacco Comment Vaping [facility] Work Phone: Start: 1997 Sex Assigned At Not on file U [facility] Work Phone: Start: 05-08-2023 End: 08-08-2023 Exposure to SARS-CoV-2 (event) Not sure [facility] Tobacco smoking stat [facility] Tobacco smoking consumption unknown [facility] Start: [...] redirect to the Timeline version of the [employer]. Wt Readings from Last 3 Encounters: [...] that she add some salt and maybe [place] juice to the water that she drinks. [...] discussion and plan. documented in this encounter [facility] Work Phone: 08-08-2023 Instructions Hetal Jacobo LPN [...] in office today documented in this encounter [facility] Work Phone: 06-29-2023 History of Present illness [...] prescription(s): magnesium oxide, albuterol hfa, ondansetron, ondansetron, ufcbdy-[id number]-vlgr-fa-dha w/o a, 19, and sertraline. Medical History: [...] HARMEET Pierre documented in this encounter [facility] 06-02-2023 History of Present illness Narrative [...] There is small atrial septal defect with [id number] shunt. 3. Mild mitral valve regurgitation. QUANTITATIVE [...] Vaishnavi Durán MD documented in this encounter [facility] Work Phone: 06-02-2023 Instructions Mounika Dean CMA [...] of your visit. documented in this encounter [facility] Work Phone: Evaluation note No assessment inform ation available [facility] Work Phone: Evaluation note Diagnosis Long Q-T syndrome Long QT syndrome documented in this encounter [facility] Work Phone: Evaluation note* Diagnosis Long Q-T syndrome Long QT syndrome Medication course changed documented in this encounter [facility] Work Phone: Evaluation note* Diagnosis Second trimester state, incidental Diabetes mellitus screening Screening for diabetes mellitus documented in this encounter [facility] HealthcareEvaluation note* Diagnosis 25 weeks gestation of - Primary Long Q-T syndrome Long QT syndrome documented in this encounter [facility] Work Phone: Hospital Discharge instructions Additional Instructions 1. Push fluids today and tomorrow 2. No lifting, pushing or pulling today 3. [facility] Work Phone: Reason for referral (narrative)* Consultation (Routine) - Authorized Specialty Diagnoses / Procedures Referred By Contac t Referred To Contact Cardiology Diagnoses Long Q-T syndrome Procedures Follow Up In Cardiology Vaishnavi Durán MD [address] [facility] [address] [place] [address] Vaishnavi Durán MD [address] [facility] [address] [place] [address] Referral ID Status Reason Start Date Expiration Date V isits Requested Visits Authorized [id number] Authorized 06/02/2023 06/01/2024 1 1 [facility] Work Phone: Reason for referral (narrative)* Consultation (Routine) - Authorized Specialty Diagnoses / Procedures Referred By Contac t Referred To Contact Cardiology Diagnoses Long Q-T syndrome Procedures Follow Up In Cardiology Vaishnavi Durán MD [address] [facility] [address] [place] [address] Vaishnavi Durán MD [address] [facility] [address] [place] [address] Referral ID Status Reason Start Date Expiration Date V isits Requested Visits Authorized [id number] Authorized 08/08/2023 08/07/2024 1 1 * Cardiovascular (Routine) - Authorized Specialty Diagnoses / Procedures Referred By Contac t Referred To Contact Diagnoses Long Q-T syndrome Procedures ECG 12 Lead Vaishnavi Durán MD [address] [facility] [address] [place] [address] Referral ID Status Reason Start Date Expiration Date V isits Requested Visits Authorized [id number] Authorized 08/08/2023 08/07/2024 1 1 [facility] Work Phone: Chief Complaint and Reason for [...] Q-T syndrome Procedures Transthoracic Echo (TTE) Complete NE ECHO TRANSTHORC R-T 2D W/WO M-MODE REC F-UP/LMTD NE DOP ECHOCARD COLOR FLOW VELOCITY MAPPING NE DOP ECHOCARD PULSE WAVE W/SPECTRAL F-UP/LMTD STD Vaishnavi Durán MD [address] [place] [address] Referral ID Status Reason Start Date Expiration Date Visits Requested Visits Authorized [id number] Authorized Perform Procedure 3 04/20/2024 1 1 Additional Source Comments INFORMATION SOURCE (unrecogn ized section and content) DATE CREATED AUTHOR 02/23/2019 [employer] [facility] DATE CREATED AUTHOR AUTHOR'S ORGANIZ ATION 06/09/2023 [facility] DATE CREATED AUTHOR AUTHOR'S ORGANIZ ATION 07/01/2023 [facility] DATE CREATED AUTHOR AUTHOR'S ORGANIZ ATION 08/08/2023 [facility] DATE CREATED AUTHOR AUTHOR'S ORGANIZ ATION 10/06/2023 [facility] [employer] Care Teams (unrecognized sec tion and content) Team Status: Inactive Member Role Status Dates PHYSICIAN NO FAMILY Primary Care Provider Active Abdi Ness , UTILITY LOCATE TECHNICIAN Emergency Provider Active Team Status: Active Member Role Status Dates PHYSICIAN NO FAMILY Primary Care Provider Active Team Status: Inactive Member Role Status Dates PHYSICIAN NO FAMILY Primary Care Provider Active Rosa Bowen ([facility]) , UTILITY LOCATE TECHNICIAN Attending Provider Active Team Status: Active Member Role Status Dates Jacquelyn Williams Rome , UTILITY LOCATE TECHNICIAN Primary Care Provider Active Team Status: Inactive Member Role Status Dates Jacquelyn Rome , UTILITY LOCATE TECHNICIAN Primary Care Provider, Attendin g Provider Active Team Status: Active Member Role Status Dates Jacquelyn Kramer Wild , UTILITY LOCATE TECHNICIAN Primary Care Prov ider, Attending Provider, Referring Provider Active Team Status: Inactive Member Role Status Dates Jacquelyn Williams Rome , UTILITY LOCATE TECHNICIAN Primary Care Provider Active Luci Daniels UTILITY LOCATE TECHNICIAN Emergency Provider Active In School Suspension Aide Relationship Specialty Start Date End Date Flor Giles DO [address] [facility] [address], [place] [address] PCP - General Obstetrics and Gynecology 05/18/23 Team Status: Inactive Member Role Status Dates Jacquelyn Kramer Wild , UTILITY LOCATE TECHNICIAN Primary Care Prov ider, Attending Provider, Referring Provider Active In School Suspension Aide Relationship Specialty Start Date End Date Flor Giles DO [address] [facility] [address], [place] [address] PCP - General Obstetrics and Gynecology 05/18/23 In School Suspension Aide Relationship Specialty Start Date End Date Flor Giles DO [address] [facility] [address], [place] [address] PCP - General Obstetrics and Gynecology 05/18/23 [...] Up In Cardiology Vaishnavi Durán MD [address] [facility] [address] [place] [address] Vaishnavi Durán MD [address] [facility] [address] [place] [address] Referral ID Status Reason Start Date Expiration Date V isits Requested Visits Authorized [id number] Authorized 06/02/2023 06/01/2024 1 1 Specialty Diagnoses / Procedures Referred By Contac t Referred To Contact Cardiology Diagnoses Long Q-T syndrome Procedures Transthoracic Echo (TTE) Complete NE ECHO TRANSTHORC R-T 2D W/WO M-MODE REC F-UP/LMTD NE DOP ECHOCARD COLOR FLOW VELOCITY MAPPING NE DOP ECHOCARD PULSE WAVE W/SPECTRAL F-UP/LMTD STD Vaishnavi Durán MD [address] [facility] [address] [place] [address] Referral ID Status Reason Start Date Expiration Date Visits Requested Visits Authorized [id number] Authorized Perform Procedure 04/20/2024 1 1 Reason Comments Follow-up Echo results Referral ID Status Reason Start Date Expiration Date V isits Requested Visits Authorized [id number] Authorized 04/21/2023 04/20/2024 1 1 Reason Comments [...] BE BASED ON THE PRIMARY CLINICAL RECORDS. [employer] provides no warranty or guarantee of the accuracy or completeness of information in this document.
== END 2023-10-18 21:15 | disposition home or self-care (01) ==
LOC: LAB 21:14
PROVIDERS: Visit Provider Obstetrics & Gynecology
DX: Z34.93 Encounter for supervision of normal pregnancy, unspecified, third trimester (principal)
CPT/HCPCS: 87081

== ENCOUNTER 2023-11-09 23:32 | Inpatient (IN) | payer BC, MEDICAID, SELFPAY ==
--- OUTSIDE RECORDS SUMMARY | 2023-11-09 23:40 | XMS_ITS | CCD ---
Author Organization [facility] Care Team Providers Care Outpatient Psychiatrist Name Role Phone NO, FAMILY PHYSICIAN Primary Care Physician Unav Hetal Beasley Rounding Physician Unavailable NO FAMILY, PHYSICIAN Primary Care Provider Unava ilELSY Garnett Emergency Provider NO FAMILY, PHYSICIAN Primary Care Provider Unava ilneto Bowen ([facility]), ELSY Parekh Attending Provider West, ELSY Valladares S Primary Care Provider West, ELSY Valladares S Attending Provider West, ELSY Jacquelyn S Referring Provider [phone] West, ELSY Jacquelyn S Primary Care Provider West, ELSY Kamarafer S Attending Provider West, ELSY Jacquelyn S Referring Provider [phone] ELSY Daniels Emergency Provider Flor Giles DO Primary Care Provider [phone] West, ELSY Kamarafer S Primary Care Provider West, ELSY Jacquelyn S Attending Provider [phone] VAISHNAVI DURÁN Referring Unavailable FLOR GILES Primary Care Unavailable NO FAMILY, PHYSICIAN Primary Care Unavailable Andrés ([facility])Rosa Admitting Unavailabl e Rice ([facility]), Rosa Parekh Attending Unavailabl e West, Jacquelyn S Attending Unavailable West, Jacquelyn S Referring Unavailable West, Jacquelyn S Admitting Unavailable West, Jacquelyn S Primary Care Unavailable Luci Daniels Admitting Unavailable Kiepert, Luci A Attending Unavailable West, Jacquelyn S Primary Care Unavailable West, Jacquelyn S Admitting Unavailable West, Jacquelyn S Primary Care Unavailable West, Jacquelyn S Attending Unavailable Unavailable Primary Care Provider UnavailVAISHNAVI Duarte Attending Unavailable ANDRÉSROSA Primary Care Unavailable VAISHNAVI DURÁN Attending Unavailable VAISHNAVI DURÁN Referring Unavailable FLOR GILES Primary Care Unavailable VAISHNAVI DURÁN Attending Unavailable VAISHNAVI DURÁN Referring Unavailable DENNISFLOR EDWARDS Primary Care Unavailable DENNIS, FLOR Attending Unavailable LORRAINE, DASHA Attending Unavailable DENNIS, FLOR Attending Unavailable LORRAINE, DASHA Attending Unavailable DENNIS, FLOR Attending Unavailable DENNIS, FLOR Attending Unavailable LORRAINE, DASHA Attending Unavailable DENNIS, FLOR Attending Unavailable DENNIS, FLOR Attending Unavailable DENNIS, FLOR Attending Unavailable DENNIS, FLOR Attending Unavailable Unavailable Unavailable Unavailable Allergies Allergy Classification Reported Allergen(s) Allergy Type Date of Onset Reaction(s) Facility (7 sources) ferrous sulfate; Translations: [FERROUS SULFATE] Drug Allergy 3 Unknown [facility] (7 sources) Sulfonamides (Antibiotic); Translations: [SULFA (SULFONAMIDE ANTIBIOTICS)] Propensity to adverse reactions 3 Unknown [facility] (1 source) Sulfacetamide Drug Allergy 3 Repository (1 source) Sulfonamides (Antibiotic) Drug allergy (disorder) 3 Repository Medications Current Medications Medication Drug Class(es) Dates Sig (Normalized) Sig (Original) [id number] 200 actuat albuterol 0.09 mg/actuat metered dose [...] day. 60 tablet 1 06/02/2023 06/01/2024 Active [place] (No Known Home Meds) (3 sources) Start: 03-15-20 [place] (No Known Home Meds) Active March 15, [...] 0 03/15/2023 06/02/2023 Discontinued (Med List Cleanup) Fpazty-GlBlm-Eplh-FA-DHA w/o A (PRENATE DHA PO) (1 source) Amhowt-AaYlx-Jqo h-FA-DHA w/o A (PRENATE DHA PO) Take by mouth 0 Active vit37/iron/folic acid (PRENATA ORAL) (4 sources) vit37/i mihcelet/folic acid (PRENATA ORAL) Take by mouth. 0 [...] 2022 1:57pm administer with food or milk vit,fpsa27-cpwo-jjrvt (Prenatabs Rx) 29 mg iron- 1 mg tablet (3 sources) End: 06-02-2023 vit,wryp66-omec-exyd c (Prenatabs Rx) 29 mg iron- 1 mg tablet 1 tablet once daily. 0 06/02/2023 Discontinued (Duplicate order) vit,leo g35-wukt-elyru (Prenatabs Rx) 29 mg iron- 1 mg [...] aftercare (3 sources) Treatment changed; Translations: [Other long-term (current) drug therapy] Onset: 06-02-2023 06-02-2023 Episodic Other aftercare (2 sources) Other long-term (current) drug therapy; Translations: [Other long-term (current) drug therapy] Onset: 06-02-2023 Episodic Other [...] compared to previous EKG from March 2023. [facility] Work Phone: Urinalysis macro (dipstick) panel (U)on 06-29-2023 Bilirubin, UA Negative Negative - 4(70) +++ mg/dL [facility] Blood, UA Negative Negative - 50 Zach/mcL [facility] Clarity, UA Clear [facility] Color, UA Yellow [facility] Glucose, UA Negative Negative - 1999(110) ++++ mg/dL [facility] Interpretation and review of laboratory results Normal [facility] Ketones, UA Negative Negative - 160(16) ++++ mg/dL [facility] Leukocytes, UA Negative Negative - 500+++ Joni/mcL [facility] Nitrite, UA Negative Negative - Positive [facility] pH, UA 5.5 5 - 9 [facility] Protein, UA Negative Negative - 1999(20) ++++ mg/dL [facility] Spec Grav, UA 1.015 1 - 1.03 [facility] Urobilinogen, UA 1.0 0.2 - 12 mg/dL [facility] TRANSTHORACIC ECHO (TTE) COM PLETEon 05-18-2023 TRANSTHORACIC ECHO (TTE) COMPLETE [address], [address], [place] [address] TRANSTHORACIC ECHOCARDIOGRAM REPORT Patient Name: BELLE Gallego Physician: [id number] Makenna Jhaveri MD, [facility] Study Date: 05/18/2023 Ordering Provider: [id number] VAISHNAVI DURÁN MRN/PID: [id number] Fellow: Nurse: Date of /Age: 8 1995 / 28 years Grain Grader: Maya Moraes RDCS, RVAmber Gender: F Additional Staff: Height: 167.64 cm Admit Date: Weight: 81.65 kg Admission Status: BSA: 1.91 m2 Department Location: [facility] Blood Pressure: 128 /82 mmHg Study Type: TRANSTHORACIC ECHO (TTE) COMPLETE Diagnosis/ICD: Long QT syndrome-I45.81 Indication: Pt is 14 weeks , Former Smoker, Marijuana Use CPT Codes: Echo Complete w Full Doppler-84055 Study Detail: The following Echo studies were [...] There is small atrial septal defect with gbav-dn-earzp shunt. Right Ventricle: The right ventricle is [...] There is small atrial septal defect with xslc-bd-qebkg shunt. 3. Mild mitral valve regurgitation. QUANTITATIVE [...] 0.7 m/s (0.6-0.9m/s) PV Max P.0 mmHg [id number] Makenna Jhaveri MD, [facility] Electronically signed on 05/18/2023 at 1:24:06 PM Final Normal [facility] Heart TransthoracicOrdere d By: Makenna Jhaveri on 05-18-2023 Aortic Valve Area by Continuity of Peak Velocity 2.38 [facility] Work Phone: [phone] Aortic Valve Area by Continuity of VTI 2.38 [facility] Work Phone: [phone] AV mn grad 3.0 [facility] Work Phone: [phone] AV pk grad 6.0 [facility] Work Phone: [phone] AV pk suleiman 1.22 [facility] Work Phone: [phone] LV A4C EF 57.8 [facility] Work Phone: [phone] LVIDd 4.90 [facility] Work Phone: [phone] LVOT diam 2.30 [facility] Work Phone: [phone] MV avg E/e' ratio 5.40 [facility] Work Phone: [phone] MV E/A ratio 1.58 [facility] Work Phone: [phone] RVSP 16.8 [facility] Work Phone: [phone] [facility] Work Phone: [phone] Heart Transthor[address]icon [address], Suite [facility], [place] [address] TRANSTHORACIC ECHOCARDIOGRAM REPORT Patient Name: BELLE NAJERA Lsahonda Physician: [id number] Makenna Jhaveri MD, [facility] Study Date: 05/18/2023 Ordering Provider: [id number] VAISHNAVI DURÁN MRN/PID: [id number] Fellow: Nurse: Date of /Age: 8 1995 / 28 years Grain Grader: Maya Moraes RDCS, RVT Gender: F Additional Staff: Height: 167.64 cm Admit Date: Weight: 81.65 kg Admission Status: BSA: 1.91 m2 Department Location: [facility] Blood Pressure: 128 /82 mmHg Study Type: TRANSTHORACIC ECHO (TTE) COMPLETE Diagnosis/ICD: Long QT syndrome-I45.81 Indication: Pt is 14 weeks , Former Smoker, Marijuana Use CPT Codes: Echo Complete w Full Doppler-85094 Study Detail: The following Echo studies were [...] There is small atrial septal defect with wrvn-nr-rtogc shunt. Right Ventricle: The right ventricle is [...] There is small atrial septal defect with xccd-kd-tsjjq shunt. 3. Mild mitral valve regurgitation. QUANTITATIVE [...] 0.7 m/s (0.6-0.9m/s) PV Max P.0 mmHg [id number] Makenna Jhaveri MD, [facility] Electronically signed on 05/18/2023 at 1:24:06 PM Final Makenna Hickey MD - 05/18/[address], [address] [place] [address] TRANSTHORACIC ECHOCARDIOGRAM REPORT Patient Name: BELLE NAJERA Reading Physician: [id number] Makenna Jhaveri MD, [facility] Study Date: 05/18/2023 Ordering Provider: [id number] VAISHNAVI DURÁN MRN/PID: [id number] Fellow: Nurse: Date of /Age: 8 1995 / years Grain Grader: Maya Moraes RD, RVT Gender: F Additional Staff: Height: 167.64 cm Admit Date: Weight: 81.65 kg Admission Status: BSA: 1.91 m2 Department Location: [facility] Blood Pressure: 128 /82 mmHg Study Type: TRANSTHORACIC ECHO (TTE) COMPLETE Diagnosis/ICD: Long QT syndrome-I45.81 Indication: Pt is 14 weeks , Former Smoker, Marijuana Use CPT Codes: Echo Complete w Full Doppler-42697 Study Detail: The following Echo studies were [...] There is small atrial septal defect with hbbz-rf-ztoyf shunt. Right Ventricle: The right ventricle is [...] There is small atrial septal defect with mttu-zs-qotjv shunt. 3. Mild mitral valve regurgitation. QUANTITATIVE [...] 0.7 m/s (0.6-0.9m/s) PV Max P.0 mmHg [id number] Makenna Jhaveri MD, [facility] Electronically signed on 05/18/2023 at 1:24:06 PM Final [facility] Work Phone: Automated erythrocytes count in urine sediment (number/area)Ordered By: Luci Daniels on 03-27-2023 RBC Auto (Urine sed) [#/Area] 1-2 [HPF] 0-4 Automated leukocytes count i n urine sediment (number/area)Ordered By: Luci Daniels on 03-27-2023 WBC Auto (Urine sed) [#/Area] 20-49 [HPF] 0-4 Bilirubin Test strip Ql (U)O rdered By: Luci Daniels on 03-27-2023 Bilirubin Ql (U) Negative Negative [facility] Color Auto (U)Ordered By: Tiffanie Daniels on 03-27-2023 Color (U) Yellow Yellow Dipstick and Microscopicon 1 05-27-2022 Appearance (U) Cloudy Critically abnormal Clear Comment on above: Order Comment: Name Collection Type:: Clean-Voided Midstream Performed By: #### A DDONUAPLUS, CUU #### [place] [address] [place] Bacteria,Urine 2+ High None Seen Comment on above: Order Comment: Name Collection Type:: Clean-Voided Midstream Performed By: #### A DDONUAPLUS, CUU #### [place] [address] [place] Bilirubin,Urine Negative Normal Negative Comment on above: Order Comment: Name Collection Type:: Clean-Voided Midstream Performed By: #### A DDONUAPLUS, CUU #### [address] Color (U) Yellow Normal Yellow Comment on above: Order Comment: Name Collection Type:: Clean-Voided Midstream Performed By: #### A DDONUAPLUS, CUU #### [address] Glucose Ql (U) Normal Normal Normal Comment on above: Order Comment: Name Collection Type:: Clean-Voided Midstream Performed By: #### A DDONUAPLUS, CUU #### [address] Hyaline Casts,Urine 0-8 Normal 0-8 [facility] Comment on above: Order Comment: Name Collection Type:: Clean-Voided Midstream Result Comment: PERF ORMED BY: [place] [address] PATHOLOGIST GASOLINE ATTENDANT ANGELIA NIETO M.D. Performed By: #### A DDONUAPLUS, CUU #### [place] [address] [place] Ketones Ql (U) Negative Normal Negative Comment on above: Order Comment: Name Collection Type:: Clean-Voided Midstream Performed By: #### A DDONUAPLUS, CUU #### [place] [address] [place] Leukocyte esterase Test strip Ql (U) 2+ High Negative Comment on above: Order Comment: Name Collection Type:: Clean-Voided Midstream Performed By: #### A DDONUAPLUS, CUU #### [place] [address] [place] Nitrite,Urine Negative Normal Negative Comment on above: Order Comment: Name Collection Type:: Clean-Voided Midstream Performed By: #### A DDONUAPLUS, CUU #### [place] [address] [place] Occult Blood,Urine Negative Normal Negative [facility] Comment on above: Order Comment: Name Collection Type:: Clean-Voided Midstream Result Comment: PERF ORMED BY: [place] [address] PATHOLOGIST GASOLINE ATTENDANT ANGELIA NIETO M.D. Performed By: #### A DDONUAPLUS, CUU #### [address] pH (U) 7.0 [pH] Normal 5.0-9.0 Comment on above: Order Comment: Name Collection Type:: Clean-Voided Midstream Performed By: #### A DDONUAPLUS, CUU #### [place] [address] [place] Protein,Urine Negative Normal Negative Comment on above: Order Comment: Name Collection Type:: Clean-Voided Midstream Performed By: #### A DDONUAPLUS, CUU #### [place] [address] [place] RBC,Urine 1-2 Normal 0-4 Comment on above: Order Comment: Name Collection Type:: Clean-Voided Midstream Performed By: #### A DDONUAPLUS, CUU #### [place] [address] [place] Specificy [place],Urine 1.022 Normal 1.001-1.030 Comment on above: Order Comment: Name Collection Type:: Clean-Voided Midstream Performed By: #### A DDONUAPLUS, CUU #### [facility] [address] [place] [address] Squamous Epithelial Cell,Urine 5-9 High 0-2 Comment on above: Order Comment: Name Collection Type:: Clean-Voided Midstream Performed By: #### A DDONUAPLUS, CUU #### [facility] [address] [place] [address] Urobilinogen,Urine Normal Normal Normal [facility] Comment on above: Order Comment: Name Collection Type:: Clean-Voided Midstream Performed By: #### A DDONUAPLUS, CUU #### [facility] [address] [place] [address] WBC,Urine 20-49 High 0-4 Comment on above: Order Comment: Name Collection Type:: Clean-Voided Midstream Performed By: #### A DDONUAPLUS, CUU #### [address] HCG ( test) IA.rapi d Ql (U)Ordered By: Luci Daniels on 03-27-2023 HCG ( test) Ql (U) Positive HCG,Urineon 03-27-2023 Beta HCG ( test) Ql (U) Positive [facility] Comment on above: Result Comment: PERF ORMED BY: [place] [address] PATHOLOGIST GASOLINE ATTENDANT ANGELIA NIETO M.D. Performed By: #### U HCG #### [facility] [address] [place] [address] Ketones Auto test strip (U) [Mass/Vol]Ordered By: Luci Daniels on 03-27-2023 Ketones (U) [Mass/Vol] Negative Negative [facility] - UrinalysisOrder ed By: Luci Daniels on 03-27-2023 Hyaline casts LM Ql (Urine sed) 0-8 [LPF] 0-8 Nitrite Test strip Ql (U)Ord ered By: Luci Daniels on 03-27-2023 Nitrite Ql (U) Negative Negative Protein Auto test strip (U) [Mass/Vol]Ordered By: Luci Daniels on 03-27-2023 Protein (U) [Mass/Vol] Negative Negative [facility] Specific gravity Auto test s trip (U) [Rel density]Ordered By: Luci Daniels on 03-27-2023 Specific gravity (U) [Rel density] 1.022 1.001-1.030 Squamous epithelial cells de tection in urine sediment by light microscopyOrdered By: Luci Daniels on 03-27-2023 Epithelial cells.squamous LM Ql (Urine sed) 5-9 [HPF] 0-2 US OB transvaginalon 023 US OB transvaginal [facility] [place] [address] Ultrasound Report Signed Patient: Belle Najera MR#: [id number] 71 : 1995 Acct:[id number] Age/Sex: 28 / F ADM Date: 03/27/23 Loc: ER Room: Type: [facility] ER Attending Dr: Ordering Provider: Luci Daniels APRN Date of Service: 03/27/23 US/US OB <= 14 weeks fetus: 6 weeks ; abdominal pain ([id number]) US/US OB transvaginal: abd. pain w/ Copies [...] estimated gestational age of 6w2d weeks/days (accession [id number]), 6w1d weeks/days (accession [id number]) with an estimated date of delivery of 11/18/2023 (accession [id number]), 11/19/2023 (accession [id number]) and normal heart rate. The maurer of the gestational sac are slightly irregular/lobulated . This is of uncertain etiology. There is a trace amount of free fluid in the cul-de-sac. Impression dictated by: Fuentes Tomlinson M.D.03/27/2023 11:45 AM Dictation Location: [place] [address] Tech: Radha Altamirano Transcribed By: EMEKA 03/27/23 1145 Dictated By: Fuentes Tomlinson II, MD 03/27/23 1141 Signed By: 03/27/23 1145 [facility] Urine Cultureon 03-27-2023 Bacteria identified Cx Nom (U) >100,000 colonies/ml mixed bacterial skin contaminants 2 Days PERFORMED BY: [place] [address] PATHOLOGIST GASOLINE ATTENDANT ANGELIA NIETO M.D. [facility] Comment on above: Performed By: #### A LILIBETH GAGNON #### [address] Urine bacteria detection by automated methodOrdered By: Luci Daniels on 03-27-2023 Bacteria Auto Ql (U) 2+ None Seen [facility] Urine clarity by refractomet ry automatedOrdered By: Luci Daniels on 03-27-2023 Clarity Refractometry automated (U) Cloudy Clear Urine culture routineOrdered By: Luci Daniels on 03-27-2023 Bacteria identified Cx Nom (U) 2 Days Urine glucose measurement by automated test strip (mass/volume)Ordered By: Luci Daniels on 03-27-2023 Glucose Auto test strip (U) [Mass/Vol] Normal mg/dL Normal Urine hemoglobin detection b y automated test stripOrdered By: Luci Daniels on 03-27-2023 Hemoglobin Auto test strip Ql (U) Negative Negative Urine leukocyte esterase det ection by automated test stripOrdered By: Luci Daniels on 03-27-2023 Leukocyte esterase Auto test strip Ql (U) 2+ Negative Urobilinogen Auto test strip (U) [Mass/Vol]Ordered By: Luci Daniels on 03-27-2023 Urobilinogen (U) [Mass/Vol] Normal mg/dL Normal pH Auto test strip (U)Ordere d By: Luci Daniels on 03-27-2023 pH (U) 7.0 [pH] 5.0-9.0 XR knee RT 4V*on 02-01-2023 XR knee RT 4V* [facility] [place] [address] XRay Report Signed Patient: Belle Najera MR#: [id number] 73 : 1995 Acct:[id number] Age/Sex: 28 / F ADM Date: 02/01/23 Loc: XD Room: Type: [facility] Attending Dr: Jacquelyn Rome APRN Copies [...] Fartun Villa M.D.02/01/2023 4:33 PM Dictation Location: [place] [address] Transcribed By: [facility] 02/01/231632 Dictated By: Fartun Villa MD 02/01/231631 Signed By: 02/01/23 163 Normal US transvaginalon 09-15-2022 US transvaginal [facility] Main [place] [address] [place] [address] Ultrasound Report Signed Patient: Belle Najera MR#: [id number] 71 : 1995 Acct:[id number] Age/Sex: 27 / F ADM Date: 09/15/22 Loc: Room: Type: [facility] Attending Dr: Rosa Bowen ([facility]) ELSY Ordering Provider: Rosa Bowen APRN, WHCNP Date of Service: 09/15/22 US/US pelvic complete: R10.2 ([id number]) US/US transvaginal: R10.2 Copies to: Rosa Bowen [...] Fartun Villa M.D.09/15/2022 6:21 PM Dictation Location: [place] [address] Tech: Alexia Johnson Transcribed By: EMEKA 09/15/221820 Dictated By: Fartun Villa MD 09/15/221816 Signed By: 09/15/221820 [facility] Coding Summary.on 02-22-2019 Coding Summary. CODING DATE: 02/22/2019 FINAL [facility] STATUS: Home (Routine DC) PAYOR: [...] Cari Soliman Date Saved: 02/22/2019 05:33 pm [facility] Vital Signs Date Time Vital Sign Value Performing Clinician Facility 08-08-2023 11:08-0400 Diastolic blood pressure 54 mm[Hg] Vaishnavi Durán MD Work Phone: [facility] 08-08-2023 11:08-0400 Heart rate 80 /min Vaishnavi Durán MD Work Phone: [facility] 08-08-2023 11:08-0400 Systolic blood pressure 98 mm[Hg] Vaishnavi Durán MD Work Phone: [facility] 08-08-2023 10:13-0400 Body height 170.2 cm Viashnavi Durán MD Work Phone: [facility] 08-08-2023 10:13-0400 Body mass index (BMI) [Ratio] 30.92 kg/m2 Vaishnavi Durán MD Work Phone: [facility] 08-08-2023 10:13-0400 Body weight 89.54 kg Vaishnavi Durán MD Work Phone: [facility] 06-29-2023 14:16-0500 Body weight 86.82 kg Dasha GA Work Phone: [facility] 06-29-2023 14:16-0500 Diastolic blood pressure 70 mm[Hg] Dasha GA Work Phone: [facility] 06-29-2023 14:16-0500 Systolic blood pressure 118 mm[Hg] Dasha AG Work Phone: [facility] 06-02-2023 09:39-0500 Body height 167.6 cm Vaishnavi Durán MD Work Phone: [facility] 06-02-2023 09:39-0500 Body mass index (BMI) [Ratio] 30.34 kg/m2 Vaishnavi Durán MD Work Phone: [facility] 06-02-2023 09:39-0500 Body weight 85.28 kg Vaishnavi Durán MD Work Phone: [facility] 06-02-2023 09:39-0500 Diastolic blood pressure 60 mm[Hg] Vaishnavi Durán MD Work Phone: [facility] 06-02-2023 09:39-0500 Heart rate 60 /min Vaishnavi Durán MD Work Phone: [facility] 06-02-2023 09:39-0500 Systolic blood pressure 100 mm[Hg] Vaishnavi Durán MD Work Phone: [facility] 05-18-2023 09:33-0500 Body height 167.6 cm Stephanie 2 [facility] 05-18-2023 09:33-0500 Body mass index (BMI) [Ratio] 29.05 kg/m2 [address] 05-18-2023 09:33-0500 Body weight 81.[address] 05-18-2023 09:33-0500 Diastolic blood pressure 82 mm[Hg] [address] 05-18-2023 09:33-0500 Systolic blood pressure 128 mm[Hg] [address] 03-27-2023 08:51-0500 Body temperature 98.5 [degF] ELSY Rome Work Phone: [phone] [place] [address] 03-27-2023 08:51-0500 Diastolic blood pressure 69 mm[Hg] ELSY Rome Work Phone: [phone] [place] [address] 03-27-2023 08:51-0500 Heart rate 82 /min ELSY Rome Work Phone: [phone] [place] [address] 03-27-2023 08:51-0500 Respiratory rate 18 /min ELSY Rome Work Phone: 03-27-2023 08:51-0500 SaO2% (BldA) [Mass fraction] 100 % ELSY Rome Work Phone: 03-27-2023 08:51-0500 Systolic blood pressure 111 mm[Hg] ELSY Rome Work Phone: 03-27-2023 08:50-0500 Body height 171.45 cm ELSY Rome Work Phone: 03-27-2023 08:50-0500 Body weight 80 kg ELSY Rome Work Phone: 03-15-2022 14:55-0400 Body height 170.18 cm PHYSICIAN [facility] 03-15-2022 14:55-0400 Body temperature 98.6 [degF] PHYSICIAN NO [facility] 03-15-2022 14:55-0400 Body weight 72.95 kg PHYSICIAN [facility] 03-15-2022 14:55-0400 Diastolic blood pressure 77 mm[Hg] PHYSICIAN NO [facility] 03-15-2022 14:55-0400 Heart rate 80 /min PHYSICIAN [facility] 03-15-2022 14:55-0400 Respiratory rate 14 /min PHYSICIAN NO [facility] 03-15-2022 14:55-0400 SaO2% (BldA) [Mass fraction] 99 % PHYSICIAN NO [facility] 03-15-2022 14:55-0400 Systolic blood pressure 133 mm[Hg] PHYSICIAN [facility] 11-01-2018 23:15-0400 Body Temperature 97.5 [degF] [facility] 11-01-2018 23:15-0400 BP Diastolic 80 mm[Hg] [facility] 11-01-2018 23:15-0400 BP Systolic 123 mm[Hg] [facility] 11-01-2018 23:15-0400 Pulse (Heart Rate) 84 /min [facility] 11-01-2018 23:15-0400 Pulse Oximetry 96 % [facility] 11-01-2018 23:15-0400 Respiratory Rate 18 /min [facility] Weight [facility] NEGATED: Highlighted row BMI (Body Mass Index) [facility] NEGATED: Highlighted row Height [facility] Encounters Encounter Date Encounter Type Care Provider Facility Start: 11-07-2023 End: 11-07-2023 ambulatory FLOR DENNIS Not Available Start: 11-01-2023 End: 11-01-2023 ambulatory FLOR DENNIS Not Available Start: 10-25-2023 End: 10-25-2023 ambulatory FLOR DENNIS Not Available Start: 10-18-2023 End: 10-18-2023 ambulatory FLOR DENNIS Not Available Start: 10-04-2023 End: 10-04-2023 ambulatory DASHA PETERS Not Available Start: 09-20-2023 End: 09-20-2023 ambulatory FLOR DENNIS Not Available Start: 09-06-2023 End: 09-06-2023 ambulatory FLOR DENNIS Not Available Start: 08-23-2023 End: 08-23-2023 ambulatory DASHA LORRAINE Not Available Start: 08-08-2023 End: 08-08-2023 ambulatory [facility] Start: 08-08-2023 End: 08-08-2023 Office outpatient visit 15 minutes Vaishnavi Durán MD Work Phone: [facility] Comment on above: 25 weeks gestation o f (Primary Dx); Long Q-T syndrome Start: 07-26-2023 End: 07-26-2023 ambulatory FLOR DENNIS Not Available Start: 06-29-2023 End: 06-29-2023 flow sheet Dasha GA Work Phone: [facility] Comment on above: Second trimester pre gnancy; Diabetes mellitus screening Start: 06-29-2023 End: 06-29-2023 ambulatory DASHA LORRAINE Not Available Start: 06-02-2023 End: 06-02-2023 ambulatory [facility] Start: 06-02-2023 End: 06-02-2023 Office outpatient visit 15 minutes Vaishnavi Durán MD Work Phone: [facility] Comment on above: Long Q-T syndrome; Medication course changed Start: 05-18-2023 End: 05-19-2023 ambulatory [facility] Start: 05-18-2023 End: 05-18-2023 Subsequent hospital visit by physician Stephanie Jean Echo/Vasc Room 2 [facility] Comment on above: Long Q-T syndrome Start: 04-29-2023 End: 04-29-2023 ambulatory FLOR DENNIS Not Available Start: 04-21-2023 End: 04-21-2023 ambulatory [facility] Start: 03-27-2023 End: 03-27-2023 Emergency department patient visit Luci Daniels Facility: Start: 03-27-2023 End: 03-27-2023 Emergency department patient visit ELSY Rome Work Phone: [facility] Work Phone: Start: 03-15-2023 End: 03-15-2023 ambulatory Jacquelyn Rome Facility: Start: 03-15-2023 End: 03-15-2023 ambulatory ELSY Rome Work Phone: [facility] Work Phone: Start: 03-15-2023 End: 03-15-2023 Discharged Recurring ELSY Rome Work Phone: [facility] [place] Start: 03-15-2023 Registered Recurring ACID CONDENSERCatina Rome Work Phone: [facility] [place] Start: 02-01-2023 Registered Recurring ELSY Rome Work Phone: [facility] [place] Start: 02-01-2023 End: 02-01-2023 ambulatory Jacquelyn Rome Facility: Start: 02-01-2023 End: 02-01-2023 ambulatory ELSY Rome Work Phone: [facility] Work Phone: Start: 02-01-2023 End: 02-01-2023 Patient encounter procedure ELSY Rome Work Phone: [facility]XRay [facility] [place] Work Phone: Start: 09-15-2022 End: 09-15-2022 ambulatory PHYSICIAN NO FAMILY Facility: Start: 09-15-2022 End: 09-15-2022 ambulatory PHYSICIAN NO [facility] Work Phone: Start: 09-15-2022 End: 09-15-2022 Patient encounter procedure PHYSICIAN NO [facility]Ul[facility]ound [facility] [place] Work Phone: Start: 03-15-2022 End: 03-15-2022 Emergency department patient visit PHYSICIAN NO [facility] Start: 11-01-2018 End: 11-02-2018 Emergency department patient visit [facility] Procedures Date Procedure Procedure Detail Performing Clinician [...] 12-LEAD VAISHNAVI SANCHEZ Start: 03-27-2023 Urine culture ACID CONDENSER Dana cooley [facility] Work Phone: Start: 03-27-2023 Diagnostic ultrasoun d of gravid uterus ELSY Rome Work Phone: Start: 03-27-2023 Transvaginal obstetr ic ultrasonography ELSY Rome Work Phone: Start: 02-01-2023 X-ray of right knee APR Catina Rome Work Phone: Start: 09-15-2022 Pelvic echography PHYSI AYAD NO FAMILY Start: 09-15-2022 Transvaginal echography PHYSICIAN NO FAMILY Plan of Treatment Date Care Activity Detail Author Start: 2047 Zoster Vaccines (1 of 2) Zoste r Vaccines (1 of 2) [facility] Start: 11-14-2023 End: 11-14-2023 Patient encounter procedure 11/14/2023 10:00 AM EDT Office Visit [address] [place] [address] Vaishnavi Durán MD [address] [facility] [address] [place] [address] [facility] Start: 08-08-2023 End: 08-08-2023 Patient encounter procedure 08/08/2023 10:15 AM EDT Office Visit [address] [place] [address] Vaishnavi Durán MD [address] [facility] [address] [place] [address] [facility] Start: 07-26-2023 End: 07-26-2023 Patient encounter procedure 07/26/2023 2:10 PM EST Routine [facility] [address] [facility] [address] [place] [id number] Flor Giles DO [address] [facility] [address] [place] [address] [facility] Start: 06-29-2023 End: 06-29-2024 CBC panel - Blood by Automated count CBC Lab Routine Diabetes mellitus screening Expected: 06/29/2023 (Approximate), Expires: 06/29/2024 [facility] Work Phone: Comment on above: Expected: 06/29/2023 (Approximate), Expires: 06/29/2024 Start: 06-29-2023 End: 06-29-2024 Measurement of glucose 1 hour after glucose challenge for glucose tolerance test Glucose tolerance, 1 hour Lab Routine Diabetes mellitus screening Expected: 06/29/2023 (Approximate), Expires: 06/29/2024 [facility] Comment on above: Expected: 06/29/2023 (Approximate), Expires: 06/29/2024 Start: 06-02-2023 End: 06-02-2024 Basic metabolic 2000 panel - Serum or Plasma Basic Metabolic Panel Lab Routine Long Q-T syndrome Expected: 06/02/2023 (Approximate), Expires: 06/02/[address] [facility] Service Area Work Phone: Comment on above: Expected: 06/02/2023 (Approximate), Expires: 06/02/2024 Start: 06-02-2023 End: 06-02-2023 Patient encounter procedure 06/02/2023 9:30 AM EST Office Visit [facility] [address] [facility] [address] [place] [address] Vaishnavi Durán MD [address] [facility] [address] [place] [address] [facility] Start: 03-27-2023 Bacteria identified in Urine by Culture Start: 03-12-2023 HPV Vaccines (3 - 3- dose series) HPV Vaccines (3 - 3-dose series) [facility] Start: 01-21-2023 COVID-19 Vaccine ( season) COVID-19 Vaccine ( season) [facility] Start: 01-21-2023 Influenza vaccination Influenz a Vaccine (#1) [facility] Start: 03-28-2021 COVID-19 Vaccine (3 - Pfizer series) COVID-19 Vaccine (3 - Pfizer series) [facility] Start: 01-08-2020 DTaP/Tdap/Td Vaccine s (7 - Td or Tdap) DTaP/Tdap/Td Vaccines (7 - Td or Tdap) [facility] Start: 2018 Screening for malign ant neoplasm of cervix [facility] Start: 2015 Hepatitis C screening Hepatitis C [facility] Start: 09-11-2002 Varicella vaccination Varicell a Vaccines (2 of 2 - 2-dose childhood series) [facility] Start: 1997 HIV screening HIV Screening [facility] Start: 1997 Lipid panel Lipid Panel [facility] Start: 1997 Yearly Adult Physical Yearly Adult P hysical [facility] Patient Education Patient referral [facility] Work Phone: Immunizations Immunization Date Immunization Notes Care Provider Fa cility 11-10-2022 Human Papillomavirus 9-valent vaccine [address] Work Phone: 11-10-2022 HPV, unspecified formulation [address] Work Phone: 09-07-2022 Human Papillomavirus 9-valent vaccine [address] Work Phone: 06-04-2011 influenza virus vacc ine, whole virus [address] Work Phone: 06-04-2011 influenza virus vacc ine, unspecified formulation [address] Work Phone: 01-07-2010 tetanus toxoid, redu yolanda diphtheria toxoid, and acellular pertussis vaccine, adsorbed [address] Work Phone: 08-14-2002 diphtheria, tetanus toxoids and acellular pertussis vaccine, unspecified formulation [address] Work Phone: 08-14-2002 measles, mumps and r ubella virus vaccine [address] Work Phone: 08-14-2002 poliovirus vaccine, inactivated [address] Work Phone: 04-30-1998 diphtheria, tetanus toxoids and acellular pertussis vaccine, unspecified formulation [address] Work Phone: 04-30-1998 haemophilus influenz ae type b vaccine, PRP-OMP conjugate [address] Work Phone: 04-30-1998 measles, mumps and r ubella virus vaccine [address] Work Phone: 04-30-1998 trivalent poliovirus vaccine, live, oral [address] Work Phone: 04-30-1998 varicella virus vaccine [address] Work Phone: 1997 diphtheria, tetanus toxoids and acellular pertussis vaccine, unspecified formulation [address] Work Phone: 1997 haemophilus influenz ae type b conjugate and Hepatitis B vaccine [address] Work Phone: 1997 diphtheria, tetanus toxoids and acellular pertussis vaccine, unspecified formulation [address] Work Phone: 1997 haemophilus influenz ae type b vaccine, HbOC conjugate [address] Work Phone: 1997 poliovirus vaccine, inactivated [address] Work Phone: 1997 diphtheria, tetanus toxoids and acellular pertussis vaccine, unspecified formulation [address] Work Phone: 1997 haemophilus influenz ae type b conjugate and Hepatitis B vaccine [address] Work Phone: 1997 poliovirus vaccine, inactivated [address] Work Phone: 1997 hepatitis B vaccine, pediatric or pediatric/adolescent dosage [address] Work Phone: Payers Date Payer Category Payer Medicaid [id number] 2023 Medicaid [id number] 2022 Self-pay 2021 Unknown [id number] 2021 Unknown [id number] 1997 Unknown [id number] 2.16.84 [id number] 1997 Unknown [id number] 2.16.8 40.1.133114.3.579.2.4 1997 Unknown [id number] 2.16.8 40.1.739481.3.579.2.4 1997 Unknown [id number] 2.16.8 40.1.899621.3.579.2.4 1997 Unknown [id number] 2.16.84 0.1.925776.3.579.2.9 1997 Unknown [id number] 2.16.84 0.1.849243.3.579.2.9 1997 Unknown [id number] 2.16.84 0.1.487891.3.579.2.9 1997 Unknown [id number] 2.16.84 0.1.246060.3.579.2.9 1997 Unknown [id number] 2.16.84 0.1.758514.3.579.2.9 1997 Unknown [id number] 2.16.84 0.1.161583.3.579.2.9 1997 Unknown [id number] 2.16.84 0.1.899499.3.579.2.9 1997 Unknown [id number] 2.16.84 0.1.596926.3.579.2.9 1997 Unknown [id number] 2.16.84 0.1.040503.3.579.2.1259 1997 Unknown [id number] 2.16.84 0.1.445941.3.579.2.1259 1997 Unknown [id number] 2.16.84 0.1.789574.3.579.2.1259 1997 Unknown [id number] 2.16.840 .1.804741.3.579.2.1259 Private Health Insurance [id number] Unknown [id number] 2.16.8 40.1.668241.3.579.2.531 Unknown [id number] 2.16.8 40.1.140269.3.579.2.531 Unknown [id number] 2.16.8 40.1.521298.3.579.2.531 Unknown [id number] 2.16.8 40.1.589773.3.579.2.531 Social History Date Type Detail Facility Tobacco smoking stat [facility] Unknown if ever smoked [facility] Start: 1995 Sex Assigned At Female F [facility] Start: 03-15-2022 End: 03-27-2023 Tobacco smoking status [facility] Smoker (finding) Start: 04-21-[facility]23 [facility] Work Phone: End: 02-20-2023 History of tobacco use Cigarette Smoker [facility] Work Phone: Start: 04-21-2023 End: 06-02-2023 Cigarettes smoked current (pack per day) - Reported 1 [facility] Work Phone: Start: 04-21-2023 Tobacco use and exposure Former smokeless tobacco user [facility] Work Phone: End: 02-20-2023 History of tobacco use User of smokeless tobacco [facility] Work Phone: Start: 04-21-2023 End: 08-08-2023 Alcohol intake Ex-drinker (finding) [facility] Work Phone: Start: 04-21-2023 End: 06-02-2023 Tobacco use panel [facility] Work Phone: Start: 04-21-2023 Tobacco Comment Vaping [facility] Work Phone: Start: 1997 Sex Assigned At Not on file U [facility] Work Phone: Start: 05-08-2023 End: 08-08-2023 Exposure to SARS-CoV-2 (event) Not sure [facility] Tobacco smoking stat us [facility]IS Tobacco smoking consumption unknown [facility] Start: 02-24-2023 [facility] Goals Date Patient Goal Desired Activity /State Clinical Notes 06-02-2023 to 08-08-2023 Vaishnavi Durán MD - 08/08/2023 10:15 AM EDTPatient InstructionsHARMEET Pirere - 06/29/2023 2:00 PM Rosa Durán MD [...] redirect to the Timeline version of the [employer]. Wt Readings from Last 3 Encounters: [...] that she add some salt and maybe false pass juice to the water that she drinks. [...] discussion and plan. documented in this encounter [facility] Work Phone: 08-08-2023 Instructions Hetal Jacobo [...] in office today documented in this encounter [facility] Work Phone: 06-29-2023 History of Present [...] prescription(s): magnesium oxide, albuterol hfa, ondansetron, ondansetron, plwbbx-rxauc-rerx-fa-dha w/o a, 19, and sertraline. Medical History: [...] of: HARMEET Pierre documented in this encounter [facility] 06-02-2023 History of Present illness Narrative Patient [...] There is small atrial septal defect with lzox-gr-hfstb shunt. 3. Mild mitral valve regurgitation. QUANTITATIVE [...] Vaishnavi Durán MD documented in this encounter [facility] Work Phone: 06-02-2023 Instructions Mounika Dean [...] of your visit. documented in this encounter [facility] Work Phone: Evaluation note No assessment inform ation [facility] Work Phone: Evaluation note Diagnosis Long Q-T syndrome Long QT syndrome documented in this encounter [facility] Work Phone: Evaluation note* Diagnosis Long Q-T syndrome Long QT syndrome Medication course changed documented in this encounter [facility] Work Phone: Evaluation note* Diagnosis Second trimester state, incidental Diabetes mellitus screening Screening for diabetes mellitus documented in this encounter [facility] Diagnosis 25 weeks gestation of - Primary Long Q-T syndrome Long QT syndrome documented in this encounter [facility] Work Phone: Hospital Discharge instructions Additional Instructions 1. Push fluids today and tomorrow 2. No lifting, pushing or pulling today 3. Call [facility] office tomorrow [facility] Work Phone: Reason for referral (narrative)* Consultation (Routine) - Authorized Specialty Diagnoses / Procedures Referred By Ruslan kaye Referred To Contact Cardiology Diagnoses Long Q-T syndrome Procedures Follow Up In Cardiology Vaishnavi Durán MD [address] [address] Vaishnavi Durán MD [address] [place] [address] Referral ID Status Reason Start Date Expiration Date V isits Requested Visits Authorized [id number] Authorized 06/02/2023 06/01/2024 1 1 [facility] Work Phone: Reason for referral (narrative)* Consultation (Routine) - Authorized Specialty Diagnoses / Procedures Referred By Ruslan kaye Referred To Contact Cardiology Diagnoses Long Q-T syndrome Procedures Follow Up In Cardiology Vaishnavi Durán MD [address] [place] [address] [address] [place] [address] Vaishnavi Durán MD [address] [place] [address] [address] [place] [address] Referral ID Status Reason Start Date Expiration Date V isits Requested Visits Authorized [id number] Authorized 08/08/2023 08/07/2024 1 1 * Cardiovascular (Routine) - Authorized Specialty Diagnoses / Procedures Referred By Contac t Referred To Contact Diagnoses Long Q-T syndrome Procedures ECG 12 Lead Vaishnavi Durán MD [address] [place] [address] [address] [place] [address] Referral ID Status Reason Start Date Expiration Date V isits Requested Visits Authorized [id number] Authorized 08/08/2023 08/07/2024 1 1 [facility] Work Phone: Chief Complaint and [...] Q-T syndrome Procedures Transthoracic Echo (TTE) Complete LA ECHO TRANSTHORC R-T 2D W/WO M-MODE REC F-UP/LMTD LA DOP ECHOCARD COLOR FLOW VELOCITY MAPPING LA DOP ECHOCARD PULSE WAVE W/SPECTRAL F-UP/LMTD STD Vaishnavi Durán MD [address] [facility] [address] [place] [address] Referral ID Status Reason Start Date Expiration Date Visits Requested Visits Authorized [id number] Authorized Perform Procedure 3 04/20/2024 1 1 Additional Source Comments INFORMATION SOURCE (unrecogn ized section and content) DATE CREATED AUTHOR 02/23/2019 [facility] DATE CREATED AUTHOR AUTHOR'S ORGANIZ ATION 06/09/2023 [facility] DATE CREATED AUTHOR AUTHOR'S ORGANIZ ATION 07/01/2023 [facility] DATE CREATED AUTHOR AUTHOR'S ORGANIZ ATION 08/08/2023 [facility] DATE CREATED AUTHOR AUTHOR'S ORGANIZ ATION 11/07/2023 [facility] EPIC Care Teams (unrecognized sec tion and content) Team Status: Inactive Member Role Status Dates PHYSICIAN NO FAMILY Primary Care Provider Active Abdi Arzola APRN Emergency Provider Active Team Status: Active Member Role Status Dates PHYSICIAN NO FAMILY Primary Care Provider Active Team Status: Inactive Member Role Status Dates PHYSICIAN NO FAMILY Primary Care Provider Active Rosa Bowen ([facility]) , ACID CONDENSER Attending Provider Active Team Status: Active Member [...] Active Luci Daniels APRN Emergency Provider Active Outpatient Psychiatrist Relationship Specialty Start Date End Date Flor Giles DO [address] [facility] [address], [place] [address] PCP - General Obstetrics and Gynecology 05/18/23 Team Status: Inactive Member Role Status Dates Jacquelyn Rome APRN Primary Care Prov ider, Attending Provider, Referring Provider Active Outpatient Psychiatrist Relationship Specialty Start Date End Date Flor Giles DO [address] [facility] [address], [place] [address] PCP - General Obstetrics and Gynecology 05/18/23 Outpatient Psychiatrist Relationship Specialty Start Date End Date Flor Giles DO [address] [facility] [address], [place] [address] PCP - General Obstetrics and Gynecology 05/18/23 [...] Up In Cardiology Vaishnavi Durán MD [address] [address] Vaishnavi Durán MD [address] [place] [address] Referral ID Status Reason Start Date Expiration Date V isits Requested Visits Authorized [id number] Authorized 06/02/2023 06/01/2024 1 1 Specialty Diagnoses / Procedures Referred By Ruslan kaye Referred To Contact Cardiology Diagnoses Long Q-T syndrome Procedures Transthoracic Echo (TTE) Complete LA ECHO TRANSTHORC R-T 2D W/WO M-MODE REC F-UP/LMTD LA DOP ECHOCARD COLOR FLOW VELOCITY MAPPING LA DOP ECHOCARD PULSE WAVE W/SPECTRAL F-UP/LMTD STD Vaishnavi Durán MD [address] [address] Referral ID Status Reason Start Date Expiration Date Visits Requested Visits Authorized [id number] Authorized Perform Procedure 3 04/20/2024 1 1 Reason Comments Follow-up Echo results Referral ID Status Reason Start Date Expiration Date V isits Requested Visits Authorized [id number] Authorized 04/21/2023 04/20/2024 1 1 Reason Comments [...] BE BASED ON THE PRIMARY CLINICAL RECORDS. [facility]. provides no warranty or guarantee of the accuracy or completeness of information in this document.
[2023-11-09 23:58] VITALS: TEMP 36.6
[2023-11-09 23:59] VITALS: BP 123/73; PULSE 110
[2023-11-10] VITALS (41 sets, daily range): BP systolic 100–150; BP diastolic 53–94; PULSE 64–115; TEMP 35.9–36.8
[2023-11-10 00:33] LABS: Bilirubin Urine NEGATIVE (NEGATIVE); Blood Urine MODERATE (NEGATIVE); Clarity Urine CLEAR (CLEAR); Color Urine LT. YELLOW (YELLOW); Glucose Urine UA NEGATIVE (NEGATIVE); Ketones Urine NEGATIVE (NEGATIVE); Leukocyte Esterase Urine SMALL (NEGATIVE); Nitrite Urine NEGATIVE (NEGATIVE); Protein Urine NEGATIVE (NEG/TRACE); Urobilinogen Urine 0.2 EU/dL (0.2-1.0); pH Urine 6.5 (5.0-9.0)
[2023-11-10 00:36] LABS: Urine Microscopic Indicated YES
[2023-11-10 00:37] LABS: Amnisure POSITIVE (NEGATIVE); Internal Control Within Normal Limits
[2023-11-10 00:39] LABS: Bacteria Urine SMALL #/HPF (NONE SEEN); Cast Seen? NONE SEEN #/LPF (NONE SEEN); Crystals Seen? None Seen #/HPF (None Seen); Mucus Urine NONE SEEN (NONE SEEN); Squamous Epithelial Cell Urine FEW #/LPF (NONE/RARE); Urine Culture Indicated YES
[2023-11-10 01:36] LABS: Amphetamine Screen Urine NEGATIVE (NEGATIVE); Barbiturates Screen Urine NEGATIVE (NEGATIVE); Benzodiazepines Screen Urine NEGATIVE (NEGATIVE); Buprenorphine Screen Urine NEGATIVE (NEGATIVE); Cannabinoid Screen Urine POSITIVE (NEGATIVE); Cocaine Screen Urine NEGATIVE (NEGATIVE); Methadone Screen Urine NEGATIVE (NEGATIVE); Methamphetamines Screen Urine NEGATIVE (NEGATIVE); Opiate Screen Urine NEGATIVE (NEGATIVE); Oxycodone Screen Urine NEGATIVE (NEGATIVE); Phencyclidine Screen Urine NEGATIVE (NEGATIVE); Tricyclic Antidepressant Urine NEGATIVE (NEGATIVE)
[2023-11-10] MEDS: 0.9 % SODIUM CHLORIDE 1,000 ML 125 ML IV ×2 (01:41→10:21)
[2023-11-10 01:46] LABS: Hematocrit 34.9 % (36.0-48.0); Hemoglobin 11.2 g/dL (12.0-16.0); Mean Corpuscular HGB Conc 32.1 g/dL (29.9-35.2); Mean Corpuscular Hemoglobin 27.7 pg (26.7-34.0); Mean Corpuscular Volume 86.2 fL (81.0-99.0); Mean Platelet Volume 10.6 fL (9.5-13.5); Platelet Count 301 10^3/uL (150-450); Red Blood Count 4.05 10^6/uL (4.20-5.40); Red Cell Distribution Width 12.7 % (11.0-15.0); White Blood Count 13.9 10^3/uL (4.0-11.0)
[2023-11-10] MEDS: OXYTOCIN/0.9 % SODIUM CHLORIDE 10 UNITS/500 ML PLAST..BAG 6 UNIT IV (09:00)
[2023-11-10] MEDS: 0.9 % SODIUM CHLORIDE 1,000 ML 999 ML IV (09:20)
[2023-11-10 09:24] LABS: Potassium 3.9 mmol/L (3.5-5.1)
[2023-11-10] MEDS: ROPIVACAINE HCL/PF 400 MG/200 ML PREMIX 10 MG EPIDURAL (10:21)
--- NOTE | 2023-11-10 12:30 | PM.OBPRCVD ---
Procedure Intrapartal events: None Induction method: none Delivery monitor: external FHT and external uterine Route of delivery: L&D Laceration Description: periurethral - 1st degree Estimated blood loss (mL): 250 Anesthesia type: Epidural Disposition: floor Infant Delivery date: 11/10/23 Gender: female presentation: vertex Placental delivery description: Spontaneous cord description: 3 Vessels
[2023-11-10] MEDS: OXYTOCIN/0.9 % SODIUM CHLORIDE 20 UNITS/1,000 ML PLAST..BAG 125 UNIT IV (12:34)
[2023-11-10] MEDS: IBUPROFEN 600 MG TABLET PO (12:55)
[2023-11-10] MEDS: BENZOCAINE/MENTHOL 85 GRAM SPRAY BOTTLE 1 APPLIC TOPICAL (13:43)
[2023-11-11 06:16] LABS: Basophils Percent Auto 0.2 % (0.2-2.0); Eosinophils Absolute Auto 0.1 10^3/uL (0.0-0.7); Eosinophils Percent Auto 0.5 % (0.9-7.0); Hematocrit 28.6 % (36.0-48.0); Hemoglobin 9.4 g/dL (12.0-16.0); Immature Granulocytes Abs Auto 0.09 10^3/uL (0.00-0.03); Immature Granulocytes Pct Auto 0.6 % (0.0-0.5); Lymphocytes Absolute Auto 1.3 10^3/uL (1.2-3.8); Lymphocytes Percent Auto 8.4 % (20.5-60.0); Mean Corpuscular HGB Conc 32.9 g/dL (29.9-35.2); Mean Corpuscular Hemoglobin 28.3 pg (26.7-34.0); Mean Corpuscular Volume 86.1 fL (81.0-99.0); Mean Platelet Volume 10.6 fL (9.5-13.5); Monocytes Absolute Auto 0.8 10^3/uL (0.3-0.8); Monocytes Percent Auto 4.9 % (1.7-12.0); Neutrophils Absolute Auto 13.7 10^3/uL (1.4-6.5); Neutrophils Percent Auto 85.4 % (43.0-75.0); Platelet Count 251 10^3/uL (150-450); Red Blood Count 3.32 10^6/uL (4.20-5.40); Red Cell Distribution Width 12.6 % (11.0-15.0)
--- NOTE | 2023-11-11 07:49 | PM.OBPN ---
OB - PN: Subj Subjective Patient comments: no complaints and pain well controlled status: doing well Exam Constitutional Vital Signs, click to edit/add: Last Vital Signs Temp 97.8 F 11/10/23 23:35 Pulse 88 11/10/23 23:38 Resp 18 11/10/23 23:35 BP 114/62 11/10/23 23:38 O2 Del Method Room Air 11/10/23 23:35 Documenting provider has reviewed patient's vital signs: yes Common normals: no apparent distress Respiratory Common normals: normal respiratory effort and clear to auscultation bilaterally Cardio Common normals: regular rate and regular rhythm GI Common normals: Normal to inspection, nondistended, normoactive bowel sounds present Extremity Common normals: no clubbing, cyanosis or edema and no calf tenderness Results Labs Labs: Short CBC 11/11/23 Range/Units 06:05 WBC 16.0 H (4.0-11.0) 10^3/uL Hgb 9.4 L (12.0-16.0) g/dL Hct 28.6 L (36.0-48.0) % Plt Count 251 (150-450) 10^3/uL BMP 11/10/23 09:09 Potassium 3.9 OB - PN: A/P Plan - Vaginal Delivery day: 1 Plan: routine care Time Spent with Patient Time: Total time spent is greater than 50% in coordination of care (as documented) at patient's floor/unit and/or counseling patient: Total time spent with greater than 50% in coordination of care (as documented) at patient's floor/unit and/or counseling patient: less than 15 minutes
[2023-11-11] MEDS: IBUPROFEN 600 MG TABLET PO ×2 (08:44→22:11)
[2023-11-11] MEDS: DOCUSATE SODIUM 100 MG CAPSULE PO ×2 (08:46→22:11)
[2023-11-11 08:49] VITALS: BP 118/72; PULSE 96
--- NOTE | 2023-11-11 15:49 | SWNOTE1 ---
Pt was positive for THC on admission. SW met with pt to discuss positive drug screen. Pt voiced she only did it a few times and was for recreational purposes. She does not have a medical marijuana card. Pt does not plan on using at home. Pt does have everything she needs at home for baby. In the home is her and father of baby. This is her first child. They do have a good support system. Pt is attempted breast feeding as well. SW spoke to her about the importance of not smoking around baby. 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 Pt did reach out to [facility] last week and will contact them once home. Pt is caring for baby appropriate and no other concerns at this time. No withdrawal noted. SW did let pt know that SW has to call and make a report to [facility] C[facility]. Pt was tearful, but voiced understanding. SW called and made report to [facility].
[2023-11-11 18:25] VITALS: BP 128/76; PULSE 80
[2023-11-11 18:40] VITALS: TEMP 36.7
[2023-11-12 00:20] VITALS: BP 104/69; PULSE 76
[2023-11-12 08:24] VITALS: BP 124/70; PULSE 83
[2023-11-12] MEDS: DOCUSATE SODIUM 100 MG CAPSULE PO (08:24)
[2023-11-12 08:25] VITALS: TEMP 36.6
[2023-11-12] MEDS: IBUPROFEN 600 MG TABLET PO (08:25)
--- NOTE | 2023-11-12 10:16 | P.OBPN_ITS ---
OB - PN: Subj Subjective Patient comments: no complaints [place] status: doing well feeding status: exclusively Exam Constitutional Vital Signs, click to edit/add: Last Vital Signs Temp 97.8 F 11/12/23 08:25 Pulse 83 11/12/23 08:24 Resp 14 11/12/23 08:25 BP 124/70 11/12/23 08:24 O2 Del Method Room Air 11/12/23 08:25 Common normals: no apparent distress HENMT Common normals: normocephalic Eye Common normals: EOMs intact bilaterally General eye: normal appearance of both eyes Neck & C-Spine Common normals: full ROM Lymph Lymphatic: no lymphadenopathy noted Chest Common normals: inspection of chest normal Respiratory Common normals: normal respiratory effort Auscultation: clear to auscultation bilaterally Cardio Common normals: regular rate and regular rhythm Rate: regular rate Rhythm: regular rhythm GI Common normals: Normal to inspection, nondistended, normoactive bowel sounds present Palpation: soft Back & Pelvis Common normals: no CVA tenderness Extremity Common normals: normal to inspection General: normal exam except as noted Neuro Common normals: oriented x3 Sensorium/orientation: awake, alert, oriented to person, oriented to place and oriented to time Psych Common normals: mental status grossly normal Attitude: calm OB - PN: A/P Plan - Vaginal Delivery day: 2 Plan: discharge home Time Spent with Patient Time: Total time spent is greater than 50% in coordination of care (as documented) at patient's floor/unit and/or counseling patient: Total time spent with greater than 50% in coordination of care (as documented) at patient's floor/unit and/or counseling patient: less than 15 minutes
--- OUTSIDE RECORDS SUMMARY | 2023-11-13 10:21 | XMS_ITS | CCD ---
Author Organization [facility] Care Team Providers Care Network Strategist Name Role Phone NO, FAMILY PHYSICIAN Primary Care Physician Unav Hetal Beasley Rounding Physician Unavailable NO FAMILY, PHYSICIAN Primary Care Provider Unava ilELSY Garnett Emergency Provider NO FAMILY, PHYSICIAN Primary Care Provider Unava ilneto Bowen ([facility]), ELSY Parekh Attending Provider West, ELSY Valladares S Primary Care Provider West, ELSY Valladares S Attending Provider West, ELSY Jacquelyn S Referring Provider [phone] West, ELSY Jacquelyn S Primary Care Provider West, ELSY Kamarafer S Attending Provider [phone] West, ELSY Jacquelyn S Referring Provider [phone] ELSY Daniels Emergency Provider Flor Giles DO Primary Care Provider West, ELSY Kamarafer S Primary Care Provider West, ELSY Jacquelyn S Attending Provider [phone] VAISHNAVI DURÁN Referring Unavailable FLOR GILES Primary Care Unavailable NO FAMILY, PHYSICIAN Primary Care Unavailable Andrés ([facility])Rosa Admitting Unavailabl e Rice ([facility]), Rosa Parekh Attending Unavailabl e West, [...] Translations: [FERROUS SULFATE] Drug Allergy 3 Unknown [facility] (7 sources) Sulfonamides (Antibiotic); Translations: [SULFA (SULFONAMIDE ANTIBIOTICS)] Propensity to adverse reactions 3 Unknown [facility] (1 source) Sulfacetamide Drug Allergy 3 [facility] Rep[facility] (1 source) Sulfonamides (Antibiotic) Drug allergy (disorder) 3 [facility] Medications Current Medications Medication Drug Class(es) Dates Sig (Normalized) Sig (Original) [id number] 200 actuat albuterol 0.09 mg/actuat metered dose [...] day. 60 tablet 1 06/02/2023 06/01/2024 Active Dix (No Known Home Meds) (3 sources) Start: 03-15-20 Dix (No Known Home Meds) Active March 15, [...] 0 03/15/2023 06/02/2023 Discontinued (Med List Cleanup) Tmzewp-LjLpe-Lhef-FA-DHA w/o A (PRENATE DHA PO) (1 source) Kzizap-DcCqw-Uqv h-FA-DHA w/o A (PRENATE DHA PO) Take [...] 2022 1:57pm administer with food or milk vit,zvds29-pwuk-myicx (Prenatabs Rx) 29 mg iron- 1 mg tablet (3 sources) End: 06-02-2023 vit,vdyb84-fioj-oyty c (Prenatabs Rx) 29 mg iron- 1 mg tablet 1 tablet once daily. 0 06/02/2023 Discontinued (Duplicate order) vit,leo z17-leyc-zckjs (Prenatabs Rx) 29 mg iron- 1 mg [...] aftercare (3 sources) Treatment changed; Translations: [Other usp (current) drug therapy] Onset: 06-02-2023 06-02-2023 Episodic Other aftercare (2 sources) Other usp (current) drug therapy; Translations: [Other usp (current) drug therapy] Onset: 06-02-2023 Episodic Other [...] compared to previous EKG from March 2023. [facility] Work Phone: Urinalysis macro (dipstick) panel (U)on 06-29-2023 Bilirubin, UA Negative Negative - 4(70) +++ mg/dL [facility] Blood, UA Negative Negative - 50 Zach/mcL [facility] Clarity, UA Clear [facility] Color, UA Yellow [facility] Glucose, UA Negative Negative - 1999(110) ++++ mg/dL [facility] Interpretation and review of laboratory results Normal [facility] Ketones, UA Negative Negative - 160(16) ++++ mg/dL [facility] Leukocytes, UA Negative Negative - 500+++ Joni/mcL [facility] Nitrite, UA Negative Negative - Positive [facility] pH, UA 5.5 5 - 9 [facility] Protein, UA Negative Negative - 1999(20) ++++ mg/dL [facility] Spec Grav, UA 1.015 1 - 1.03 [facility] Urobilinogen, UA 1.0 0.2 - 12 mg/dL [facility] TRANSTHORACIC ECHO (TTE) COM PLETEon 05-18-2023 TRANSTHORACIC ECHO (TTE) COMPLETE [address], [address], [place] [address] TRANSTHORACIC ECHOCARDIOGRAM REPORT Patient Name: BELLE Gallego Physician: [id number] Makenna Jhaveri MD, [facility] Study Date: 05/18/2023 Ordering Provider: [id number] VAISHNAVI DURÁN MRN/PID: [id number] Fellow: Nurse: Date of /Age: 8 1995 / 28 years Director Peoplesoft: Maya Moraes RDCS, RVAmber Gender: F Additional Staff: Height: 167.64 cm Admit Date: Weight: 81.65 kg Admission Status: BSA: 1.91 m2 Department Location: [facility] Blood Pressure: 128 /82 mmHg Study Type: TRANSTHORACIC ECHO (TTE) COMPLETE Diagnosis/ICD: Long QT syndrome-I45.81 Indication: Pt is 14 weeks , Former Smoker, Marijuana Use CPT Codes: Echo Complete w Full Doppler-56832 Study Detail: The following Echo studies were [...] There is small atrial septal defect with ujhx-wh-josgm shunt. Right Ventricle: The right ventricle is [...] There is small atrial septal defect with qnxa-fd-npgve shunt. 3. Mild mitral valve regurgitation. QUANTITATIVE [...] 0.7 m/s (0.6-0.9m/s) PV Max P.0 mmHg [id number] Makenna Jhaveri MD, [facility] Electronically signed on 05/18/2023 at 1:24:06 PM Final Normal [facility] Heart TransthoracicOrdere d By: Makenna Jhaveri on 05-18-2023 Aortic Valve Area by Continuity of Peak Velocity 2.38 [facility] Work Phone: [phone] Aortic Valve Area by Continuity of VTI 2.38 [facility] Work Phone: [phone] AV mn grad 3.0 [facility] Work Phone: [phone] AV pk grad 6.0 [facility] Work Phone: [phone] AV pk suleiman 1.22 [facility] Work Phone: [phone] LV A4C EF 57.8 [facility] Work Phone: [phone] LVIDd 4.90 [facility] Work Phone: [phone] LVOT diam 2.30 [facility] Work Phone: [phone] MV avg E/e' ratio 5.40 [facility] Work Phone: [phone] MV E/A ratio 1.58 [facility] Work Phone: [phone] RVSP 16.8 [facility] Work Phone: [phone] [facility] Work Phone: [phone] Heart Transthoracicon [address], Suite [facility], [place] [address] TRANSTHORACIC ECHOCARDIOGRAM REPORT Patient Name: BELLE NAJERA Lashonda Physician: [id number] Makenna Jhaveri MD, [facility] Study Date: 05/18/2023 Ordering Provider: [id number] VAISHNAVI DURÁN MRN/PID: [id number] Fellow: Nurse: Date of /Age: 8 1995 / 28 years Director Peoples[employer]: Maya Moraes RDCS, RVT Gender: F Additional Staff: Height: 167.64 cm Admit Date: Weight: 81.65 kg Admission Status: BSA: 1.91 m2 Department Location: [facility] Blood Pressure: 128 /82 mmHg Study Type: TRANSTHORACIC ECHO (TTE) COMPLETE Diagnosis/ICD: Long QT syndrome-I45.81 Indication: Pt is 14 weeks , Former Smoker, Marijuana Use CPT Codes: Echo Complete w Full Doppler-40704 Study Detail: The following Echo studies were [...] There is small atrial septal defect with wejp-vg-eddcq shunt. Right Ventricle: The right ventricle is [...] There is small atrial septal defect with hjfi-em-mjhfc shunt. 3. Mild mitral valve regurgitation. QUANTITATIVE [...] 0.7 m/s (0.6-0.9m/s) PV Max P.0 mmHg [id number] Makenna Jhaveri MD, [facility] Electronically signed on 05/18/2023 at 1:24:06 PM Final Makenna Hickey MD - 05/18/[address], [address] [place] [address] TRANSTHORACIC ECHOCARDIOGRAM REPORT Patient Name: BELLE NAJERA Reading Physician: [id number] Makenna Jhaveri MD, [facility] Study Date: 05/18/2023 Ordering Provider: [id number] VAISHNAVI DURÁN MRN/PID: [id number] Fellow: Nurse: Date of /Age: 8 1995 / years Director Peoplesoft: Maya Moraes RD, RVT Gender: F Additional Staff: Height: 167.64 cm Admit Date: Weight: 81.65 kg Admission Status: BSA: 1.91 m2 Department Location: [facility] Blood Pressure: 128 /82 mmHg Study Type: TRANSTHORACIC ECHO (TTE) COMPLETE Diagnosis/ICD: Long QT syndrome-I45.81 Indication: Pt is 14 weeks , Former Smoker, Marijuana Use CPT Codes: Echo Complete w Full Doppler-98218 Study Detail: The following Echo studies were [...] There is small atrial septal defect with aaiv-ys-idbvp shunt. Right Ventricle: The right ventricle is [...] There is small atrial septal defect with hnpd-hf-vsrtd shunt. 3. Mild mitral valve regurgitation. QUANTITATIVE [...] 0.7 m/s (0.6-0.9m/s) PV Max P.0 mmHg [id number] Makenna Jhaveri MD, [facility] Electronically signed on 05/18/2023 at 1:24:06 PM Final [facility] Work Phone: Automated erythrocytes count in urine sediment (number/area)Ordered By: Luci Daniels on 03-27-2023 RBC Auto (Urine sed) [#/Area] 1-2 [HPF] 0-4 [facility] Automated leukocytes count i n urine sediment (number/area)Ordered By: Luci Daniels on 03-27-2023 WBC Auto (Urine sed) [#/Area] 20-49 [HPF] 0-4 [facility] Bilirubin Test strip Ql (U)O rdered By: Luci Daniels on 03-27-2023 Bilirubin Ql (U) Negative Negative [facility] Color Auto (U)Ordered By: Tiffanie Daniels on 03-27-2023 Color (U) Yellow Yellow [facility] Dipstick and Microscopicon 1 05-27-2022 Appearance (U) Cloudy Critically abnormal Clear [facility] Comment on above: Order Comment: Name Collection Type:: Clean-Voided Midstream Performed By: #### A DDONUAPLUS, CUU #### [place] [address] [place] Bacteria,Urine 2+ High None Seen [facility] Comment on above: Order Comment: Name Collection Type:: Clean-Voided Midstream Performed By: #### A DDONUAPLUS, CUU #### [place] [address] [place] Bilirubin,Urine Negative Normal Negative [facility] Comment on above: Order Comment: Name Collection Type:: Clean-Voided Midstream Performed By: #### A DDONUAPLUS, CUU #### [address] Color (U) Yellow Normal Yellow [facility] Comment on above: Order Comment: Name Collection Type:: Clean-Voided Midstream Performed By: #### A DDONUAPLUS, CUU #### [address] Glucose Ql (U) Normal Normal Normal [facility] Comment on above: Order Comment: Name Collection Type:: Clean-Voided Midstream Performed By: #### A DDONUAPLUS, CUU #### [address] Hyaline Casts,Urine 0-8 Normal 0-8 [facility] Comment on above: Order Comment: Name Collection Type:: Clean-Voided Midstream Result Comment: PERF ORMED BY: [place] [address] PATHOLOGIST [employer]LLAR RUNNER ANGELIA NIETO M.D. Performed By: #### A DDONUAPLUS, CUU #### [place] [address] [place] Ketones Ql (U) Negative Normal Negative [facility] Comment on above: Order Comment: Name Collection Type:: Clean-Voided Midstream Performed By: #### A DDONUAPLUS, CUU #### [place] [address] [place] Leukocyte esterase Test strip Ql (U) 2+ High Negative [facility] Comment on above: Order Comment: Name Collection Type:: Clean-Voided Midstream Performed By: #### A DDONUAPLUS, CUU #### [place] [address] [place] Nitrite,Urine Negative Normal Negative [facility] Comment on above: Order Comment: Name Collection Type:: Clean-Voided Midstream Performed By: #### A DDONUAPLUS, CUU #### [place] [address] [place] Occult Blood,Urine Negative Normal Negative [facility] Comment on above: Order Comment: Name Collection Type:: Clean-Voided Midstream Result Comment: PERF ORMED BY: [place] [address] PATHOLOGIST [employer]NER ANGELIA NIETO M.D. Performed By: #### A DDONUAPLUS, CUU #### [address] pH (U) 7.0 [pH] Normal 5.0-9.0 [facility] Comment on above: Order Comment: Name Collection Type:: Clean-Voided Midstream Performed By: #### A DDONUAPLUS, CUU #### [place] [address] [place] Protein,Urine Negative Normal Negative [facility] Comment on above: Order Comment: Name Collection Type:: Clean-Voided Midstream Performed By: #### A DDONUAPLUS, CUU #### [place] [address] [place] RBC,Urine 1-2 Normal 0-4 [facility] Comment on above: Order Comment: Name Collection Type:: Clean-Voided Midstream Performed By: #### A DDONUAPLUS, CUU #### [place] [address] [place] Specificy [place],Urine 1.022 Normal 1.001-1.030 [facility] Comment on above: Order Comment: Name Collection Type:: Clean-Voided Midstream Performed By: #### A DDONUAPLUS, CUU #### [facility] [address] [place] [address] Squamous Epithelial Cell,Urine 5-9 High 0-2 [facility] Comment on above: Order Comment: Name Collection Type:: Clean-Voided Midstream Performed By: #### A DDONUAPLUS, CUU #### [facility] [address] [place] [address] Urobilinogen,Urine Normal Normal Normal [facility] Comment on above: Order Comment: Name Collection Type:: Clean-Voided Midstream Performed By: #### A DDONUAPLUS, CUU #### [facility] [address] [place] [address] WBC,Urine 20-49 High 0-4 [facility] Comment on above: Order Comment: Name Collection Type:: Clean-Voided Midstream Performed By: #### A DDONUAPLUS, CUU #### [address] HCG ( test) IA.rapi d Ql (U)Ordered By: Luci Daniels on 03-27-2023 HCG ( test) Ql (U) Positive [facility] HCG,Urineon 03-27-2023 Beta HCG ( test) Ql (U) Positive [facility] Comment on above: Result Comment: PERF ORMED BY: [place] [address] PATHOLOGIST [employer]LLAR RUNNER ANGELIA NIETO M.D. Performed By: #### U HCG #### [facility] [address] [place] [address] Ketones Auto test strip (U) [Mass/Vol]Ordered By: Luic Daniels on 03-27-2023 Ketones (U) [Mass/Vol] Negative Negative [facility] Laboratory - UrinalysisOrder ed By: Luci Daniels on 03-27-2023 Hyaline casts LM Ql (Urine sed) 0-8 [LPF] 0-8 [facility] Nitrite Test strip Ql (U)Ord ered By: Luci Daniels on 03-27-2023 Nitrite Ql (U) Negative Negative [facility] Protein Auto test strip (U) [Mass/Vol]Ordered By: Luci Daniels on 03-27-2023 Protein (U) [Mass/Vol] Negative Negative [facility] Specific gravity Auto test s trip (U) [Rel density]Ordered By: Luci Daniels on 03-27-2023 Specific gravity (U) [Rel density] 1.022 1.001-1.030 [facility] Squamous epithelial cells de tection in urine sediment by light microscopyOrdered By: Luci Daniels on 03-27-2023 Epithelial cells.squamous LM Ql (Urine sed) 5-9 [HPF] 0-2 [facility] US OB transvaginalon 023 US OB transvaginal [facility] [place] [address] Ultrasound Report Signed Patient: Belle Najera MR#: [id number] 71 : 1995 Acct:[id number] Age/Sex: 28 / F ADM Date: 03/27/23 Loc: ER Room: Type: [facility] ER Attending Dr: Ordering Provider: Luci Daniels APRN Date of Service: 03/27/23 US/US OB <= 14 weeks fetus: 6 weeks ; abdominal pain ([id number]) US/US OB transvaginal: abd. pain w/ Copies [...] estimated gestational age of 6w2d weeks/days (accession [id number]), 6w1d weeks/days (accession [id number]) with an estimated date of delivery of 11/18/2023 (accession [id number]), 11/19/2023 (accession [id number]) and normal heart rate. The maurer of the gestational sac are slightly irregular/lobulated . This is of uncertain etiology. There is a trace amount of free fluid in the cul-de-sac. Impression dictated by: Fuentes Tomlinson M.D.03/27/2023 11:45 AM Dictation Location: [place] [address] Tech: Radha Altamirano Transcribed By: EMEKA 03/27/23 1145 Dictated By: Fuentes Tomlinson II, MD 03/27/23 1141 Signed By: 03/27/23 1145 [facility] Urine Cultureon 03-27-2023 Bacteria identified Cx Nom (U) >100,000 colonies/ml mixed bacterial skin contaminants 2 Days PERFORMED BY: [place] [address] PATHOLOGIST [employer]LLAR RUNNER ANGELIA NIETO M.D. [facility] Comment on above: Performed By: #### A LILIBETH GAGNON #### [address] Urine bacteria detection by automated methodOrdered By: Luci Daniels on 03-27-2023 Bacteria Auto Ql (U) 2+ None Seen [facility] Urine clarity by refractomet ry automatedOrdered By: Luci Daniels on 03-27-2023 Clarity Refractometry automated (U) Cloudy Clear [facility] Urine culture routineOrdered By: Luci Daniels on 03-27-2023 Bacteria identified Cx Nom (U) 2 Days [facility] Urine glucose measurement by automated test strip (mass/volume)Ordered By: Luci Daniels on 03-27-2023 Glucose Auto test strip (U) [Mass/Vol] Normal mg/dL Normal [facility] Urine hemoglobin detection b y automated test stripOrdered By: Luci Daniels on 03-27-2023 Hemoglobin Auto test strip Ql (U) Negative Negative [facility] Urine leukocyte esterase det ection by automated test stripOrdered By: Luci Daniels on 03-27-2023 Leukocyte esterase Auto test strip Ql (U) 2+ Negative [facility] Urobilinogen Auto test strip (U) [Mass/Vol]Ordered By: Luci Daniels on 03-27-2023 Urobilinogen (U) [Mass/Vol] Normal mg/dL Normal [facility] pH Auto test strip (U)Ordere d By: Luci Daniels on 03-27-2023 pH (U) 7.0 [pH] 5.0-9.0 [facility] XR knee RT 4V*on 02-01-2023 XR knee RT 4V* [facility] [place] [address] XRay Report Signed Patient: Belle Najera MR#: [id number] 73 : 1995 Acct:[id number] Age/Sex: 28 / F ADM Date: 02/01/23 Loc: XD Room: Type: [facility] Attending Dr: Jacquelyn Rome APRN Copies to: [...] Fartun Villa M.D.02/01/2023 4:33 PM Dictation Location: [place] [address] Transcribed By: [facility] 02/01/231632 Dictated By: Fartun Villa MD 02/01/231631 Signed By: 02/01/23 163 Normal [facility] US transvaginalon 09-15-2022 US transvaginal [facility] Main [place] [address] [place] [address] Ultrasound Report Signed Patient: Belle Najera MR#: [id number] [birth year] : 1995 Acct:[id number] Age/Sex: 27 / F ADM Date: 09/15/22 Loc: Room: Type: [facility] Attending Dr: Rosa Bowen ([facility]) ELSY Ordering Provider: Rosa Bowen APRN, WHCNP Date of Service: 09/15/22 US/US pelvic complete: R10.2 ([id number]) US/US transvaginal: R10.2 Copies to: Rosa Bowen [...] Fartun Villa M.D.09/15/2022 6:21 PM Dictation Location: [place] [address] Tech: Alexia Johnson Transcribed By: EMEKA 09/15/221820 Dictated By: Fartun Villa MD 09/15/221816 Signed By: 09/15/221820 [facility] Coding Summary.on 02-22-2019 Coding Summary. CODING DATE: 02/22/[address] [facility] STATUS: Home (Routine DC) PAYOR: Self [...] Cari Soliman Date Saved: 02/22/2019 05:33 pm [facility] Vital Signs Date Time Vital Sign Value Performing Clinician Facility 08-08-2023 11:08-0400 Diastolic blood pressure 54 mm[Hg] Vaishnavi Durán MD Work Phone: [facility] 08-08-2023 11:08-0400 Heart rate 80 /min Vaishnavi Durán MD Work Phone: [facility] 08-08-2023 11:08-0400 Systolic blood pressure 98 mm[Hg] Vaishnavi Durán MD Work Phone: [facility] 08-08-2023 10:13-0400 Body height 170.2 cm Vaishnavi Durán MD Work Phone: [facility] 08-08-2023 10:13-0400 Body mass index (BMI) [Ratio] 30.92 kg/m2 Vaishnavi Durán MD Work Phone: [facility] 08-08-2023 10:13-0400 Body weight 89.54 kg Vaishnavi Durán MD Work Phone: [facility] 06-29-2023 14:16-0500 Body weight 86.82 kg Dasha GA Work Phone: [facility] 06-29-2023 14:16-0500 Diastolic blood pressure 70 mm[Hg] Dasha GA Work Phone: [facility] 06-29-2023 14:16-0500 Systolic blood pressure 118 mm[Hg] Dasha GA Work Phone: [facility] 06-02-2023 09:39-0500 Body height 167.6 cm Vaishnavi Durán MD Work Phone: [facility] 06-02-2023 09:39-0500 Body mass index (BMI) [Ratio] 30.34 kg/m2 Vaishnavi Durán MD Work Phone: [facility] 06-02-2023 09:39-0500 Body weight 85.28 kg Vaishnavi Durán MD Work Phone: [facility] 06-02-2023 09:39-0500 Diastolic blood pressure 60 mm[Hg] Vaishnavi Durán MD Work Phone: [facility] 06-02-2023 09:39-0500 Heart rate 60 /min Vaishnavi Durán MD Work Phone: [facility] 06-02-2023 09:39-0500 Systolic blood pressure 100 mm[Hg] Vaishnavi Durán MD Work Phone: [facility] 05-18-2023 09:33-0500 Body height 167.6 cm Stephanie 2 [facility] 05-18-2023 09:33-0500 Body mass index (BMI) [Ratio] 29.05 kg/m2 [address] 05-18-2023 09:33-0500 Body weight 81.[address] 05-18-2023 09:33-0500 Diastolic blood pressure 82 mm[Hg] [address] 05-18-2023 09:33-0500 Systolic blood pressure 128 mm[Hg] [address] 03-27-2023 08:51-0500 Body temperature 98.5 [degF] ELSY Rome Work Phone: [phone] [place] [address] 03-27-2023 08:51-0500 Diastolic blood pressure 69 mm[Hg] ELSY Rome Work Phone: [phone] [place] [address] 03-27-2023 08:51-0500 Heart rate 82 /min ELSY Rome Work Phone: [phone] [place] [address] 03-27-2023 08:51-0500 Respiratory rate 18 /min ELSY Rome Work Phone: [facility] 03-27-2023 08:51-0500 SaO2% (BldA) [Mass fraction] 100 % ELSY Rome Work Phone: [facility] 03-27-2023 08:51-0500 Systolic blood pressure 111 mm[Hg] ELSY Rome Work Phone: [facility] 03-27-2023 08:50-0500 Body height 171.45 cm ELSY Rome Work Phone: [facility] 03-27-2023 08:50-0500 Body weight 80 kg ELSY Rome Work Phone: [facility] 03-15-2022 14:55-0400 Body height 170.18 cm PHYSICIAN [facility] 03-15-2022 14:55-0400 Body temperature 98.6 [degF] PHYSICIAN NO [facility] 03-15-2022 14:55-0400 Body weight 72.95 kg PHYSICIAN [facility] 03-15-2022 14:55-0400 Diastolic blood pressure 77 mm[Hg] PHYSICIAN NO [facility] 03-15-2022 14:55-0400 Heart rate 80 /min PHYSICIAN [facility] 03-15-2022 14:55-0400 Respiratory rate 14 /min PHYSICIAN NO [facility] 03-15-2022 14:55-0400 SaO2% (BldA) [Mass fraction] 99 % PHYSICIAN NO [facility] 03-15-2022 14:55-0400 Systolic blood pressure 133 mm[Hg] PHYSICIAN [facility] 11-01-2018 23:15-0400 Body Temperature 97.5 [degF] [facility] 11-01-2018 23:15-0400 BP Diastolic 80 mm[Hg] [facility] 11-01-2018 23:15-0400 BP Systolic 123 mm[Hg] [facility] 11-01-2018 23:15-0400 Pulse (Heart Rate) 84 /min [facility] 11-01-2018 23:15-0400 Pulse Oximetry 96 % [facility] 11-01-2018 23:15-0400 Respiratory Rate 18 /min [facility] Weight [facility] NEGATED: Highlighted row BMI (Body Mass Index) [facility] NEGATED: Highlighted row Height [facility] Encounters Encounter Date Encounter Type Care [...] Available Start: 08-08-2023 End: 08-08-2023 ambulatory [facility] Ambulatory Start: 08-08-2023 End: 08-08-2023 Office outpatient visit 15 minutes Vaishnavi Durán MD Work Phone: [facility] Comment on above: 25 weeks gestation o f (Primary Dx); Long Q-T syndrome Start: 07-26-2023 End: 07-26-2023 ambulatory FLOR DENNIS Not Available Start: 06-29-2023 End: 06-29-2023 flow sheet Dasha GA Work Phone: [facility] Comment on above: Second trimester pre gnancy; Diabetes mellitus screening Start: 06-29-2023 End: 06-29-2023 ambulatory DASHA LORRAINE Not Available Start: 06-02-2023 End: 06-02-2023 ambulatory [facility] Ambulatory Start: 06-02-2023 End: 06-02-2023 Office outpatient visit 15 minutes Vaishnavi Durán MD Work Phone: [facility] Comment on above: Long Q-T syndrome; Medication course changed Start: 05-18-2023 End: 05-19-2023 ambulatory [facility] Start: 05-18-2023 End: 05-18-2023 Subsequent hospital visit by physician Stephanie Jean Echo/Vasc Room 2 [facility] Comment on above: Long Q-T syndrome Start: 04-29-2023 End: 04-29-2023 ambulatory FLOR DENNIS Not Available Start: 04-21-2023 End: 04-21-2023 ambulatory [facility] Ambulatory Start: 03-27-2023 End: 03-27-2023 Emergency department patient visit Luci Daniels Facility:[facility] Start: 03-27-2023 End: 03-27-2023 Emergency department patient visit ELSY Rome Work Phone: [facility] Work Phone: Start: 03-15-2023 End: 03-15-2023 ambulatory Jacquelyn Rome Facility:[facility] Start: 03-15-2023 End: 03-15-2023 ambulatory ELSY Rome Work Phone: [facility] Work Phone: Start: 03-15-2023 End: 03-15-2023 Discharged Recurring ELSY Rome Work Phone: [facility] [place] Start: 03-15-2023 Registered Recurring GEAR HOBBERCatina Rome Work Phone: [facility] [place] Start: 02-01-2023 Registered Recurring ELSY Rome Work Phone: [facility] [place] Start: 02-01-2023 End: 02-01-2023 ambulatory Jacquelyn Rome Facility:[facility] Start: 02-01-2023 End: 02-01-2023 ambulatory ELSY Rome Work Phone: [facility] Work Phone: Start: 02-01-2023 End: 02-01-2023 Patient encounter procedure ELSY Rome Work Phone: [facility] [place] Work Phone: Start: 09-15-2022 End: 09-15-2022 ambulatory PHYSICIAN NO FAMILY Facility:[facility] Start: 09-15-2022 End: 09-15-2022 ambulatory PHYSICIAN NO [facility] Work Phone: Start: 09-15-2022 End: 09-15-2022 Patient encounter procedure PHYSICIAN NO [facility]Ul[facility] [place] Work Phone: Start: 03-15-2022 End: 03-15-2022 Emergency department patient visit PHYSICIAN NO [facility] Start: 11-01-2018 End: 11-02-2018 Emergency department patient visit [facility] Procedures Date Procedure Procedure Detail Performing Clinician [...] 12-LEAD VAISHNAVI SANCHEZ Start: 03-27-2023 Urine culture GEAR HOBBER Dana cooley [place] Work Phone: Start: 03-27-2023 Diagnostic ultrasoun d [...] 2) Zoste r Vaccines (1 of 2) [facility] Start: 11-14-2023 End: 11-14-2023 Patient encounter procedure 11/14/2023 10:00 AM EDT Office Visit [address] [place] [address] Vaishnavi Durán MD [address] [facility] [address] [place] [address] [facility] Start: 08-08-2023 End: 08-08-2023 Patient encounter procedure 08/08/2023 10:15 AM EDT Office Visit [address] [place] [address] Vaishnavi Durán MD [address] [facility] [address] [place] [address] [facility] Start: 07-26-2023 End: 07-26-2023 Patient encounter procedure 07/26/2023 2:10 PM EST Routine [facility] [address] [place] [id number] Flor Giles DO [address] [place] [address] [facility] Start: 06-29-2023 End: 06-29-2024 [...] mellitus screening Expected: 06/29/2023 (Approximate), Expires: 06/29/2024 [facility] Comment on above: Expected: 06/29/2023 (Approximate), Expires: 06/29/2024 Start: 06-02-2023 End: 06-02-2024 Basic metabolic 2000 panel - Serum or Plasma Basic Metabolic Panel Lab Routine Long Q-T syndrome Expected: 06/02/2023 (Approximate), Expires: 06/02/2024 [facility] Service Area Work Phone: Comment on above: Expected: 06/02/2023 (Approximate), Expires: 06/02/2024 Start: 06-02-2023 End: 06-02-2023 Patient encounter procedure 06/02/2023 9:30 AM EST Office Visit [facility] [address] [facility] [address] [place] [address] Vaishnavi Durán MD [address] [facility] [address] [place] [address] [facility] Start: 03-27-2023 Bacteria identified in Urine by Culture [facility] Start: 03-12-2023 HPV Vaccines (3 - 3- dose series) HPV Vaccines (3 - 3-dose series) [facility] Start: 01-21-2023 COVID-19 Vaccine ( season) COVID-19 Vaccine ( season) [facility] Start: 01-21-2023 Influenza vaccination Influenz a Vaccine (#1) [facility] Start: 03-28-2021 COVID-19 Vaccine (3 - Pfizer series) COVID-19 Vaccine (3 - Pfizer series) [facility] Start: 01-08-2020 DTaP/Tdap/Td Vaccine s (7 - Td or Tdap) DTaP/Tdap/Td Vaccines (7 - Td or Tdap) [facility] Start: 2018 Screening for malign ant neoplasm of cervix [facility] Start: 2015 Hepatitis C screening Hepatitis C [facility] Start: 09-11-2002 Varicella vaccination Varicell a Vaccines (2 of 2 - 2-dose childhood series) [facility] Start: 1997 HIV screening HIV Screening [facility] Start: 1997 Lipid panel Lipid Panel [facility] Start: 1997 Yearly Adult Physical Yearly Adult P hysical [facility] Patient Education [facility] Patient referral [facility] Work Phone: Immunizations Immunization Date Immunization Notes Care Provider Fa cility 11-10-2022 Human Papillomavirus 9-valent vaccine [address] Work Phone: 11-10-2022 HPV, unspecified formulation [address] Work Phone: 09-07-2022 Human Papillomavirus 9-valent vaccine [address] Work Phone: 06-04-2011 influenza virus vacc ine, whole virus [address] Work Phone: 06-04-2011 influenza virus vacc ine, unspecified formulation [address] Work Phone: 01-07-2010 tetanus toxoid, redu yolanda diphtheria toxoid, and acellular pertussis vaccine, adsorbed [address] Work Phone: 08-14-2002 diphtheria, tetanus toxoids and acellular pertussis vaccine, unspecified formulation [address] Work Phone: 08-14-2002 measles, mumps and r ubella virus vaccine [address] Work Phone: 08-14-2002 poliovirus vaccine, inactivated [address] Work Phone: 04-30-1998 diphtheria, tetanus toxoids and acellular pertussis vaccine, unspecified formulation [address] Work Phone: 04-30-1998 haemophilus influenz ae type b vaccine, PRP-OMP conjugate [address] Work Phone: 04-30-1998 measles, mumps and r ubella virus vaccine [address] Work Phone: 04-30-1998 trivalent poliovirus vaccine, live, oral [address] Work Phone: 04-30-1998 varicella virus vaccine [address] Work Phone: 1997 diphtheria, tetanus toxoids and acellular pertussis vaccine, unspecified formulation [address] Work Phone: 1997 haemophilus influenz ae type b conjugate and Hepatitis B vaccine [address] Work Phone: 1997 diphtheria, tetanus toxoids and acellular pertussis vaccine, unspecified formulation [address] Work Phone: 1997 haemophilus influenz ae type b vaccine, HbOC conjugate [address] Work Phone: 1997 poliovirus vaccine, inactivated [address] Work Phone: 1997 diphtheria, tetanus toxoids and acellular pertussis vaccine, unspecified formulation [address] Work Phone: 1997 haemophilus influenz ae type b conjugate and Hepatitis B vaccine [address] Work Phone: 1997 poliovirus vaccine, inactivated [address] Work Phone: 1997 hepatitis B vaccine, pediatric or pediatric/adolescent dosage [address] Work Phone: Payers Date Payer Category Payer Medicaid [id number] 2023 Medicaid [id number] 2022 Self-pay 2021 Unknown [id number] 2021 Unknown [id number] 1997 Unknown [id number] 2.16.84 [id number] 1997 Unknown [id number] 2.16.8 40.1.839572.3.579.2.4 1997 Unknown [id number] 2.16.8 40.1.437317.3.579.2.4 1997 Unknown [id number] 2.16.8 40.1.873417.3.579.2.4 1997 Unknown [id number] 2.16.84 0.1.823509.3.579.2.9 1997 Unknown [id number] 2.16.84 0.1.648241.3.579.2.9 1997 Unknown [id number] 2.16.84 0.1.677328.3.579.2.9 1997 Unknown [id number] 2.16.84 0.1.286113.3.579.2.9 1997 Unknown [id number] 2.16.84 0.1.249115.3.579.2.9 1997 Unknown [id number] 2.16.84 0.1.291834.3.579.2.9 1997 Unknown [id number] 2.16.84 0.1.922867.3.579.2.9 1997 Unknown [id number] 2.16.84 0.1.265016.3.579.2.9 1997 Unknown [id number] 2.16.84 0.1.927345.3.579.2.1259 1997 Unknown [id number] 2.16.84 0.1.773751.3.579.2.1259 1997 Unknown [id number] 2.16.84 0.1.948333.3.579.2.1259 1997 Unknown [id number] 2.16.840 .1.610138.3.579.2.1259 Private Health Insurance [id number] Unknown [id number] 2.16.8 40.1.737033.3.579.2.531 Unknown [id number] 2.16.8 40.1.596901.3.579.2.531 Unknown [id number] 2.16.8 40.1.174423.3.579.2.531 Unknown [id number] 2.16.8 40.1.939214.3.579.2.531 Social History Date Type Detail Facility Tobacco smoking stat [facility] Unknown if ever smoked [facility] Start: 1995 Sex Assigned At Female F [facility] Start: 03-15-2022 End: 03-27-2023 Tobacco smoking status NHIS Smoker (finding) [facility] Start: 04-21-2023 [facility] Work Phone: End: 02-20-2023 History of tobacco use Cigarette Smoker [facility] Work Phone: Start: 04-21-2023 End: 06-02-2023 Cigarettes smoked current (pack per day) - Reported 1 [facility] Work Phone: Start: 04-21-2023 Tobacco use and exposure Former smokeless tobacco user [facility] Work Phone: End: 02-20-2023 History of tobacco use User of smokeless tobacco [facility] Work Phone: Start: 04-21-2023 End: 08-08-2023 Alcohol intake Ex-drinker (finding) [facility] Work Phone: Start: 04-21-2023 End: 06-02-2023 Tobacco use panel [facility] Work Phone: Start: 04-21-2023 Tobacco Comment [facility]aping [facility] Work Phone: Start: 1995 Sex Assigned At Not on file [facility] Work Phone: Start: 05-08-2023 End: 08-08-2023 Exposure to SARS-CoV-2 (event) Not sure [facility] Tobacco smoking stat us NHIS Tobacco smoking [...] redirect to the Timeline version of the KXEN SmartLink. Wt Readings from Last 3 Encounters: [...] that she add some salt and maybe paiute-shoshone juice to the water that she drinks. [...] discussion and plan. documented in this encounter [facility] Work Phone: 08-08-2023 Instructions Hetal Jacobo LPN [...] in office today documented in this encounter [facility] Work Phone: 06-29-2023 History of Present illness [...] prescription(s): magnesium oxide, albuterol hfa, ondansetron, ondansetron, vsybnv-xhvrn-wktb-fa-dha w/o a, 19, and sertraline. Medical History: [...] of: HARMEET Pierre documented in this encounter [facility] 06-02-2023 History of Present illness Narrative Patient [...] There is small atrial septal defect with dllt-vr-mwlrv shunt. 3. Mild mitral valve regurgitation. QUANTITATIVE [...] Vaishnavi Durán MD documented in this encounter [facility] Work Phone: 06-02-2023 Instructions Mounika Dean CMA [...] of your visit. documented in this encounter [facility] Work Phone: Evaluation note No assessment inform ation [facility] Work Phone: Evaluation note Diagnosis Long Q-T syndrome Long QT syndrome documented in this encounter [facility] Work Phone: Evaluation note* Diagnosis Long Q-T syndrome Long QT syndrome Medication course changed documented in this encounter [facility] Work Phone: Evaluation note* Diagnosis Second trimester state, incidental Diabetes mellitus screening Screening for diabetes mellitus [facility] Diagnosis 25 weeks gestation of - Primary Long Q-T syndrome Long QT syndrome documented in this encounter [facility] Work Phone: Hospital Discharge instructions Additional Instructions 1. Push fluids today and tomorrow 2. No lifting, pushing or pulling today 3. [facility] Reason for referral (narrative)* Consultation (Routine) - Authorized Specialty Diagnoses / Procedures Referred By Ruslan kaye Referred To Contact Cardiology Diagnoses Long Q-T syndrome Procedures Follow Up In Cardiology Vaishnavi Durán MD [address] [address] Vaishnavi Durán MD [address] [place] [id number] Referral ID Status Reason Start Date Expiration Date V isits Requested Visits Authorized [id number] Authorized 06/02/2023 06/01/2024 1 1 [facility] Work Phone: Reason for referral (narrative)* Consultation (Routine) - Authorized Specialty Diagnoses / Procedures Referred By Ruslan kaye Referred To Contact Cardiology Diagnoses Long Q-T syndrome Procedures Follow Up In Cardiology Vaishnavi Durán MD [address] [place] [address] [address] [place] [address] Vaishnavi Durán MD [address] [place] [address] [address] [place] [address] Referral ID Status Reason Start Date Expiration Date V isits Requested Visits Authorized [id number] Authorized 08/08/2023 08/07/2024 1 1 * Cardiovascular (Routine) - Authorized Specialty Diagnoses / Procedures Referred By Contac t Referred To Contact Diagnoses Long Q-T syndrome Procedures ECG 12 Lead Vaishnavi Durán MD [address] [place] [address] [address] [place] [address] Referral ID Status Reason Start Date Expiration Date V isits Requested Visits Authorized [id number] Authorized 08/08/2023 08/07/2024 1 1 [facility] Work Phone: Chief Complaint and Reason for [...] Q-T syndrome Procedures Transthoracic Echo (TTE) Complete [place] ECHO TRANSTHORC R-T 2D W/WO M-MODE REC F-UP/LMTD [place] DOP ECHOCARD COLOR FLOW VELOCITY MAPPING [place] DOP ECHOCARD PULSE WAVE W/SPECTRAL F-UP/LMTD STD Vaishnavi Durán MD 254 [facility] [address] [place] [address] Referral ID Status Reason Start Date Expiration Date Visits Requested Visits Authorized [id number] Authorized Perform Procedure 3 04/20/2024 1 1 Additional Source Comments INFORMATION SOURCE (unrecogn ized section and content) DATE CREATED AUTHOR 02/23/2019 [facility] DATE CREATED AUTHOR AUTHOR'S ORGANIZ ATION 06/09/2023 [facility] DATE CREATED AUTHOR AUTHOR'S ORGANIZ ATION 07/01/2023 [facility] DATE CREATED AUTHOR AUTHOR'S ORGANIZ ATION 08/08/2023 [facility] DATE CREATED AUTHOR AUTHOR'S ORGANIZ ATION 11/07/2023 [facility] d[facility] Specialists EPIC Care Teams (unrecognized sec tion and content) Team Status: Inactive Member Role Status Dates PHYSICIAN NO FAMILY Primary Care Provider Active Abdi Arzola APRN Emergency Provider Active Team Status: Active Member Role Status Dates PHYSICIAN NO FAMILY Primary Care Provider Active Team Status: Inactive Member Role Status Dates PHYSICIAN NO FAMILY Primary Care Provider Active Rosa Bowen ([facility]) , GEAR HOBBER Attending Provider Active Team Status: Active Member [...] Active Luci Daniels APRN Emergency Provider Active Network Strategist Relationship Specialty Start Date End Date Flor Giles DO [address] [facility] [address], [place] [address] PCP - General Obstetrics and Gynecology 05/18/23 Team Status: Inactive Member Role Status Dates Jacquelyn Rome APRN Primary Care Prov ider, Attending Provider, Referring Provider Active Network Strategist Relationship Specialty Start Date End Date Flor Giles DO [address] [facility] [address], [place] [address] PCP - General Obstetrics and Gynecology 05/18/23 Network Strategist Relationship Specialty Start Date End Date Flor Giles DO [address] [facility] [address], [place] [address] PCP - General Obstetrics and Gynecology 05/18/23 [...] Up In Cardiology Vaishnavi Durán MD [address] [address] Vaishnavi Durán MD [address] [place] [id number] Referral ID Status Reason Start Date Expiration Date V isits Requested Visits Authorized [id number] Authorized 06/02/2023 06/01/2024 1 1 Specialty Diagnoses / Procedures Referred By Ruslan kaye Referred To Contact Cardiology Diagnoses Long Q-T syndrome Procedures Transthoracic Echo (TTE) Complete [place] ECHO TRANSTHORC R-T 2D W/WO M-MODE REC F-UP/LMTD [place] DOP ECHOCARD COLOR FLOW VELOCITY MAPPING [place] DOP ECHOCARD PULSE WAVE W/SPECTRAL F-UP/LMTD STD Vaishnavi Durán MD [address] [address] Referral ID Status Reason Start Date Expiration Date Visits Requested Visits Authorized [id number] Authorized Perform Procedure 3 04/20/2024 1 1 Reason Comments Follow-up Echo results Referral ID Status Reason Start Date Expiration Date V isits Requested Visits Authorized [id number] Authorized 04/21/2023 04/20/2024 1 1 Reason Comments [...] BE BASED ON THE PRIMARY CLINICAL RECORDS. [facility] [employer] [facility]. provides no warranty or guarantee of the accuracy or completeness of information in this document.
[2023-11-14 07:07] LABS: Cannabinoid Positive (.); Carboxy THC Conf, MS, UR 27 ng/mL (Cutoff=10)
== END 2023-11-12 12:15 | disposition home or self-care (01) | DRG 807 ==
PROVIDERS: Admitting Provider Obstetrics & Gynecology; Visit Provider Obstetrics & Gynecology
DX: O71.82 Other specified trauma to perineum and vulva (principal); Z37.0 Single live birth; Z3A.39 39 weeks gestation of pregnancy; Z88.2 Allergy status to sulfonamides; Z88.8 Allergy status to other drugs, medicaments and biological substances; Z23 Encounter for immunization
CPT/HCPCS: 36415; 59050; 59410; 80307; 80349; 81001; 84112; 84132; 85025; 85027; 86850; 86900; 86901; 87086; 96365; 96366; 96376; J2795

== ENCOUNTER 2024-04-24 20:29 | Outpatient (REF) | payer BC, MEDICAID, SELFPAY ==
--- OUTSIDE RECORDS SUMMARY | 2024-04-24 20:33 | XMS_ITS | CCD ---
Author Organization [facility] Care Team Providers Care Website/Blog Editor Name Role Phone NO, FAMILY PHYSICIAN Primary Care Physician Unav Hetal Beasley Rounding Physician Unavailable NO FAMILY, PHYSICIAN Primary Care Provider UnaELSY Staples Emergency Provider [phone] NO FAMILY, PHYSICIAN Primary Care Provider Unarivka Bowen ([facility]), ELSY Parekh Attending Provider West, ELSY Kramer Primary Care Provider West, ELSY Valladares S Attending Provider West, ELSY Kamarafer S Referring Provider West, ELSY Kamarafer S Primary Care Provider [phone] West, ELSY Valladares S Attending Provider West, ELSY Kamarafer S Referring Provider ELSY Daniels Emergency Provider Flor Giles DO Primary Care Provider [place], ELSY Valladares S Primary Care Provider West, ELSY Kamarafer S Attending Provider [phone] NO FAMILY, PHYSICIAN Primary Care Unavailable Andrés ([facility])Rosa Admitting Unavailabl e Andrés ([facility])Rosa Attending Unavailabl e Wild, Jacquelyn S Attending Unavailable West, Jacquelyn S Referring Unavailable West, Jacquelyn S Admitting Unavailable West, Jacquelyn S Primary Care Unavailable Luci Daniels Admitting Unavailable Luci Daniels Attending Unavailable Wild, Jacquelyn S Primary Care Unavailable West, Jacquelyn S Admitting Unavailable West, Jacquelyn S Primary Care Unavailable Jacquelyn Rome S Attending Unavailable Unavailable Primary Care Provider Unavailabl e VAISHNAVI DURÁN Attending Unavailable ROSA BOWEN Primary Care Unavailable VAISHNAVI DURÁN Attending Unavailable VAISHNAVI DURÁN Referring Unavailable FLOR GILES Primary Care Unavailable VAISHNAVI DURÁN Attending Unavailable VAISHNAVI DURÁN Referring Unavailable FLOR GILES Primary Care Unavailable TISHA, FLOR Attending Unavailable LORRAINE, DASHA Attending Unavailable TISHA, FLOR Attending Unavailable LORRAINE, DASHA Attending Unavailable TISHA, FLOR Attending Unavailable TISHA, FLOR Attending Unavailable LORRAINE, DASHA Attending Unavailable TISHA, FLOR Attending Unavailable TISHA, FLOR Attending Unavailable TISHA, FLOR Attending Unavailable TSIHA, FLOR Attending Unavailable LORRAINE, DASHA Attending Unavailable LORRAINE, DASHA Attending Unavailable VAISHNAVI DURÁN Referring Unavailable FLOR GILES Primary Care Unavailable Unavailable Unavailable Unavailable Allergies Allergy Classification Reported Allergen(s) Allergy Type Date of Onset Reaction(s) Facility (10 sources) ferrous sulfate; Translations: [FERROUS SULFATE] Drug Allergy 3 Unknown [facility] (10 sources) Sulfonamides (Antibiotic); Translations: [SULFA (SULFONAMIDE ANTIBIOTICS)] Propensity to adverse reactions 3 Unknown [facility] (1 source) Sulfacetamide Drug Allergy 3 [facility] (1 source) Sulfonamides (Antibiotic) Drug allergy (disorder) 3 [facility] Medications Current Medications Medication Drug Class(es) Dates Sig (Normalized) Sig (Original) [id number] 200 actuat albuterol 0.09 mg/actuat metered dose inhaler (8 sources) beta2-Adrenergic Agonist take 2 puff(s) by inhalation every four hours for wheezing albuterol HFA 90 mcg/act inhaler Inhale 2 puffs every 4 (four) hours if needed for wheezing Active take 2 puff(s) by in halation every four hours albuterol 90 mcg/actuation inhaler Inhal e 2 puffs every 4 hours if needed. 0 Active alpha-tocopherol acetate 30 unt / [...] oral capsule (2 sources) Cephalosporin Antibacterial Start: take 500 mg by mouth twice daily Cephalexin Active 500 MG PO Twice daily March 26, 2023 11:00pm cholecalciferol 0.125 mg oral tablet (2 sources) Vitamin D take 1 tablet by mouth once daily cholecalciferol (Vitamin D-3) 125 MCG (5000 UT) tablet Take 5,000 Units by mouth Daily Active magnesium oxide 400 mg oral tablet (9 sources) Start: End: 025 take 1 tablet by mouth in the morning magnesium oxide (Mag-Ox) 400 MG tablet Take 400 mg by mouth in the morning and 400 mg in the evening. 06/02/2023 06/01/2024 Active [place] (No Known Home Meds) (3 sources) Start: [place] (No Known Home Meds) Active March 15, 2022 12:00am ondansetron 8 mg oral tablet (6 sources) Serotonin-3 Receptor Antagonist Start: 024 take 1 tablet by mouth every eight [...] 0 03/15/2023 06/02/2023 Discontinued (Med List Cleanup) Pappyt-DfJwb-Svcb-FA-DHA w/o A (PRENATE DHA PO) (1 source) Stxwjs-IwVux-Rpa h-FA-DHA w/o A (PRENATE DHA PO) Take by mouth 0 Active vit37/iron/folic acid (PRENATA ORAL) (4 sources) vit37/i michelet/folic acid (PRENATA ORAL) Take by mouth. 0 Active sertraline 100 mg oral table t (3 sources) Serotonin Reuptake Inhibitor Star t: 03-24 take 1 tablet by mouth once daily sertraline (Zoloft) 100 MG tablet Take 100 mg by mouth Daily 04/12/2024 Active Start: 06-02-2023 End: 06-01-2024 take 1 tablet by mouth in the [...] 2022 1:57pm administer with food or milk vit,ypxu65-tqzq-wfvlp (Prenatabs Rx) 29 mg iron- 1 mg tablet (3 sources) End: 06-02-2023 vit,faok03-gszn-rrko c (Prenatabs Rx) 29 mg iron- 1 mg tablet 1 tablet once daily. 0 06/02/2023 Discontinued (Duplicate order) vit,leo c09-nitp-tttep (Prenatabs Rx) 29 mg iron- 1 mg [...] aftercare (3 sources) Treatment changed; Translations: [Other rat exterminator (current) drug therapy] Onset: 06-02-2023 06-02-2023 Episodic Other aftercare (2 sources) Other skilled nursing (current) drug therapy; Translations: [Other rat exterminator (current) drug therapy] Onset: 06-02-2023 Episodic Other screening for suspected conditions (not [...] [Pelvic and perineal pain] Onset: 09-15-2022 Episodic Other and delivery including normal (7 sources) Intrauterine ; Translations: [Encounter for supervision of normal , unspecified, unspecified trimester] Onset: 06-23-2023 03-27-2023 Episodic Residual codes; unclassified (4 sources) Gestation period, 10 weeks; Translations: [10 weeks gestation of ] Onset: 04-21-2023 04-21-2023 Episodic Results Test Name Value Interpretation Reference Range Facility ECG 12 [place] 08-08-2023 Normal sinus rhythm with sinus arrhythmia, QTc 419 ms, no significant change compared to previous EKG from March 2023. [facility] Work Phone: Urinalysis macro (dipstick) panel (U)on 06-29-2023 Bilirubin, UA Negative Negative - 4(70) +++ mg/dL [facility] Blood, UA Negative Negative - 50 Zach/mcL [facility] Clarity, UA Clear [facility] Color, UA Yellow [facility] Glucose, UA Negative Negative - 2000(110) ++++ mg/dL [facility] Interpretation and review of laboratory results Normal [facility] Ketones, UA Negative Negative - 160(16) ++++ mg/dL [facility] Leukocytes, UA Negative Negative - 500+++ Joni/mcL [facility] Nitrite, UA Negative Negative - Positive [facility] pH, UA 5.5 5 - 9 [facility] Protein, UA Negative Negative - 2000(20) ++++ mg/dL [facility] Spec Grav, UA 1.015 1 - 1.03 [facility] Urobilinogen, UA 1.0 0.2 - 12 mg/dL [facility] TRANSTHORACIC ECHO (TTE) [facility] 05-18-2023 TRANSTHORACIC ECHO (TTE) COMPLETE [address], [address] [address] TRANSTHORACIC ECHOCARDIOGRAM REPORT Patient Name: BELLE NAJERA Reading Physician: [id number] Makenna Jhaveri MD, [facility] Study Date: 05/18/2023 Ordering Provider: [id number] VAISHNAVI DURÁN MRN/PID: [id number] Fellow: Nurse: Date of /Age: 8 1995 / years Wire Rigger: Maya Moraes RDCS, RVT Gender: F Additional Staff: Height: 167.64 cm Admit Date: Weight: 81.65 kg Admission Status: BSA: 1.91 m2 Department Location: [facility] Blood Pressure: 128 /82 mmHg Study Type: TRANSTHORACIC ECHO (TTE) COMPLETE Diagnosis/ICD: Long QT syndrome-I45.81 Indication: Pt is 14 weeks , Former Smoker, Marijuana Use CPT Codes: Echo Complete w Full Doppler-44212 Study Detail: The following Echo studies were [...] There is small atrial septal defect with zjkt-ow-nemrb shunt. Right Ventricle: The right ventricle is [...] There is small atrial septal defect with hnuv-jn-yupoq shunt. 3. Mild mitral valve regurgitation. QUANTITATIVE [...] 30mmHg) PULMONIC VALVE: Normal Ranges: PV Max Suleimna: 0.7 m/s (0.6-0.9m/s) PV Max P.0 mmHg [id number] Makenna Jhaveri MD, FACC Electronically signed on 05/18/2023 at 1:24:[address] [facility] Heart TransthoracicOrdere d By: Makenna Jhaveri on 05-18-2023 Aortic Valve Area by Continuity of Peak Velocity 2.38 [facility] Work Phone: Aortic Valve Area by Continuity of VTI 2.38 [facility] Work Phone: [phone] AV mn grad 3.0 [facility] Work Phone: [phone] AV pk grad 6.0 [facility] Work Phone: [phone] AV pk suleiman 1.22 [facility] Work Phone: [phone] LV A4C EF 57.8 [facility] Work Phone: [phone] LVIDd 4.90 [facility] Work Phone: [phone] LVOT diam 2.30 [facility] Work Phone: [phone] MV avg E/e' ratio 5.40 [facility] Work Phone: [phone] MV E/A ratio 1.58 [facility] Work Phone: [phone] RVSP 16.8 [facility] Work Phone: [phone] [facility] Work Phone: [phone] Heart Transthoracicon [address], [address] [place] [address] TRANSTHORACIC ECHOCARDIOGRAM REPORT Patient Name: BELLE NAJERA Reading Physician: [id number] Makenna Jhaveri MD, [facility] Study Date: 05/18/2023 Ordering Provider: [id number] VAISHNAVI DURÁN MRN/PID: [id number] Fellow: Nurse: Date of /Age: 8 1995 / 28 years Wire Rigger: Maya Moraes RDCS, RVT Gender: F Additional Staff: Height: 167.64 cm Admit Date: Weight: 81.65 kg Admission Status: BSA: 1.91 m2 Department Location: [facility] Blood Pressure: 128 /82 mmHg Study Type: TRANSTHORACIC ECHO (TTE) COMPLETE Diagnosis/ICD: Long QT syndrome-I45.81 Indication: Pt is 14 weeks , Former Smoker, Marijuana Use CPT Codes: Echo Complete w Full Doppler-64051 Study Detail: The following Echo studies were [...] There is small atrial septal defect with axft-qn-gmrdy shunt. Right Ventricle: The right ventricle is [...] There is small atrial septal defect with svrf-uy-ewdmm shunt. 3. Mild mitral valve regurgitation. QUANTITATIVE [...] 0.7 m/s (0.6-0.9m/s) PV Max P.0 mmHg [id number] Makenna Jhaveri MD, [facility] Electronically signed on 05/18/2023 at 1:24:06 PM Final Makenna Hickey MD - 05/18/[address], [address] [address] TRANSTHORACIC ECHOCARDIOGRAM REPORT Patient Name: BELLE NAJERA Reading Physician: [id number] Makenna Jhaveri MD, [facility] Study Date: 05/18/2023 Ordering Provider: [id number] VAISHNAVI DURÁN MRN/PID: [id number] Fellow: Nurse: Date of /Age: 8 1995 / years Wire Rigger: Maya Moraes RDCS Amber Gender: F Additional Staff: Height: 167.64 cm Admit Date: Weight: 81.65 kg Admission Status: BSA: 1.91 m2 Department Location: [facility] Blood Pressure: 128 /82 mmHg Study Type: TRANSTHORACIC ECHO (TTE) COMPLETE Diagnosis/ICD: Long QT syndrome-I45.81 Indication: Pt is 14 weeks , Former Smoker, Marijuana Use CPT Codes: Echo Complete w Full Doppler-56430 Study Detail: The following Echo studies were [...] There is small atrial septal defect with zdal-yl-xtvwq shunt. Right Ventricle: The right ventricle is [...] There is small atrial septal defect with rtep-nu-hpolj shunt. 3. Mild mitral valve regurgitation. QUANTITATIVE [...] 0.7 m/s (0.6-0.9m/s) PV Max P.0 mmHg [id number] Makenna Jhaveri MD, [facility] Electronically signed on 05/18/2023 at 1:24:06 PM Final [facility] Work Phone: Automated erythrocytes count in urine sediment (number/area)Ordered By: Luci Daniels on 03-27-2023 RBC Auto (Urine sed) [#/Area] 1-2 [HPF] 0-4 [facility] Automated leukocytes count i n urine sediment (number/area)Ordered By: Luci Daniels on 03-27-2023 WBC Auto (Urine sed) [#/Area] 20-49 [HPF] 0-4 [facility] Bilirubin Test strip Ql (U)O rdered By: Luci Daniels on 03-27-2023 Bilirubin Ql (U) Negative Negative [facility] Color Auto (U)Ordered By: Tiffanie lisa Jeremiah on 03-27-2023 Color (U) Yellow Yellow [facility] Dipstick and Microscopicon 1 05-27-2022 Appearance (U) Cloudy Critically abnormal Clear [facility] Comment on above: Order Comment: Name Collection Type:: Clean-Voided Midstream Performed By: #### A DDONUAPLUS, CUU #### [place] [address] [place] Bacteria,Urine 2+ High None Seen [facility] Comment on above: Order Comment: Name Collection Type:: Clean-Voided Midstream Performed By: #### A DDONUAPLUS, CUU #### [place] [address] [place] Bilirubin,Urine Negative Normal Negative [facility] Comment on above: Order Comment: Name Collection Type:: Clean-Voided Midstream Performed By: #### A DDONUAPLUS, CUU #### [place] [address] [place] Color (U) Yellow Normal Yellow [facility] Comment on above: Order Comment: Name Collection Type:: Clean-Voided Midstream Performed By: #### A DDONUAPLUS, CUU #### [place] [address] [place] Glucose Ql (U) Normal Normal Normal [facility] Comment on above: Order Comment: Name Collection Type:: Clean-Voided Midstream Performed By: #### A DDONUAPLUS, CUU #### [place] [address] [place] Hyaline Casts,Urine 0-8 Normal 0-8 [facility] Comment on above: Order Comment: Name Collection Type:: Clean-Voided Midstream Result Comment: PERF ORMED BY: [place] [address] PATHOLOGIST CULTURE MEDIA LABORATORY ASSISTANT ANGELIA NIETO M.D. Performed By: #### A DDONUAPLUS, CUU #### [place] [address] [place] Ketones Ql (U) Negative Normal Negative [facility] Comment on above: Order Comment: Name Collection Type:: Clean-Voided Midstream Performed By: #### A DDONUAPLUS, CUU #### [address] Leukocyte esterase Test strip Ql (U) 2+ High Negative [facility] Comment on above: Order Comment: Name Collection Type:: Clean-Voided Midstream Performed By: #### A DDONUAPLUS, CUU #### [place] [address] [place] Nitrite,Urine Negative Normal Negative [facility] Comment on above: Order Comment: Name Collection Type:: Clean-Voided Midstream Performed By: #### A DDONUAPLUS, CUU #### [address] Occult Blood,Urine Negative Normal Negative [facility] Comment on above: Order Comment: Name Collection Type:: Clean-Voided Midstream Result Comment: PERF ORMED BY: [place] [address] PATHOLOGIST CULTURE MEDIA LABORATORY ASSISTANT ANGELIA NIETO M.D. Performed By: #### A DDONUAPLUS, CUU #### [address] pH (U) 7.0 [pH] Normal 5.0-9.0 [facility] Comment on above: Order Comment: Name Collection Type:: Clean-Voided Midstream Performed By: #### A DDONUAPLUS, CUU #### [place] [address] [place] Protein,Urine Negative Normal Negative [facility] Comment on above: Order Comment: Name Collection Type:: Clean-Voided Midstream Performed By: #### A DDONUAPLUS, CUU #### [place] [address] [place] RBC,Urine 1-2 Normal 0-4 [facility] Comment on above: Order Comment: Name Collection Type:: Clean-Voided Midstream Performed By: #### A DDONUAPLUS, CUU #### [facility] [address] [place] [address] Specificy [place],Urine 1.022 Normal 1.001-1.030 [facility] Comment on above: Order Comment: Name Collection Type:: Clean-Voided Midstream Performed By: #### A DDONUAPLUS, CUU #### [address] Squamous Epithelial Cell,Urine 5-9 High 0-2 [facility] Comment on above: Order Comment: Name Collection Type:: Clean-Voided Midstream Performed By: #### A DDONUAPLUS, CUU #### [address] Urobilinogen,Urine Normal Normal Normal [facility] Comment on above: Order Comment: Name Collection Type:: Clean-Voided Midstream Performed By: #### A DDONUAPLUS, CUU #### [address] WBC,Urine 20-49 High 0-4 [facility] Comment on above: Order Comment: Name Collection Type:: Clean-Voided Midstream Performed By: #### A DDONUAPLUS, CUU #### [address] HCG ( test) IA.rapi d Ql (U)Ordered By: Luci Daniels on 03-27-2023 HCG ( test) Ql (U) Positive [facility] HCG,Urineon 03-27-2023 Beta HCG ( test) Ql (U) Positive [facility] Comment on above: Result Comment: PERF ORMED BY: [place] [address] PATHOLOGIST CULTURE MEDIA LABORATORY ASSISTANT ANGELIA NIETO M.D. Performed By: #### U HCG #### [address] Ketones Auto test strip (U) [Mass/Vol]Ordered By: Luci Daniels on 03-27-2023 Ketones (U) [Mass/Vol] Negative Negative [facility] - UrinalysisOrder ed By: Luci Daniels on 03-27-2023 Hyaline casts LM Ql (Urine sed) 0-8 [LPF] 0-8 [facility] Nitrite Test strip Ql (U)Ord ered By: Luci Daniels on 03-27-2023 Nitrite Ql (U) Negative Negative [facility] Protein Auto test strip (U) [Mass/Vol]Ordered By: Luci Daniels on 03-27-2023 Protein (U) [Mass/Vol] Negative Negative [facility] Specific gravity Auto test s trip (U) [Rel density]Ordered By: Luci Daniels on 03-27-2023 Specific gravity (U) [Rel density] 1.022 1.001-1.030 [facility] Squamous epithelial cells de tection in urine sediment by light microscopyOrdered By: Luci Daniels on 03-27-2023 Epithelial cells.squamous LM Ql (Urine sed) 5-9 [HPF] 0-2 [facility] US OB transvaginalon 023 [place] [address] Ultrasound Report Signed Patient: Belle Najera MR#: [id number] 73 : 1995 Acct:[id number] Age/Sex: 28 / F ADM Date: 03/27/23 Loc: ER Room: Type: [facility] ER Attending Dr: Ordering Provider: Luci Daniels APRN Date of Service: 03/27/23 US/US OB <= 14 weeks fetus: 6 weeks ; abdominal pain ([id number]) US/US OB transvaginal: abd. pain w/ Copies [...] estimated gestational age of 6w2d weeks/days (accession [id number]), 6w1d weeks/days (accession [id number]) with an estimated date of delivery of 11/18/2023 (accession [id number]), 11/19/2023 (accession [id number]) and normal heart rate. The maurer of the gestational sac are slightly irregular/lobulated . This is of uncertain etiology. There is a trace amount of free fluid in the cul-de-sac. Impression dictated by: Fuentes Tomlinson M.D.03/27/2023 11:45 AM Dictation Location: [place] [address] Tech: Radha Adarsh Transcribed By: EMEKA 03/27/23 1145 Dictated By: Fuentes Tomlinson II, MD 03/27/23 1141 Signed By: 03/27/23 1145 [facility] Urine Cultureon 03-27-2023 Bacteria identified Cx Nom (U) >100,000 colonies/ml mixed bacterial skin contaminants 2 Days PERFORMED BY: [facility] [address] [place] [address] PATHOLOGIST CULTURE MEDIA LABORATORY ASSISTANT ANGELIA NIETO M.D. [facility] Comment on above: Performed By: #### A LILIBETH GAGNON #### [facility] [address] [place] [id number] [facility] Urine bacteria detection by automated methodOrdered By: Luci Daniels on 03-27-2023 Bacteria Auto Ql (U) 2+ None Seen [facility] Urine clarity by refractomet ry automatedOrdered By: Luci Daniels on 03-27-2023 Clarity Refractometry automated (U) Cloudy Clear [facility] Urine culture routineOrdered By: Luci Daniels on 03-27-2023 Bacteria identified Cx Nom (U) 2 Days [facility] Urine glucose measurement by automated test strip (mass/volume)Ordered By: Luci Daniels on 03-27-2023 Glucose Auto test strip (U) [Mass/Vol] Normal mg/dL Normal [facility] Urine hemoglobin detection b y automated test stripOrdered By: Luci Daniels on 03-27-2023 Hemoglobin Auto test strip Ql (U) Negative Negative [facility] Urine leukocyte esterase det ection by automated test stripOrdered By: Luci Daniels on 03-27-2023 Leukocyte esterase Auto test strip Ql (U) 2+ Negative [facility] Urobilinogen Auto test strip (U) [Mass/Vol]Ordered By: Luci Daniels on 03-27-2023 Urobilinogen (U) [Mass/Vol] Normal mg/dL Normal [facility] pH Auto test strip (U)Ordere d By: Luci Daniels on 03-27-2023 pH (U) 7.0 [pH] 5.0-9.0 [facility] XR knee RT 4V*on 02-01-2023 XR knee RT 4V* [facility] Main [place] [address] [place] [id number] XRay Report Signed Patient: Belle Najera MR#: [id number] 71 : 1995 Acct:[id number] Age/Sex: 28 / F ADM Date: 02/01/23 Loc: XD Room: Type: [facility] Attending Dr: Jacquelyn Rome APRN Copies [...] Fartun Villa M.D.02/01/2023 4:33 PM Dictation Location: [place] [address] Transcribed By: [facility] 02/01/23 163 Dictated By: Fartun Villa MD 02/01/23 163 Signed By: 02/01/231632 Normal [facility] US transvaginalon 09-15-2022 US transvaginal [facility] [place] [address] Ultrasound Report Signed Patient: Belle Najera MR#: [id number] [birth year] : 1995 Acct:[id number] Age/Sex: 27 / F ADM Date: 09/15/22 Loc: Room: Type: [facility] Attending Dr: Rosa Bowen ([facility]) ELSY Ordering Provider: Rosa Bowen APRN, WHCNP Date of Service: 09/15/22 US/US pelvic complete: R10.2 ([id number]) US/US transvaginal: R10.2 Copies to: Rosa Bowen [...] Fartun Villa M.D.09/15/2022 6:21 PM Dictation Location: [place] [address] Tech: Alexia Johnson Transcribed By: EMEKA 09/15/221820 Dictated By: Fartun Villa MD 09/15/221816 Signed By: 09/15/221820 [facility] Coding Summary.on 02-22-2019 Coding Summary. CODING DATE: 02/22/2019 [facility] STATUS: Home (Routine DC) PAYOR: Self [...] Date Saved: 02/22/2019 05:33 pm [facility] Vital Signs Date Time Vital Sign Value Performing Clinician Facility 04-24-2024 14:31-0500 Body mass index (BMI) [Ratio] 34.36 kg/m2 Dasha GA Work Phone: [facility] 04-24-2024 14:31-0500 Body weight 99.52 kg Dasha GA Work Phone: [facility] 04-24-2024 14:31-0500 Diastolic blood pressure 76 mm[Hg] Dasha Peters PA Work Phone: [facility] 04-24-2024 14:31-0500 Systolic blood pressure 120 mm[Hg] Dasha Peters PA Work Phone: [facility] 08-08-2023 11:08-0400 Diastolic blood pressure 54 mm[Hg] Vaishnavi Durán MD Work Phone: [facility] 08-08-2023 11:08-0400 Heart rate 80 /min Vaishnavi Durán MD Work Phone: [facility] 08-08-2023 11:08-0400 Systolic blood pressure 98 mm[Hg] Vaishnavi Durán MD Work Phone: [facility] 08-08-2023 10:13-0400 Body height 170.2 cm Vaishnavi Durán MD Work Phone: [facility] 08-08-2023 10:13-0400 Body mass index (BMI) [Ratio] 30.92 kg/m2 Vaishnavi Durán MD Work Phone: [facility] 08-08-2023 10:13-0400 Body weight 89.54 kg Vaishnavi Durán MD Work Phone: [facility] 06-29-2023 14:16-0500 Body weight 86.82 kg Dasha GA Work Phone: [facility] 06-29-2023 14:16-0500 Diastolic blood pressure 70 mm[Hg] Dasha ePters PA Work Phone: [facility] 06-29-2023 14:16-0500 Systolic blood pressure 118 mm[Hg] Dasha GA Work Phone: [facility] 06-02-2023 09:39-0500 Body height 167.6 cm Vaishnavi Durán MD Work Phone: [facility] 06-02-2023 09:39-0500 Body mass index (BMI) [Ratio] 30.34 kg/m2 Vaishnavi Durán MD Work Phone: [facility] 06-02-2023 09:39-0500 Body weight 85.28 kg Vaishnavi Durán MD Work Phone: [facility] 06-02-2023 09:39-0500 Diastolic blood pressure 60 mm[Hg] Vaishnavi Durán MD Work Phone: [facility] 06-02-2023 09:39-0500 Heart rate 60 /min Vaishnavi Durán MD Work Phone: [facility] 06-02-2023 09:39-0500 Systolic blood pressure 100 mm[Hg] Vaishnavi Durán MD Work Phone: [facility] 05-18-2023 09:33-0500 Body height 167.[address] 05-18-2023 09:33-0500 Body mass index (BMI) [Ratio] 29.05 kg/m2 [address] 05-18-2023 09:33-0500 Body weight 81.[address] 05-18-2023 09:33-0500 Diastolic blood pressure 82 mm[Hg] [address] 05-18-2023 09:33-0500 Systolic blood pressure 128 mm[Hg] [address] 03-27-2023 08:51-0500 Body temperature 98.5 [degF] ELSY Rome Work Phone: [facility] 03-27-2023 08:51-0500 Diastolic blood pressure 69 mm[Hg] ELSY Rome Work Phone: [facility] 03-27-2023 08:51-0500 Heart rate 82 /min ELSY Rome Work Phone: [facility] 03-27-2023 08:51-0500 Respiratory rate 18 /min ELSY Rome Work Phone: [facility] 03-27-2023 08:51-0500 SaO2% (BldA) [Mass fraction] 100 % ELSY Rome Work Phone: [facility] 03-27-2023 08:51-0500 Systolic blood pressure 111 mm[Hg] ELSY Rome Work Phone: [facility] 03-27-2023 08:50-0500 Body height 171.45 cm ELSY Rome Work Phone: [facility] 03-27-2023 08:50-0500 Body weight 80 kg ELSY Rome Work Phone: [facility] 03-15-2022 14:55-0400 Body height 170.18 cm PHYSICIAN [facility] 03-15-2022 14:55-0400 Body temperature 98.6 [degF] PHYSICIAN [facility] 03-15-2022 14:55-0400 Body weight 72.95 kg PHYSICIAN [facility] 03-15-2022 14:55-0400 Diastolic blood pressure 77 mm[Hg] PHYSICIAN [facility] 03-15-2022 14:55-0400 Heart rate 80 /min PHYSICIAN [facility] 03-15-2022 14:55-0400 Respiratory rate 14 /min PHYSICIAN [facility] 03-15-2022 14:55-0400 SaO2% (BldA) [Mass fraction] 99 % PHYSICIAN NO [facility] 03-15-2022 14:55-0400 Systolic blood pressure 133 mm[Hg] PHYSICIAN [facility] 11-01-2018 23:15-0400 Body Temperature 97.5 [degF] [facility] 11-01-2018 23:15-0400 BP Diastolic 80 mm[Hg] [facility] 11-01-2018 23:15-0400 BP Systolic 123 mm[Hg] [facility] 11-01-2018 23:15-0400 Pulse (Heart Rate) 84 /min [facility] 11-01-2018 23:15-0400 Pulse Oximetry 96 % [facility] 11-01-2018 23:15-0400 Respiratory Rate 18 /min [facility] Weight FAMILY [facility] NEGATED: Highlighted row BMI (Body Mass Index) [facility] NEGATED: Highlighted row Height [facility] Encounters Encounter Date Encounter Type Care Provider Facility Start: 04-24-2024 End: 04-24-2024 Bamboo flowsheet Dasha GA Work Phone: [facility] Start: 04-24-2024 End: 04-24-2024 Bamboo flowsheet Dasha GA Work Phone: [facility] Start: 04-24-2024 End: 04-24-2024 Patient encounter procedure Dasha GA Work Phone: [facility] Work Phone: Start: 04-24-2024 End: 04-24-2024 Periodic preventive med est patient 18-39 yrs Dasha GA Work Phone: [facility] Comment on above: Well woman exam with routine gynecological exam Start: 01-11-2024 End: 01-11-2024 ambulatory DASHA LORRAINE Not Available Start: 12-22-2023 End: 12-22-2023 ambulatory DASHA LORRAINE Not Available Start: 11-07-2023 End: 11-07-2023 ambulatory FLOR TISHA Not Available Start: 11-01-2023 End: 11-01-2023 ambulatory FLOR TISHA Not Available Start: 10-25-2023 End: 10-25-2023 ambulatory FLOR TISHA Not Available Start: 10-18-2023 End: 10-18-2023 ambulatory FLOR TISHA Not Available Start: 10-04-2023 End: 10-04-2023 ambulatory DASHA PETERS Not Available Start: 09-20-2023 End: 09-20-2023 ambulatory FLOR TISHA Not Available Start: 09-06-2023 End: 09-06-2023 ambulatory FLOR TISHA Not Available Start: 08-23-2023 End: 08-23-2023 ambulatory DASHA ROQUEEY Not Available Start: 08-08-2023 End: 08-08-2023 ambulatory [facility] Start: 08-08-2023 End: 08-08-2023 Office outpatient visit 15 minutes Vaishnavi Durán MD Work Phone: [facility] Comment on above: 25 weeks gestation o f (Primary Dx); Long Q-T syndrome Start: 07-26-2023 End: 07-26-2023 ambulatory FLOR TISHA Not Available Start: 06-29-2023 End: 06-29-2023 flow sheet Dasha GA Work Phone: [facility] Comment on above: Second trimester pre gnancy; Diabetes mellitus screening Start: 06-29-2023 End: 06-29-2023 ambulatory DASHA PETERS Not Available Start: 06-02-2023 End: 06-02-2023 ambulatory [facility] Start: 06-02-2023 End: 06-02-2023 Office outpatient visit 15 minutes Vaishnavi Durán MD Work Phone: [facility] Comment on above: Long Q-T syndrome; Medication course changed Start: 05-18-2023 End: 05-18-2023 Subsequent hospital visit by physician Stephanie Jean Echo/Vasc Room 2 [facility] Comment on above: Long Q-T syndrome Start: 05-18-2023 End: 05-18-2023 ambulatory [facility] Start: 04-29-2023 End: 04-29-2023 ambulatory FLOR TISHA Not Available Start: 04-21-2023 End: 04-21-2023 ambulatory [facility] Start: 03-27-2023 End: 03-27-2023 Emergency department patient visit Luci Daniels Facility:[facility] Start: 03-27-2023 End: 03-27-2023 Emergency department patient visit ELSY Rome Work Phone: [facility] Work Phone: Start: 03-15-2023 End: 03-15-2023 ambulatory Jacquelyn Rome Facility:[facility] Start: 03-15-2023 End: 03-15-2023 ambulatory ELSY Rome Work Phone: [facility] Work Phone: Start: 03-15-2023 End: 03-15-2023 Discharged Recurring ELSY Rome Work Phone: [facility]Physical Therapy [place] Start: 03-15-2023 Registered Recurring LAND MANAGERCatina Rome Work Phone: [facility] [place] Start: 02-01-2023 Registered Recurring ELSY Rome Work Phone: [facility] [place] Start: 02-01-2023 End: 02-01-2023 ambulatory Jacquelyn Rome Facility:[facility] Start: 02-01-2023 End: 02-01-2023 ambulatory ELSY Rome Work Phone: [facility] Work Phone: Start: 02-01-2023 End: 02-01-2023 Patient encounter procedure ELSY Rome Work Phone: [facility]XRay [facility] [place] Work Phone: Start: 09-15-2022 End: 09-15-2022 ambulatory PHYSICIAN NO FAMILY Facility:[facility] Start: 09-15-2022 End: 09-15-2022 ambulatory PHYSICIAN NO FAMILY [facility] Work Phone: Start: 09-15-2022 End: 09-15-2022 Patient encounter procedure PHYSICIAN NO [facility]Ul[facility] [place] Work Phone: Start: 03-15-2022 End: 03-15-2022 Emergency department patient visit PHYSICIAN NO [facility] Start: 11-01-2018 End: 11-02-2018 Emergency department patient visit FAMILY [facility] Procedures Date Procedure Procedure Detail Performing Clinician Start: 08-08-2023 ECG 12-LEAD VAISHNAVI SNACHEZ Start: 08-08-2023 FOLLOW UP IN CARDIOLOGY VAISHNAVI [...] 12-LEAD VAISHNAVI SANCHEZ Start: 03-27-2023 Urine culture LAND MANAGERCatina cooley [place] Work Phone: Start: 03-27-2023 Diagnostic ultrasoun d of gravid uterus ELSY Valladares [place] Work Phone: Start: 03-27-2023 Transvaginal obstetr ic ultrasonography ELSY Valladares [place] Work Phone: Start: 02-01-2023 X-ray of right knee APR Catina Valladares [place] Work Phone: Start: 09-15-2022 Pelvic echography PHYSI AYAD NO FAMILY Start: 09-15-2022 Transvaginal echography PHYSICIAN NO FAMILY Plan of Treatment Date Care Activity Detail Author Start: 2047 Zoster Vaccines (1 o f 2) Zoster Vaccines (1 of 2) [facility] Start: 04-24-2024 End: 04-24-2024 Patient encounter procedure 04/24/2024 2:00 PM EST Office Visit [facility] [address] [place] [id number] Dasha Peters PA [address] [place], [place] [id number] Arrived [facility] Comment on above: Arrived Start: 01-22-2024 Influenza vaccination Influenza Vacc ine (#1) [facility] Start: 11-14-2023 End: 11-14-2023 Patient encounter procedure 11/14/2023 10:00 AM EDT Office Visit [address] [phone] Vasihnavi Durán MD [address] [facility] [address] [place] [address] [facility] Start: 08-08-2023 End: 08-08-2023 Patient encounter procedure 08/08/2023 10:15 AM EDT Office Visit [address] [phone] Vaishnavi Durán MD [address] [facility] [address] [place] [address] [facility] Start: 07-26-2023 End: 07-26-2023 Patient encounter procedure 07/26/2023 2:10 PM EST Routine [facility] [address] [place] [address] Flor Giles DO [address] [place], [place] [id number] [facility] Start: 06-29-2023 End: 06-29-2024 CBC panel - Blood by Automated count CBC Lab Routine Diabetes mellitus screening Expected: 06/29/2023 (Approximate), Expires: 06/29/2024 [facility] Work Phone: Comment on above: Expected: 06/29/2023 (Approximate), Expires: 06/29/2024 Start: 06-29-2023 End: 06-29-2024 Measurement of glucose 1 hour after glucose challenge for glucose tolerance test Glucose tolerance, 1 hour Lab Routine Diabetes mellitus screening Expected: 06/29/2023 (Approximate), Expires: 06/29/2024 [facility] Comment on above: Expected: 06/29/2023 (Approximate), Expires: 06/29/2024 Start: 06-02-2023 End: 06-02-2024 Basic metabolic 2000 panel - Serum or Plasma Basic Metabolic Panel Lab Routine Long Q-T syndrome Expected: 06/02/2023 (Approximate), Expires: 06/02/2024 [facility] Service Area Work Phone: Comment on above: Expected: 06/02/2023 (Approximate), Expires: 06/02/2024 Start: 06-02-2023 End: 06-02-2023 Patient encounter procedure 06/02/2023 9:30 AM EST Office Visit [facility] [address] [facility] [address] [place] [address] Vaishnavi Durán MD [address] [facility] [address] [place] [address] [facility] Start: 03-27-2023 Bacteria identified in Urine by Culture [facility] Start: 03-12-2023 HPV Vaccines (3 - 3-dose series) HPV Vaccines (3 - 3-dose series) [facility] Start: 01-21-2023 COVID-19 Vaccine ( season) COVID-19 Vaccine ( season) [facility] Start: 01-21-2023 Influenza vaccination Influenza Vacc ine (#1) [facility] Start: 03-28-2021 COVID-19 Vaccine (3 - Pfizer series) COVID-19 Vaccine (3 - Pfizer series) [facility] Start: 01-08-2020 DTaP/Tdap/Td Vaccine s (7 - Td or Tdap) DTaP/Tdap/Td Vaccines (7 - Td or Tdap) [facility] Start: 2018 Screening for malignant neoplasm of cervix [facility] Start: 2015 Hepatitis C screening Hepatitis C Sc reeguevara [facility] Start: 09-11-2002 Varicella vaccination Varicell a Vaccines (2 of 2 - 2-dose childhood series) [facility] Start: 1997 HIV screening HIV Screening [facility] Start: 1997 Lipid panel Lipid Panel [facility] Start: 1997 Yearly Adult Physical Yearly Adult P hysical [facility] Cytology Cervical or vaginal smear or scraping study Pap Smear Pathology and Cytology Routine Well woman exam with routine gynecological exam Ordered: 04/24/2024 [facility] Work Phone: Comment on above: Ordered: 04/24/2024 Patient Education [facility] Patient referral [facility] Work Phone: Immunizations Immunization Date Immunization Notes Care Provider Fa mike 11-10-2022 Human Papillomavirus 9-valent vaccine [address] Work Phone: 11-10-2022 HPV, unspecified formulation [address] Work Phone: 09-07-2022 Human Papillomavirus 9-valent vaccine [address] Work Phone: 06-04-2011 influenza virus vacc ine, whole virus [address] Work Phone: 06-04-2011 influenza virus vacc ine, unspecified formulation [address] Work Phone: 01-07-2010 tetanus toxoid, redu yolanda diphtheria toxoid, and acellular pertussis vaccine, adsorbed [address] Work Phone: 08-14-2002 diphtheria, tetanus toxoids and acellular pertussis vaccine, unspecified formulation [address] Work Phone: 08-14-2002 measles, mumps and r ubella virus vaccine [address] Work Phone: 08-14-2002 poliovirus vaccine, inactivated [address] Work Phone: 04-30-1998 diphtheria, tetanus toxoids and acellular pertussis vaccine, unspecified formulation [address] Work Phone: 04-30-1998 haemophilus influenz ae type b vaccine, PRP-OMP conjugate [address] Work Phone: 04-30-1998 measles, mumps and r ubella virus vaccine [address] Work Phone: 04-30-1998 trivalent poliovirus vaccine, live, oral [address] Work Phone: 04-30-1998 varicella virus vaccine [address] Work Phone: 1997 diphtheria, tetanus toxoids and acellular pertussis vaccine, unspecified formulation [address] Work Phone: 1997 haemophilus influenz ae type b conjugate and Hepatitis B vaccine [address] Work Phone: 1997 diphtheria, tetanus toxoids and acellular pertussis vaccine, unspecified formulation [address] Work Phone: 1997 haemophilus influenz ae type b vaccine, HbOC conjugate [address] Work Phone: 1997 poliovirus vaccine, inactivated [address] Work Phone: 1997 diphtheria, tetanus toxoids and acellular pertussis vaccine, unspecified formulation [address] Work Phone: 1997 haemophilus influenz ae type b conjugate and Hepatitis B vaccine [address] Work Phone: 1997 poliovirus vaccine, inactivated [address] Work Phone: 1997 hepatitis B vaccine, pediatric or pediatric/adolescent dosage [address] Work Phone: Payers Date Payer Category Payer Medicaid [id number] 2023 Medicaid [id number] 2022 Self-pay 2021 [facility] er [id number] 2021 Unknown [id number]. [id number]. [id number] 2021 Unknown [id number] 1997 Unknown [id number] 2.16.840.1.135412.3.579.2. 1243 1997 Unknown [id number] 2.16.840.1.279139.3.579.2. 4 1997 Unknown [id number] 2.16.840.1.773170.3.579.2. 1244 1997 Unknown [id number] 2.16.840.1.020030.3.579.2. 9 1997 Unknown [id number] 2.16.840.1.683922.3.579.2. 1258 1997 Unknown [id number] 2.16.840.1.414742.3.579.2. 1258 1997 Unknown [id number] 2.16.840.1.929301.3.579.2. 1258 1997 Unknown [id number] 2.16.840.1.228688.3.579.2. 1258 1997 Unknown [id number] 2.16.840.1.375863.3.579.2. 1258 1997 Unknown [id number] 2.16.840.1.163992.3.579.2. 1258 1997 Unknown [id number] 2.16840.1.228453.3.579.2. 1258 1997 Unknown [id number] 2.16840.1.898742.3.579.2. 1258 1997 Unknown [id number] 2.16.840.1.372272.3.579.2. 1258 1997 Unknown [id number] 2.16.840.1.876054.3.579.2. 1258 1997 Unknown [id number] 2.16840.1.802600.3.579.2. 1258 1997 Unknown [id number] 2.16.840.1.605877.3.579.2. 1258 1997 Unknown [id number] 2.16.840.1.026486.3.579.2. 1258 1997 Unknown [id number] 2.16840.1.327833.3.579.2. 1246 Private Health Insurance [id number] Unknown [id number] 2.16840.1.859140.3.579.2. 531 Unknown [id number] 2.16.840.1.600614.3.579.2. 531 Unknown [id number] 2.16.840.1.288992.3.579.2. 531 Unknown [id number] 2.16.840.1.417482.3.579.2. 531 Social History Date Type Detail Facility Tobacco smoking stat [facility] Unknown if ever smoked [facility] Start: 1997 Sex Assigned At Female F [facility] Start: 03-15-2022 End: 03-27-2023 Tobacco smoking status NHIS Smoker (finding) [facility] Start: 04-21-[facility]23 [facility] Work Phone: End: 02-20-2023 History of tobacco use Cigarette Smoker [facility] Work Phone: Start: 04-21-2023 End: 06-02-2023 Cigarettes smoked current (pack per day) - Reported 1 [facility] Work Phone: Start: 04-21-2023 Tobacco use and exposure Former smokeless tobacco user [facility] Work Phone: End: 02-20-2023 History of tobacco use User of smokeless tobacco [facility] Work Phone: Start: 04-21-2023 End: 08-08-2023 Alcohol intake Ex-drinker (finding) [facility] Work Phone: Start: 04-21-2023 End: 06-02-2023 Tobacco use panel [facility] Work Phone: Start: 04-21-2023 Tobacco Comment Vaping [facility] Work Phone: Start: 1997 Sex Assigned At Not on file [facility] Work Phone: Start: 05-08-2023 End: 08-08-2023 Exposure to SARS-CoV-2 (event) Not sure [facility] Tobacco smoking stat [facility] Tobacco smoking consumption unknown [facility] Start: 02-24-2023 [facility] Goals Date Patient Goal Desired Activity /State Clinical Notes 06-02-2023 to 04-24-2024 HARMEET Pierre - 04/24/2024 2:00 PM Rosa Durán MD - 08/08/2023 10:15 AM EDTPatient InstructionsHARMEET Pierre - 06/29/2023 2:00 PM Rosa Durán MD - 06/02/2023 9:30 AM ESTPatient Instructions Note Date & Type Note Facility 04-24-2024 History of Present illness Narrative Reason for Appointment: Patient ID: Belle Najera is a 29 y.o. female who presents for Well Women Visit Patient presents today for Annual Exam. MEDICATIONS Current Outpatient Medications Medication Instructions albuterol HFA 90 mcg/act inhaler 2 puffs, Every 4 hours PRN cholecalciferol (VITAMIN D-3) 5,000 Units, Daily magnesium oxide (MAG-OX) 400 mg, 2 times daily sertraline (ZOLOFT) 100 mg, Daily ALLERGIES Allergies Allergen Reactions Sulfa Antibiotics Other Reaction(s): Unknown Other Reaction(s): Unknown Reaction Ferrous Sulfate Unknown Other Reaction(s): Unknown PROBLEMS Active Ambulatory Problems Diagnosis Date Noted Second trimester 06/23/2023 Resolved Ambulatory Problems Diagnosis Date Noted No Resolved Ambulatory Problems Past Medical History: Diagnosis Date Knee problem HISTORY PAST MEDICAL HISTORY SOCIAL HISTORY Past Medical History: Diagnosis Date Knee problem Deformed of knee caps Social History Tobacco Use Smoking status: Not on file Smokeless tobacco: Not on file Substance Use Topics Alcohol use: Not on file Drug use: Not on file FAMILY HISTORY Family History Problem Relation Name Age of Onset Diabetes Mother Liver cancer Mother No Known Problems Father No Known Problems Sister No Known Problems Brother Seizures Father's Brother SURGICAL HISTORY Past Surgical History: Procedure Laterality Date OTHER SURGICAL HISTORY Needs surgery -planned ; Disease: deformed of knee caps REVIEW OF SYSTEMS Review of Systems: Review of Systems Constitutional: Negative. HENT: Negative. Eyes: Negative. Respiratory: Negative. Cardiovascular: Negative. Gastrointestinal: Negative. Genitourinary: Negative. Musculoskeletal: Negative. Skin: Negative. Neurological: Negative. All other systems reviewed and are negative. Hematological: Negative. Endocrine: Negative. Allergic/Immunologic: Negative. OBJECTIVE Objective: Physical Exam Constitutional: Appearance: Normal appearance. She is well-developed. Genitourinary: Vulva normal. Right Adnexa: not tender and no mass present. Left Adnexa: not tender and no mass present. No cervical discharge. Breasts: Breasts are soft. Right: Normal. Left: Normal. HENT: Head: Normocephalic. Nose: Nose normal. Mouth/Throat: Mouth: Mucous membranes are moist. Cardiovascular: Rate and Rhythm: Normal rate and regular rhythm. Pulmonary: Effort: Pulmonary effort is normal. Breath sounds: Normal breath sounds. Abdominal: General: Bowel sounds are normal. There is no distension. Palpations: Abdomen is soft. Tenderness: There is no abdominal tenderness. There is no guarding or rebound. Musculoskeletal: General: No swelling. Normal range of motion. Cervical back: Normal range of motion. Right lower leg: No edema. Left lower leg: No edema. Neurological: General: No focal deficit present. Mental Status: She is alert and oriented to person, place, and time. Skin: General: Skin is warm and dry. Psychiatric: Mood and Affect: Mood normal. Behavior: Behavior normal. Vitals and nursing note reviewed. Exam conducted with a assembling machine operator present. Vitals: Estimated body mass index is 34.36 kg/m as calculated from the following: Height as of 12/22/23: 5' 7 . Weight as of this encounter: 219 lb 6.4 oz. BP: 120/76 No LMP recorded. ASSESSMENT & PLAN ICD-10-CM 1. Well woman exam with routine gynecological exam Z01.419 Pap Smear Annual Exam: Patient presents today for an annual exam. Patient states she is doing well and has no complaints. Pap was obtained without difficulty. Noy declines any control at this time. Follow Up: Patient is to return in one year for annual unless needed otherwise. Documented by Rosa Chino LPN on behalf of: HARMEET Pierre documented in this encounter [facility] 08-08-2023 History of Present illness Narrative Patient [...] redirect to the Timeline version of the [employer] SmartLink. Wt Readings from Last 3 Encounters: [...] that she add some salt and maybe tribal juice to the water that she drinks. [...] discussion and plan. documented in this encounter [facility] Work Phone: 08-08-2023 Instructions Hetal Jacobo [...] in office today documented in this encounter [facility] Work Phone: 06-29-2023 History of Present [...] prescription(s): magnesium oxide, albuterol hfa, ondansetron, ondansetron, [id number]-fa-dha w/o a, 19, and sertraline. Medical History: [...] of: HARMEET Pierre documented in this encounter [facility] 06-02-2023 History of Present illness Narrative Patient [...] There is small atrial septal defect with [id number] shunt. 3. Mild mitral valve regurgitation. QUANTITATIVE [...] Vaishnavi Durán MD documented in this encounter [facility] Work Phone: 06-02-2023 Instructions Mounika Dean [...] of your visit. documented in this encounter [facility] Work Phone: Evaluation note No assessment inform ation available [facility] Work Phone: Evaluation note Diagnosis Long Q-T syndrome Long QT syndrome documented in this encounter [facility] Work Phone: Evaluation note* Diagnosis Long Q-T syndrome Long QT syndrome Medication course changed documented in this encounter [facility] Work Phone: Evaluation note* Diagnosis Second trimester state, incidental Diabetes mellitus screening Screening for diabetes mellitus documented in this encounter [facility] Healthcare[facility]* Diagnosis 25 weeks gestation of - Primary Long Q-T syndrome Long QT syndrome documented in this encounter [facility] Work Phone: Evaluation note* Diagnosis Well woman exam with routine gynecological exam Routine gynecological examination [facility] Additional Instructions 1. Push fluids today and tomorrow 2. No lifting, pushing or pulling today 3. [facility] tomorrow [facility]: Reason for referral (narrative)* Consultation (Routine) - Authorized Specialty Diagnoses / Procedures Referred By Ruslan t Referred To Contact Cardiology Diagnoses Long Q-T syndrome Procedures Follow Up In Cardiology Vaishnavi Durán MD [address] [facility] [address] [place] [address] Vaishnavi Durán MD [address] [facility] [address] [place] [address] Referral ID Status Reason Start Date Expiration Date V isits Requested Visits Authorized [id number] Authorized 06/02/2023 06/01/2024 1 1 [facility] Work Phone: Reason for referral (narrative)* Consultation (Routine) - Authorized Specialty Diagnoses / Procedures Referred By Contac t Referred To Contact Cardiology Diagnoses Long Q-T syndrome Procedures Follow Up In Cardiology Vaishnavi Durán MD [address] [facility] [address] [place] [address] Vaishnavi Durán MD [address] [facility] [address] [place] [address] Referral ID Status Reason Start Date Expiration Date V isits Requested Visits Authorized [id number] Authorized 08/08/2023 08/07/2024 1 1 * Cardiovascular (Routine) - Authorized Specialty Diagnoses / Procedures Referred By Contac t Referred To Contact Diagnoses Long Q-T syndrome Procedures ECG 12 Lead Vaishnavi Durán MD [address] [facility] [address] [place] [address] Referral ID Status Reason Start Date Expiration Date V isits Requested Visits Authorized [id number] Authorized 08/08/2023 08/07/2024 1 1 [facility] Work Phone: Chief Complaint and Reason [...] FoundNo Family History Records Found Advance Directives Advance Directive Response Recorded Date/ Time Advance Directives No November 01 9:31pm Advance Directive Response Recorded Date/ Time Advance Directives No November 01 8:31pm Assessments No Assessments Information AvailableNo Assessments Information Available Reason for Referral Specialty Diagnoses / Procedures Referred By Contac t Referred To Contact Cardiology Diagnoses Long Q-T syndrome Procedures Transthoracic Echo (TTE) Complete ND ECHO TRANSTHORC R-T 2D W/WO M-MODE REC F-UP/LMTD ND DOP ECHOCARD COLOR FLOW VELOCITY MAPPING ND DOP ECHOCARD PULSE WAVE W/SPECTRAL F-UP/LMTD STD Vaishnavi Durán MD [address] [facility] [address] [place] [address] Referral ID Status Reason Start Date Expiration Date Visits Requested Visits Authorized [id number] Authorized Perform Procedure 3 04/20/2024 1 1 Additional Source Comments INFORMATION SOURCE (unrecogn ized section and content) DATE CREATED AUTHOR 02/23/2019 [facility] DATE CREATED AUTHOR AUTHOR'S ORGANIZ ATION 07/01/2023 [facility] DATE CREATED AUTHOR AUTHOR'S ORGANIZ ATION 08/08/2023 [facility] [facility] DATE CREATED AUTHOR AUTHOR'S ORGANIZ ATION 01/13/2024 [facility] EPIC DATE CREATED AUTHOR AUTHOR'S ORGANIZ ATION 02/06/2024 [facility] Care Teams (unrecognized sec tion and content) Team Status: Inactive Member Role Status Dates PHYSICIAN NO FAMILY Primary Care Provider Active Abdi Arzola APRN Emergency Provider Active Team Status: Active Member Role Status Dates PHYSICIAN NO FAMILY Primary Care Provider Active Team Status: Inactive Member Role Status Dates PHYSICIAN NO FAMILY Primary Care Provider Active Rosa [facility]NEW [facility]ITALEL[facility] Attending Provider Active Team Status: Active Member Role Status Dates Jacquelyn Rome APRN Primary Care Provider Active Team Status: Inactive Member Role Status Dates Jacquelyn S West , LAND MANAGER Primary Care Provider, Attendin g Provider Active Team Status: Active Member Role Status Dates Jacquelyn Rome APRN Primary Care Prov ider, Attending Provider, Referring Provider Active Team Status: Inactive Member Role Status Dates Jacquelyn Rome LAND MANAGER Primary Care Provider Active Luci Daniels , LAND MANAGER Emergency Provider Active Website/Blog Editor Relationship Specialty Start Date End Date TishaFlor DO [address] [facility] [address], [place] [address] PCP - General Obstetrics and Gynecology 05/18/23 Team Status: Inactive Member Role Status Dates Jacquelyn Rome ELSY Primary Care Prov ider, Attending Provider, Referring Provider Active Website/Blog Editor Relationship Specialty Start Date End Date Flor Giles DO [address] [facility] [address], [place] [address] PCP - General Obstetrics and Gynecology 05/18/23 Website/Blog Editor Relationship Specialty Start Date End Date Tisha Florcarmel Parsons, DO [address] [facility] [address], [place] [address] PCP - General Obstetrics and Gynecology 05/18/23 [...] Up In Cardiology Vaishnavi Durán MD [address] [facility] [address] [place] [address] Vaishnavi Druán MD [address] [facility] [address] [place] [address] Referral ID Status Reason Start Date Expiration Date V isits Requested Visits Authorized [id number] Authorized 06/02/2023 06/01/2024 1 1 Specialty Diagnoses / Procedures Referred By Contac t Referred To Contact Cardiology Diagnoses Long Q-T syndrome Procedures Transthoracic Echo (TTE) Complete ND ECHO TRANSTHORC R-T 2D W/WO M-MODE REC F-UP/LMTD ND DOP ECHOCARD COLOR FLOW VELOCITY MAPPING ND DOP ECHOCARD PULSE WAVE W/SPECTRAL F-UP/LMTD STD Vaishnavi Durán MD [address] [place] [address] [address] [place] [address] Referral ID Status Reason Start Date Expiration Date Visits Requested Visits Authorized [id number] Authorized Perform Procedure 04/20/2024 1 1 Reason Comments Follow-up Echo results Referral ID Status Reason Start Date Expiration Date V isits Requested Visits Authorized [id number] Authorized 04/21/2023 04/20/2024 1 1 Reason Comments Routine Visit Reason Comments Well Women Visit FOR RECORDS PERTAINING TO PATIENTS WHO [...] BE BASED ON THE PRIMARY CLINICAL RECORDS. [facility] [employer] provides no warranty or guarantee of the accuracy or completeness of information in this document.
[2024-05-01 10:11] LABS: Age Gdln ACOG Testing Note (.); IGP, rfx Aptima HPV ASCU Note (.)
== END 2024-04-24 20:30 | disposition home or self-care (01) ==
LOC: LAB 20:29
PROVIDERS: Visit Provider Physician Assistant
DX: Z01.419 Encounter for gynecological examination (general) (routine) without abnormal findings (principal)
CPT/HCPCS: 88175

== ENCOUNTER 2025-04-25 13:22 | Outpatient (REF) | payer BC, MEDICAID, SELFPAY ==
[2025-04-27 08:09] LABS: Age Gdln ACOG Testing Note (.); IGP, rfx Aptima HPV ASCU Note (.)
== END 2025-04-25 13:23 | disposition home or self-care (01) ==
LOC: LAB 13:22
PROVIDERS: Visit Provider Obstetrics & Gynecology
DX: Z01.419 Encounter for gynecological examination (general) (routine) without abnormal findings (principal)
CPT/HCPCS: 88175